=== PATIENT | female | born 1955 | race Caucasian/White ===

== ENCOUNTER → 2016-07-21 | Outpatient (REF) | payer OTHER ==
[~2016-07-21] MED LIST: ACID1CHW5 PO; ACIDCHW PO; BIOT10005 PO; BIOTPOW20 PO; CALCTAB68 PO; CLIN300C PO; GABA-279 PO; IBUP-1114 PO; IBUP200T2 PO; L-LY500C2 PO; L-LY500T4 PO; MULTCAP PO; MULTCAP11 PO; OCEAN NASAL SPRAY; TYLENOL PO; ZOFR4TAB3 PO; lortab PO
== END ==
LOC: M SFHCPLAZ 16:53
PROVIDERS: ATTEND Dermatology
DX: L97.529 Non-pressure chronic ulcer of other part of left foot with unspecified severity (principal)

== ENCOUNTER → 2016-07-28 | Outpatient (REF) | payer OTHER ==
[2016-07-28 17:40] LABS: BASO % 1.1 % (0.0-1.0); EOS # 0.2 K/mm3 (0.0-0.50); EOS % 3.8 % (0.0-3.0); LARGE UNSTAINED CELL # 0.1 K/mm3 (0.0-0.4); LARGE UNSTAINED CELL % 2.8 % (0.0-4.0); LYMPH # 1.3 K/mm3 (1.5-4.5); LYMPH % 30.8 % (24.0-44.0); MEAN CORPUSCULAR HEMOGLOBIN 32.8 pg (27.0-33.0); MEAN CORPUSCULAR HGB CONC 34.6 g/dl (32.0-36.5); MEAN CORPUSCULAR VOLUME 94.8 fl (80.0-96.0); MONO # 0.5 K/mm3 (0.0-0.8); MONO % 12.2 % (0.0-5.0); NEUTROPHILS % 49.2 % (36.0-66.0); PLATELET COUNT, AUTOMATED 220 k/mm3 (150-450)
[2016-07-28 18:32] LABS: VITAMIN B12 LEVEL 556 PG/ML (247-911)
[2016-07-28 18:36] LABS: ALBUMIN 3.9 GM/DL (3.2-5.2); ALBUMIN/GLOBULIN RATIO 1.26 (1.00-1.93); ALKALINE PHOSPHATASE 87 U/L (45-117); ALT/SGPT 27 U/L (12-78); ANION GAP 10 MEQ/L (8-16); AST/SGOT 31 U/L (15-37); BILIRUBIN,TOTAL 0.3 MG/DL (0.2-1.0); BLOOD UREA NITROGEN 9 MG/DL (7-18); CALCIUM LEVEL 8.3 MG/DL (8.5-10.1); CARBON DIOXIDE LEVEL 28 MEQ/L (21-32); CHLORIDE LEVEL 90 MEQ/L (98-107); CREATININE FOR GFR 0.78 MG/DL (0.55-1.02); GLOMERULAR FILTRATION RATE > 60.0 (>51); GLUCOSE, FASTING 71 MG/DL (70-105); POTASSIUM SERUM 3.6 MEQ/L (3.5-5.1); SODIUM LEVEL 128 MEQ/L (136-145)
== END ==
LOC: M LABDRAW1 16:46
PROVIDERS: ATTEND Family Medicine
DX: R53.83 Other fatigue (principal)

== ENCOUNTER → 2016-07-28 | Outpatient (REF) | payer OTHER | END | disposition home or self-care (01) | LOC: M LABDRAW1 16:45 | PROVIDERS: ATTEND Dermatology | DX: R21 Rash and other nonspecific skin eruption (principal) ==

== ENCOUNTER 2016-08-08 14:30 | Emergency (ER) | payer OTHER ==
--- NOTE | 2016-08-08 15:56 | REP ---
Clinical: Trauma. Technique: AP, lateral, bilateral oblique views of the left ankle. Findings: Left lateral swelling is appreciated along with evidence for old lateral malleolus fracture. Degenerative changes are noted to the midfoot with overlying soft tissue swelling and oblique image suggests possible small acute versus chronic avulsion fragments along the anterolateral midfoot. Ankle mortise intact. Impression: Evidence for old lateral malleolus fracture. Degenerative changes limit evaluation. Soft tissue swelling is appreciated and very small acute vs chronic avulsion fragment along the anterolateral midfoot identified on image 4 cannot be excluded. Signed by Keith Rider MD 08/08/2016 03:47 P
--- NOTE | 2016-08-08 15:57 | REP ---
Clinical: Trauma. Technique: AP and frog lateral views of the left femur. Findings: Arthritic degenerative changes of the hip include subchondral sclerosis, joint space narrowing, and spurring along the acetabular margin and inferior margin of the femoral head. No acute fracture dislocation. Impression: Moderate arthritic changes at the left hip. No acute fracture dislocation. Signed by Keith Rider MD 08/08/2016 03:49 P
--- NOTE | 2016-08-08 17:12 | EDDOCDS ---
Nurse's Notes [facility] Name: Gill Moran Age: 61 yrs Sex: Female : 1955 Arrival Date: 08/08/2016 Time: 14:30 Bed TR7 Private MD: Pia Mast A Diagnosis: Sprain of calcaneofibular ligament of left ankle;Fall on same level from slipping, tripping and stumbling Presentation: 08/08 14:40 Presenting complaint: Patient states: pt slipped in locker room yesterday and twisted ttb left ankle. Pain to left foot, knee, leg pain. Adult Sepsis Screening: The patient does not have new or worsening altered mentation. Patient's respiratory rate is less than 22. Systolic blood pressure is greater than 100. Patient has a qSOFA score of 0- Negative Sepsis Screen. Suicide/Homicide risk assessment- the patient denies having any suicidal and/or homicidal ideations and does not present with any other emotional, behavioral or mental health complaints. 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 Transition of care: patient was not received from another setting of care. 14:40 Acuity: DEAN Level 4 ttb 14:40 Method Of Arrival: Walkin/Carried/Asstd ttb Triage Assessment: 14:44 General: Appears in no apparent distress, well nourished, well groomed, Behavior is ttb anxious, restless. Pain: Location: left leg 8/10. HIV screening NA for this visit Offered previously. Neurological: Level of Consciousness is awake, alert. Cardiovascular: Chest pain is denied. Respiratory: No deficits noted. Airway is patent. GI: Denies nausea, vomiting, pain. Derm: Skin is normal. Musculoskeletal: Range of motion limited in pt states entire left leg d/t pain Reports pain in left ankle, knee and leg. Historical: - Allergies: Keflex; Amoxicillin; Cipro PO; cephalexin; - Home Meds: 1. gabapentin 100 mg Oral tab 5x/day (Last dose: 08/08/2016 13:00) 2. ibuprofen 600 mg Oral tab PRN (Last dose: 08/08/2016 13:30) 3. Percocet 5-325 mg Oral tab 1 tab PRN : night time for chronic pain (Last dose: 08/07/2016) - PMHx: Seizure Disorder; "low sodium disorder"; - PSHx: Hip Arthroplasty, Right; nasal/sinus surgery; - Social history: Smoking status: Patient states was never smoker of tobacco. Patient/guardian denies using alcohol, street drugs, No barriers to communication noted, The patient speaks fluent Cape Verdean, Speaks appropriately for age. - : The pt / caregiver states he / she is not on anticoagulants. Home medication list is obtained from the patient. - Exposure Risk Screening:: None identified. Screenin:10 Screening information is obtained from the patient. Fall risk: No risks identified. jjr Assistance ADL's: requires no assistance with activities of daily living. Abuse/DV Screen: The patient / caregiver reports he/she is: not in a situation that causes fear, pain or injury. Nutritional screening: No deficits noted. Advance Directives: There is no active DNR order. home support is adequate. Assessment: 17:10 General: Appears in no apparent distress, slender, well nourished, well groomed, jjr Behavior is appropriate for age. Musculoskeletal: Reports pain in left lateral ankle, left medial ankle and anterior aspect of left ankle. Vital Signs: 14:33 BP 129 / 81 RA Sitting (auto/reg); Pulse 65; Resp 18; Temp 97.1(O); Pulse Ox 100% on jrd R/A; Weight 49.44 kg (R); Height 5 ft. 5 in. (165.10 cm) (R); Pain 8/10; 17:09 BP 133 / 83; Pulse 63; Resp 18; Temp 97.9(O); Pulse Ox 96% on R/A; Pain 9/10; jjr 14:33 Body Mass Index 18.14 (49.44 kg, 165.10 cm) [facility] Vitals: 14:33 Log In Time: August 08, 2016 at 14:30. [facility] ED Course: 14:32 Patient visited by Pool Miramontes PCA. jrd 14:32 Patient moved to Waiting jrd 14:33 Pia Mast is Private Physician. jrd 14:35 Patient visited by Pool Miramontes PCA. jrd 14:35 Patient moved to Pre RCE jrd 14:41 Triage Initiated ttb 14:52 Immanuel Deutsch PA-C is PHCP. cc10 14:52 Scott Levine MD is Attending Physician. cc10 14:52 Patient moved to Triage 3 ar3 15:00 Patient visited by Immanuel Deutsch PA-C. cc10 15:00 Patient visited by Immanuel Deutsch PA-C. cc10 15:29 Patient moved to TR1 ar3 16:03 Ankle, Complete Returned. EDMS 16:03 Femur Returned. EDMS 16:30 Patient moved to PR1 / 25 ms18 16:31 Patient visited by Aliya Hernandez RN. ms18 16:46 [facility] is Referral Physician. cc10 17:06 [facility] Payment Agreement was scanned into [employer] and attached to record. jp5 17:07 Patient moved to TR7 ms18 17:10 The patient / caregiver is instructed regarding the plan of care and ED course. jjr 17:10 No IV's were initiated during this patient's visit. No procedures done that require jjr assistance. Order Results: Radiology Order: Ankle, Complete Test: Ankle, Complete REASON FOR EXAMINATION: Trauma; Clinical: Trauma.; ; Technique: AP, lateral, bilateral oblique views of the left ankle.; ; Findings: Left lateral swelling is appreciated along with evidence for old; lateral malleolus fracture. Degenerative changes are noted to the midfoot with; overlying soft tissue swelling and oblique image suggests possible small acute; versus chronic avulsion fragments along the anterolateral midfoot. Ankle mortise; intact.; ; Impression:; Evidence for old lateral malleolus fracture.; Degenerative changes limit evaluation. Soft tissue swelling is appreciated and; very small acute vs chronic avulsion fragment along the anterolateral midfoot; identified on image 4 cannot be excluded.; ; ; Signed by; Keith Rider MD 08/08/2016 03:47 P; Radiology Order: Femur Test: Femur REASON FOR EXAMINATION: Trauma; Clinical: Trauma.; ; Technique: AP and frog lateral views of the left femur.; ; Findings:; Arthritic degenerative changes of the hip include subchondral sclerosis, joint; space narrowing, and spurring along the acetabular margin and inferior margin of; the femoral head. No acute fracture dislocation.; ; Impression:; Moderate arthritic changes at the left hip.; No acute fracture dislocation.; ; ; Signed by; Keith Rider MD 08/08/2016 03:49 P; Outcome: 16:47 Discharge ordered by Provider. cc10 17:11 Discharge Assessment: patient administered narcotics - no. The following High Risk jjr Discharge criteria are identified: None. Discharged to home via wheelchair, with crutches. Condition: stable. Discharge instructions given to patient, Instructed on discharge instructions, follow up and referral plans. crutch walking, Demonstrated understanding of instructions, crutch walking. No special radiology studies were completed. Property sent home with patient. 17:11 Patient left the ED. jjr Signatures: Dispatcher [employer] EDMS Cassidy Lozada, RN RN jjr Tania Maldonado, HIGHWAY CONSTRUCTION INSPECTOR HIGHWAY CONSTRUCTION INSPECTOR ar3 Leanne Chiang RN RN felizb Immanuel Deutsch, PA-C PA-C cc10 Aliya Hernandez RN RN ms18 Pool Miramontes, HIGHWAY CONSTRUCTION INSPECTOR HIGHWAY CONSTRUCTION INSPECTOR jrd Karin Krasue jp5 YOSSI
--- NOTE | 2016-08-08 17:12 | EDDOCDS ---
Physician Documentation [facility] Name: Gill Moran Age: 61 yrs Sex: Female : 1955 Arrival Date: 08/08/2016 Time: 14:30 Bed TR7 Private MD: Pia Mast A Disposition: 08/08/16 16:47 Discharged to Home/Self Care. Impression: Sprain of calcaneofibular ligament of left ankle, Fall on same level from slipping, tripping and stumbling. - Condition is Stable. - Discharge Instructions: Ankle Sprain. - Medication Reconciliation form. - Follow up: Emergency Department; When: As needed. Follow up: [facility]; When: Call to arrange an appointment; Reason: Wound/Symptom Recheck, Recheck today's complaints, Worsening of conditions, Continuance of care. - Problem is an ongoing problem. - Symptoms are unchanged. Historical: - Allergies: Keflex; Amoxicillin; Cipro PO; cephalexin; - Home Meds: 1. gabapentin 100 mg Oral tab 5x/day (Last dose: 08/08/2016 13:00) 2. ibuprofen 600 mg Oral tab PRN (Last dose: 08/08/2016 13:30) 3. Percocet 5-325 mg Oral tab 1 tab PRN : night time for chronic pain (Last dose: 08/07/2016) - PMHx: Seizure Disorder; "low sodium disorder"; - PSHx: Hip Arthroplasty, Right; nasal/sinus surgery; - Social history: Smoking status: Patient states was never smoker of tobacco. Patient/guardian denies using alcohol, street drugs, No barriers to communication noted, The patient speaks fluent Faroese, Speaks appropriately for age. - : The pt / caregiver states he / she is not on anticoagulants. Home medication list is obtained from the patient. - Exposure Risk Screening:: None identified. Vital Signs: 08/08 14:33 BP 129 / 81 RA Sitting (auto/reg); Pulse 65; Resp 18; Temp 97.1(O); Pulse Ox 100% on jrd R/A; Weight 49.44 kg / 109 lbs (R); Height 5 ft. 5 in. (165.10 cm) (R); Pain 8/10; 17:09 BP 133 / 83; Pulse 63; Resp 18; Temp 97.9(O); Pulse Ox 96% on R/A; Pain 9/10; jjr 14:33 Body Mass Index 18.14 (49.44 kg, 165.10 cm) jrd MDM: 15:20 Ankle, Complete Ordered. EDMS 15:21 Femur Ordered. EDMS 16:45 Crutches ordered. cc10 16:45 Apply Air Cast to Patient. ordered. cc10 17:06 [facility] Payment Agreement was scanned into [employer] and attached to record. jp5 17:06 Financial registration complete. jp5 Signatures: Dispatcher [employer] EDMS Cassidy Lozada, RN RN Leanne Bell RN RN Immanuel Capps, PAJesusitaC PA-C cc10 Karin Krause jp5 The chart was reviewed and I authenticate all verbal orders and agree with the evaluation and treatment provided.Attachments: 17:06 [facility] Payment Agreement jp5 MTDD
--- NOTE | 2016-08-10 18:13 | EDDOCDS ---
Physician Documentation [facility] Name: Gill Moran Age: 61 yrs Sex: Female : 1955 Arrival Date: 08/08/2016 Time: 14:30 Bed TR7 Private MD: Pia Mast A Disposition: 08/08/16 16:47 Discharged to Home/Self Care. Impression: Sprain of calcaneofibular ligament of left ankle, Fall on same level from slipping, tripping and stumbling. - Condition is Stable. - Discharge Instructions: Ankle Sprain. - Medication Reconciliation form. - Follow up: Emergency Department; When: As needed. Follow up: [facility]; When: Call to arrange an appointment; Reason: Wound/Symptom Recheck, Recheck today's complaints, Worsening of conditions, Continuance of care. - Problem is an ongoing problem. - Symptoms are unchanged. Historical: - Allergies: Keflex; Amoxicillin; Cipro PO; cephalexin; - Home Meds: 1. gabapentin 100 mg Oral tab 5x/day (Last dose: 08/08/2016 13:00) 2. ibuprofen 600 mg Oral tab PRN (Last dose: 08/08/2016 13:30) 3. Percocet 5-325 mg Oral tab 1 tab PRN : night time for chronic pain (Last dose: 08/07/2016) - PMHx: Seizure Disorder; "low sodium disorder"; - PSHx: Hip Arthroplasty, Right; nasal/sinus surgery; - Social history: Smoking status: Patient states was never smoker of tobacco. Patient/guardian denies using alcohol, street drugs, No barriers to communication noted, The patient speaks fluent Ukrainian, Speaks appropriately for age. - : The pt / caregiver states he / she is not on anticoagulants. Home medication list is obtained from the patient. - Exposure Risk Screening:: None identified. Vital Signs: 08/08 14:33 BP 129 / 81 RA Sitting (auto/reg); Pulse 65; Resp 18; Temp 97.1(O); Pulse Ox 100% on jrd R/A; Weight 49.44 kg / 109 lbs (R); Height 5 ft. 5 in. (165.10 cm) (R); Pain 8/10; 17:09 BP 133 / 83; Pulse 63; Resp 18; Temp 97.9(O); Pulse Ox 96% on R/A; Pain 9/10; jjr 14:33 Body Mass Index 18.14 (49.44 kg, 165.10 cm) jrd MDM: 15:20 Ankle, Complete Ordered. EDMS 15:21 Femur Ordered. EDMS 16:45 Crutches ordered. cc10 16:45 Apply Air Cast to Patient. ordered. cc10 17:06 [facility] Payment Agreement was scanned into [employer] and attached to record. jp5 17: Financial registration complete. jp5 08/09 10:10 T-Sheet-- Draft Copy was scanned into [employer] and attached to record. gb Signatures: Dispatcher [employer] EDMS Vanessa Lucas, Reg Reg gb Cassidy Lozada, RN RN Leanne Bell RN RN ttImmanuel Mcdonald, PA-C PA-C cc10 Karin Krause 5 The chart was reviewed and I authenticate all verbal orders and agree with the evaluation and treatment provided.Attachments: 08/08 17:06 [facility] Payment Agreement jp5 08/09 10:10 T-Sheet-- Draft Copy gb Chart Complete MTDD
--- NOTE | 2016-08-10 18:13 | EDDOCDS ---
Physician Documentation [facility] Name: Gill Moran Age: 61 yrs Sex: Female : 1955 Arrival Date: 08/08/2016 Time: 14:30 Bed TR7 Private MD: Pia Mast A Disposition: 08/08/16 16:47 Discharged to Home/Self Care. Impression: Sprain of calcaneofibular ligament of left ankle, Fall on same level from slipping, tripping and stumbling. - Condition is Stable. - Discharge Instructions: Ankle Sprain. - Medication Reconciliation form. - Follow up: Emergency Department; When: As needed. Follow up: [facility]; When: Call to arrange an appointment; Reason: Wound/Symptom Recheck, Recheck today's complaints, Worsening of conditions, Continuance of care. - Problem is an ongoing problem. - Symptoms are unchanged. Historical: - Allergies: Keflex; Amoxicillin; Cipro PO; cephalexin; - Home Meds: 1. gabapentin 100 mg Oral tab 5x/day (Last dose: 08/08/2016 13:00) 2. ibuprofen 600 mg Oral tab PRN (Last dose: 08/08/2016 13:30) 3. Percocet 5-325 mg Oral tab 1 tab PRN : night time for chronic pain (Last dose: 08/07/2016) - PMHx: Seizure Disorder; "low sodium disorder"; - PSHx: Hip Arthroplasty, Right; nasal/sinus surgery; - Social history: Smoking status: Patient states was never smoker of tobacco. Patient/guardian denies using alcohol, street drugs, No barriers to communication noted, The patient speaks fluent Belarusian, Speaks appropriately for age. - : The pt / caregiver states he / she is not on anticoagulants. Home medication list is obtained from the patient. - Exposure Risk Screening:: None identified. Vital Signs: 08/08 14:33 BP 129 / 81 RA Sitting (auto/reg); Pulse 65; Resp 18; Temp 97.1(O); Pulse Ox 100% on jrd R/A; Weight 49.44 kg / 109 lbs (R); Height 5 ft. 5 in. (165.10 cm) (R); Pain 8/10; 17:09 BP 133 / 83; Pulse 63; Resp 18; Temp 97.9(O); Pulse Ox 96% on R/A; Pain 9/10; jjr 14:33 Body Mass Index 18.14 (49.44 kg, 165.10 cm) jrd MDM: 15:20 Ankle, Complete Ordered. EDMS 15:21 Femur Ordered. EDMS 16:45 Crutches ordered. cc10 16:45 Apply Air Cast to Patient. ordered. cc10 17:06 [facility] Payment Agreement was scanned into [employer] and attached to record. jp5 17: Financial registration complete. jp5 08/09 10:10 T-Sheet-- Draft Copy was scanned into [employer] and attached to record. gb Signatures: Dispatcher [employer] EDMS Vanessa Lucas, Reg Reg gb Cassidy Lozada, RN RN Leanne Bell RN RN ttImmanuel Mcdonald, PA-C PA-C cc10 Karin Krause 5 The chart was reviewed and I authenticate all verbal orders and agree with the evaluation and treatment provided.Attachments: 08/08 17:06 [facility] Payment Agreement jp5 08/09 10:10 T-Sheet-- Draft Copy gb Chart Complete MTDD
--- NOTE | 2016-08-10 18:13 | EDDOCDS ---
Nurse's Notes [facility] Name: Gill Moran Age: 61 yrs Sex: Female : 1955 Arrival Date: 08/08/2016 Time: 14:30 Bed TR7 Private MD: Pia Mast A Diagnosis: Sprain of calcaneofibular ligament of left ankle;Fall on same level from slipping, tripping and stumbling Presentation: 08/08 14:40 Presenting complaint: Patient states: pt slipped in locker room yesterday and twisted ttb left ankle. Pain to left foot, knee, leg pain. Adult Sepsis Screening: The patient does not have new or worsening altered mentation. Patient's respiratory rate is less than 22. Systolic blood pressure is greater than 100. Patient has a qSOFA score of 0- Negative Sepsis Screen. Suicide/Homicide risk assessment- the patient denies having any suicidal and/or homicidal ideations and does not present with any other emotional, behavioral or mental health complaints. Status: Patient is not a service delivery consultant or dependent. Transition of care: patient was not received from another setting of care. 14:40 Acuity: DEAN Level 4 ttb 14:40 Method Of Arrival: Walkin/Carried/Asstd ttb Triage Assessment: 14:44 General: Appears in no apparent distress, well nourished, well groomed, Behavior is ttb anxious, restless. Pain: Location: left leg 8/10. HIV screening NA for this visit Offered previously. Neurological: Level of Consciousness is awake, alert. Cardiovascular: Chest pain is denied. Respiratory: No deficits noted. Airway is patent. GI: Denies nausea, vomiting, pain. Derm: Skin is normal. Musculoskeletal: Range of motion limited in pt states entire left leg d/t pain Reports pain in left ankle, knee and leg. Historical: - Allergies: Keflex; Amoxicillin; Cipro PO; cephalexin; - Home Meds: 1. gabapentin 100 mg Oral tab 5x/day (Last dose: 08/08/2016 13:00) 2. ibuprofen 600 mg Oral tab PRN (Last dose: 08/08/2016 13:30) 3. Percocet 5-325 mg Oral tab 1 tab PRN : night time for chronic pain (Last dose: 08/07/2016) - PMHx: Seizure Disorder; "low sodium disorder"; - PSHx: Hip Arthroplasty, Right; nasal/sinus surgery; - Social history: Smoking status: Patient states was never smoker of tobacco. Patient/guardian denies using alcohol, street drugs, No barriers to communication noted, The patient speaks fluent Ecuadorean, Speaks appropriately for age. - : The pt / caregiver states he / she is not on anticoagulants. Home medication list is obtained from the patient. - Exposure Risk Screening:: None identified. Screenin:10 Screening information is obtained from the patient. Fall risk: No risks identified. jjr Assistance ADL's: requires no assistance with activities of daily living. Abuse/DV Screen: The patient / caregiver reports he/she is: not in a situation that causes fear, pain or injury. Nutritional screening: No deficits noted. Advance Directives: There is no active DNR order. home support is adequate. Assessment: 17:10 General: Appears in no apparent distress, slender, well nourished, well groomed, jjr Behavior is appropriate for age. Musculoskeletal: Reports pain in left lateral ankle, left medial ankle and anterior aspect of left ankle. Vital Signs: 14:33 BP 129 / 81 RA Sitting (auto/reg); Pulse 65; Resp 18; Temp 97.1(O); Pulse Ox 100% on jrd R/A; Weight 49.44 kg (R); Height 5 ft. 5 in. (165.10 cm) (R); Pain 8/10; 17:09 BP 133 / 83; Pulse 63; Resp 18; Temp 97.9(O); Pulse Ox 96% on R/A; Pain 9/10; jjr 14:33 Body Mass Index 18.14 (49.44 kg, 165.10 cm) [facility] Vitals: 14:33 Log In Time: August 08, 2016 at 14:30. [facility] ED Course: 14:32 Patient visited by Pool Miramontes PCA. jrd 14:32 Patient moved to Waiting jrd 14:33 Pia Mast is Private Physician. jrd 14:35 Patient visited by Pool Miramontes PCA. jrd 14:35 Patient moved to Pre RCE jrd 14:41 Triage Initiated ttb 14:52 Immanuel Deutsch PA-C is PHCP. cc10 14:52 Scott Levine MD is Attending Physician. cc10 14:52 Patient moved to Triage 3 ar3 15:00 Patient visited by Immanuel Deutsch PA-C. cc10 15:00 Patient visited by Immanuel Deutsch PA-C. cc10 15:29 Patient moved to TR1 ar3 16:03 Ankle, Complete Returned. EDMS 16:03 Femur Returned. EDMS 16:30 Patient moved to PR1 / 25 ms18 16:31 Patient visited by Aliya Hernandez RN. ms18 16:46 [facility] is Referral Physician. cc10 17:06 [facility] Payment Agreement was scanned into [employer] and attached to record. jp5 17:07 Patient moved to TR7 ms18 17:10 The patient / caregiver is instructed regarding the plan of care and ED course. jjr 17:10 No IV's were initiated during this patient's visit. No procedures done that require jjr assistance. 08/09 10:10 T-Sheet-- Draft Copy was scanned into [employer] and attached to record. gb Order Results: Radiology Order: Ankle, Complete Test: Ankle, Complete REASON FOR EXAMINATION: Trauma; Clinical: Trauma.; ; Technique: AP, lateral, bilateral oblique views of the left ankle.; ; Findings: Left lateral swelling is appreciated along with evidence for old; lateral malleolus fracture. Degenerative changes are noted to the midfoot with; overlying soft tissue swelling and oblique image suggests possible small acute; versus chronic avulsion fragments along the anterolateral midfoot. Ankle mortise; intact.; ; Impression:; Evidence for old lateral malleolus fracture.; Degenerative changes limit evaluation. Soft tissue swelling is appreciated and; very small acute vs chronic avulsion fragment along the anterolateral midfoot; identified on image 4 cannot be excluded.; ; ; Signed by; Keith Rider MD 08/08/2016 03:47 P; Radiology Order: Femur Test: Femur REASON FOR EXAMINATION: Trauma; Clinical: Trauma.; ; Technique: AP and frog lateral views of the left femur.; ; Findings:; Arthritic degenerative changes of the hip include subchondral sclerosis, joint; space narrowing, and spurring along the acetabular margin and inferior margin of; the femoral head. No acute fracture dislocation.; ; Impression:; Moderate arthritic changes at the left hip.; No acute fracture dislocation.; ; ; Signed by; Keith Rider MD 08/08/2016 03:49 P; Outcome: 08/08 16:47 Discharge ordered by Provider. cc10 17:11 Discharge Assessment: patient administered narcotics - no. The following High Risk jjr Discharge criteria are identified: None. Discharged to home via wheelchair, with crutches. Condition: stable. Discharge instructions given to patient, Instructed on discharge instructions, follow up and referral plans. crutch walking, Demonstrated understanding of instructions, crutch walking. No special radiology studies were completed. Property sent home with patient. 17:11 Patient left the ED. jjr Signatures: Dispatcher [employer] EDMS Vanessa Lucas, Ryan Reg Cassidy Crowell, RN MISAEL jjTania Allen, SENIOR CONTROL SYSTEMS ENGINEER SENIOR CONTROL SYSTEMS ENGINEER ar3 Leanne Chiang RN RN ttb Coniski, Colin, PA-C PA-C cc10 Aliya Hernandez,MISAEL RN ms18 Pool Miramontes, SENIOR CONTROL SYSTEMS ENGINEER SENIOR CONTROL SYSTEMS ENGINEER jrd Karin Krause jp5 Chart Complete YOSSI
== END 2016-08-08 17:11 | disposition home or self-care (01) ==
LOC: M ED 14:30
DX: S93.412A Sprain of calcaneofibular ligament of left ankle, initial encounter (principal); W01.0XXA Fall on same level from slipping, tripping and stumbling without subsequent striking against object, initial encounter; Y92.29 Other specified public building as the place of occurrence of the external cause; Y93.89 Activity, other specified; Y99.8 Other external cause status; G89.29 Other chronic pain; M25.551 Pain in right hip; G40.909 Epilepsy, unspecified, not intractable, without status epilepticus; Z79.899 Other long term (current) drug therapy; Z88.0 Allergy status to penicillin; Z88.1 Allergy status to other antibiotic agents

== ENCOUNTER → 2017-02-10 | Outpatient (REF) | payer OTHER ==
[~2017-02-10] MED LIST changes: -BIOT10005 PO; +BIOT10008 PO
== END ==
LOC: M LAB REF 12:03
PROVIDERS: ATTEND Surgery
DX: L72.0 Epidermal cyst (principal)

== ENCOUNTER → 2017-03-21 | Outpatient (REF) | payer OTHER | LOC: M SFHCLERA 11:39 | PROVIDERS: ATTEND Dermatology | DX: L82.1 Other seborrheic keratosis (principal) ==

== ENCOUNTER → 2017-03-23 | Outpatient (CLI) | payer OTHER ==
--- NOTE | 2017-03-24 09:39 | DEXA ---
AP SPINE L1 - L4 0.977 -1.8 -0.6 LT FEMUR TOTAL 0.769 -1.9 -1.0 RT FEMUR TOTAL Hip replacement. TOTAL BODY TOTAL OTHER L2-4 1.009 -1.7 -0.5 DUAL FEMUR FRAX* ASSESSMENT Risk factors: 10 year probability of fracture Major osteoporotic fracture Hip fracture COMMENTS: Normal bone densitometry of the spine. There is low bone density of the left hip. The density of the spine has decreased 18.4% since 11/25/2006. FOLLOW-UP: Recommendation for the next bone density exam: 2 years. REYNOLDD
== END ==
LOC: M WHC 10:37
PROVIDERS: ATTEND Family Medicine
DX: M89.9 Disorder of bone, unspecified (principal); M94.9 Disorder of cartilage, unspecified; Z78.0 Asymptomatic menopausal state

== ENCOUNTER → 2017-03-23 | Outpatient (REF) | payer OTHER ==
[2017-03-23 20:19] LABS: IMMUNOGLOBULIN G 832 MG/DL (681-1648); IMMUNOGLOBULIN M 112 MG/DL (40-230)
[2017-03-29 14:15] LABS: IgG SERUM (part of Subclasses) 699 mg/dL (700-1600); IgG Subclass 1 301 mg/dL (248-810); IgG Subclass 2 457 mg/dL (130-555); IgG Subclass 3 37 mg/dL (15-102); IgG Subclass 4 4 mg/dL (2-96); SJOGREN'S ANTI SS-A <0.2 AI (0.0-0.9); SJOGREN'S ANTI SS-B <0.2 AI (0.0-0.9)
== END ==
LOC: M LAB REF 16:49
PROVIDERS: ATTEND Internal Medicine Pulmonary Disease
DX: R91.8 Other nonspecific abnormal finding of lung field (principal); J47.9 Bronchiectasis, uncomplicated

== ENCOUNTER → 2017-03-31 | Outpatient (CLI) | payer OTHER ==
--- NOTE | 2017-04-01 04:24 | REP ---
Clinical: Abnormal pulmonary findings. Comparison: 06/11/2014. Findings: At the site of the previously noted cavitary lesion in the right upper lobe is a solid ovoid mass with spiculated margins measuring approximately 17 mm maximal diameter. A smaller 6 mm nodule is identified superiorly to this lesion (image 20). Chronic and progressive fibroatelectatic changes including scattered scarring and small chronic progressive areas of reticulonodular interstitial disease are identified predominantly in the upper lobes (R > L), right middle lobe and lingula. No further acute consolidation. No pleural effusion/reaction or pneumothorax. Tracheobronchial tree is patent. Evaluation of the mediastinum is limited by the lack of intravenous contrast enhancement. No obvious adenopathy is appreciated. Mild atherosclerotic changes to the coronary arteries noted without cardiomegaly or pericardial effusion. Surrounding musculoskeletal structures without focal osseous abnormality. Impression: 1. A 17 mm soft tissue mass with spiculated margins at the site of previously noted cavitary lesion along with smaller 6 mm new nodule. Active pathology cannot be excluded and follow-up examination in 3-6 months and/or PET-CT may be warranted for more definitive evaluation. 2. Likely age-related, chronic and progressive subtle reticulonodular interstitial changes and scattered fibroatelectatic changes primarily noted to the upper lobes, right middle lobe and lingula. While these findings are likely chronic day may also benefit from 3-6 months follow-up to ensure a benign findings. Signed by Keith Rider MD 04/01/2017 04:15 A
== END ==
LOC: M RAD 18:28
PROVIDERS: ATTEND Internal Medicine Pulmonary Disease
DX: R91.8 Other nonspecific abnormal finding of lung field (principal)

== ENCOUNTER → 2017-04-22 | Outpatient (CLI) | payer OTHER ==
[2017-04-22 11:34] LABS: BASO % 0.9 % (0.0-1.0); EOS # 0.2 10^3/uL (0.0-0.50); EOS % 3.7 % (0.0-3.0); IMMATURE GRANULOCYTE % 0.7 % (0-0); LYMPH # 1.4 10^3/uL (1.5-4.5); LYMPH % 31.1 % (24.0-44.0); MEAN CORPUSCULAR HEMOGLOBIN 31.8 pg (27.0-33.0); MEAN CORPUSCULAR HGB CONC 35.2 g/dl (32.0-36.5); MEAN CORPUSCULAR VOLUME 90.5 fl (80.0-96.0); MONO # 0.6 10^3/uL (0.0-0.8); MONO % 14.4 % (0.0-5.0); NEUTROPHILS # 2.2 10^3/uL (1.8-7.7); NEUTROPHILS % 49.2 % (36.0-66.0); PLATELET COUNT, AUTOMATED 254 10^3/uL (150-450); RED CELL DISTRIBUTION WIDTH 12.5 % (11.5-14.5); WHITE BLOOD COUNT 4.4 10^3/uL (4.0-10.0)
[2017-04-22 11:53] LABS: ANION GAP 5 MEQ/L (8-16); BLOOD UREA NITROGEN 8 MG/DL (7-18); CARBON DIOXIDE LEVEL 30 MEQ/L (21-32); CHLORIDE LEVEL 90 MEQ/L (98-107); CREATININE FOR GFR 0.42 MG/DL (0.55-1.02); GLOMERULAR FILTRATION RATE > 60.0 (>45); GLUCOSE, FASTING 95 MG/DL (80-110); POTASSIUM SERUM 3.9 MEQ/L (3.5-5.1); SODIUM LEVEL 125 MEQ/L (136-145)
[2017-04-22 11:54] LABS: ALBUMIN 4.3 GM/DL (3.2-5.2); ALBUMIN/GLOBULIN RATIO 1.39 (1.00-1.93); ALKALINE PHOSPHATASE 98 U/L (45-117); ALT/SGPT 29 U/L (12-78); AST/SGOT 28 U/L (7-37); BILIRUBIN,TOTAL 0.6 MG/DL (0.2-1.0); CHOLESTEROL LEVEL 217 MG/DL (<200); TOTAL PROTEIN 7.4 GM/DL (6.4-8.2); TRIGLYCERIDES LEVEL 38 MG/DL (<150)
== END ==
LOC: M LAB 11:01
PROVIDERS: ATTEND Family Medicine
DX: Z00.00 Encounter for general adult medical examination without abnormal findings (principal); E55.9 Vitamin D deficiency, unspecified

== ENCOUNTER → 2017-05-02 | Outpatient (CLI) | payer OTHER ==
[2017-05-02 18:38] LABS: ANION GAP 6 MEQ/L (8-16); BLOOD UREA NITROGEN 9 MG/DL (7-18); CALCIUM LEVEL 8.9 MG/DL (8.8-10.2); CARBON DIOXIDE LEVEL 30 MEQ/L (21-32); CHLORIDE LEVEL 90 MEQ/L (98-107); CREATININE FOR GFR 0.54 MG/DL (0.55-1.02); GLOMERULAR FILTRATION RATE > 60.0 (>45); GLUCOSE, FASTING 96 MG/DL (80-110); POTASSIUM SERUM 4.1 MEQ/L (3.5-5.1); SODIUM LEVEL 126 MEQ/L (136-145)
== END ==
LOC: M LAB 17:41
PROVIDERS: ATTEND Family Medicine
DX: E87.1 Hypo-osmolality and hyponatremia (principal)

== ENCOUNTER → 2017-05-27 | Outpatient (CLI) | payer OTHER ==
--- NOTE | 2017-05-27 15:40 | REP ---
Bilateral screening digital mammogram: There are no palpable abnormalities or other breast complaints. The patient states that she has not had a clinical breast exam in over a year. Comparison is 06/02/2010. There is very dense heterogeneous breast parenchyma that could obscure a lesion. There has been no interval development of masses, areas of structural distortion or clusters of microcalcifications typical of malignancy. Impression: There is no evidence of malignancy. BIRADS category 1 negative mammogram. The patient should have a repeat mammogram in 1 year. This mammogram was interpreted with the aid of an FDA-approved computer-aided detection system. A. Negative x-ray reports should not delay biopsy if a dominant or clinically suspicious mass is present. B. Not all breast cancers are identified by x-ray. C. Adenosis and dense breasts may obscure an underlying neoplasm The patient letter being requested is M1 Signed by Dao Mccrary MD 05/27/2017 06:38 P
== END ==
LOC: M RAD 12:17
PROVIDERS: ATTEND Family Medicine
DX: Z12.31 Encounter for screening mammogram for malignant neoplasm of breast (principal); M94.9 Disorder of cartilage, unspecified; M89.9 Disorder of bone, unspecified

== ENCOUNTER → 2017-05-30 | Outpatient (REF) | payer OTHER | LOC: M LAB REF 17:23 | PROVIDERS: ATTEND Family Medicine | DX: Z01.419 Encounter for gynecological examination (general) (routine) without abnormal findings (principal) ==

== ENCOUNTER → 2017-10-05 | Outpatient (CLI) | payer OTHER | LOC: M RAD 17:40 | DX: R91.8 Other nonspecific abnormal finding of lung field (principal) | CPT/HCPCS: 71250 ==

== ENCOUNTER → 2017-12-15 | Outpatient (CLI) | payer OTHER | LOC: M RAD 11:12 | DX: R91.8 Other nonspecific abnormal finding of lung field (principal) | CPT/HCPCS: 71250 ==

== ENCOUNTER → 2018-01-18 | Outpatient (REF) | payer OTHER | LOC: M LAB REF 14:51 | DX: J47.9 Bronchiectasis, uncomplicated (principal) ==

== ENCOUNTER → 2018-02-07 | Outpatient (REF) | payer OTHER | LOC: M LAB REF 13:29 | DX: R91.8 Other nonspecific abnormal finding of lung field (principal) ==

== ENCOUNTER → 2018-06-30 | Outpatient (CLI) | payer OTHER ==
[~2018-06-30] MED LIST changes: +GABA-1171 PO; -GABA-279 PO
--- NOTE | 2018-06-30 16:08 | REPMRS ---
Patient History The patient states she has not had a clinical breast exam in over a year. Family history of colorectal cancer at age 81 in paternal grandfather. Digital Mammo Screening Bilat: June 30, 2018 - Exam #: [id number] Bilateral CC and MLO view(s) were taken. Technologist: Tania Mccall, Technologist Prior study comparison: May 27, 2017, bilateral digital mammo screening bilat performed at [facility]. April 12, 2016, bilateral digital mammo screening bilat performed at [facility]. December 24, 2014, bilateral digital mammo screening bilat performed at [facility]. FINDINGS: The breast tissue is heterogeneously dense. This may lower the sensitivity of mammography. There is a moderate amount of heterogeneously dense fibroglandular tissue which is fairly symmetric. There is no interval development of dominant mass, architectural distortion, or clustered microcalcification typical of malignancy. There has been no change in the appearance of the mammogram from the prior studies. 3-D tomosynthesis shows no additional findings. Assessment: BI-RADS/ACR category 1 mammogram. Negative. Recommendation Routine screening mammogram of both breasts in 1 year (for women over age 40). This patient's Lifetime Breast Cancer RIsk is estimated at 8.2 %. This mammogram was interpreted with the aid of an FDA-approved computer-aided dectection system. Electronically Signed By: Willi Zarco MD 06/30/18 [id number]
== END ==
LOC: M RAD 12:48
PROVIDERS: ATTEND Family Medicine
DX: Z12.31 Encounter for screening mammogram for malignant neoplasm of breast (principal)

== ENCOUNTER → 2018-06-30 | Outpatient (CLI) | payer OTHER ==
--- NOTE | 2018-06-30 17:51 | REP ---
CT chest without contrast: History: Abnormal lung field findings. Comparison chest CT study: December 15, 2017. Comparison March 31, [address] findings: There has been no change in the size or appearance of the 12 mm spiculated nodule in the posterior segment of the right upper lobe in the interval since the most recent prior study of December 15, 2017. The lesion does not appear to have progressed in the interval. There are other stable noncalcified nodules in the right upper lobe as well. There are scattered areas of pleuroparenchymal fibrosis which are unchanged. There is a new 6 mm noncalcified pulmonary nodule anteromedially in the right upper lobe adjacent to some chronic atelectasis and bronchiectasis. This nodule is displayed on axial image number 51 of 130 in series 201 of today's study. This nodule was not previously apparent. It may be related to inspissated endobronchial secretions since there are dilated middle lobe bronchi adjacent to it. No other new nodule is seen. No pleural effusion is seen. Impression: Stable spiculated 12 mm nodule right upper lobe. Scattered nodular and fibrotic changes. New nodule right middle lobe as noted above. Electronically Signed by Declan Zarco MD 06/30/2018 08:05 P
== END ==
LOC: M RAD 12:45
PROVIDERS: ATTEND Internal Medicine Pulmonary Disease
DX: R91.8 Other nonspecific abnormal finding of lung field (principal)

== ENCOUNTER → 2018-07-12 | Outpatient (CLI) | payer OTHER ==
[2018-07-12 11:38] LABS: EOS # 0.1 10^3/uL (0.0-0.50); EOS % 3.6 % (0.0-3.0); HEMATOCRIT 38.6 % (36.0-47.0); HEMOGLOBIN 13.5 g/dl (12.0-15.5); LYMPH # 1.1 10^3/uL (1.5-4.5); LYMPH % 28.8 % (24.0-44.0); MEAN CORPUSCULAR VOLUME 91.5 fl (80.0-96.0); MONO # 0.7 10^3/uL (0.0-0.8); MONO % 17.1 % (0.0-5.0); NEUTROPHILS # 1.9 10^3/uL (1.8-7.7); PLATELET COUNT, AUTOMATED 241 10^3/uL (150-450); RED BLOOD COUNT 4.22 10^6/uL (4.00-5.40); WHITE BLOOD COUNT 3.9 10^3/uL (4.0-10.0)
[2018-07-12 12:11] LABS: ALBUMIN 4.1 GM/DL (3.2-5.2); ALT/SGPT 28 U/L (12-78); BILIRUBIN,TOTAL 0.4 MG/DL (0.2-1.0); BLOOD UREA NITROGEN 8 MG/DL (7-18); CALCIUM LEVEL 8.5 MG/DL (8.8-10.2); CARBON DIOXIDE LEVEL 27 MEQ/L (21-32); CHLORIDE LEVEL 89 MEQ/L (98-107); CHOLESTEROL LEVEL 199 MG/DL (<200); CHOLESTEROL RISK RATIO 1.842 (<5); CREATININE FOR GFR 0.46 MG/DL (0.55-1.30); GLOMERULAR FILTRATION RATE > 60.0 (>45); GLUCOSE, FASTING 84 MG/DL (70-100); HDL CHOLESTEROL 108 MG/DL (>40); LDL CHOLESTEROL 83 MG/DL (<100); NON-HDL-C 91 MG/DL; POTASSIUM SERUM 4.1 MEQ/L (3.5-5.1); SODIUM LEVEL 125 MEQ/L (136-145); TOTAL PROTEIN 6.9 GM/DL (6.4-8.2); TRIGLYCERIDES LEVEL 38 MG/DL (<150)
== END ==
LOC: M LAB 10:35
PROVIDERS: ATTEND Family Medicine
DX: Z00.00 Encounter for general adult medical examination without abnormal findings (principal)

== ENCOUNTER → 2018-07-12 | Outpatient (REF) | payer OTHER ==
[2018-07-12 16:22] LABS: INR 0.95; PROTHROMBIN TIME 12.8 SECONDS (12.1-14.4)
== END ==
LOC: M LAB REF 15:41
PROVIDERS: ATTEND Internal Medicine Pulmonary Disease
DX: R91.8 Other nonspecific abnormal finding of lung field (principal); Z01.812 Encounter for preprocedural laboratory examination

== ENCOUNTER → 2018-08-10 | Outpatient (CLI) | payer OTHER ==
[~2018-08-10] MED LIST changes: +ACETAMINOPHEN 325 MG TAB As Ordered ONE; +LIDOCAINE 1% MDV 20ML VIAL As Ordered ONE
--- NOTE | 2018-08-10 10:39 | REP ---
Chest x-ray: Single PA view: History: Patient status post CT guided needle biopsy right upper lobe pulmonary nodule. Post biopsy evaluation. Comparison study: February 04, 2015. Findings: There is a tiny right apical pneumothorax with a 7 mm air collection at the apex. No other evidence of complication. Findings otherwise unchanged. Impression: Tiny post-biopsy right apical pneumothorax. Electronically Signed by Declan Zarco MD 08/10/2018 10:56 A
--- NOTE | 2018-08-10 13:37 | REP ---
Chest x-ray: Single view. 12:00 p.m. film History: Status post right upper lobe needle biopsy procedure. Followup pneumothorax. Findings: In comparison with the 10:00 a.m. film on this date, there has been a slight increase in the size of the small right-sided pneumothorax. No other new finding. Impression: Slight increase in the size of the right-sided pneumothorax. Electronically Signed by Declan Zarco MD 08/10/2018 04:30 P
--- NOTE | 2018-08-10 16:15 | REP ---
Follow-up PA chest x-ray: 02:29 p.m. film. History: Post needle biopsy right sided small pneumothorax. For follow-up. Comparison study 12:00 p.m. on this date. Findings: The current chest x-ray is obtained at expiration. This shows a interval decrease in the size of the small right-sided pneumothorax. No progression. Otherwise unchanged. Impression: Slight interval decrease in the size of the small right-sided pneumothorax. Electronically Signed by Declan Zarco MD 08/10/2018 04:37 P
--- NOTE | 2018-08-10 16:37 | REP ---
CT-GUIDED RIGHT UPPER LOBE LUNG BIOPSY The procedure was performed under the direct supervision of Dr. Zarco. Patient has a history of a spiculated nodule in the right upper lobe measuring 1.2 cm seen on a previous CT scan dated 06/30/2018. The risks and benefits of the procedure were explained to the patient and informed consent was obtained. The right upper lobe lung nodule was localized using CT guidance. The skin was prepped and draped in a sterile fashion. 1% lidocaine was used as a local anesthetic. Using CT guidance a 19/20 gauge coaxial needle biopsy system was inserted and advanced into the nodule. Six core biopsy samples were obtained and sent to lab. Post biopsy CT shows no evidence of pneumothorax. A single view chest x-ray performed immediately after the procedure shows a tiny right apical pneumothorax. The patient was placed on 2 liters of O2 via nasal cannula. Her vital signs were stable. Chest x-ray performed 2 hours later shows a slight increase in the size of the right-sided pneumothorax. Dr. Farah was consulted and came to the department to see the patient. Chest x-ray was performed to hours later. Image demonstrates the right apical pneumothorax to be stable. Dr. Farah felt it was okay for the patient to be discharged home. The patient will follow-up with Dr. Farah next week. Reviewed by TARAS Rodriguez 08/10/2018 03:30 P Electronically Signed by Declan Zarco MD 08/10/2018 04:29 P
== END ==
LOC: M RADPRO 08:31
PROVIDERS: ATTEND Internal Medicine Pulmonary Disease
DX: J95.811 Postprocedural pneumothorax (principal); R91.8 Other nonspecific abnormal finding of lung field

== ENCOUNTER → 2018-08-16 | Outpatient (CLI) | payer OTHER ==
[~2018-08-16] MED LIST changes: -ACETAMINOPHEN 325 MG TAB As Ordered ONE; -LIDOCAINE 1% MDV 20ML VIAL As Ordered ONE
--- NOTE | 2018-08-17 02:03 | REP ---
Clinical: Pneumothorax. Technique: PA and lateral. Comparison: 08/10/2018. Findings: Mediastinum and cardiac silhouette are normal. Lung conklin demonstrate chronic stable interstitial changes along with table ill-defined opacities in the periphery of the right upper lung zone. No pneumothorax identified. No consolidation, effusion, or pneumothorax. Skeletal structures are intact. Impression: No significant pneumothorax appreciated. Electronically Signed by Keith Rider MD 08/17/2018 01:54 A
== END ==
LOC: M SMT 11:11
PROVIDERS: ATTEND Thoracic Surgery (Cardiothoracic Vascular Surgery)
DX: J95.811 Postprocedural pneumothorax (principal)

== ENCOUNTER → 2018-10-30 | Outpatient (REF) | payer OTHER ==
[~2018-10-30] MED LIST changes: +ONDA-228 PO; -ZOFR4TAB3 PO
== END ==
LOC: M LAB REF 15:50
PROVIDERS: ATTEND Otolaryngology
DX: C02.9 Malignant neoplasm of tongue, unspecified (principal)

== ENCOUNTER → 2018-11-29 | Outpatient (CLI) | payer OTHER ==
[~2018-11-29] MED LIST changes: +BIOT1CAP2 PO; +CALC500C14 PO; +CLIN150C14 PO; +L-LY500T6 PO; +OXYC15TA76 PO; +OXYC1TAB23 PO; +PERC5TAB12 PO
--- NOTE | 2018-11-30 07:50 | ECGEPIP ---
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
== END ==
LOC: M EKG 13:16
PROVIDERS: ATTEND Anesthesiology
DX: E87.1 Hypo-osmolality and hyponatremia (principal); R00.1 Bradycardia, unspecified

== ENCOUNTER 2018-11-30 10:13 | Inpatient (IN) | payer OTHER ==
[~2018-11-30] VITALS: Ht 165.1 cm; Wt 48.4 kg
[~2018-11-30 10:13] MED LIST changes: -CLIN150C14 PO; -PERC5TAB12 PO
[2018-11-30 10:53] LABS: HEMATOCRIT 36.9 % (36.0-47.0); HEMOGLOBIN 13.4 g/dl (12.0-15.5); MEAN CORPUSCULAR HEMOGLOBIN 32.8 pg (27.0-33.0); MEAN CORPUSCULAR HGB CONC 36.3 g/dl (32.0-36.5); MEAN CORPUSCULAR VOLUME 90.2 fl (80.0-96.0); PLATELET COUNT, AUTOMATED 224 10^3/uL (150-450); RED BLOOD COUNT 4.09 10^6/uL (4.00-5.40); WHITE BLOOD COUNT 3.8 10^3/uL (4.0-10.0)
[2018-11-30] MEDS ORDERED: CLIN150C14 PO (11:07)
[2018-11-30] MEDS ORDERED: PERC5TAB12 PO (11:07)
[2018-11-30 11:13] LABS: BLOOD UREA NITROGEN 9 MG/DL (7-18); CALCIUM LEVEL 8.8 MG/DL (8.8-10.2); CARBON DIOXIDE LEVEL 27 MEQ/L (21-32); CHLORIDE LEVEL 96 MEQ/L (98-107); CREATININE FOR GFR 0.52 MG/DL (0.55-1.30); GLOMERULAR FILTRATION RATE > 60.0 (>45); GLUCOSE, FASTING 102 MG/DL (70-100); SODIUM LEVEL 130 MEQ/L (136-145)
[2018-11-30] MEDS ORDERED: LR 1,000 ML IV ONE (12:00)
[2018-11-30] MEDS ORDERED: PROPOFOL 200 MG/20 ML VIAL As Ordered ONE (12:22)
[2018-11-30] MEDS ORDERED: ROCURONIUM BROMIDE 50 MG/5 ML VIAL As Ordered ONE ×2 (12:23→16:03)
[2018-11-30] MEDS ORDERED: LIDOCAINE 2% INJ 100 MG/5 ML SDV (FOR ANES.) As Ordered ONE (12:24)
[2018-11-30] MEDS ORDERED: fentaNYL 250 MCG/5 ML INJECTION (J3010) As Ordered ONE (14:30)
[2018-11-30] MEDS ORDERED: MIDAZOLAM INJ 2 MG/2 ML VIAL (J2250) As Ordered ONE (14:31)
[2018-11-30] MEDS ORDERED: LIDOCAINE W/EPINEPHRINE 1% 20ML VIAL As Ordered ONE ×2 (14:32→14:39)
[2018-11-30] MEDS ORDERED: BUPIVACAINE/EPIN 0.5% 30 ML VIAL As Ordered ONE (14:32)
[2018-11-30] MEDS ORDERED: ePHEDrine SULFATE 25 MG/5 ML(5MG/ML) SYRINGE As Ordered ONE ×3 (14:55→17:26)
[2018-11-30] MEDS ORDERED: CLINDAMYCIN 900 MG/50 ML PREMIX BAG As Ordered ONE (15:14)
[2018-11-30] MEDS ORDERED: dexameTHASONE 4 MG/ML 1ML VIAL (J1100) As Ordered ONE (15:38)
[2018-11-30] MEDS ORDERED: ONDANSETRON 4MG/2ML VIAL (J2405) As Ordered ONE (15:39)
[2018-11-30] MEDS ORDERED: ACETAMINOPHEN 1000MG 100ML IV BTL (OFIRMEV) (J0131 PER 10MG) As Ordered ONE (16:19)
[2018-11-30] MEDS ORDERED: SUGAMMADEX SODIUM 500 MG/5 ML VIAL (BRIDION) As Ordered ONE (16:51)
[2018-11-30] MEDS ORDERED: HYDROmorphone HCL 2 MG/ML 1ML VIAL (J1170) As Ordered ONE (16:56)
[2018-11-30] MEDS ORDERED: BACITRACIN OINT 30GM As Ordered ONE (17:54)
[2018-11-30] MEDS ORDERED: fentaNYL 100 MCG/2 ML INJECTION (J3010) As Ordered ONE (18:26)
[2018-11-30] MEDS ORDERED: NORCO, ANEXSIA 5/325MG TABLET (HYDROcodone/ACETAMINOPHEN) PO PRN (18:30)
[2018-11-30] MEDS: fentaNYL 100 MCG/2 ML INJECTION (J3010) IV PRN ×4 (18:30→18:57)
[2018-11-30] MEDS ORDERED: ONDANSETRON 4MG/2ML VIAL (J2405) IV PRN ×2 (18:30→22:15)
[2018-11-30] MEDS ORDERED: LR 1,000 ML IV SCH (18:30)
[2018-11-30] MEDS: NS 1,000 ML IV SCH (18:45)
[2018-11-30] MEDS ORDERED: METOCLOPRAMIDE INJ 10MG/2ML VIAL (J2765) As Ordered ONE (19:28)
[2018-11-30] MEDS ORDERED: HYDROMORPHONE HCL 0.5 MG/ 0.5 ML SYRINGE (J1170 PER 1) As Ordered ONE (19:28)
[2018-11-30] MEDS: HYDROMORPHONE HCL 0.5 MG/ 0.5 ML SYRINGE (J1170 PER 1) IV PRN ×4 (19:30→20:25)
[2018-11-30] MEDS ORDERED: METOCLOPRAMIDE INJ 10MG/2ML VIAL (J2765) IV PRN (19:45)
[2018-11-30] MEDS ORDERED: PROMETHAZINE INJ 25 MG/ML VIAL (J2550) IV PRN (19:45)
[2018-11-30 20:54] VITALS: BP 124/83
[2018-11-30 22:21] VITALS: BP 132/75
[2018-11-30] MEDS: CLINDAMYCIN 600 MG in APPROPRIATE DILUENT 1 EA IV SCH (22:21)
[2018-11-30] MEDS: MORPHINE 4 MG/ML 1ML VIAL/SYRINGE (J2270) IV PRN (22:21)
--- NOTE | 2018-11-30 23:10 | HPEPDOC ---
General Date of Admission 11/30/18 Date of Service: Nov 30, 2018 Chief Complaint The patient is a 63-year-old female admitted with a reason for visit of Left Tongue Cancer. Source: Patient, RN/MD, Old records Exam Limitations: No limitations Severity: Moderate History of Present Illness consultation Report Consultation requested by Dr Luna from ENT Consultation for management of medical comorbidities. HPI: 63 year old female with PMH of Chronic Hyponatremia, BRONCHIECTASIS, Mycobacterium abbesses of lung, HISTORY OF MALIGNANT MELANOMA IN SITU LEFT HIP 2001, SEASONAL ALLERGIES, ARTHRITIS, ENDOMETRIOSIS, HX ABNORMAL MRI DE MYELINATING DISEASE, Peripheral Neuropathy, cervical and lumber disc disease, recently diagnosed with tongue cancer admitted under the ENT service for elective surgery. She had partial resection of tongue on the left with supraomohyoid neck dissection on 11/30/18. Hospitalist service has been consulted for management of her medical comorbidities. At present she complains of pain the left side of the upper neck at the surgical site, it is sharp stabbing pain at the surgical site about 8/10 in intensity without any radiation. Home Medications Scheduled Biotin (Biotin) 1 Mg Capsule, 1 MG PO DAILY, (Reported) Calcium Carbonate (Calcium) 500 Mg Tab.chew, 1 CHW PO DAILY, (Reported) Clindamycin Hcl (Clindamycin HCl) 150 Mg Capsule, 150 MG PO QID, (Reported) Gabapentin (Gabapentin) 100 Mg Cap, 100 MG PO Q NOON AND 5PM, (Reported) Gabapentin (Gabapentin) 100 Mg Cap, 300 MG PO QHS, (Reported) Lactobacillus Acidophilus (Acidophilus) 1 Chw Chw, 1 CHW PO BID, (Reported) Lysine (l-Lysine) 500 Mg Tablet, 500 MG PO DAILY, (Reported) Multivitamin (Multivitamins) 1 Cap Cap, 1 CAP PO DAILY, (Reported) Scheduled PRN Ibuprofen (Ibuprofen) 400 Mg Tab, 200 MG PO 5XDP PRN for PAIN, (Reported) Oxycodone HCl/Acetaminophen (Percocet 5-325 mg Tablet) 1 Each Tablet, 1 TAB PO Q6H PRN for PAIN, (Reported) Allergies Coded Allergies: Scallop (Verified Allergy, Intermediate, SEVERE NAUSEA, VOMITING, DIARRHEA, 11/30/18) TAPE (Verified Allergy, Mild, RASH, 11/30/18) BANDAIDS WOOL (FABRIC) (Verified Allergy, Mild, RASH, 11/30/18) amoxicillin (Verified Allergy, Mild, RASH, 11/30/18) lactose (Verified Allergy, Unknown, 11/30/18) cephalexin (Verified Adverse Reaction, Unknown, severe diarrhea, 11/30/18) Past Medical History Medical History Chronic Hyponatremia, BRONCHIECTASIS, Mycobacterium abbesses of lung, HISTORY OF MALIGNANT MELANOMA IN SITU LEFT HIP 2001, SEASONAL ALLERGIES, ARTHRITIS, ENDOMETRIOSIS, HX ABNORMAL MRI DEMYELINATING DISEASE, Peripheral Neuropathy, cervical and lumber disc disease Surgical History Right hip replacement, sinus surgery, surgery for nasal septum Family History Significant Family History: Cancer (colon cancer maternal grandfather), COPD (mother), Diabetes (paternal grandfather), Hypertension (mother), Seizures (mother), Other (Fatehr brain bleed) Social History * Smoker: former Smoker Alcohol: Denies Drugs: denies A-FIB/CHADSVASC A-FIB History Current/History of A-Fib/PAF?: No Review of Systems Constitutional: Denies: Chills, Fever, Night Sweats Eyes: Denies: Pain, Vision change ENT: Reports: Dysphagia, Other Symptoms (dry mouth) Skin: Denies: Rash, Lesions, Breakdown Pulmonary: Denies: Dyspnea, Cough Cardiovascular: Denies: Chest Pain, Palpitations, Orthopnea, Paroxysmal Noc. Dyspnea, Lt Headedness Gastrointestinal: Denies: Nausea, Vomiting, Abdominal Pain, Diarrhea Genitourinary: Denies: Dysuria, Frequency, Incontinence, Retention Musculoskeletal: Denies: Neck Pain, Back Pain, Joint Pain, Muscle Pain, Spasms Neurological: Denies: Weakness, Change in speech, Confusion Psych: Reports: Anxiety Physical Examination General Exam: Positive: Alert, Cooperative, Mild Distress Eye Exam: Positive: PERRLA, Conjunctiva & lids normal, EOMI; Negative: Sclera icteric ENT Exam: Positive: Other ENT (oral cavity with partially resected tongue, Left Neck with surgical incision, stapes and drain.) Neck Exam: Negative: JVD, thyromegaly Chest Exam: Positive: Clear to auscultation, Normal air movement Heart Exam: Positive: Rate Normal, Regular Rhythm, Normal S1, Normal S2; Negative: Murmurs, Rubs Telemetry: Positive: No significant arrhythmia Abdomen Exam: Positive: Normal bowel sounds, Soft; Negative: Tenderness, Hepatospenomegaly Extremity Exam: Positive: Normal pulses; Negative: Clubbing, Cyanosis, Edema Vital Signs Vital Signs Date Time Temp Pulse Resp B/P (MAP) Pulse Ox O2 Delivery O2 Flow Rate FiO2 11/30/18 19:19 64 16 128/70 (89) 100 8 40 11/30/18 18:55 96.9 Laboratory Data Labs 24H Laboratory Tests 2 11/30/18 10:38: Nucleated Red Blood Cells % (auto) 0.0, Anion Gap 7L, Glomerular Filtration Rate > 60.0, Blood Urea Nitrogen 9, Creatinine 0.52L, Sodium Level 130L, Potassium Level 4.0, Chloride Level 96L, Carbon Dioxide Level 27, Calcium Level 8.8 CBC/BMP Laboratory Tests 11/30/18 10:38 Red Blood Count 4.09, Mean Corpuscular Volume 90.2, Mean Corpuscular Hemoglobin 32.8, Mean Corpuscular Hemoglobin Concent 36.3, Red Cell Distribution Width 12.9, Calcium Level 8.8 Assessment/Plan 63 year old female with PMH of Chronic Hyponatremia, BRONCHIECTASIS, h/o Mycobacterium abbesses of lung, HISTORY OF MALIGNANT MELANOMA IN SITU LEFT HIP 2001, SEASONAL ALLERGIES, ARTHRITIS, ENDOMETRIOSIS, HX ABNORMAL MRI DEMYELINATING DISEASE, Peripheral Neuropathy, cervical and lumber disc disease, recently diagnosed with tongue cancer admitted under the ENT service for elective surgery. She had partial resection of tongue on the left with supraomohyoid neck dissection and muscle grafting from the left thigh on 11/30/18. Hospitalist service has been consulted for management of her medical comorbidities. Tongue cancer s/p partial glossectomy on the left with supraomohyoid neck dissection and muscle grafting from the left thigh on 11/30/18. 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 Once she is allowed regular diet I expect her sodium and urine osmolality will go down. We would be able to get a better idea also depending of how much she drinks Protein calorie malnutrition she has copd and cancer probably from that Bronchiectasis stable Peripheral neuropathy will restart gabapentin when allowed po intake DVT prophylaxis TEDS and Seq Plan / VTE VTE Prophylaxis Ordered?: Yes BETZY SCHULTE MD Nov 30, 2018 19:44
[2018-11-30 23:44] LABS: POTASSIUM RANDOM URINE 13.1 MEQ/L
[2018-12-01] VITALS (9 sets, daily range): BP systolic 100–132; BP diastolic 59–85
[2018-12-01] MEDS: MORPHINE 4 MG/ML 1ML VIAL/SYRINGE (J2270) IV PRN ×3 (02:35→06:57)
[2018-12-01] MEDS: NS 1,000 ML IV SCH (04:57)
[2018-12-01 05:01] LABS: BLOOD UREA NITROGEN 7 MG/DL (7-18); CALCIUM LEVEL 8.3 MG/DL (8.8-10.2); CARBON DIOXIDE LEVEL 27 MEQ/L (21-32); CHLORIDE LEVEL 100 MEQ/L (98-107); CREATININE FOR GFR 0.48 MG/DL (0.55-1.30); GLOMERULAR FILTRATION RATE > 60.0 (>45); GLUCOSE, FASTING 106 MG/DL (70-100); SODIUM LEVEL 134 MEQ/L (136-145)
[2018-12-01] MEDS: CLINDAMYCIN 600 MG in APPROPRIATE DILUENT 1 EA IV SCH (08:25)
[2018-12-01] MEDS: NORCO, ANEXSIA 5/325MG TABLET (HYDROcodone/ACETAMINOPHEN) PO PRN ×3 (10:22→18:59)
[2018-12-01] MEDS: GABAPENTIN 100 MG CAP PO SCH ×2 (11:47→17:37)
[2018-12-01] MEDS ORDERED: SLF 3 ML SYR IV PRN (12:00)
[2018-12-01] MEDS: CLINDAMYCIN 150 MG CAP PO SCH ×3 (13:12→21:39)
[2018-12-01] MEDS: SLF 3 ML SYR IV SCH ×2 (13:12→21:40)
[2018-12-01] MEDS: GABAPENTIN 300 MG CAP PO SCH (21:39)
[2018-12-02] MEDS: NORCO, ANEXSIA 5/325MG TABLET (HYDROcodone/ACETAMINOPHEN) PO PRN ×3 (02:28→21:16)
[2018-12-02] MEDS: SLF 3 ML SYR IV SCH ×3 (06:18→21:16)
[2018-12-02 08:28] LABS: HEMATOCRIT 37.9 % (36.0-47.0); HEMOGLOBIN 13.3 g/dl (12.0-15.5); MEAN CORPUSCULAR HEMOGLOBIN 32.1 pg (27.0-33.0); MEAN CORPUSCULAR HGB CONC 35.1 g/dl (32.0-36.5); MEAN CORPUSCULAR VOLUME 91.5 fl (80.0-96.0); PLATELET COUNT, AUTOMATED 209 10^3/uL (150-450); RED BLOOD COUNT 4.14 10^6/uL (4.00-5.40); WHITE BLOOD COUNT 9.4 10^3/uL (4.0-10.0)
[2018-12-02] MEDS: CLINDAMYCIN 150 MG CAP PO SCH (09:42)
--- NOTE | 2018-12-02 12:11 | RO ---
DATE OF PROCEDURE: 11/30/2018 PREPROCEDURE DIAGNOSIS: Tongue cancer. POSTPROCEDURE DIAGNOSIS: Tongue cancer. PROCEDURE: Hemiglossectomy, left supraomohyoid neck dissection, and split thickness skin graft from the left side to the tongue. SURGEON: Jordon Luna MD OPERATORS TEACHER: Dr. Gene Chun ANESTHESIA: DESCRIPTION OF PROCEDURE: Under general anesthesia with the patient intubated, the patient was draped in the usual manner. I started first at the tongue. I marked out an area around the tongue, giving a 1 cm border around it. Using cautery and then the Harmonic scalpel, I divided the tissues. Lingual artery was cut, and I clamped it and tied it off with #3-0 silk. Once I resected it, bleeding was controlled with cautery. I did then send biopsies of the margins, both deep and superficial, for frozen section. One came back close, so a second resection was done anteriorly, and this came back as negative. I also sent one lymph node from the neck dissection, which came back negative. I prepped the neck in the usual manner. I infiltrated with the lidocaine and epinephrine. I marked out the skin incision. I divided skin and subcutaneous tissues. I dissected down to the sternocleidomastoid muscle. I followed that anteriorly, identifying the internal jugular vein. I then followed the omohyoid muscle inferior to superior. I then went and dissected the tissues off the submandibular gland. I then went from anterior to posterior above the submandibular gland. I then joined that posterior dissection down to the submandibular gland. Vessels seen were clamped, divided and sometimes tied off with #2-0 silk and sometimes just ligated with the Harmonic scalpel. I dissected the tissues off of the internal jugular vein and then followed the dissection anteriorly, identified the posterior belly of digastric and the lingual nerve. These were preserved. I then dissected through and delivered the specimen from the wound. There was very little bleeding. I did cauterize some areas. Through a separate stab wound, I put in a Bernardino-Berg drain and sutured that in with #2-0 silk. I closed the wound with #4-0 Vicryl and isela. Then, I harvested a split thickness skin graft from the left thigh. This was then put through the mesher. I then took and using #4-0 Vicryl I sutured the tongue anteriorly to itself and posteriorly to itself, in the mid portion I elected to use the skin graft. Skin graft was placed into place. Then, using #4-0 silk, I did a tie-over bolus dressing over Adaptic gauze. The patient tolerated the procedure well. Approximately 50 mL estimated blood loss. The neck wound was dressed, the leg was dressed, and the patient extubated and transferred to the recovery room in excellent condition. ADDENDUM: The mobile sales assistant for this case was Dr. Chun, and he helped by doing some of the dissection, tying sutures, and holding retractors.
[2018-12-02] MEDS ORDERED: HYDROcodone/APAP LIQUID 7.5-325MG 15ML UDC (LORTAB ELIXIR) PO PRN (12:30)
[2018-12-02] MEDS: GABAPENTIN 100 MG CAP PO SCH ×2 (13:01→17:23)
[2018-12-02 14:00] VITALS: BP 132/80
[2018-12-02] MEDS: CLINDAMYCIN PED SUSP POWDER 75 MG/5 ML 100 ML BTL PO SCH ×3 (14:54→21:15)
--- NOTE | 2018-12-02 17:26 | IPNPDOC ---
Text Note Date of Service The patient was seen on 12/02/18. NOTE SUBJECTIVE: Ms. Moran is status post resection to her tongue with tumor rem oval. She is rather uncomfortable. She is having difficulty chewing and swallowing. She is concerned about her nutrition. OBJECTIVE: ENT: Neck is swollen, incision line is intact with isela with no bleeding or induration, tongue is swollen as well, CLEOPATRA drain is still in place with serous drainage Cardiovascular: Regular rate and rhythm, no appreciable murmur. Respiratory: Clear to auscultation with no wheezes or cough. Abdomen: Soft, nontender, nondistended, bowel sounds present, no central obesity Extremities: No peripheral edema or lesions ASSESSMENT/PLAN: Ms. Moran is postop day #2 from tumor resection from her tongue. She is having difficulty with eating and with taking medications. I have changed her pain medication and antibiotics to oral solutions. She will need to be on a soft diet. I have discussed with her alternatives such as smoothies made with protein powder and alternative milk substitutes as she is lactose intolerant. If her intake improves, she may be able to go home tomorrow. VS,Fishbone, I+O VS, Fishbone, I+O Laboratory Tests 12/02/18 08:10 Red Blood Count 4.14, Mean Corpuscular Volume 91.5, Mean Corpuscular Hemoglobin 32.1, Mean Corpuscular Hemoglobin Concent 35.1, Red Cell Distribution Width 13.4 Vital Signs Date Time Temp Pulse Resp B/P (MAP) Pulse Ox O2 Delivery O2 Flow Rate FiO2 12/02/18 15:25 18 12/02/18 14:00 98.2 64 132/80 (97) 99 12/01/18 04:00 2.0 11/30/18 20:18 40 I&O- Last 24 Hours up to 6 AM 12/02/18 06:00 Intake Total 990 ml Output Total 50 ml Balance 940 ml GIRISH MONGE MD Dec 02, 2018 17:26
[2018-12-02] MEDS: GABAPENTIN 300 MG CAP PO SCH (21:15)
[2018-12-02 22:00] VITALS: BP 127/75
[2018-12-03] MEDS: NORCO, ANEXSIA 5/325MG TABLET (HYDROcodone/ACETAMINOPHEN) PO PRN ×3 (05:27→18:32)
[2018-12-03] MEDS: SLF 3 ML SYR IV SCH ×3 (05:27→20:55)
[2018-12-03 05:46] VITALS: BP 130/79
[2018-12-03 06:00] VITALS: BP 130/79
[2018-12-03] MEDS: CLINDAMYCIN PED SUSP POWDER 75 MG/5 ML 100 ML BTL PO SCH ×4 (10:43→20:55)
[2018-12-03] MEDS: GABAPENTIN 100 MG CAP PO SCH ×2 (12:08→18:32)
[2018-12-03 14:00] VITALS: BP 129/79
--- NOTE | 2018-12-03 17:42 | IPNPDOC ---
Text Note Date of Service The patient was seen on 12/03/18. NOTE SUBJECTIVE: Ms. Moran is status post resection to her tongue with tumor removal. She is having difficulty chewing and swallowing. She remains concerned about her nutrition. She has been attempting liquids and a pured diet. OBJECTIVE: ENT: Neck swelling is greatly decreased, incision line is intact with isela with no bleeding or induration, tongue swelling is decreased as well, CLEOPATRA drain is still in place with decreased serous drainage Cardiovascular: Regular rate and rhythm, no appreciable murmur. Respiratory: Clear to auscultation with no wheezes or cough. Abdomen: Soft, nontender, nondistended, bowel sounds present, no central obesity Extremities: No peripheral edema or lesions ASSESSMENT/PLAN: Ms. Moran is postop day #3 from tumor resection from her tongue. She is still reporting difficulty with eating and with taking medications. I changed her pain medication and antibiotics to oral solutions. She is trying a pured diet. She can be discharged to home when cleared by the oral surgery service. VS,Fishbone, I+O VS, Fishbone, I+O Vital Signs Date Time Temp Pulse Resp B/P (MAP) Pulse Ox O2 Delivery O2 Flow Rate FiO2 12/03/18 14:00 98.3 68 16 129/79 (96) 100 12/01/18 04:00 2.0 11/30/18 20:18 40 I&O- Last 24 Hours up to 6 AM 12/03/18 05:59 Intake Total 2470 ml Output Total 20 ml Balance 2450 ml GIRISH MONGE MD Dec 03, 2018 17:42
[2018-12-03] MEDS: GABAPENTIN 300 MG CAP PO SCH (20:55)
[2018-12-03 21:31] VITALS: BP 126/79
[2018-12-04] MEDS: NORCO, ANEXSIA 5/325MG TABLET (HYDROcodone/ACETAMINOPHEN) PO PRN ×2 (01:42→08:28)
[2018-12-04] MEDS: SLF 3 ML SYR IV SCH ×2 (01:43→08:29)
[2018-12-04 06:00] VITALS: BP 129/78
[2018-12-04] MEDS: CLINDAMYCIN PED SUSP POWDER 75 MG/5 ML 100 ML BTL PO SCH (08:27)
== END 2018-12-04 10:35 | disposition home or self-care (01) | DRG 129 ==
LOC: M SDC 10:13 → M ICU 20:30 → M SDC 12-01 08:19 → M ICU 12-01 08:22 → M MS5PR 12-01 11:56
PROVIDERS: ADMIT Otolaryngology; ATTEND Otolaryngology
PROC: 0CU Mouth and Throat, Supplement (ICD-10-PCS; 2018-11-30)
PROC: 0HBLXZZ Excision of Left Lower Leg Skin, External Approach (ICD-10-PCS; 2018-11-30)
PROC: 07T20ZZ Resection of Left Neck Lymphatic, Open Approach (ICD-10-PCS; principal; 2018-11-30 12:15)
PROC: 0CB70ZX Excision of Tongue, Open Approach, Diagnostic (ICD-10-PCS; 2018-11-30 12:15)
DX: C02.3 Malignant neoplasm of anterior two-thirds of tongue, part unspecified (principal); E87.1 Hypo-osmolality and hyponatremia; E46 Unspecified protein-calorie malnutrition; Z79.899 Other long term (current) drug therapy; Z88.0 Allergy status to penicillin; Z91.013 Allergy to seafood; E73.9 Lactose intolerance, unspecified; J44.9 Chronic obstructive pulmonary disease, unspecified; G62.9 Polyneuropathy, unspecified

== ENCOUNTER → 2018-12-26 | Outpatient (CLI) | payer OTHER ==
[~2018-12-26] MED LIST changes: +CLIN150C14 PO; +PERC5TAB12 PO
[2018-12-26 12:39] LABS: BLOOD UREA NITROGEN 6 MG/DL (7-18); CALCIUM LEVEL 8.6 MG/DL (8.8-10.2); CARBON DIOXIDE LEVEL 31 MEQ/L (21-32); CHLORIDE LEVEL 94 MEQ/L (98-107); CREATININE FOR GFR 0.53 MG/DL (0.55-1.30); GLOMERULAR FILTRATION RATE > 60.0 (>45); GLUCOSE, FASTING 85 MG/DL (70-100); POTASSIUM SERUM 4.2 MEQ/L (3.5-5.1); SODIUM LEVEL 130 MEQ/L (136-145)
== END ==
LOC: M LAB 11:25
PROVIDERS: ATTEND Family Medicine
DX: E87.1 Hypo-osmolality and hyponatremia (principal)

== ENCOUNTER → 2018-12-26 | Outpatient (CLI) | payer OTHER ==
[~2018-12-26] MED LIST changes: +ACET-907 PO; +CALCCHW4 PO; +CLEO300C2 PO; +CLIN300C5; +OXYC1TAB23; +PREP1CRE TOP; +STOO1TAB2
--- NOTE | 2018-12-27 09:13 | RADONC ---
RADIATION ONCOLOGY CONSULTATION NOTE DATE: 12/26/2018 CHART NUMBER: [id number] DIAGNOSIS: Lateral oral tongue cancer. STAGE: II, T2N0M0. ECOG PERFORMANCE STATUS: 0 CONSULTATION NOTE: Ms. 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 HISTORY OF PRESENT ILLNESS: The patient was in her usual state of health but recently noticed an ulcerative lesion on the left side of her tongue. She was seen by Dr. Luna and a biopsy was undertaken on 10/2018, which showed an invasive well to moderately differentiated squamous cell carcinoma of the left lateral tongue. On 11/21/2018, a PET scan was undertaken and revealed a hypermetabolic area in the left side of the lateral tongue. SUV value was 11.3. There were noted to be multiple abnormalities in the right upper lobe with an ill-defined 1 cm nodule in the right upper lobe anteriorly, which was somewhat hypermetabolic with an SUV value of 3.48. Below this in the anterior medial aspect of the right upper lobe adjacent to the mediastinum there is another hypermetabolic area, which appears to be atelectatic with a maximum SUV value of 2.93. There were also non-hypermetabolic nodular changes in the right upper lobe. After questioning, these are being followed by Dr. Farah and an attempt at biopsy of one of these nodules was undertaken on August 10, 2018 but was nondiagnostic. On 11/30/2018, the patient underwent left hemiglossectomy, a left supraomohyoid neck dissection and split-thickness skin graft. Pathology revealed a well to moderately differentiated squamous cell carcinoma of the lateral tongue. Inked margins of resection were all negative for malignancy. No adverse features were noted. A total of 10 other tongue biopsies were all negative for malignancy. In addition, three left neck nodes were sampled and all were negative for malignancy as well. The patient has done well since surgery and is now presenting for discussion on any further treatment needed with external beam radiation therapy. PAST MEDICAL HISTORY: The patient's past medical history is positive for arthritis and bronchitis. She reports that she had a grand mild seizure at one time due to low sodium. She has endometriosis. She had a right total hip replacement as well as sinus and nasal surgery in the past. She also had a small melanoma, which was removed. SOCIAL HISTORY: The patient had smoked 1-2 packs of cigarettes per day for many years. She quit in 1989. She does not abuse alcohol. ALLERGIES: The patient is allergic to KEFLEX, AMOXICILLIN, and she is LACTOSE INTOLERANT. FAMILY HISTORY: The patient's family history is positive for a father with colon cancer. REVIEW OF SYSTEMS: The patient's review of systems is positive for some dizziness as well as discomfort upon swallowing and difficulty swallowing since her tongue surgery. She also has anxiety and reports that she has lost some weight especially since the surgery. She complains of occasional chills as well as weakness in her arms and legs and decreased energy. She reports generalized aches and pains as well as some shortness of breath. Her review of systems is otherwise noncontributory. She denies nausea, vomiting, fevers, headaches, visual disturbances, chest pain, or blood in the urine. PHYSICAL EXAMINATION: The patient is a thin, white female weighing 102.2 pounds. HEENT exam is normocephalic, atraumatic. Extraocular movements are intact. Oral cavity examination reveals a surgical scar present over her tongue consistent with the above history. There is no evidence of nodularity, ulceration or recurrent disease. There is no palpable cervical, supraclavicular, infraclavicular, axillary, or inguinal lymphadenopathy present. Her lungs are clear to auscultation and percussion. Heart has regular rate and rhythm. ASSESSMENT; I have discussed and given a copy of the NCCN guidelines for oral tongue carcinomas. For a stage II, T2N0M0 surgery is the preferred option. There are no risks factors following surgery. Risk factors would include extranodal extension, positive margins, pathologic stage T3 or pathologic stage T4 lesions. N2 or N3 nae disease or nae disease or nae disease at levels 4 or 5, perineural invasion, vascular invasion, or lymphatic invasion. The patient had none of these. Indeed the margins were noted to be negative. In light of this, no postoperative radiation therapy is indicated for this patient. I find of concern, however the patient's lung issues. I know she is being followed and managed closely by Dr. Farah, and I have recommended that she contact his office. Apparently, these lesions have been growing somewhat over the years and are somewhat hypermetabolic. Because of my concerns of this, I have placed this patient on our list for discussion at our multidisciplinary tumor conference tomorrow. I have informed the patient that she will be discussed tomorrow, and I look forward to Dr. Farah and the committees opinion with regards to these issues. I have discussed all this with her, and the patient will be seeing Dr. Farah soon. I have not set her up for followup appointment in my office since we will not be treating this patient. I did discuss the need for close followup with her head and neck surgeon, which regard routine clinical reevaluations. cc: MD Nir Starks MD Karen Williams, MD
== END ==
LOC: M ONCR 10:30
PROVIDERS: ATTEND Radiology Radiation Oncology
DX: C02.9 Malignant neoplasm of tongue, unspecified (principal); Z87.891 Personal history of nicotine dependence; Z88.0 Allergy status to penicillin; Z88.1 Allergy status to other antibiotic agents; E73.9 Lactose intolerance, unspecified

== ENCOUNTER → 2019-01-10 | Outpatient (RCR) | payer OTHER ==
[~2019-01-10] MED LIST changes: -ACET-907 PO; -CALCCHW4 PO; -CLEO300C2 PO; -CLIN300C5; -OXYC1TAB23; -PREP1CRE TOP; -STOO1TAB2
== END ==
LOC: M ST 12-12 12:38
PROVIDERS: ATTEND Otolaryngology
DX: C02.3 Malignant neoplasm of anterior two-thirds of tongue, part unspecified (principal)

== ENCOUNTER → 2019-01-22 | Outpatient (CLI) | payer OTHER ==
[~2019-01-22] MED LIST changes: +ACET-907 PO; +CALCCHW4 PO; +CLEO300C2 PO; +CLIN300C5; +OXYC1TAB23; +PREP1CRE TOP; +STOO1TAB2
[2019-01-22 15:32] LABS: BASO % 0.9 % (0.0-1.0); EOS # 0.1 10^3/uL (0.0-0.50); EOS % 1.2 % (0.0-3.0); HEMATOCRIT 34.9 % (36.0-47.0); HEMOGLOBIN 12.5 g/dl (12.0-15.5); LYMPH # 1.2 10^3/uL (1.5-4.5); LYMPH % 27.7 % (24.0-44.0); MEAN CORPUSCULAR HEMOGLOBIN 32.1 pg (27.0-33.0); MEAN CORPUSCULAR HGB CONC 35.8 g/dl (32.0-36.5); MEAN CORPUSCULAR VOLUME 89.5 fl (80.0-96.0); MONO # 0.6 10^3/uL (0.0-0.8); MONO % 12.8 % (0.0-5.0); NEUTROPHILS # 2.5 10^3/uL (1.8-7.7); NEUTROPHILS % 57.2 % (36.0-66.0); PLATELET COUNT, AUTOMATED 243 10^3/uL (150-450); WHITE BLOOD COUNT 4.3 10^3/uL (4.0-10.0)
[2019-01-22 16:02] LABS: ALBUMIN 4.1 GM/DL (3.2-5.2); ALT/SGPT 25 U/L (12-78); BILIRUBIN,TOTAL 0.5 MG/DL (0.2-1.0); BLOOD UREA NITROGEN 8 MG/DL (7-18); CALCIUM LEVEL 9.2 MG/DL (8.8-10.2); CARBON DIOXIDE LEVEL 26 MEQ/L (21-32); CHLORIDE LEVEL 91 MEQ/L (98-107); GLOMERULAR FILTRATION RATE > 60.0 (>45); GLUCOSE, FASTING 87 MG/DL (70-100); POTASSIUM SERUM 3.9 MEQ/L (3.5-5.1); SODIUM LEVEL 125 MEQ/L (136-145); TOTAL PROTEIN 6.9 GM/DL (6.4-8.2)
== END ==
LOC: M LAB 14:46
PROVIDERS: ATTEND Family Medicine
DX: R19.7 Diarrhea, unspecified (principal)

== ENCOUNTER → 2019-01-24 | Outpatient (REF) | payer OTHER ==
[~2019-01-24] MED LIST changes: -ACET-907 PO; -CALCCHW4 PO; -CLEO300C2 PO; -CLIN300C5; -OXYC1TAB23; -PREP1CRE TOP; -STOO1TAB2
== END ==
LOC: M LAB REF 13:34
PROVIDERS: ATTEND Physician Assistant
DX: R19.7 Diarrhea, unspecified (principal)

== ENCOUNTER → 2019-01-29 | Outpatient (REF) | payer OTHER | LOC: M LAB REF 14:23 | PROVIDERS: ATTEND Physician Assistant | DX: R19.7 Diarrhea, unspecified (principal) ==

== ENCOUNTER 2019-02-06 14:27 | Outpatient (RCR) | payer OTHER | END 2019-02-10 | LOC: M ST 14:27 | PROVIDERS: ATTEND Otolaryngology | DX: Z51.89 Encounter for other specified aftercare (principal); Z98.890 Other specified postprocedural states; R47.89 Other speech disturbances ==

== ENCOUNTER → 2019-03-06 | Outpatient (CLI) | payer OTHER ==
--- NOTE | 2019-03-06 11:39 | REP ---
PET/CT: HISTORY: Restaging malignant neoplasm of the border of the tongue. The patient is status post a hemiglossectomy on the left along with skin grafting to the left side of the tongue and left supraomohyoid neck dissection. COMPARISONS: Comparison PET/CT study November 21, 2018. TECHNIQUE: 63 minutes following the intravenous injection of a 8.62 mCi dose of F-18 FDG, three-dimensional PET scintigraphy is acquired from the skull base to the proximal thighs. Triplanar noncontrast CT scanning is acquired through the same anatomic range for attenuation correction, and image registration with scan parameters optimized to minimize radiation exposure to the patient. PET scintigraphy and CT datasets were fused and displayed on a workstation with multiplanar and projection display capability. PET/CT FINDINGS: On today's examination, there is asymmetric intraoral uptake along the right lung lateral margin of the tongue or floor the mouth. This may be skeletal muscle uptake. It is however asymmetric. Maximum standard uptake value in this region is 4.4. The left lateral tongue uptake seen on November 21, 2018 was much more avid, SUV 11.3. No other abnormal hypermetabolic uptake is seen in the head and neck soft tissues. There is a new patchy infiltrate in the lingular segment of the left upper lobe with two areas of mildly hypermetabolic uptake within it. Maximum standard uptake in these lingular foci is 2.07 to 2.12. There is a zone of fibrosis in the right upper lobe which does not show hypermetabolic uptake. This is unchanged from the prior study. There is a somewhat nodular area of fibroatelectatic change or infiltrate in the right upper lobe distribution similar to the prior study. This area includes a hypermetabolic focus, maximum standard uptake value is 4.08. This is similar to the prior study where maximum standard uptake value was 3.48. These right-sided parenchymal areas are unchanged. No other abnormal hypermetabolic uptake is seen. IMPRESSION: Asymmetric intraoral uptake, right greater than left likely normal variant skeletal muscle uptake possibly related to previous surgical treatment. Head and neck soft tissues are otherwise unremarkable. There are mildly hypermetabolic parenchymal changes in the lungs which are most compatible with inflammatory changes. Electronically Signed by Declan Zarco MD 03/06/2019 04:06 P
== END ==
LOC: M PLARAD 07:44
PROVIDERS: ATTEND Otolaryngology
DX: C02.1 Malignant neoplasm of border of tongue (principal)

== ENCOUNTER 2019-03-09 12:56 | Day surgery (SDC) | payer OTHER ==
[~2019-03-09] VITALS: Ht 165.1 cm; Wt 42.6 kg
[~2019-03-09 12:56] MED LIST changes: +NS 1,000 ML IV ONE; +PROPOFOL 200 MG/20 ML VIAL As Ordered ONE; +fentaNYL 100 MCG/2 ML INJECTION (J3010) As Ordered ONE
--- NOTE | 2019-03-09 14:24 | ROOR ---
Patient Name: Gill Moran Procedure Date: 03/09/2019 1:43 PM Date of : 1955 Age: 64 Room: [facility] Gender: Female Note Status: Finalized Procedure: Upper GI endoscopy Indications: Dysphagia Providers: Steve Jauregui MD Referring MD: Pia Mast MD Requesting Provider: Medicines: Monitored Anesthesia Care Complications: No immediate complications. Procedure: Pre-Anesthesia Assessment: - Prior to the procedure, a History and Physical was performed, and patient medications and allergies were reviewed. The patient is competent. The risks and benefits of the procedure and the sedation options and risks were discussed with the patient. All questions were answered and informed consent was obtained. Patient identification and proposed procedure were verified by the physician, the nurse and the anesthesiologist in the procedure room. Mental Status Examination: alert and oriented. Airway Examination: normal oropharyngeal airway and neck mobility. Respiratory Examination: clear to auscultation. CV Examination: normal. Prophylactic Antibiotics: The patient does not require prophylactic antibiotics. Prior Anticoagulants: The patient has taken no previous anticoagulant or antiplatelet agents. ASA Grade Assessment: II - A patient with mild systemic disease. After reviewing the risks and benefits, the patient was deemed in satisfactory condition to undergo the procedure. The anesthesia plan was to use monitored anesthesia care (MAC). Immediately prior to administration of medications, the patient was re-assessed for adequacy to receive sedatives. The heart rate, respiratory rate, oxygen saturations, blood pressure, adequacy of pulmonary ventilation, and response to care were monitored throughout the procedure. The physical status of the patient was re-assessed after the procedure. The Endoscope was introduced through the mouth, and advanced to the second part of duodenum. The upper GI endoscopy was accomplished without difficulty. The patient tolerated the procedure well. Findings: The examined esophagus was normal. Two biopsies were obtained in the middle third of the esophagus with cold forceps for evaluation of eosinophilic esophagitis. Verification of patient identification for the specimen was done by the physician and nurse using the patient's name, date and medical record number. Estimated blood loss was minimal. No gross lesions were noted in the entire examined stomach. Biopsies were taken with a cold forceps for Helicobacter pylori testing. The duodenal bulb and second portion of the duodenum were normal. Biopsies for histology were taken with a cold forceps for evaluation of celiac disease. Impression: - Normal esophagus. - No gross lesions in the stomach. Biopsied. - Normal duodenal bulb and second portion of the duodenum. Biopsied. - Two biopsies were obtained in the middle third of the esophagus. Recommendation: - Patient has a contact number available for emergencies. The signs and symptoms of potential delayed complications were discussed with the patient. Return to normal activities tomorrow. Written discharge instructions were provided to the patient. - Mechanical soft diet. - Continue present medications. - Await pathology results. - Return to GI clinic in [facility] (address [address], [address] [address]) in 4 -- 6 weeks. Please call GI clinic @ [phone] for apppointment date and time. - Return to primary care physician. Steve Jauregui MD Steve Jauregui MD 03/09/2019 2:24:20 PM Electronically signed by Steve Jauregui MD Number of Addenda: 0 Note Initiated On: 03/09/2019 1:43 PM Estimated Blood Loss: Estimated blood loss was minimal.
[2019-03-09 15:05] VITALS: BP 113/78
== END 2019-03-09 15:03 | disposition home or self-care (01) ==
LOC: M OPP 12:56
PROVIDERS: ATTEND Internal Medicine Gastroenterology
DX: R13.10 Dysphagia, unspecified (principal); E73.9 Lactose intolerance, unspecified; Z79.891 Long term (current) use of opiate analgesic; Z79.899 Other long term (current) drug therapy; Z88.1 Allergy status to other antibiotic agents; Z91.013 Allergy to seafood; Z91.048 Other nonmedicinal substance allergy status
CPT/HCPCS: 43239; 88305; J3010

== ENCOUNTER 2019-03-15 14:52 | Inpatient (IN) | payer OTHER ==
[~2019-03-15] VITALS: Ht 165.1 cm; Wt 41.5 kg
[~2019-03-15 14:52] MED LIST changes: -NS 1,000 ML IV ONE; -PROPOFOL 200 MG/20 ML VIAL As Ordered ONE; -fentaNYL 100 MCG/2 ML INJECTION (J3010) As Ordered ONE
[2019-03-15] MEDS ORDERED: CALCCHW4 PO (15:03)
[2019-03-15] MEDS ORDERED: PANTOPRAZOLE 40MG INJ (PROTONIX) (C9113) IV ONE (16:00)
[2019-03-15] MEDS ORDERED: GOLYTELY SOLN 4000 ML BTL PO ONE (16:30)
[2019-03-15 16:34] LABS: BASO % 0.9 % (0.0-1.0); EOS % 0.5 % (0.0-3.0); HEMATOCRIT 35.6 % (36.0-47.0); HEMOGLOBIN 12.8 g/dl (12.0-15.5); LYMPH # 0.9 10^3/uL (1.5-5.0); LYMPH % 20.1 % (24.0-44.0); MEAN CORPUSCULAR HEMOGLOBIN 32.2 pg (27.0-33.0); MEAN CORPUSCULAR VOLUME 89.4 fl (80.0-96.0); MONO # 0.5 10^3/uL (0.0-0.8); MONO % 11.5 % (0.0-5.0); NEUTROPHILS # 2.9 10^3/uL (1.5-8.5); NEUTROPHILS % 66.5 % (36.0-66.0); PLATELET COUNT, AUTOMATED 233 10^3/uL (150-450); RED BLOOD COUNT 3.98 10^6/uL (4.00-5.40); WHITE BLOOD COUNT 4.3 10^3/uL (4.0-10.0)
[2019-03-15 16:49] LABS: INR 1.07; PROTHROMBIN TIME 13.6 SECONDS (11.8-14.0)
[2019-03-15 17:00] LABS: ALBUMIN 3.9 GM/DL (3.2-5.2); ALT/SGPT 21 U/L (12-78); BILIRUBIN,DIRECT 0.2 MG/DL (0.0-0.2); BILIRUBIN,TOTAL 0.8 MG/DL (0.2-1.0); BLOOD UREA NITROGEN 7 MG/DL (7-18); CALCIUM LEVEL 8.8 MG/DL (8.8-10.2); CARBON DIOXIDE LEVEL 28 MEQ/L (21-32); CHLORIDE LEVEL 87 MEQ/L (98-107); CREATININE FOR GFR 0.39 MG/DL (0.55-1.30); GLOMERULAR FILTRATION RATE > 60.0 (>45); GLUCOSE, FASTING 85 MG/DL (70-100); LIPASE 84 U/L (73-393); POTASSIUM SERUM 3.7 MEQ/L (3.5-5.1); SODIUM LEVEL 122 MEQ/L (136-145); TOTAL PROTEIN 6.9 GM/DL (6.4-8.2)
[2019-03-15] MEDS: NS 1,000 ML IV SCH (17:00)
[2019-03-15] MEDS ORDERED: BISACODYL 5 MG TAB PO ONE (18:30)
[2019-03-15] MEDS ORDERED: ACET-907 PO (18:44)
--- NOTE | 2019-03-15 19:13 | ECGEPIP ---
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
[2019-03-15] MEDS ORDERED: ACETAMINOPHEN TAB 650MG DOSE (2X325MG) PO PRN ×2 (19:30→20:00)
--- NOTE | 2019-03-15 19:40 | HPEPDOC ---
[facility] Medical History & Physical Date of Admission Mar 15, 2019 Date of Service: Mar 15, 2019 Primary Care Physician: Pia Mast MD Other Provider GI: follows with Dr. Jauregui Attending Physician: JULIA TEMPLETON MD History and Physical CHIEF COMPLAINT: Severe abdominal pain and rectal bleeding HISTORY OF PRESENT ILLNESS: Gill is a 64-year-old female with pertinent past medical history of head and neck cancer and melanoma, who presented to the emergency department this afternoon at the direction of Dr. Jauregui of gastroenterology to be admitted in preparation for a colonoscopy tomorrow (03/16). Patient had an EGD last Tuesday (03/09) and was subsequently contacted by Dr. Jauregui yesterday informing her to commence a clear liquid diet today and present to the ED for admission to commence colonoscopy prep. She is presenting today with severe abdominal pain and rectal bleeding over the last week. The abdominal pain is constant, sharp, diffuse across the abdomen, wakes her up at night, and there is accompanying bloating. The rectal bleeding also has been present for the past week. The bleeding has been leaking onto patient's underwear, is present on toilet tissue, and is visible in toilet bowl water. Patient is unsure if her stools are of a different color or consistency. She is complaining of an increase urgency and frequency to defecate. She reports that she's never had these types of symptoms before. PAST MEDICAL HISTORY: -Head and neck cancer status post surgery, without radiation or chemotherapy -Melanoma () status post surgical resection -Bronchiectasis -Pulmonary nodule, for which she follows with Dr. Farah of thoracic surgery as outpatient -Peripheral neuropathy Lactose intolerance PAST SURGICAL HISTORY: -Surgery for head and neck cancer which removed portions of tongue, left cer vical lymphatic chain, and portions left lateral neck soft tissue -Surgical resection of affected melanoma area, -Nasal septum surgery, 2013 -Right total hip replacement, 2007 -EGD, 03/09/19 SOCIAL HISTORY: Marital status: Unmarried Resides in: Home Children: None Employment:. 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 Denies Illicit drug use: Denies FAMILY HISTORY: Father: Traumatic brain injury, dementia Mother: COPD, hypertension ALLERGIES: Keflex severe diarrhea. Amoxicillin rash Wool clothing products rash REVIEW OF SYSTEMS: CONSTITUTIONAL: Endorses unintentional weight loss since surgery for head and neck cancer, generalized weakness and fatigue, chills; denies fever, night sweats HEENT: Endorses feeling lightheaded, dysphagia, odynophagia, maxillary sinus pressure; denies headache, eye pain, visual changes, hearing loss, tinnitus, ear pain, rhinorrhea, sore throat CARDIOVASCULAR: Denies chest pain, chest pressure, palpitations, lower extremity edema. RESPIRATORY: Endorses consistent phlegm production associated with bronchiectasis; Denies shortness of breath, cough GASTROINTESTINAL: Endorses hematochezia, diffusely severe abdominal pain, abdominal bloating, increased urge and frequency to defecate; Denies feeling nauseated, vomiting, diarrhea, constipation. GENITOURINARY: Denies dysuria, hematuria. MUSCULOSKELETAL: Endorses left hip pain, generalized muscle aches and pains NEUROLOGICAL: Endorses left-sided paresthesias (left upper extremity and left lower extremity; denies fainting PSYCHIATRIC: Endorses recent, mood change in the form of feelings of despair and easier irritability ENDOCRINE: Endorses cold intolerance HEMATOLOGIC/LYMPHATIC: Endorses easy bleeding per rectum HOME MEDICATIONS: Please see below. PHYSICAL EXAMINATION: VITAL SIGNS: Heart rate 54, blood pressure 131/70, respiratory rate 14, 97% oxygen saturation on room air GENERAL APPEARANCE: This is a frail, cachectic, and ill-appearing female who appears to be in acute generalized discomfort and pain. She is cooperative and responds appropriately to questions and commands. She is lying in bed at time of exam with multiple blankets overlying her. She had just begun her colonoscopy bowel prep at time of exam. HEENT: Normocephalic, atraumatic. Anicteric sclera. Decreased ability to extend tongue and overall decreased mobility of tongue. Pale conjunctiva. Mucous mem branes are pink and appear somewhat dry. There is tenderness to palpation of the left lateral neck. Trachea is midline. Clavicles are very prominent due to patient's body habitus. CARDIOVASCULAR: Bradycardic. Regular rhythm. Normal S1, S2. No murmurs, rubs, or gallops appreciated. 2-3 second capillary refill of bilateral fingers. No JVD visualized. 2+ radial and posterior tibial pulses bilaterally. LUNGS: Diminished tidal volume.. No wheezes or rhonchi appreciated. No tympany to percussion. Difficult to appreciate for dullness to percussion. Eats a egophony of midportion of left lung. ABDOMEN: Profound tenderness to palpation of bilateral lower abdominal quadrants and right upper abdominal quadrant. Soft, nondistended. There is mild guarding diffusely. Normal active bowel sounds are present. There is no tympany to percussion. There are no scars or bruising visualized on inspection. There are no palpable masses appreciated. There is no hepatomegaly appreciated. MUSCULOSKELETAL: 5 out of 5 muscle strength testing upper extremities bilaterally. 3 out of 5 muscle strength testing of left lower extremity. 4 out of 5 muscle strength testing of right lower extremity. EXTREMITIES: Bilateral hands are cool to the touch. No lower extremity edema. 2+ radial and posterior tibial pulses bilaterally. There is no clubbing or cyanosis. NEUROLOGICAL: Patient is awake, alert and oriented 3. She follows commands and answers questions appropriately. There is decreased sensation to light touch of the left lower extremity as compared to the right. Sensation to light touch is intact of upper extremities bilaterally. PSYCHIATRIC: Appropriate affect. Moderately depressed and anxious mood. LABORATORY DATA: See below. IMAGING: EGD, 03/[address] scan, performed last week MICROBIOLOGY: Please see below. ASSESSMENT & PLAN: This is a 64-year-old severely ill and frail female with significant past medical history of head and neck cancer and melanoma who has been admitted to commence bowel prep for colonoscopy tomorrow with Dr. Jauregui. She presented with severe abdominal pain and rectal bleeding for one weeks duration. #Lower gastrointestinal bleed -Patient was made npo after midnight with the exception of medicines. -Patient has commenced bowel prep of GoLYTELY in anticipation of tomorrow's colonoscopy -Patient receiving IV fluids in the form of normal saline 1 L at 100 mL's per hour -Colonoscopy scheduled for tomorrow (03/16) -IV saline lock ordered -H&H initially stable. Repeat CBCs ordered -Patient follows with Dr. Jauregui of gastroenterology as outpatient. Dr. Kinjal bailey is following the patient and has been officially consulted. Dr. Jauregui will be performing patient's colonoscopy tomorrow. Hospitalist team is grateful for Dr. Jauregui's help in the care of patient #Severe abdominal pain -Patient follows with gastroenterology as outpatient and will be undergoing colonoscopy tomorrow -prn acetaminophen ordered -Patient is npo after midnight with the exception of medications/bowel prep #History of malignancy -Patient has history of head and neck cancer, status post surgical resection of portions of tongue, soft tissue of left lateral neck, and left cervical lymphatic chain. No previous treatment with radiation or chemotherapy. -Patient also has a history of melanoma in , status post surgical resection. She follows at least on a yearly basis with dermatology. -Patient states she had a PET/CT scan last week.. She also follows with thoracic surgery as outpatient. 4. Pulmonary nodule. -Patient complains of dysphagia and odontophagia. A swallow evaluation and speech therapy consult were ordered. -Nutrition consult also ordered as patient appears to be malnourished #Bradycardia -Patient's heart rate in the low to mid 50s at time of exam -Continue with telemetry #Hyponatremia -Initial serum sodium measured 122. Patient was awake, alert and oriented 3 during exam. -Patient states her sodium levels chronically run low and this is her baseline. She reports sodium around 127 or 128 is high for her. -Continue with IV fluids in the form of normal saline. Important to monitor patient closely so as to not elevate sodium levels too quickly. -Continue to follow with repeat metabolic panels #Low BMI -BMI 15.5 -Patient appears to be significantly malnourished, as she is cachectic on presentation. This is likely secondary to patient's history of malignancy and associated swallowing difficulties. -nutrition consult ordered #DVT prophylaxis: Due to patient's recent history of bleeding per rectum, teds and sequentials were ordered for DVT prophylaxis. DISPOSITION: Patient is admitted under the care of the hospitalist team for me dical management as she prepares for a colonoscopy tomorrow to be performed by Dr. Jauregui of gastroenterology. We will continue to follow patient's care and collaborate with gastroenterology as warranted. Vital Signs Vital Signs Date Time Temp Pulse Resp B/P (MAP) Pulse Ox O2 Delivery O2 Flow Rate FiO2 03/15/19 19:01 53 14 03/15/19 18:46 136/78 (97) 98 03/15/19 14:52 97.6 Room Air Laboratory Data Labs 24H Laboratory Tests 2 03/15/19 16:19: Immature Granulocyte % (Auto) 0.5, White Blood Count 4.3, Red Blood Count 3.98L, Hemoglobin 12.8, Hematocrit 35.6L, Mean Corpuscular Volume 89.4, Mean Corpuscular Hemoglobin 32.2, Mean Corpuscular Hemoglobin Concent 36.0, Red Cell Distribution Width 12.6, Platelet Count 233, Neutrophils (%) (Auto) 66.5H, Lymphocytes (%) (Auto) 20.1L, Monocytes (%) (Auto) 11.5H, Eosinophils (%) (Auto) 0.5, Basophils (%) (Auto) 0.9, Neutrophils # (Auto) 2.9, Lymphocytes # (Auto) 0.9L, Monocytes # (Auto) 0.5, Eosinophils # (Auto) 0.0, Basophils # (Auto) 0.0, Nucleated Red Blood Cells % (auto) 0.0, Prothrombin Time 13.6, Prothromb Time International Ratio 1.07, Anion Gap 7L, Glomerular Filtration Rate > 60.0, Calcium Level 8.8, Aspartate Amino Transf (AST/SGOT) 26, Alanine Aminotransferase (ALT/SGPT) 21, Alkaline Phosphatase 89, Total Bilirubin 0.8, Direct Bilirubin 0.2, Total Protein 6.9, Albumin 3.9, Albumin/Globulin Ratio 1.30, Lipase 84 CBC/BMP Laboratory Tests 03/15/19 16:19 Red Blood Count 3.98 L, Mean Corpuscular Volume 89.4, Mean Corpuscular Hemoglobin 32.2, Mean Corpuscular Hemoglobin Concent 36.0, Red Cell Distribution Width 12.6, Neutrophils (%) (Auto) 66.5 H, Lymphocytes (%) (Auto) 20.1 L, Monoc ytes (%) (Auto) 11.5 H, Eosinophils (%) (Auto) 0.5, Basophils (%) (Auto) 0.9, Neutrophils # (Auto) 2.9, Lymphocytes # (Auto) 0.9 L, Monocytes # (Auto) 0.5, Eosinophils # (Auto) 0.0, Basophils # (Auto) 0.0 Home Medications Scheduled Biotin (Biotin) 1 Mg Capsule, 1 MG PO QHS Calcium Carbonate/Vitamin D3 (Calcium 600 with Vit D Chew Tb) 1 Each Tab.chew, 2 TAB PO QHS Gabapentin (Gabapentin) 100 Mg Cap, 100 MG PO BID TAKES NOON AND HS Gabapentin (Gabapentin) 100 Mg Cap, 300 MG PO QHS Lactobacillus Acidophilus (Acidophilus) 1 Chw Chw, 1 CHW PO BID Lysine (l-Lysine) 500 Mg Tablet, 500 MG PO QHS Multivitamin (Multivitamins) 1 Cap Cap, 1 CAP PO QHS Scheduled PRN Acetaminophen (Tylenol) 325 Mg Tablet, 650 MG PO TID PRN for PAIN Ibuprofen (Ibuprofen) 400 Mg Tab, 400 MG PO QID PRN for PAIN Allergies Coded Allergies: Scallop (Verified Allergy, Intermediate, SEVERE NAUSEA, VOMITING, DIARRHEA, 03/02/19) TAPE (Verified Allergy, Mild, RASH, 03/02/19) BANDAIDS WOOL (FABRIC) (Verified Allergy, Mild, RASH, 03/02/19) amoxicillin (Verified Allergy, Mild, RASH, 03/02/19) lactose (Verified Allergy, Unknown, 03/02/19) cephalexin (Verified Adverse Reaction, Intermediate, severe diarrhea, 03/02/19) A-FIB/CHADSVASC A-FIB History Current/History of A-Fib/PAF?: No Current PO Anticoag Therapy: No GME ATTESTATION GME ATTESTATION My faculty preceptor for this patient encounter was physically present during the encounter and was fully available. All aspects of the patient interview, examination, medical decision making process, and medical care plan development were reviewed and approved by the faculty preceptor. The faculty preceptor is aware and concurs with the plan as stated in the body of this note and will attest to such by his/her cosignature. ATTENDING NOTE I saw Ms. Moran at 9.30PM after the resident had seen and examined the patient. Briefly, she was admitted per Dr. Jauregui's recommendation for bowel prep and plan for colonoscopy tomorrow for ongoing rectal bleeding and hematochezia in the setting of a remote history of melanoma and SCC. On our dis cussion, we decided that she will get the go-lytely tonight, Ns @ 100cc/hr, NPO at midnight, speech and swallow evaluation and will otherwise continue her baseline medications. Of note, she also has baseline hyponatremia with baseline in the mid 120s. Will monitor for now for rapid overcorrection while she is on NS. KAMARI MOSHER PGY-1 Mar 15, 2019 19:40 JULIA TEMPLETON MD Mar 15, 2019 22:14
[2019-03-15] MEDS: GABAPENTIN 100 MG CAP PO SCH (21:00)
[2019-03-15] MEDS ORDERED: GABAPENTIN 100 MG CAP PO SCH (21:00)
[2019-03-15] MEDS ORDERED: HEPARIN SOD (PORCINE) 5000 UNITS/ML VIAL SC SCH (21:00)
[2019-03-15 22:58] VITALS: BP 116/72
[2019-03-16] MEDS: NS 1,000 ML IV SCH ×2 (00:48→12:18)
[2019-03-16] MEDS ORDERED: GABAPENTIN 300 MG CAP PO ONE (01:30)
[2019-03-16 05:36] LABS: HEMOGLOBIN 13.3 g/dl (12.0-15.5); MEAN CORPUSCULAR HEMOGLOBIN 33.3 pg (27.0-33.0); MEAN CORPUSCULAR HGB CONC 35.9 g/dl (32.0-36.5); MEAN CORPUSCULAR VOLUME 92.5 fl (80.0-96.0); PLATELET COUNT, AUTOMATED 207 10^3/uL (150-450); WHITE BLOOD COUNT 8.6 10^3/uL (4.0-10.0)
[2019-03-16 06:15] LABS: ALBUMIN 3.5 GM/DL (3.2-5.2); ALT/SGPT 24 U/L (12-78); BILIRUBIN,TOTAL 0.6 MG/DL (0.2-1.0); BLOOD UREA NITROGEN 6 MG/DL (7-18); CALCIUM LEVEL 8.3 MG/DL (8.8-10.2); CARBON DIOXIDE LEVEL 27 MEQ/L (21-32); CHLORIDE LEVEL 95 MEQ/L (98-107); CREATININE FOR GFR 0.38 MG/DL (0.55-1.30); GLOMERULAR FILTRATION RATE > 60.0 (>45); GLUCOSE, FASTING 67 MG/DL (70-100); POTASSIUM SERUM 2.8 MEQ/L (3.5-5.1); SODIUM LEVEL 130 MEQ/L (136-145); TOTAL PROTEIN 6.7 GM/DL (6.4-8.2)
[2019-03-16] MEDS ORDERED: POTASSIUM CHLORIDE 10 MEQ SR TABLET PO ONE (06:30)
[2019-03-16 08:00] VITALS: BP 110/70
--- NOTE | 2019-03-16 08:26 | IPNPDOC ---
Text Note Date of Service The patient was seen on 03/16/19. NOTE Subjective: Patient seen and examined at bedside. No acute overnight events reported. Patient had questions about mechanical DVT prophylaxis. Still has abodminal pain, feels it has slightly improved. Objective: General: NAD, lying comfortably in bed, cachectic HEENT: NC/AT, EOMI, PERRL Lungs: CTA B/L Heart: +S1S2, RRR Abd: soft, NT, +BS Ext: no edema A/P: This is a 64-year-old female with PMHx head and neck cancer and melanoma, admitted to commence bowel prep for colonoscopy tomorrow with Dr. Jauregui. She presented with severe abdominal pain and rectal bleeding for one weeks duration. #Lower gastrointestinal bleed - NPO/IVF -Patient has commenced bowel prep of GoLYTELY in anticipation of colonoscopy -Colonoscopy scheduled for today -H&H initially stable. Repeat CBCs ordered -Patient follows with Dr. Jauregui of gastroenterology as outpatient - c/s pending - assistance appreciated #Severe abdominal pain -Patient follows with gastroenterology as outpatient and will be undergoing colonoscopy today -prn acetaminophen ordered -Patient is npo after midnight with the exception of medications/bowel prep #History of malignancy -Patient has history of head and neck cancer, status post surgical resection of portions of tongue, soft tissue of left lateral neck, and left cervical lymphatic chain. No previous treatment with radiation or chemotherapy. -Patient also has a history of melanoma in , status post surgical resection. She follows at least on a yearly basis with dermatology. -Patient states she had a PET/CT scan last week.. She also follows with thoracic surgery as outpatient. 4. Pulmonary nodule. -Patient complains of dysphagia and odontophagia. A swallow evaluation and speech therapy consult were ordered. -Nutrition consult also ordered as patient appears to be malnourished #Bradycardia -Patient's heart rate in the low to mid 50s at time of exam - asymptomatic -Continue with telemetry #Hyponatremia - improving -Initial serum sodium measured 122. Patient was awake, alert and oriented 3 during exam. -Patient states her sodium levels chronically run low and this is her baseline. She reports sodium around 127 or 128 is high for her. -Continue with IV fluids in the form of normal saline. Important to monitor patient closely so as to not elevate sodium levels too quickly. -Continue to follow with repeat metabolic panels #Low BMI -BMI 15.5 -Patient appears to be significantly malnourished, as she is cachectic on presentation. This is likely secondary to patient's history of malignancy and associated swallowing difficulties. -nutrition consult ordered #DVT prophylaxis: Due to patient's recent history of bleeding per rectum, teds and sequentials were ordered for DVT prophylaxis. DISPOSITION: Pending GI c/s, colonoscopy VS,Fishbone, I+O VS, Fishbone, I+O Laboratory Tests 03/15/19 16:19 Red Blood Count 3.98 L, Mean Corpuscular Volume 89.4, Mean Corpuscular Hemoglobin 32.2, Mean Corpuscular Hemoglobin Concent 36.0, Red Cell Distribution Width 12.6, Neutrophils (%) (Auto) 66.5 H, Lymphocytes (%) (Auto) 20.1 L, Monocytes (%) (Auto) 11.5 H, Eosinophils (%) (Auto) 0.5, Basophils (%) (Auto) 0.9, Neutrophils # (Auto) 2.9, Lymphocytes # (Auto) 0.9 L, Monocytes # (Auto) 0.5, Eosinophils # (Auto) 0.0, Basophils # (Auto) 0.0 03/16/19 05:12 Red Blood Count 4.00, Mean Corpuscular Volume 92.5, Mean Corpuscular Hemoglobin 33.3 H, Mean Corpuscular Hemoglobin Concent 35.9, Red Cell Distribution Width 12.8, Calcium Level 8.3 L, Aspartate Amino Transf (AST/SGOT) 28, Alanine Aminotransferase (ALT/SGPT) 24, Alkaline Phosphatase 81, Total Bilirubin 0.6, Total Protein 6.7, Albumin 3.5 Vital Signs Date Time Temp Pulse Resp B/P (MAP) Pulse Ox O2 Delivery O2 Flow Rate FiO2 03/15/19 22:58 98.4 53 16 116/72 (87) 98 03/15/19 14:52 Room Air I&O- Last 24 Hours up to 6 AM 03/16/19 06:00 Intake Total 500 ml Output Total 0 ml Balance 500 ml PARRIS JUDD MD Mar 16, 2019 08:26
[2019-03-16 08:35] LABS: MAGNESIUM LEVEL 2.2 MG/DL (1.8-2.4)
[2019-03-16] MEDS ORDERED: KCL 20MEQ IN 100ML SWI (KRUN) 20 MEQ in IV 1 EA IV ONE ×2 (11:00)
[2019-03-16] MEDS ORDERED: KCL 10MEQ/100ML SWI (KRUN) 10 MEQ in IV 1 EA IV ONE (12:00)
[2019-03-16] MEDS: GABAPENTIN 100 MG CAP PO SCH (13:10)
--- NOTE | 2019-03-16 13:50 | CR.PDOC ---
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 Clements in November 2018), was initially seen by me in GI clinic in February 2019 for dysphagia, irregular bowel habits and unintentional weight loss which started since hospitalization for tumor surgery. Patient underwent EGD 1 week ago was normal without any esophageal obstruction. Yesterday patient called Gi clinic to report rectal bleeding, with leaking of blood leaking from rectum. Patient also reports having abdominal pain, with some diarrhea and continued weight loss. Patient was referred to ER for evaluation and inpatient Colonoscopy as patient reported she cannot do bowel prep as outpatient due to ongoing symptoms and also due to hyponatremia. Pertinent negative GI symptoms: Patient denies fever, chills, sick contacts, recent travel, no history of hematemesis or melena. Review of Systems: GI: as stated above CVS: No chest pain, No palpitations, No leg swelling. RS: No Shortness of breath, No Wheezing, no cough SOLDERING TECHNICIAN: No dizziness, No motor weakness, No sensory problems Hematology: No bruising, No gum bleeding, Musculoskeletal: No joint pain, ambulating well. Skin: No rash : No hematuria, No burning sensation of the urine ENT: No ear discharge/ pain, No dysphagia. Eyes: No photophobia. Jaundice Home medications: reviewed. Antithrombotic agents - None Medical h/o: As above. Surgical h/o: None on abdomen. Social h/o: Alcohol denies , smoking formoer smoker, IVDA/ drugs denies . Family h/o of GI cancers - None Prior Endoscopies: Last EGD 03/09/2019 Normal. Biopsies negative for any pathology. Prior Colonoscopy by Dr. North reviewed. Prior GI evaluations: previously seen in [facility] GI clinic by Dr. North and myself. Exam: Vitals: reviewed General: Alert and oriented x 3, not in distress, thin built and emaciated. HEENT: NO pallor, no icterus. Normal oropharynx, NO cervical lymph nodes. Chest: symmetric with bilateral clear air entry, CVS: S1, S2 heard, normal, no murmurs . Abdomen: non-distended, no surgical scars, soft, non-tender, no palpable masses, normal bowel sounds heard. Rectal exam: Deferred at this time in view of scheduled colonoscopy. Extremities: no pedal edema, pulses palpable. SOLDERING TECHNICIAN: no focal motor or sensory deficits. Moves all extremities Skin: no rash. Labs: reviewed. 01/29/19 - GI Panel -- negative. 01/22/19 - Cpa -- BUN/creatinine 8/ 0.5, sodium 125 (chronically low), normal liver panel. Impression: -- Irregular bowel habits with rectal bleeding and unintentional weight loss needs further evaluation. Recommendations: - Patient educated about the test results, possible differential diagnoses and All questions answered. - Patient will be scheduled for inpatient Colonoscopy after bowel prep. - The procedure, indications, risks (bleeding, perforation, infection, hypotension, respiratory depression, allergy, need for endotracheal intubation, surgery, colostomy, cardiac arrest, even ), benefits, limitations (e.g., missing a lesion), and all other alternatives (including no intervention) were explained to the patient who understood and agreed for the procedure. - Patient would benefit from Swallow evaluation for dysphagia ( if possible inpatient). - Electrolyte management as per primary team / renal. Would benefit from outpatient follow up with renal. - Post procedure recommendations as per procedure/operative note Plan of care discussed with patient and primary team. Patient verbalized understanding and agreed with the plan. Vital Signs/I&O Vital Signs Date Time Temp Pulse Resp B/P (MAP) Pulse Ox O2 Delivery O2 Flow Rate FiO2 03/16/19 08:00 97.3 53 18 110/70 (83) 100 03/15/19 14:52 Room Air I&O- Last 24 Hours up to 6 AM 03/16/19 05:59 Intake Total 300 ml Output Total 0 ml Balance 300 ml Laboratory Data Labs 24H Laboratory Tests 2 03/15/19 16:19: Immature Granulocyte % (Auto) 0.5, White Blood Count 4.3, Red Blood Count 3.98L, Hemoglobin 12.8, Hematocrit 35.6L, Mean Corpuscular Volume 89.4, Mean Corpuscular Hemoglobin 32.2, Mean Corpuscular Hemoglobin Concent 36.0, Red Cell Distribution Width 12.6, Platelet Count 233, Neutrophils (%) (Auto) 66.5H, Lymphocytes (%) (Auto) 20.1L, Monocytes (%) (Auto) 11.5H, Eosinophils (%) (Auto) 0.5, Basophils (%) (Auto) 0.9, Neutrophils # (Auto) 2.9, Lymphocytes # (Auto) 0.9L, Monocytes # (Auto) 0.5, Eosinophils # (Auto) 0.0, Basophils # (Auto) 0.0, Nucleated Red Blood Cells % (auto) 0.0, Prothrombin Time 13.6, Prothromb Time International Ratio 1.07, Anion Gap 7L, Glomerular Filtration Rate > 60.0, Calcium Level 8.8, Aspartate Amino Transf (AST/SGOT) 26, Alanine Aminotransferase (ALT/SGPT) 21, Alkaline Phosphatase 89, Total Bilirubin 0.8, Direct Bilirubin 0.2, Total Protein 6.9, Albumin 3.9, Albumin/Globulin Ratio 1.30, Lipase 84 03/16/19 05:12: Nucleated Red Blood Cells % (auto) 0.0, Anion Gap 8, Glomerular Filtration Rate > 60.0, Calcium Level 8.3L, Aspartate Amino Transf (AST/SGOT) 28, Alanine Am inotransferase (ALT/SGPT) 24, Alkaline Phosphatase 81, Total Bilirubin 0.6, Total Protein 6.7, Albumin 3.5, Albumin/Globulin Ratio 1.09, Blood Urea Nitrogen 6L, Creatinine 0.38L, Sodium Level 130#L, Potassium Level 2.8#*L, Chloride Level 95L, Carbon Dioxide Level 27, Magnesium Level 2.2 CBC/BMP Laboratory Tests 03/15/19 16:19 Red Blood Count 3.98 L, Mean Corpuscular Volume 89.4, Mean Corpuscular Hemoglobin 32.2, Mean Corpuscular Hemoglobin Concent 36.0, Red Cell Distribution Width 12.6, Neutrophils (%) (Auto) 66.5 H, Lymphocytes (%) (Auto) 20.1 L, Monocytes (%) (Auto) 11.5 H, Eosinophils (%) (Auto) 0.5, Basophils (%) (Auto) 0.9, Neutrophils # (Auto) 2.9, Lymphocytes # (Auto) 0.9 L, Monocytes # (Auto) 0.5, Eosinophils # (Auto) 0.0, Basophils # (Auto) 0.0 03/16/19 05:12 Red Blood Count 4.00, Mean Corpuscular Volume 92.5, Mean Corpuscular Hemoglobin 33.3 H, Mean Corpuscular Hemoglobin Concent 35.9, Red Cell Distribution Width 12.8, Calcium Level 8.3 L, Aspartate Amino Transf (AST/SGOT) 28, Alanine Aminotransferase (ALT/SGPT) 24, Alkaline Phosphatase 81, Total Bilirubin 0.6, Total Protein 6.7, Albumin 3.5 03/16/19 12:32 Allergies Coded Allergies: Scallop (Verified Allergy, Intermediate, SEVERE NAUSEA, VOMITING, DIARRHEA, 03/02/19) TAPE (Verified Allergy, Mild, RASH, 03/02/19) BANDAIDS WOOL (FABRIC) (Verified Allergy, Mild, RASH, 03/02/19) amoxicillin (Verified Allergy, Mild, RASH, 03/02/19) lactose (Verified Allergy, Unknown, 03/02/19) cephalexin (Verified Adverse Reaction, Intermediate, severe diarrhea, 03/02/19) Home Medications Scheduled Biotin (Biotin) 1 Mg Capsule, 1 MG PO QHS, (Reported) Calcium Carbonate/Vitamin D3 (Calcium 600 with Vit D Chew Tb) 1 Each Tab.chew, 2 TAB PO QHS, (Reported) Gabapentin (Gabapentin) 100 Mg Cap, 100 MG PO BID, (Reported) TAKES NOON AND HS Gabapentin (Gabapentin) 100 Mg Cap, 300 MG PO QHS, (Reported) Lactobacillus Acidophilus (Acidophilus) 1 Chw Chw, 1 CHW PO BID, (Reported) Lysine (l-Lysine) 500 Mg Tablet, 500 MG PO QHS, (Reported) Multivitamin (Multivitamins) 1 Cap Cap, 1 CAP PO QHS, (Reported) Scheduled PRN Acetaminophen (Tylenol) 325 Mg Tablet, 650 MG PO TID PRN for PAIN, (Reported) Ibuprofen (Ibuprofen) 400 Mg Tab, 400 MG PO QID PRN for PAIN, (Reported) RADHA REED MD Mar 16, 2019 13:50
[2019-03-16] MEDS ORDERED: LIDOCAINE 2% INJ 100 MG/5 ML SDV (FOR ANES.) As Ordered ONE (14:07)
[2019-03-16] MEDS ORDERED: PROPOFOL 200 MG/20 ML VIAL As Ordered ONE (14:07)
[2019-03-16] MEDS ORDERED: ePHEDrine SULFATE 25 MG/5 ML(5MG/ML) SYRINGE As Ordered ONE (14:31)
--- NOTE | 2019-03-16 14:47 | ROOR ---
Patient Name: Gill Moran Procedure Date: 03/16/2019 2:06 PM Date of : 1955 Age: 64 Room: [facility] Gender: Female Note Status: Finalized Procedure: Colonoscopy Indications: Hematochezia, Generalized abdominal pain, Change in bowel habits, Weight loss Providers: Steve Jauregui MD Referring MD: 2. Inpatient 2. Inpatient Requesting Provider: Medicines: Monitored Anesthesia Care Complications: No immediate complications. Procedure: Pre-Anesthesia Assessment: - Prior to the procedure, a History and Physical was performed, and patient medications and allergies were reviewed. The patient is competent. The risks and benefits of the procedure and the sedation options and risks were discussed with the patient. All questions were answered and informed consent was obtained. Patient identification and proposed procedure were verified by the physician, the nurse and the anesthesiologist in the procedure room. Mental Status Examination: alert and oriented. Airway Examination: normal oropharyngeal airway and neck mobility. Respiratory Examination: clear to auscultation. CV Examination: normal. Prophylactic Antibiotics: The patient does not require prophylactic antibiotics. Prior Anticoagulants: The patient has taken no previous anticoagulant or antiplatelet agents. ASA Grade Assessment: II - A patient with mild systemic disease. After reviewing the risks and benefits, the patient was deemed in satisfactory condition to undergo the procedure. The anesthesia plan was to use monitored anesthesia care (MAC). Immediately prior to administration of medications, the patient was re-assessed for adequacy to receive sedatives. The heart rate, respiratory rate, oxygen saturations, blood pressure, adequacy of pulmonary ventilation, and response to care were monitored throughout the procedure. The physical status of the patient was re-assessed after the procedure. The Colonoscope was introduced through the anus and advanced to the terminal ileum, with identification of the appendiceal orifice and IC valve. The colonoscopy was performed without difficulty. The patient tolerated the procedure well. The quality of the bowel preparation was fair. The ileocecal valve, appendiceal orifice, and rectum were photographed. Scope insertion time was 3 minutes. Scope withdrawal time was 9 minutes. The total duration of the procedure was 12 minutes. Findings: The perianal and digital rectal examinations were normal. The colon (entire examined portion) was moderately tortuous. Advancing the scope required using manual pressure and straightening and shortening the scope to obtain bowel loop reduction. There is no endoscopic evidence of bleeding, inflammation, mass or polyps in the entire colon. Biopsies for histology were taken with a cold forceps from the right colon and rectosigmoid colon for evaluation of microscopic colitis. Verification of patient identification for the specimen was done by the physician and nurse using the patient's name, date and medical record number. Estimated blood loss was minimal. Non-bleeding external and internal hemorrhoids were found during retroflexion. The hemorrhoids were large. Impression: - Preparation of the colon was fair. - Tortuous colon. - Non-bleeding external and internal hemorrhoids. Recommendation: - Patient has a contact number available for emergencies. The signs and symptoms of potential delayed complications were discussed with the patient. Return to normal activities tomorrow. Written discharge instructions were provided to the patient. - Chopped diet, mechanical soft diet and high fiber diet. - Continue present medications. - Await pathology results. - Repeat colonoscopy in 5-10 years for screening purposes. - Preparation H ointment: Apply externally daily for 5 days. - Return to GI clinic in [facility] (address [address], [address], [place] [address]) in 4 -- 6 weeks. Please call GI clinic @ [phone] for apppointment date and time. - Return to primary care physician. Steve Jauregui MD Steve Jauregui MD 03/16/2019 2:46:34 PM Electronically signed by Steve Jauregui MD Number of Addenda: 0 Note Initiated On: 03/16/2019 2:06 PM Estimated Blood Loss: Estimated blood loss was minimal.
[2019-03-16 15:30] VITALS: BP 107/69
[2019-03-16] MEDS ORDERED: PREP1CRE TOP ×2 (17:39→17:41)
--- NOTE | 2019-03-16 17:57 | DS.PDOC ---
Discharge Summary General Date of Admission Mar 15, 2019 at 19:58 Date of Discharge 03/16/19 Discharge Summary PROCEDURES PERFORMED DURING STAY: Colonoscopy ADMITTING DIAGNOSES: 1. suspected GI bleed DISCHARGE DIAGNOSES: # hemorrhoids #chronic abdominal pain #malignancy - head and neck cancer, status post surgical resection of portions of tongue, soft tissue of left lateral neck, and left cervical lymphatic chain # melanoma in , status post surgical resection #Bradycardia - sinus - asymptomatic #Hyponatremia (hypovolemic) #Low BMI #medical non-compliance COMPLICATIONS/CHIEF COMPLAINT: Gi Bleed. HISTORY OF PRESENT ILLNESS: This is a 64-year-old female with PMHx head and neck cancer and melanoma, admitted to commence bowel prep for colonoscopy with Dr. Jauregui. She presented with severe abdominal pain and rectal bleeding for one weeks duration. HOSPITAL COURSE: Patient admitted for colonoscopy for suspected GI bleed. Underwent colonoscopy through GI consultation. No active bleeds founds. Suggested patient remain overnight for further monitoring of H/H and ability to tolerate diet. Patient hostile towards staff, discussed further with GI, discharge home with outpatient follow up. #Lower gastrointestinal bleed - outpatient follow up - s/p colonoscopy, no acute findings #Severe abdominal pain - chronic #History of malignancy -Patient has history of head and neck cancer, status post surgical resection of portions of tongue, soft tissue of left lateral neck, and left cervical lymphatic chain. No previous treatment with radiation or chemotherapy. -Patient also has a history of melanoma in , status post surgical resection. She follows at least on a yearly basis with dermatology. -Patient states she had a PET/CT scan last week.. She also follows with thoracic surgery as outpatient. 4. Pulmonary nodule. -Patient complains of dysphagia and odontophagia - does not wish to remain in hospital for further evaluation #Bradycardia - sinus -Patient's heart rate in the low to mid 50s at time of exam - asymptomatic #Hyponatremia (hypovolemic) - improved, asymptomatic #Low BMI -BMI 15.5 -Patient appears to be significantly malnourished, as she is cachectic on prese ntation. This is likely secondary to patient's history of malignancy and associated swallowing difficulties. -patient does not wish to remain in hospital for nutrition consult DISCHARGE MEDICATIONS: Please see below. ALLERGIES: Please see below. PHYSICAL EXAMINATION ON DISCHARGE: VITAL SIGNS: Please see below. Objective: General: NAD, lying comfortably in bed, cachectic HEENT: NC/AT, EOMI, PERRL Lungs: CTA B/L Heart: +S1S2, RRR Abd: soft, NT, +BS Ext: no edema LABORATORY DATA: Please see below. PROGNOSIS: Guarded ACTIVITY: [As tolerated]. DIET: soft, mechanical chopped, high fiber DISPOSITION: discharge home DISCHARGE INSTRUCTIONS: 1. PCP in 3-5 days 2. GI in 4 weeks DISCHARGE CONDITION: [Stable]. TIME SPENT ON DISCHARGE: 35 minutes. Vital Signs/I&Os Vital Signs Date Time Temp Pulse Resp B/P (MAP) Pulse Ox O2 Delivery O2 Flow Rate FiO2 03/16/19 15:30 97.5 60 18 107/69 (82) 100 03/15/19 14:52 Room Air I&O- Last 24 Hours up to 6 AM 03/16/19 06:00 Intake Total 500 ml Output Total 0 ml Balance 500 ml Laboratory Data Labs 24H Laboratory Tests 2 03/16/19 05:12: Nucleated Red Blood Cells % (auto) 0.0, Anion Gap 8, Glomerular Filtration Rate > 60.0, Blood Urea Nitrogen 6L, Creatinine 0.38L, Sodium Level 130#L, Potassium Level 2.8#*L, Chloride Level 95L, Carbon Dioxide Level 27, Calcium Level 8.3L, Aspartate Amino Transf (AST/SGOT) 28, Alanine Aminotransferase (ALT/SGPT) 24, Alkaline Phosphatase 81, Total Bilirubin 0.6, Total Protein 6.7, Albumin 3.5, Magnesium Level 2.2, Albumin/Globulin Ratio 1.09 CBC/BMP Laboratory Tests 03/16/19 05:12 Red Blood Count 4.00, Mean Corpuscular Volume 92.5, Mean Corpuscular Hemoglobin 33.3 H, Mean Corpuscular Hemoglobin Concent 35.9, Red Cell Distribution Width 12.8, Calcium Level 8.3 L, Aspartate Amino Transf (AST/SGOT) 28, Alanine Aminotransferase (ALT/SGPT) 24, Alkaline Phosphatase 81, Total Bilirubin 0.6, Total Protein 6.7, Albumin 3.5 03/16/19 12:32 Discharge Medications Scheduled Biotin (Biotin) 1 Mg Capsule, 1 MG PO QHS, (Reported) Calcium Carbonate/Vitamin D3 (Calcium 600 with Vit D Chew Tb) 1 Each Tab.chew, 2 TAB PO QHS, (Reported) Gabapentin (Gabapentin) 100 Mg Cap, 100 MG PO BID, (Reported) TAKES NOON AND HS Gabapentin (Gabapentin) 100 Mg Cap, 300 MG PO QHS, (Reported) Lactobacillus Acidophilus (Acidophilus) 1 Chw Chw, 1 CHW PO BID, (Reported) Lysine (l-Lysine) 500 Mg Tablet, 500 MG PO QHS, (Reported) Multivitamin (Multivitamins) 1 Cap Cap, 1 CAP PO QHS, (Reported) Scheduled PRN Acetaminophen (Tylenol) 325 Mg Tablet, 650 MG PO TID PRN for PAIN, (Reported) Hydrocortisone (Preparation H) 26 Gm Cream..g., 1 APLCT TOP DAILY PRN for PAIN Apply daily for five days. Ibuprofen (Ibuprofen) 400 Mg Tab, 400 MG PO QID PRN for PAIN, (Reported) Allergies Coded Allergies: Scallop (Verified Allergy, Intermediate, SEVERE NAUSEA, VOMITING, DIARRHEA, 03/02/19) TAPE (Verified Allergy, Mild, RASH, 03/02/19) BANDAIDS WOOL (FABRIC) (Verified Allergy, Mild, RASH, 03/02/19) amoxicillin (Verified Allergy, Mild, RASH, 03/02/19) lactose (Verified Allergy, Unknown, 03/02/19) cephalexin (Verified Adverse Reaction, Intermediate, severe diarrhea, 03/02/19) PARRIS JUDD MD Mar 16, 2019 17:57
== END 2019-03-16 19:50 | disposition home or self-care (01) | DRG 378 ==
LOC: M ED 14:52 → M ED INP 19:58 → M PCU 22:58
PROVIDERS: ADMIT Internal Medicine; ATTEND Internal Medicine
PROC: 0DB98ZX Excision of Duodenum, Via Natural or Artificial Opening Endoscopic, Diagnostic (ICD-10-PCS; 2019-03-16)
PROC: 0DBN8ZX Excision of Sigmoid Colon, Via Natural or Artificial Opening Endoscopic, Diagnostic (ICD-10-PCS; 2019-03-16)
PROC: 0DBF8ZX Excision of Right Large Intestine, Via Natural or Artificial Opening Endoscopic, Diagnostic (ICD-10-PCS; principal; 2019-03-16 15:47)
DX: K92.2 Gastrointestinal hemorrhage, unspecified (principal); E87.1 Hypo-osmolality and hyponatremia; Z68.1 Body mass index [BMI] 19.9 or less, adult; E46 Unspecified protein-calorie malnutrition; Z85.820 Personal history of malignant melanoma of skin; E73.9 Lactose intolerance, unspecified; J47.9 Bronchiectasis, uncomplicated; R91.1 Solitary pulmonary nodule; R00.1 Bradycardia, unspecified; G62.9 Polyneuropathy, unspecified; Z96.641 Presence of right artificial hip joint; Z85.831 Personal history of malignant neoplasm of soft tissue; Z87.891 Personal history of nicotine dependence; Z88.0 Allergy status to penicillin; Z88.1 Allergy status to other antibiotic agents; Z91.048 Other nonmedicinal substance allergy status; Z79.899 Other long term (current) drug therapy; Z91.013 Allergy to seafood; Z85.810 Personal history of malignant neoplasm of tongue; Z91.19 Patient's noncompliance with other medical treatment and regimen

== ENCOUNTER → 2019-03-27 | Outpatient (CLI) | payer OTHER ==
[~2019-03-27] MED LIST changes: +ACET-907 PO; +CALCCHW4 PO; +PREP1CRE TOP
[2019-03-27 13:44] LABS: BASO % 0.9 % (0.0-1.0); EOS # 0.1 10^3/uL (0.0-0.5); EOS % 1.8 % (0.0-3.0); HEMATOCRIT 38.1 % (36.0-47.0); HEMOGLOBIN 13.4 g/dl (12.0-15.5); LYMPH % 29.4 % (24.0-44.0); MEAN CORPUSCULAR HEMOGLOBIN 32.2 pg (27.0-33.0); MEAN CORPUSCULAR HGB CONC 35.2 g/dl (32.0-36.5); MEAN CORPUSCULAR VOLUME 91.6 fl (80.0-96.0); MONO # 0.4 10^3/uL (0.0-0.8); MONO % 12.8 % (0.0-5.0); NEUTROPHILS # 1.9 10^3/uL (1.5-8.5); NEUTROPHILS % 54.8 % (36.0-66.0); PLATELET COUNT, AUTOMATED 218 10^3/uL (150-450); RED BLOOD COUNT 4.16 10^6/uL (4.00-5.40); WHITE BLOOD COUNT 3.4 10^3/uL (4.0-10.0)
[2019-03-27 14:11] LABS: ALBUMIN 4.1 GM/DL (3.2-5.2); ALT/SGPT 23 U/L (12-78); BILIRUBIN,TOTAL 0.3 MG/DL (0.2-1.0); BLOOD UREA NITROGEN 8 MG/DL (7-18); CALCIUM LEVEL 9.1 MG/DL (8.8-10.2); CARBON DIOXIDE LEVEL 30 MEQ/L (21-32); CHLORIDE LEVEL 88 MEQ/L (98-107); CREATININE FOR GFR 0.47 MG/DL (0.55-1.30); GLOMERULAR FILTRATION RATE > 60.0 (>45); GLUCOSE, FASTING 104 MG/DL (70-100); SODIUM LEVEL 123 MEQ/L (136-145); TOTAL PROTEIN 7.2 GM/DL (6.4-8.2)
== END ==
LOC: M LAB 12:57
PROVIDERS: ATTEND Family Medicine
DX: E44.0 Moderate protein-calorie malnutrition (principal); E87.1 Hypo-osmolality and hyponatremia

== ENCOUNTER 2019-04-04 11:32 | Outpatient (RCR) | payer OTHER | END 2019-04-12 | LOC: M ST 11:32 | PROVIDERS: ATTEND Otolaryngology | DX: Z90.49 Acquired absence of other specified parts of digestive tract (principal); Z85.810 Personal history of malignant neoplasm of tongue ==

== ENCOUNTER → 2019-04-12 | Outpatient (CLI) | payer OTHER ==
--- NOTE | 2019-04-12 10:35 | REP ---
Clinical: Follow up solitary pulmonary nodule. Comparison: 06/30/2018. Technique: Axial noncontrast images from the thoracic inlet to the upper abdomen with coronal and sagittal re-formations. Findings: The lung conklin demonstrate scattered and primarily stable areas of nodularity and scarring similar in appearance and distribution as compared to prior examination. However, very subtle increased prominence to the irregularities noted along the medial right middle lobe including the possibility of new small 4 mm nodule (image 53) and slight increase in the soft tissue prominence to a nodule in the periphery of the right upper lobe (image 41) may represent active disease or progressive chronic change. No further new consolidation or mass lesion appreciated. No effusion. No pneumothorax. Evaluation for adenopathy is limited due to the lack of contrast. Thoracic aorta is without aneurysm. Heart is normal in size. Small amount of pericardial fluid at the right base of the heart and the is again suggested and possibly slightly increased from prior examination. Impression: 1. Slight increase in two nodular areas involving the medial right middle lobe and right upper lobe as described above may represent progressive scarring or active disease. Given history of head and neck carcinoma, follow-up examination is warranted to exclude active metastatic disease. 2. Slight increase in the pericardial fluid at the right cardiac base. Electronically Signed by Keith Rider MD 04/12/2019 10:27 A
== END ==
LOC: M RAD 09:50
PROVIDERS: ATTEND Thoracic Surgery (Cardiothoracic Vascular Surgery)
DX: R91.1 Solitary pulmonary nodule (principal); A31.0 Pulmonary mycobacterial infection; J47.9 Bronchiectasis, uncomplicated; Z85.89 Personal history of malignant neoplasm of other organs and systems

== ENCOUNTER → 2019-04-27 | Outpatient (REF) | payer OTHER ==
[2019-04-27 14:18] LABS: CREATININE,RANDOM URINE < 13.0 MG/DL; SODIUM,RANDOM URINE 19 MEQ/L
== END ==
LOC: M LAB REF 12:54
PROVIDERS: ATTEND Internal Medicine Nephrology
DX: E87.1 Hypo-osmolality and hyponatremia (principal)

== ENCOUNTER → 2019-05-22 | Outpatient (CLI) | payer OTHER ==
--- NOTE | 2019-05-23 11:58 | REP ---
PET/CT: HISTORY: Monitoring response to treatment. Malignant neoplasm of the border of the tongue. Squamous cell carcinoma. 6 months status post left hemiglossectomy and neck dissection. COMPARISONS: Comparison PET/CT study March 06, 2019 and November 21, 2018. TECHNIQUE: 63 minutes following the intravenous injection of a 8.62 mCi dose of F-18 FDG, three-dimensional PET scintigraphy is acquired from the skull base to the proximal thighs. Triplanar noncontrast CT scanning is acquired through the same anatomic range for attenuation correction, and image registration with scan parameters optimized to minimize radiation exposure to the patient. PET scintigraphy and CT datasets were fused and displayed on a workstation with multiplanar and projection display capability. PET/CT FINDINGS: There is still asymmetric uptake in the anterior tongue region on the right. The patient is status post left hemiglossectomy. Maximum standard uptake value in the right anterior oral cavity is 5.5. This is of uncertain significance but may reflect post treatment change and chronic inflammation. It is essentially unchanged from most recent prior PET/CT study of March 02, 2019. Head and neck soft tissues are otherwise unremarkable. The accompanying CT study again demonstrates areas of bronchiectasis involving the lingula and the anterior segment of the right upper lobe where nodular opacities are noted previously. There are a waxing and waning nodular opacities here which may reflect inspissated endobronchial secretions. Mildly hypermetabolic uptake persists in the inflammatory changes in the lingula, 2.89, and near the midline in the right upper lobe anteriorly retrosternal region, 2.87. The other foci of parenchymal opacity in the lungs bilaterally are not hypermetabolic. The nodular opacities in the right upper lobe show maximum standard uptake value 1.21 and 0.97. Stable non-hypermetabolic nodules are seen elsewhere in the right upper lobe, maximum standard uptake value 0.75. No suspicious pulmonary nodule is appreciated. No hilar or mediastinal hypermetabolic uptake. Esophageal uptake is noted as a normal variant. No abnormal uptake is seen in the abdomen or pelvis. IMPRESSION: Asymmetric uptake in the remaining right side of the tongue, uncertain significance, question post treatment change. No head and neck hypermetabolic adenopathy is seen. There are areas of bronchiectasis in the upper lobes bilaterally with a chronic inflammatory changes and waxing and waning nodules are seen in the right upper lobe. No suspicious hypermetabolic nodule is appreciated. Electronically Signed by Declan Zarco MD 05/23/2019 05:38 P
== END ==
LOC: M PLARAD 13:39
PROVIDERS: ATTEND Otolaryngology
DX: C02.1 Malignant neoplasm of border of tongue (principal); J47.9 Bronchiectasis, uncomplicated
CPT/HCPCS: 78815; A9552

== ENCOUNTER 2019-06-28 13:23 | Emergency (ER) | payer OTHER ==
[~2019-06-28] VITALS: Ht 165.1 cm; Wt 46.0 kg
[2019-06-28] MEDS ORDERED: OXYC1TAB23 PO (13:51)
[2019-06-28] MEDS ORDERED: STOO1TAB2 PO (13:51)
[2019-06-28] MEDS ORDERED: CLIN300C5 PO (13:51)
[2019-06-28] MEDS ORDERED: CLINDAMYCIN 600 MG in IV 1 EA IV ONE (14:15)
[2019-06-28 14:42] LABS: BASO % 0.2 % (0.0-1.0); EOS % 0.2 % (0.0-3.0); HEMATOCRIT 36.7 % (36.0-47.0); HEMOGLOBIN 12.8 g/dl (12.0-15.5); LYMPH # 0.6 10^3/uL (1.5-5.0); LYMPH % 7.5 % (24.0-44.0); MEAN CORPUSCULAR HEMOGLOBIN 32.2 pg (27.0-33.0); MEAN CORPUSCULAR HGB CONC 34.9 g/dl (32.0-36.5); MEAN CORPUSCULAR VOLUME 92.4 fl (80.0-96.0); MONO # 0.8 10^3/uL (0.0-0.8); MONO % 10.4 % (0.0-5.0); NEUTROPHILS # 6.6 10^3/uL (1.5-8.5); NEUTROPHILS % 81.3 % (36.0-66.0); PLATELET COUNT, AUTOMATED 205 10^3/uL (150-450); RED BLOOD COUNT 3.97 10^6/uL (4.00-5.40); WHITE BLOOD COUNT 8.1 10^3/uL (4.0-10.0)
[2019-06-28 15:06] LABS: ERYTHROCYTE SEDIMENTATION RATE 8 mm/hr (0-30)
[2019-06-28 15:07] LABS: BLOOD UREA NITROGEN 8 MG/DL (7-18); CREATININE FOR GFR 0.43 MG/DL (0.55-1.30); GLOMERULAR FILTRATION RATE > 60.0 (>45); GLUCOSE, FASTING 109 MG/DL (70-100); SODIUM LEVEL 122 MEQ/L (136-145)
[2019-06-28 15:08] LABS: C REACTIVE PROTEIN QUANTITATIV 3.33 MG/DL (0.00-0.30); CALCIUM LEVEL 8.5 MG/DL (8.8-10.2); CARBON DIOXIDE LEVEL 28 MEQ/L (21-32); CHLORIDE LEVEL 86 MEQ/L (98-107); POTASSIUM SERUM 3.7 MEQ/L (3.5-5.1)
--- NOTE | 2019-06-28 15:17 | REP ---
Left foot: Four views. History: Cellulitis. Rule out foreign body. Findings: There is diffuse osteoporosis. There is valgus deformity at the first second and third metatarsal phalangeal joints and there appears to be dorsal and lateral subluxation of the second metatarsal phalangeal joint. No erosive changes seen. No fracture is noted. No opaque foreign body is visible. Impression: No bony erosive change. No fracture or opaque foreign body seen. Valgus deformity at the first three MTP joints and dorsal subluxation or dislocation at the second MTP joint. Electronically Signed by Declan Zarco MD 06/28/2019 03:08 P
[2019-06-28] MEDS ORDERED: KETOROLAC 30 MG/ML VIAL (J1885) IV ONE (16:00)
[2019-06-28] MEDS ORDERED: CLEO300C2 PO (16:55)
[2019-06-28 17:21] VITALS: BP 111/68
== END 2019-06-28 17:22 | disposition home or self-care (01) ==
LOC: M ED 13:23
DX: L03.116 Cellulitis of left lower limb (principal); M20.62 Acquired deformities of toe(s), unspecified, left foot; E73.9 Lactose intolerance, unspecified; Z79.899 Other long term (current) drug therapy; Z88.0 Allergy status to penicillin; Z88.1 Allergy status to other antibiotic agents; Z91.013 Allergy to seafood; Z91.89 Other specified personal risk factors, not elsewhere classified
CPT/HCPCS: 73630; 80048; 85025; 85652; 86140; 96365; 96366; 96374; 99284; J1885

== ENCOUNTER 2019-07-02 15:06 | Inpatient (IN) | payer OTHER ==
[~2019-07-02] VITALS: Ht 165.1 cm; Wt 46.3 kg
[~2019-07-02 15:06] MED LIST changes: -BIOT50005 SL; -CALCIUM CARB/VIT D3 PO; -IBUP200C28 PO
[2019-07-02] MEDS ORDERED: MAALOX 30 ML SUSP *UDC PO PRN (18:15)
[2019-07-02 19:06] LABS: HEMATOCRIT 32.3 % (36.0-47.0); HEMOGLOBIN 11.6 g/dl (12.0-15.5); MEAN CORPUSCULAR HEMOGLOBIN 33.2 pg (27.0-33.0); MEAN CORPUSCULAR HGB CONC 35.9 g/dl (32.0-36.5); MEAN CORPUSCULAR VOLUME 92.6 fl (80.0-96.0); PLATELET COUNT, AUTOMATED 209 10^3/uL (150-450); RED BLOOD COUNT 3.49 10^6/uL (4.00-5.40); WHITE BLOOD COUNT 5.2 10^3/uL (4.0-10.0)
[2019-07-02] MEDS ORDERED: VANCOMYCIN HCL 1,000 MG, VIAL MATE ADAPTER 1 EACH in D5W 250 ML IV SCH (19:15)
[2019-07-02 19:30] VITALS: BP 116/70
[2019-07-02 19:35] LABS: ALBUMIN 3.7 GM/DL (3.2-5.2); ALT/SGPT 26 U/L (12-78); BILIRUBIN,TOTAL 0.5 MG/DL (0.2-1.0); BLOOD UREA NITROGEN 6 MG/DL (7-18); CALCIUM LEVEL 8.3 MG/DL (8.8-10.2); CARBON DIOXIDE LEVEL 28 MEQ/L (21-32); CHLORIDE LEVEL 87 MEQ/L (98-107); CREATININE FOR GFR 0.38 MG/DL (0.55-1.30); GLOMERULAR FILTRATION RATE > 60.0 (>45); GLUCOSE, FASTING 83 MG/DL (70-100); POTASSIUM SERUM 3.4 MEQ/L (3.5-5.1); SODIUM LEVEL 122 MEQ/L (136-145); TOTAL PROTEIN 6.7 GM/DL (6.4-8.2)
[2019-07-02] MEDS ORDERED: OXYC1TAB23 PO (19:46)
[2019-07-02] MEDS ORDERED: CALCIUM CARB/VIT D3 PO (19:46)
[2019-07-02] MEDS ORDERED: IBUP200C28 PO (19:46)
[2019-07-02] MEDS ORDERED: BIOT50005 SL (19:46)
[2019-07-02] MEDS: GABAPENTIN 300 MG CAP PO SCH (21:15)
[2019-07-02] MEDS: PERCOCET 5MG/325MG TAB PO SCH (21:15)
[2019-07-02] MEDS: HEPARIN SOD (PORCINE) 5000 UNITS/ML VIAL (J1644 PER 1000UNITS) SC SCH (21:16)
[2019-07-02] MEDS: DOCUSATE SODIUM 100 MG CAP PO SCH (21:19)
[2019-07-02] MEDS ORDERED: VANCOMYCIN HCL 1,000 MG, VIAL MATE ADAPTER 1 EACH in D5W 250 ML IV ONE (22:00)
--- NOTE | 2019-07-02 22:43 | HPEPDOC ---
[facility] Medical History & Physical Date of Admission Jul 02, 2019 Date of Service: Jul 02, 2019 History and Physical CHIEF COMPLAINT: Left foot pain HISTORY OF PRESENT ILLNESS: This is a 64-year-old female presenting for left foot pain as a direct admission from Dr. Travis office. She states that her left foot pain started about 2 weeks ago and she was evaluated by Dr. Fernando for a callus which she had just debrided. She noticed that the left foot pain did not improve and actually worsened with swelling and erythema. She was evaluated in the ER the for this and she was discharged with clindamycin 300 mg twice a day for 10 days. Her CRP at that time was 3.33 with no leukocytosis and no elevated ESR. She had a left x-ray at that time which showed no bony erosion changes no fractures or foreign body. She was advised to establish care with ID for further recommendations. At her appointment at Dr. Travis office earlier this evening she has completed 4 days of outpatient antibiotics and noticed no improvement of her symptoms. She failed outpatient therapy and was recommended that she will have a direct admission to [facility] for MRI of the foot and IV antibiotics. PAST MEDICAL HISTORY: 1. History of malignant melanoma in situ left hip 2001 2. Arthritis. 3. Bronchiectasis 4. History of abnormal MRI demyelinating disease 5. 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 6. 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 Chronic hyponatremia SIADH 8. Degenerative disc disease with radiculopathy of the left leg HOME MEDICATIONS: Please see below. ALLERGIES: Please see below PAST SURGICAL HISTORY: 1. Total right hip replacement 2007 2. Diagnostic laparoscopy of endometriosis 3. Bronchoscopy 4. Sinus surgery 5. 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 ETOH: Denies, Illicit drug use: Denies, CODE STATUS: Full code FAMILY HISTORY: Reviewed and noncontributory. Father brain bleed, mother COPD, chronic seizure, emphysema, hypertension REVIEW OF SYSTEMS: 10 systems reviewed and negative other than HPI PHYSICAL EXAMINATION: VITAL SIGNS: See Below GENERAL: Pleasant 64-year-old female sitting up in bed awake alert oriented speaking in complete sentences no acute distress. Pale appearing but not toxic HEENT: Atraumatic, normocephalic, temporal wasting bilaterally,moist mucous membranes, no JVD, prominent SCM muscles bilaterally with prominent clavicular bones as well. CARDIOVASCULAR: S1 S2 bradycardic rate regular rhythm no additional heart sounds appreciated. RESPIRATORY: Clear to auscultation bilaterally. ABDOMINAL: Bowel sounds present abdomen soft and nontender EXTREMITIES: No clubbing cyanosis. Left foot swollen 1+ pitting edema to above the ankle. On the plantar aspect of the foot there is a wound dressing that was not removed for the patient was in significant amount of pain from light touch. Skin appears erythematous, tender, swollen. Valgus deformity of the first 3 MTP joints. NEUROLOGICAL: no gross focal deficits appreciated PSYCHOLOGICAL: Appropriate LABORATORY DATA: See below. MICROBIOLOGY: Please see below. IMAGING: None ASSESSMENT & PLAN: This is a 64-year-old female presenting for left foot pain as a direct admission from Dr. Travis office. PROBLEMS: 1. Left foot pain secondary to cellulitis versus osteomyelitis versus abscess versus acute Charcot. Direct admission from Dr. Kennedy, who has been consulted. Recommendations is MRI of the left foot, IV vancomycin pending results of MRI can consider podiatry consult in a.m. Pain management consist of Percocet and gabapentin. 2. Chronic hyponatremia SIADH. Sodium 122 which is her baseline. Mentation is a ppropriate and has no complaints. At this current time IV fluids not indicated. If she does need IV fluids will need to monitor closely so not corrected too quickly. 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 4. History of multiple cancers. 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 Chronic degenerative disc disease with radiculopathy of the left side 6. Normocytic anemia. Pale appearing on physical exam. Hemoglobin was 11.6 with an MCV of 92.6. Iron panel, B12 and foot levels pending. DVT PROPHYLAXIS: Heparin DISPOSITION: Inpatient at least 2 midnights. Vital Signs Vital Signs Date Time Temp Pulse Resp B/P (MAP) Pulse Ox O2 Delivery O2 Flow Rate FiO2 07/02/19 21:15 18 Room Air 07/02/19 19:30 97.8 54 116/70 (85) 100 Laboratory Data Labs 24H Laboratory Tests 2 07/02/19 18:44: Nucleated Red Blood Cells % (auto) 0.0, Anion Gap 7L, Glomerular Filtration Rate > 60.0, Calcium Level 8.3L, Total Bilirubin 0.5, Aspartate Amino Transf (AST/SGOT) 33, Alanine Aminotransferase (ALT/SGPT) 26, Alkaline Phosphatase 83, Total Protein 6.7, Albumin 3.7, Albumin/Globulin Ratio 1.23 CBC/BMP Laboratory Tests 07/02/19 18:44 Microbiology Microbiology 07/02/19 Blood Culture, Received Pending Home Medications Scheduled Biotin (Biotin) 5,000 Mcg Tab.subl, 5,000 MCG SL QPM Clindamycin HCl (Clindamycin HCl) 300 Mg Capsule, 300 MG PO TID FILLED 06/28/19 FOR 7 DAYS Gabapentin (Gabapentin) 100 Mg Cap, 100 MG PO BID TAKES NOON AND DINNER Gabapentin (Gabapentin) 100 Mg Cap, 300 MG PO QHS Lactobacillus Acidophilus (Acidophilus) 1 Chw Chw, 1 CHW PO QPM Lysine (l-Lysine) 500 Mg Tablet, 500 MG PO QPM Multivitamin (Multivitamins) 1 Cap Cap, 1 CAP PO QPM Oxycodone HCl/Acetaminophen (Oxycodone-Acetaminophen 5-325) 1 Each Tablet, 1 TAB PO QHS [Calcium Carb/Vit D3] , 2 TAB PO QPM CALCIUM CARBONATE 1200MG W/ VIT D3 1000 UNITS Scheduled PRN Acetaminophen (Tylenol) 325 Mg Tablet, 650 MG PO TID PRN for PAIN Ibuprofen (Ibuprofen) 200 Mg Capsule, 400 MG PO QID PRN for PAIN TAKES ONE TO TWO TABS WHEN NEEDED Oxycodone HCl/Acetaminophen (Oxycodone-Acetaminophen 5-325) 1 Each Tablet, 1 TAB PO TID PRN for PAIN Sennosides/Docusate Sodium (Stool Softener-Laxative Tablet) 1 Each Tablet, 1 TAB PO BID PRN for CONSTIPATION Allergies Coded Allergies: Scallop (Verified Allergy, Intermediate, SEVERE NAUSEA, VOMITING, DIARRHEA, 03/02/19) TAPE (Verified Allergy, Mild, RASH, 03/02/19) BANDAIDS WOOL (FABRIC) (Verified Allergy, Mild, RASH, 03/02/19) amoxicillin (Verified Allergy, Mild, RASH, 03/02/19) lactose (Verified Allergy, Unknown, 03/02/19) cephalexin (Verified Adverse Reaction, Intermediate, severe diarrhea, 03/02/19) GME ATTESTATION GME ATTESTATION My faculty preceptor for this patient encounter was physically present during the encounter and was fully available. All aspects of the patient interview, examination, medical decision making process, and medical care plan development were reviewed and approved by the faculty preceptor. The faculty preceptor is aware and concurs with the plan as stated in the body of this note and will attest to such by his/her cosignature. ATTENDING NOTE I, Stefany Chow, have independently examined this patient and performed my own physical exam, as well as reviewed the documentation and edited where necessary. I have discussed in detail with the resident / student the findings and plan of treatment as documented by the resident / student and edited their note. I agree with their findings and treatment plan and have edited their documentation. I will continue to follow the patient during this hospital stay. LILLY PATIÑO DO Jul 02, 2019 22:43 STEFANY CHOW MD Jul 03, 2019 06:11
--- NOTE | 2019-07-02 22:56 | REPVR ---
PROCEDURE INFORMATION: Exam: MR Left Lower Extremity Other Than Joint Without Contrast; Foot Exam date and time: 07/02/2019 10:39 PM Age: 64 years old Clinical indication: Pain; Foot; Left; Additional info: Cellulitis TECHNIQUE: Imaging protocol: MR of the Left lower extremity without contrast. Exam focused on the foot. COMPARISON: CR Foot, complete 06/28/2019 2:43 PM FINDINGS: Soft tissue swelling over the midfoot and forefoot. There may be a skin defect over the plantar forefoot at the level of the 2nd metatarsal head. There is fluid collection measuring 17 x 14 by 10 mm just plantar to the 2nd metatarsal head. Dorsal dislocation of the 2nd proximal phalanx relative to the metatarsal head is present. No linear fracture. No identifiable marrow replacement to suggest osteomyelitis and no cortical disruption. Hallux valgus deformity is seen involving the great toe and the 3rd and 4th toes also show valgus deformity at the MTP joints. Midfoot and hindfoot osseous structures are intact IMPRESSION: Soft tissue swelling in the midfoot and forefoot suggesting cellulitis. No evidence of underlying osteomyelitis. Dorsal dislocation of the 2nd toe proximal phalanx relative to the metatarsal, with a plantar fluid collection plantar to the 2nd toe metatarsal head which could be a seroma or inflamed/infected fluid collection. Electronically signed by: Juan F Alaniz On 07/02/2019 22:56:36 PM
--- NOTE | 2019-07-02 23:15 | PHACANCOPD ---
PHARMACY VANCOMYCIN DOSING Pt Demographics Demographics Patient Age:64 , Weight:46.300 , Gender: female Adjusted Body Weight Events Past 24 Hours Events Past 24 Hours: NO: Dialysis, Diuretic Therapy, Change in CrCl, Fever, Elevation in WBC, Pending Diagnostics, Pending Procedures, Other Vancomycin Vancomycin Target Ranges: 15-20 mcg/ml Vancomycin Load Y/N: Yes Load Dose Date Time Vancomycin Load Dose: 1GM IV Date: 07/02/19 Time: 23:00 Vancomycin Dose Date: 07/03/19. Current Vancomycin Dose: [750MG IV Q8H starting @6AM] Intermittent Dosing?: No Labs Labs Laboratory Tests 07/02/19 18:44 Micro Microbiology 07/02/19 Blood Culture, Received Pending Creatinine Clearance Date:07/02/19. Creatinine Clearance: [>60 ML/MIN]. Assessment and Plan Maintaining Current Dose?: Yes Reason for dose change: No Dose Change Pharmacist Note Pharmacist Note [facility] Jul 02, 2019 23:15
[2019-07-03] VITALS (7 sets, daily range): BP systolic 105–128; BP diastolic 59–76
[2019-07-03] MEDS: VANCOMYCIN HCL 750 MG, VIAL MATE ADAPTER 1 EACH in D5W 250 ML IV SCH ×2 (06:16→14:22)
[2019-07-03] MEDS: ACETAMINOPHEN TAB 650MG DOSE (2X325MG) PO PRN (06:19)
[2019-07-03 06:32] LABS: HEMATOCRIT 34.4 % (36.0-47.0); HEMOGLOBIN 12.4 g/dl (12.0-15.5); MEAN CORPUSCULAR HEMOGLOBIN 33.4 pg (27.0-33.0); MEAN CORPUSCULAR VOLUME 92.7 fl (80.0-96.0); PLATELET COUNT, AUTOMATED 233 10^3/uL (150-450); RED BLOOD COUNT 3.71 10^6/uL (4.00-5.40); WHITE BLOOD COUNT 3.4 10^3/uL (4.0-10.0)
[2019-07-03 07:04] LABS: ALBUMIN 3.7 GM/DL (3.2-5.2); ALT/SGPT 25 U/L (12-78); BILIRUBIN,TOTAL 0.5 MG/DL (0.2-1.0); BLOOD UREA NITROGEN 6 MG/DL (7-18); CALCIUM LEVEL 8.7 MG/DL (8.8-10.2); CARBON DIOXIDE LEVEL 28 MEQ/L (21-32); CHLORIDE LEVEL 91 MEQ/L (98-107); CREATININE FOR GFR 0.41 MG/DL (0.55-1.30); GLOMERULAR FILTRATION RATE > 60.0 (>45); GLUCOSE, FASTING 87 MG/DL (70-100); SODIUM LEVEL 127 MEQ/L (136-145); TOTAL PROTEIN 6.6 GM/DL (6.4-8.2)
[2019-07-03 07:07] LABS: MAGNESIUM LEVEL 2.2 MG/DL (1.8-2.4); PERCENT SATURATION 31.4 % (13.2-45.0)
[2019-07-03] MEDS: HEPARIN SOD (PORCINE) 5000 UNITS/ML VIAL (J1644 PER 1000UNITS) SC SCH (08:43)
[2019-07-03] MEDS: DOCUSATE SODIUM 100 MG CAP PO SCH ×2 (08:43→21:32)
--- NOTE | 2019-07-03 08:44 | CR.PDOC ---
General Date of Consultation: Jul 03, 2019 Referring Provider: A Primary Care Physician: KATHY BILLINGS MD Attending Physician: Janneth Kennedy MD Consultation REASON FOR CONSULTATION/CHIEF COMPLAINT: Foot cellulitis, question of osteomyelitis/abscess HISTORY OF PRESENT ILLNESS: Patient is a 64-year-old female who presents to the hospital via direct admission from Dr. Kennedy with a chief complaint of left foot pain. Patient carries a medical history significant for malignant melanoma in situ of left hip, 2001, history of abnormal MRI for demyelinating disease, untreated Mycobacterium abscesses with pulmonary nodules, moderately differentiated squamous cell carcinoma status post hemiglossectomy in November 2018, chronic hyponatremia SIADH with sodium level chronically around 120., degenerative disc disease with bilateral radiculopathy of lower extremities, left greater than right. Patient reports that approximately 2 weeks ago she started noticing left foot pain and was seen by hematology specialist, Dr. Fernando, for evaluation of a callus. Callus was appropriately debrided though, patient reports her left foot pain fail to improve and continued to worsen with increasing swelling and erythema. Per medical record, patient was evaluated in the [facility] emergency department on 06/28/2019 for continued pain and swelling. At that time, she was noted to be afebrile with otherwise normal vital signs. Laboratory evaluation did not reveal any leukocytosis. ESR of 8. Plain film images of patient's foot was performed and did not demonstrate any bony erosive changes, fracture or foreign body. Valgus deformity at first 3 MTP joints and dorsal subluxation and second MTP joint. She was given a prescription for clindamycin 300 mg twice daily for 10 days and Percocet for pain control. After presentation, patient successfully completed 4 days of outpatient antibiotics have any noted improvement in her symptoms. Day of admission, patient presented to infectious disease to establish care. Given patient's persisting cellulitis despite adequate outpatient therapy, direct admission for her MRI and IV antibiotics was warranted. PAST MEDICAL HISTORY: History of malignant melanoma in situ, left hip, 2001 Chronic arthritis Bronchiectasis History of abnormal MRI with demyelinating disease Mycobacterium abscesses with pulmonary nodules and reticulonodular infiltrates Moderately differentiated squamous cell carcinoma, status post hemiglossectomy in 11/29 Chronic hyponatremia secondary to SIADH, baseline sodium of 120. Degenerative disc disease with bilateral radiculopathy, left worse than right PAST SURGICAL HISTORY: Total right hip replacement, 2007 Nasal septum repair Diagnostic laparoscopy for endometriosis Bronchoscopy, 2010, 2013 Sinus surgery Hemiglossectomy, 11/29 FAMILY HISTORY: Father: at 83 years old, brain bleed Mother: at 80 years old, COPD, chronic seizures, emphysema, hypertension Siblings: Alive, 59 years old Paternal grandfather: , diabetes Maternal grandfather: , colon cancer Paternal uncle: Blood disorders, unknown Hereditary Diseases: Denies history of pancreatic cancers SOCIAL HISTORY: Marital status and/or living arrangements: Single, lives 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 HEENT: She does report a one-week history of increasing, intermittent headaches. Patient also subscribes to a sore throat with intermittent dysphasia. CARDIOVASCULAR: Denies any chest pain, palpitations, inappropriate tachycardia RESPIRATORY: Reports 2 days increasing cough, nonproductive. Patient does report a history of intermittent blood-tinged sputum GENITOURINARY: Denies any difficulties urinating including urinary frequency, hesitancy, urgency MUSCULOSKELETAL: Patient does report diffuse joint pains secondary to arthritis, changes from baseline GASTROINTESTINAL: Reports intermittent constipation and increased stooling frequency. Patient does report some bright red blood occasionally on the toilet paper. Recent colonoscopy performed by Dr. Jauregui was negative other than both internal and external hemorrhoids. Denies any chelsea diarrhea. No nausea or vomiting. No abdominal pain. SKIN: Reports increasingly red, swollen left foot and ankle. NEUROLOGICAL: History of neuropathy and radiculopathy secondary to degenerative disc disease. Left leg worse than right. PSYCHIATRIC: No psychiatric diagnoses HEMATOLOGIC/LYMPHATIC: No abnormal bleeding PHYSICAL EXAMINATION: VITAL SIGNS: Please see below. GENERAL APPEARANCE: She was interviewed and examined in the hospital room. Patient was found to be seated upright watching television in no acute distress. Patient is alert and oriented to person place and time. Cooperative with examination. A good historian. HEENT: Normocephalic, atraumatic, EOMI, no scleral icterus RESPIRATORY: There to auscultation both anterior and posterior lung conklin. No wheezes rales or rhonchi appreciated CARDIOVASCULAR: Regular rate and rhythm, normal S1-S2 no murmurs . ABDOMEN: Soft, nondistended, nontender, no guarding appreciated EXTREMITIES: Left foot is significant for persistent dorsal erythema of patient's forefoot, due to proximity compared to initial demarcation may last evening.. Notable valgus deformity of patient's 3 MTP joints. Callus without any significant fluctuance noted on the plantar surface between the patient's first and second metacarpal. Some surrounding induration appreciated. No obvious drainage. Maceration noted between the first and second, second and third and third and fourth digits. Significant tenderness and pain noted over left f orefoot both the dorsal and plantar aspects. Patient unable to move her digits secondary to pain. Sensation remains intact bilaterally. Both posterior tibial and dorsalis pedis pulses are 2+ bilaterally. NEUROLOGICAL: No gross or focal deficits appreciated. PSYCHIATRIC: Mood and affect are appropriate given patient's current medical condition. LABORATORY DATA: Please see below. IMAGING: Foot MRI (07/02/19): Soft tissue swelling in the midfoot and forefoot suggest cellulitis. No evidence of underlying osteomyelitis. Dorsal dislocation of se cond toe proximal phalanx relative to the metatarsal with a plantar fluid collection to the second toe metatarsal head which could be a seroma or inflamed/infected fluid collection. ASSESSMENT: Patient is a 64-year-old female, past medical history significant for bony melan eligio and left hip, demyelinating disease on MRI, Mycobacterium abscesses pulmonary nodules untreated, chronic hyponatremia secondary to SIADH and degenerative disc disease with bilateral lower extremity radiculopathy presents to the emergency department for direct admission secondary to persistent left forefoot cellulitis, fluid collection on MRI having failed outpatient treatment with clindamycin 300 mg twice a day. PLAN: #Left foot cellulitis, possible abscess, possible osteomyelitis -Patient failed to improve s/p 4 days of BID Clindamycin 300 mg. Increasing induration surrounding L plantar callus. Pt started on Vancomycin upon presentation which continues. Cellulitis has improved since admission this am. Pt continues to remain exquisitely tender to palpation of all digits. -MRI does not show evidence of osteomyelitis at this time, some fluid collection around L second proximal phalanx which could be utility sales representative of seroma or abscess. No fluctuation, though surrounding induration noted on examination. Podiatry consult placed. Per Dr. Fernando, pt to be brought to OR later this evening for callus trimming. Procedure could be performed at bedside, though, given patient's neuropathy and tenderness, best to be performed under sedation. Intraoperative cultures to be obtained and antibiotics de-escalated as appropriate. #Like hyponatremia secondary to SIADH -Patient's sodium remains around low 120s. This is around baseline. Continue close monitoring. #History of Mycobacterium abscesses pulmonary nodules Vital Signs/I&O Vital Signs Date Time Temp Pulse Resp B/P (MAP) Pulse Ox O2 Delivery O2 Flow Rate FiO2 07/03/19 06:00 97.7 50 18 115/70 (85) 100 Room Air I&O- Last 24 Hours up to 6 AM 07/03/19 06:00 Intake Total 1490 ml Balance 1490 ml Laboratory Data Labs 24H Laboratory Tests 2 07/02/19 18:44: Nucleated Red Blood Cells % (auto) 0.0, Anion Gap 7L, Glomerular Filtration Rate > 60.0, Calcium Level 8.3L, Total Bilirubin 0.5, Aspartate Amino Transf (AST/SGOT) 33, Alanine Aminotransferase (ALT/SGPT) 26, Alkaline Phosphatase 83, Total Protein 6.7, Albumin 3.7, Albumin/Globulin Ratio 1.23 07/03/19 06:02: Nucleated Red Blood Cells % (auto) 0.0, Anion Gap 8, Glomerular Filtration Rate > 60.0, Calcium Level 8.7L, Total Bilirubin 0.5, Aspartate Amino Transf (AST/SGOT) 32, Alanine Aminotransferase (ALT/SGPT) 25, Alkaline Phosphatase 82, Total Protein 6.6, Albumin 3.7, Albumin/Globulin Ratio 1.28, Magnesium Level 2.2, Iron Level 97, Total Iron Binding Capacity 309, Transferrin % Saturation 31.4, Ferritin 226 CBC/BMP Laboratory Tests 07/02/19 18:44 07/03/19 06:02 Microbiology Microbiology 07/02/19 Blood Culture, Received Pending Allergies Coded Allergies: Scallop (Verified Allergy, Intermediate, SEVERE NAUSEA, VOMITING, DIARRHEA, 03/02/19) TAPE (Verified Allergy, Mild, RASH, 03/02/19) BANDAIDS WOOL (FABRIC) (Verified Allergy, Mild, RASH, 03/02/19) amoxicillin (Verified Allergy, Mild, RASH, 03/02/19) lactose (Verified Allergy, Unknown, 03/02/19) cephalexin (Verified Adverse Reaction, Intermediate, severe diarrhea, 03/02/19) Home Medications Scheduled Biotin (Biotin) 5,000 Mcg Tab.subl, 5,000 MCG SL QPM, (Reported) Clindamycin HCl (Clindamycin HCl) 300 Mg Capsule, 300 MG PO TID, (Reported) FILLED 06/28/19 FOR 7 DAYS Gabapentin (Gabapentin) 100 Mg Cap, 100 MG PO BID, (Reported) TAKES NOON AND DINNER Gabapentin (Gabapentin) 100 Mg Cap, 300 MG PO QHS, (Reported) Lactobacillus Acidophilus (Acidophilus) 1 Chw Chw, 1 CHW PO QPM, (Reported) Lysine (l-Lysine) 500 Mg Tablet, 500 MG PO QPM, (Reported) Multivitamin (Multivitamins) 1 Cap Cap, 1 CAP PO QPM, (Reported) Oxycodone HCl/Acetaminophen (Oxycodone-Acetaminophen 5-325) 1 Each Tablet, 1 TAB PO QHS, (Reported) [Calcium Carb/Vit D3] , 2 TAB PO QPM, (Reported) CALCIUM CARBONATE 1200MG W/ VIT D3 1000 UNITS Scheduled PRN Acetaminophen (Tylenol) 325 Mg Tablet, 650 MG PO TID PRN for PAIN, (Reported) Ibuprofen (Ibuprofen) 200 Mg Capsule, 400 MG PO QID PRN for PAIN, (Reported) TAKES ONE TO TWO TABS WHEN NEEDED Oxycodone HCl/Acetaminophen (Oxycodone-Acetaminophen 5-325) 1 Each Tablet, 1 TAB PO TID PRN for PAIN, (Reported) Sennosides/Docusate Sodium (Stool Softener-Laxative Tablet) 1 Each Tablet, 1 TAB PO BID PRN for CONSTIPATION, (Reported) LON MONACO DO Jul 03, 2019 08:44
[2019-07-03 09:18] LABS: FOLATE 19.2 NG/ML (>5.4)
[2019-07-03] MEDS: GABAPENTIN 100 MG CAP PO SCH ×2 (12:17→18:11)
[2019-07-03] MEDS: PERCOCET 5MG/325MG TAB PO PRN ×2 (12:20→23:15)
--- NOTE | 2019-07-03 13:15 | IPNPDOC ---
Text Note Date of Service The patient was seen on 07/03/19. NOTE SUBJECTIVE: Patient was examined bedside this morning with podiatry. She had no overnight activities.Denies chest pain, denies nausea, denied vomiting, denies changes in vision. Denies any recent illness. Denies shortness of breath, or difficulty breathing. She complained of on going left lower extremity pain OBJECTIVE: PHYSICAL EXAMINATION: GENERAL APPEARANCE: In acute distress, from left lower leg pain SKIN: Warm, well perfused. No sinus cyanosis LUNGS: Clear to auscultation bilaterally. HEART: Normal S1, S2. No murmurs, no rubs, no gallops EXTREMITIES: Moves all extremities equally. No gross deformities. On right lower extremity. On patient's left lower extremity significant tenderness palpated on patient's plantar surface, edema is also noted, no purulent drainage, left lower extremity is warm to the touch, PULSES: 2+ upper and lower extremity . LABORATORY DATA: Please see below. IMAGING: MRI foot Soft tissue swelling in the midfoot and forefoot suggesting cellulitis. No evidence of underlying osteomyelitis. Dorsal dislocation of the 2nd toe proximal phalanx relative to the metatarsal, with a plantar fluid collection plantar to the 2nd toe metatarsal head which could be a seroma or inflamed/infected fluid collection. ASSESSMENT: This is a 64-year-old female who is admitted for management of LLE pain and swelling 2/2 abscess/cellulitis PROBLEMS: 1. Left foot pain 2/2 cellulitis, 2/2 versus abscess versus acute Charcot. -Pain management consist of Percocet and gabapentin. -ID consult -Podiatry consult, podiatry plans to take patient to the operating room for debridement -Patient is on vancomycin day 2 -Afebrile overnight, continue to monitor -WBC today is 3.4, will continue to trend -NPO for procedure 2. Asymptomatic Chronic hyponatremia SIADH. -Sodium 122 which is her baseline. 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 -No issues at this admission 4. 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 Chronic degenerative disc disease with radiculopathy of the left side -Pain control as described above 6. Normocytic anemia -Pale appearing on physical exam. -Hemoglobin was 11.6 with an MCV of 92.6. -Iron studies w ferritin pending. DVT PROPHYLAXIS: Heparin hold today for procedure VS,Fishbone, I+O VS, Fishbone, I+O Laboratory Tests 07/02/19 18:44 07/03/19 06:02 Vital Signs Date Time Temp Pulse Resp B/P (MAP) Pulse Ox O2 Delivery O2 Flow Rate FiO2 07/03/19 12:20 18 07/03/19 06:00 97.7 50 115/70 (85) 100 Room Air I&O- Last 24 Hours up to 6 AM 07/03/19 06:00 Intake Total 1490 ml Balance 1490 ml GME ATTESTATION GME ATTESTATION My faculty preceptor for this patient encounter was physically present during the encounter and was fully available. All aspects of the patient interview, examination, medical decision making process, and medical care plan development were reviewed and approved by the faculty preceptor. The faculty preceptor is aware and concurs with the plan as stated in the body of this note and will attest to such by his/her cosignature. ATTENDING NOTE I examined Ms. Moran at 9:15AM, reviewed and edited the note and agree with the findings as documented ISABEL ACUÑA DO Jul 03, 2019 13:15 KAILYN WINKLER MD Jul 03, 2019 15:37
[2019-07-03] MEDS ORDERED: propofoL 500 MG/50 ML VIAL As Ordered ONE (17:37)
[2019-07-03] MEDS ORDERED: LIDOCAINE 2% INJ 100 MG/5 ML SYRINGE As Ordered ONE (17:38)
[2019-07-03] MEDS ORDERED: MIDAZOLAM INJ 2 MG/2 ML VIAL (J2250) As Ordered ONE (17:38)
[2019-07-03] MEDS ORDERED: fentaNYL 100 MCG/2 ML INJECTION (J3010) As Ordered ONE (17:38)
[2019-07-03] MEDS ORDERED: ONDANSETRON 4MG/2ML VIAL (J2405) As Ordered ONE (17:42)
[2019-07-03] MEDS ORDERED: BUPIVACAINE HCL 0.5% 30 ML VIAL As Ordered ONE (18:12)
[2019-07-03] MEDS ORDERED: LIDOCAINE 2% MDV 20 ML VIAL As Ordered ONE (18:12)
[2019-07-03] MEDS ORDERED: GENTAMICIN SULF INJ 80MG/2ML VIAL (J1580) ONE (18:20)
[2019-07-03] MEDS ORDERED: ONDANSETRON 4MG/2ML VIAL (J2405) IV PRN (19:00)
[2019-07-03] MEDS ORDERED: fentaNYL 100 MCG/2 ML INJECTION (J3010) IV PRN (19:00)
[2019-07-03] MEDS ORDERED: PERCOCET 5MG/325MG TAB PO PRN (19:00)
[2019-07-03] MEDS ORDERED: GENTAMICIN SULF INJ 80MG/2ML VIAL (J1580) XX ONE (19:15)
[2019-07-03] MEDS: PERCOCET 5MG/325MG TAB PO SCH (21:00)
[2019-07-03] MEDS: GABAPENTIN 300 MG CAP PO SCH (21:32)
--- NOTE | 2019-07-03 21:55 | CR ---
DATE OF CONSULTATION: 07/03/2019 CHIEF COMPLAINT: 64-year-old female seen for evaluation of continued left foot pain. She was seen in my office where I debrided a callus, however she states that her pain never resolved. She states that she actually had some redness and erythema which started several days ago. She was placed on clindamycin 300 mg twice a day for 10 days. She states that it did not improve. She was subsequently admitted by Dr. Kennedy and had a subsequent MRI of her foot which revealed an abscess formation and she is seen today for evaluation. PAST MEDICAL HISTORY: Positive for malignant melanoma in situ left hip, arthritis, bronchiectasis, degenerative disc disease with radiculopathy of the left leg. PAST SURGICAL HISTORY: Total hip replacement 2007, laparoscopy, bronchoscopy, sinus surgery, and hemiglossectomy 2019. PHYSICAL EXAMINATION: Reveals an alert, well oriented, 64-year-old female in no acute distress with a painful left foot. She has a severe hallux valgus deformity of her left foot. Significant tenderness is noted to palpation over a callus on the plantar aspect of the foot. MRI was reviewed revealing signal change on T2 weighted images consistent with abscess formation underneath the second metatarsal. There is redness on the dorsal aspect of the foot. No abscess formation was seen. Laboratory studies were reviewed revealing a white count of 5.2 on admission, 3.4 today. ASSESSMENT: Abscess formation submetatarsal to left foot. PLAN: Patient is scheduled for surgical incision and drainage of abscess left foot. Her questions are answered. Consent was signed.
--- NOTE | 2019-07-03 22:50 | PHACANCOPD ---
PHARMACY VANCOMYCIN DOSING Pt Demographics Demographics Patient Age:64 , Weight:46.300 , Gender: female Adjusted Body Weight Vancomycin Vancomycin Target Ranges: 15-20 mcg/ml Vancomycin Load Y/N: Yes Load Dose Date Time Vancomycin Load Dose: 1GM IV Date: 07/02/19 Time: 23:00 Vancomycin Dose Date: 07/03/19. Current Vancomycin Dose: [750MG IV Q8H starting @6AM] Intermittent Dosing?: No Labs Labs Laboratory Tests Test 07/03/19 20:56 Vancomycin Level Trough 8.9 UG/ML (10.0-20.0) Laboratory Tests 07/02/19 18:44 07/03/19 06:02 Micro Microbiology 07/03/19 Gram Stain, Received Pending 07/03/19 Wound Culture, Received Pending 07/03/19 Anaerobic Culture, Received Pending 07/02/19 Blood Culture - Preliminary, Resulted No growth after 24 hours . All specim... Creatinine Clearance Date:07/02/19. Creatinine Clearance: [>60 ML/MIN]. Assessment and Plan Maintaining Current Dose?: No Reason for dose change: Trough too low Pharmacist Note Pharmacist Note PharmD NOTE: VANCO TROUGH REPORTED 8.9mcg/ml (Goal 15-20). WE WILL INCREASE THE VANCO TO 1GM IV Q8H STARTING AT 23:00 THIS EVENING [facility] Jul 03, 2019 22:50
[2019-07-03] MEDS: VANCOMYCIN HCL 1,000 MG, VIAL MATE ADAPTER 1 EACH in D5W 250 ML IV SCH (23:14)
[2019-07-04] VITALS: BP 110/59
[2019-07-04 04:00] VITALS: BP 115/57
[2019-07-04] MEDS: VANCOMYCIN HCL 1,000 MG, VIAL MATE ADAPTER 1 EACH in D5W 250 ML IV SCH ×3 (06:05→22:32)
[2019-07-04 06:17] LABS: HEMATOCRIT 35.2 % (36.0-47.0); MEAN CORPUSCULAR HEMOGLOBIN 32.5 pg (27.0-33.0); MEAN CORPUSCULAR HGB CONC 34.1 g/dl (32.0-36.5); MEAN CORPUSCULAR VOLUME 95.4 fl (80.0-96.0); PLATELET COUNT, AUTOMATED 229 10^3/uL (150-450); RED BLOOD COUNT 3.69 10^6/uL (4.00-5.40); WHITE BLOOD COUNT 4.2 10^3/uL (4.0-10.0)
[2019-07-04 06:39] LABS: BLOOD UREA NITROGEN 7 MG/DL (7-18); CALCIUM LEVEL 8.3 MG/DL (8.8-10.2); CARBON DIOXIDE LEVEL 26 MEQ/L (21-32); CHLORIDE LEVEL 100 MEQ/L (98-107); CREATININE FOR GFR 0.45 MG/DL (0.55-1.30); GLOMERULAR FILTRATION RATE > 60.0 (>45); GLUCOSE, FASTING 87 MG/DL (70-100); MAGNESIUM LEVEL 2.2 MG/DL (1.8-2.4); POTASSIUM SERUM 4.9 MEQ/L (3.5-5.1); SODIUM LEVEL 131 MEQ/L (136-145)
--- NOTE | 2019-07-04 08:55 | RO ---
DATE OF PROCEDURE: 07/03/2019 CHIEF COMPLAINT: Left foot abscess. POSTOPERATIVE DIAGNOSIS: Left foot abscess. PROCEDURE PERFORMED: Incision and drainage of abscess, plantar and dorsal aspect left foot. SURGEON: Emmanuel Fernando DPM SALES AND MARKETING ANALYST: None. ANESTHESIA: ESTIMATED BLOOD LOSS: 5 mL. IRRIGATION: 3 liters dilute gentamicin solution, low pressure pulse lavage system. DRAINS UTILIZED: 1 inch Iodoform gauze. HEMOSTASIS: None. DESCRIPTION OF OPERATION: On 07/03/2019, this 64-year-old white female was taken from her hospital room to the operating room and placed on the operating table in the supine position. Following the induction of IV sedation, local and regional anesthesia, the left lower extremity was prepped and draped in the usual aseptic manner. A 1 cm incision was placed on the plantar surface of the foot underneath a hyperkeratotic lesion revealing purulent drainage. This was then explored with a hemostat and the incision was lengthened to approximately 2 cm. The abscess extended no further proximally, however, utilizing a hemostat it was noted that it was connected to the dorsal aspect of the foot. Therefore, a small incision was made on the dorsal aspect of the foot which showed a tunnel approximately 1 cm in a proximal direction so the incision was extended approximately 1.5 cm in total length on the dorsal aspect of the foot. The wound was flushed with 3 liters of dilute gentamicin solution with a low pressure pulse lavage system and the wound was packed dorsal to plantar with one inch Iodoform gauze and a dry sterile dressing was applied. The patient having apparently tolerated the procedure well was taken from the operating room to the recovery room for further monitoring by the anesthesia department. Aerobic and anaerobic cultures were obtained from the discharge and necrotic tissue.
[2019-07-04] MEDS: DOCUSATE SODIUM 100 MG CAP PO SCH ×2 (09:05→20:26)
[2019-07-04] MEDS: PERCOCET 5MG/325MG TAB PO PRN ×3 (09:06→22:32)
[2019-07-04] MEDS: GABAPENTIN 100 MG CAP PO SCH ×2 (12:49→16:47)
--- NOTE | 2019-07-04 15:19 | IPNPDOC ---
Text Note Date of Service The patient was seen on 07/04/19. NOTE SUBJECTIVE: Patient was seen at bedside today. Pt had no overnight events. Patient currently rates her left foot pain at 8/10 with her current pain regimen bringing it down to 5/10. She states the pain is dull with some intermittent sharp stabs. Patient states that she has had some bloating, but did pass stool yesterday without diarrhea. Patient denies chest pain, dyspnea, cough, abdominal pain, dysuria, hematuria, constipation, diarrhea, and hematochezia. Pt has no further complaints at this time. OBJECTIVE: GENERAL: Pt appears stated age, generally pale, and is sitting propped up in bed in no acute distress. HEENT: Normocephalic, atraumatic. CARDIOVASCULAR: Regular rate and rhythm. No murmurs, rubs, or gallops. PULMONARY: Clear to auscultation b/l. No wheezes, rales, or rhonchi. ABDOMEN: Abdomen bloated and tympanic with no focal tenderness or palpable organomegaly. EXTREMITIES: Left foot bandage was not removed for examination. No peripheral edema. No seepage noted through the left foot bandage. Toes visible at end of bandage were pink. PSYCHIATRIC: Pt is calm and cooperative. Full affect. Pt answers questions appropriately. VITALS: Please see below. ASSESSMENT: Pt is a 64-year-old female with a significant past medical history of malignant melanoma, arthritis, bronchiectasis, demyelinating disease, mycobacterial pulmonary abscess, squamous cell carcinoma, and SIADH who presented to the [facility] as a direct admit from infectious d formerly [facility] complaining of left lower extremity pain and swelling and has been admitted for evaluation and treatment of abscess and cellulitis. PLAN: 1. Left foot pain secondary to cellulitis/ abscess -Infectious disease consult was requested of Dr. Kennedy's service. Drs. Kennedy and Champ have been involved in the care of the patient, and their assistance is appreciated. -Podiatry consult was requested of Dr. Fernando and is appreciated. Dr. Fernando performed incision and drainage of the abscess yesterday. -Patient was afebrile overnight, and her white blood cell count was within normal limits at 4.2 this morning. -Patient was nothing by mouth for the procedure and is now on a regular diet. -Patient is prescribed gabapentin and oxycodone/acetaminophen for ongoing pain control. -Today is vancomycin day 3. -Physical therapy evaluation and treatment has been ordered for continuing strengthening, weightbearing, and home safety evaluation. 2. Asymptomatic chronic hyponatremia secondary to SIADH. -Sodium was 131 this morning, slightly better than her baseline. 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 -Noncontributory to this admission. 4. 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 5. Chronic degenerative disc disease with radiculopathy of the left side -Pain control as described above. 6. Normocytic anemia -Pale-appearing on physical exam. -Red blood cell count and hematocrit were low this morning. All other CBC parameters were within normal limits. -Iron, TIBC, transferrin saturation, and ferritin all within normal limits. -Vitamins B12 and B6 both within normal limits. 7. DVT prophylaxis: Subcutaneous heparin was held for patient's procedure. Will consult Dr. Fernando regarding resumption. DISPOSITION: Discharge pending clinical improvement and physical therapy clearance. VS,Fishbone, I+O VS, Fishbone, I+O Laboratory Tests 07/04/19 05:34 Vital Signs Date Time Temp Pulse Resp B/P (MAP) Pulse Ox O2 Delivery O2 Flow Rate FiO2 07/04/19 09:06 18 07/04/19 04:00 97.9 60 115/57 (76) 99 Room Air 07/03/19 19:25 1 I&O- Last 24 Hours up to 6 AM 07/04/19 06:00 Intake Total 2680 ml Output Total 5 ml Balance 2675 ml GME ATTESTATION GME ATTESTATION My faculty preceptor for this patient encounter was physically present during the encounter and was fully available. All aspects of the patient interview, examination, medical decision making process, and medical care plan development were reviewed and approved by the faculty preceptor. The faculty preceptor is aware and concurs with the plan as stated in the body of this note and will at test to such by his/her cosignature. ATTENDING NOTE I examined the patient at 955am, reviewed and edited the note, discussed the case with the student and resident and agree with the findings as documented by the resident. KATHY MITCHELL OMS-III Jul 04, 2019 15:19 KAILYN WINKLER MD Jul 04, 2019 17:45
[2019-07-04] MEDS: GABAPENTIN 300 MG CAP PO SCH (20:25)
[2019-07-04] MEDS: PERCOCET 5MG/325MG TAB PO SCH ×2 (20:26→20:31)
[2019-07-04] MEDS: CHOLECALCIFEROL PO SCH ×2 (20:27→20:33)
[2019-07-04] MEDS: CALCIUM 1200 MG PO SCH ×2 (20:27→20:33)
[2019-07-04] MEDS: LYSINE 500 MG PO SCH (20:27)
[2019-07-04] MEDS: ACIDOPHILUS PO SCH (20:28)
[2019-07-04] MEDS: ESSENTIAL ONE DAILY PO SCH (20:28)
[2019-07-04] MEDS: BIOTIN PO SCH (20:29)
[2019-07-04 22:00] VITALS: BP 130/71
[2019-07-05] MEDS ORDERED: MORPHINE 2 MG/ML 1ML VIAL (J2270) IV ONE (00:15)
[2019-07-05 01:00] VITALS: BP 116/72
[2019-07-05] MEDS: PERCOCET 5MG/325MG TAB PO PRN ×5 (02:28→23:33)
[2019-07-05 06:00] VITALS: BP 113/65
[2019-07-05] MEDS: VANCOMYCIN HCL 1,000 MG, VIAL MATE ADAPTER 1 EACH in D5W 250 ML IV SCH ×3 (06:32→22:31)
[2019-07-05 07:02] LABS: HEMATOCRIT 34.6 % (36.0-47.0); HEMOGLOBIN 11.7 g/dl (12.0-15.5); MEAN CORPUSCULAR HEMOGLOBIN 31.9 pg (27.0-33.0); MEAN CORPUSCULAR HGB CONC 33.8 g/dl (32.0-36.5); MEAN CORPUSCULAR VOLUME 94.3 fl (80.0-96.0); PLATELET COUNT, AUTOMATED 258 10^3/uL (150-450); RED BLOOD COUNT 3.67 10^6/uL (4.00-5.40); WHITE BLOOD COUNT 4.3 10^3/uL (4.0-10.0)
[2019-07-05 07:27] LABS: BLOOD UREA NITROGEN 7 MG/DL (7-18); CALCIUM LEVEL 8.7 MG/DL (8.8-10.2); CARBON DIOXIDE LEVEL 29 MEQ/L (21-32); CHLORIDE LEVEL 96 MEQ/L (98-107); CREATININE FOR GFR 0.48 MG/DL (0.55-1.30); GLOMERULAR FILTRATION RATE > 60.0 (>45); GLUCOSE, FASTING 90 MG/DL (70-100); MAGNESIUM LEVEL 1.9 MG/DL (1.8-2.4); SODIUM LEVEL 132 MEQ/L (136-145)
[2019-07-05] MEDS: HEPARIN SOD (PORCINE) 5000 UNITS/ML VIAL (J1644 PER 1000UNITS) SQ SCH ×2 (09:00→21:08)
[2019-07-05] MEDS: DOCUSATE SODIUM 100 MG CAP PO SCH ×2 (09:36→21:06)
[2019-07-05] MEDS: SILVER SULFADIAZINE 1% CR 50 GM JAR TOP SCH ×2 (09:37→21:09)
--- NOTE | 2019-07-05 09:57 | IPNPDOC ---
Text Note Date of Service The patient was seen on 07/05/19. NOTE SUBJECTIVE: Patient was seen at bedside today. She states that she got very little sleep due to pain. She currently rates her left foot pain at 7/10 per her current pain management regimen. She states the pain is dull with some intermittent sharp stabs. Pt states that her bloating has improved following a bowel movement this morning, but that she had significant straining and that the stool was dry without blood. Patient denies chest pain, dyspnea, cough, abdominal pain, dysuria, hematuria, and diarrhea. Pt has no further complaints at this time. OBJECTIVE: VITALS: Please see below. GENERAL: Pt appears stated age, generally pale, and is sitting propped up in bed in no acute distress. HEENT: Normocephalic, atraumatic. CARDIOVASCULAR: Regular rate and rhythm. No murmurs, rubs, or gallops. PULMONARY: Clear to auscultation b/l. No wheezes, rales, or rhonchi. ABDOMEN: Abdomen soft and non-tympanic with no focal tenderness or palpable organomegaly. EXTREMITIES: -Right foot: No edema. Dorsalis pedis pulse 2+. -Left foot: Left foot bandage was absent per dressing change, so examination was possible. No ankle edema. Exquisite tenderness present. Unable to palpate dorsalis pedis pulse due to pain. No drainage visible from wound. There is scattered yellowing of the skin. Skin is warm, dry, and slightly swollen. PSYCHIATRIC: Pt is calm and cooperative. Full affect. Pt answers questions appropriately. ASSESSMENT: Pt is a 64-year-old female with a significant past medical history of malignant melanoma, arthritis, bronchiectasis, demyelinating disease, mycobac terial pulmonary abscess, squamous cell carcinoma, and SIADH who presented to the [facility] as a direct admit from infectious disease complaining of left lower extremity pain and swelling and has been admitted for evaluation and treatment of abscess and cellulitis. PLAN: 1. Left foot pain secondary to cellulitis/ abscess -Infectious disease consult was requested of Dr. Kennedy's service. Drs. Kennedy and Champ have been involved in the care of the patient, and their assistance is appreciated. -Podiatry consult was requested of Dr. Fernando and is appreciated. Dr. Fernando performed incision and drainage of the abscess 2 days ago. -Patient was afebrile overnight, and her white blood cell count was within normal limits at 4.2 this morning. -Patient is prescribed gabapentin and oxycodone/acetaminophen for ongoing pain control. -Today is vancomycin day 4. -Physical therapy evaluation stated patient is currently not safe for discharge home due to significant number of stairs and impaired mobility from baseline. PT will continue to work with her to address these concerns. 2. Opioid-induced constipation - Start senna 1 tab daily as needed and reassess tomorrow. 3. Asymptomatic chronic hyponatremia secondary to SIADH. - Sodium was 132 this morning, slightly better than her baseline. 4. 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 -Noncontributory to this admission. 5. 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 6. Chronic degenerative disc disease with radiculopathy of the left side - Pain control as described above. 7. Normocytic anemia -Pale-appearing on physical exam. -Red blood cell count (3.67), hemoglobin (11.7), and hematocrit (34.6) were low this morning but stable. All other CBC parameters were within normal limits. 8. DVT prophylaxis: Restarting subcutaneous heparin today per conversation with Dr. Fernando. DISPOSITION: Discharge pending clinical improvement and physical therapy clearance. VS,Fishbone, I+O VS, Fishbone, I+O Laboratory Tests 07/05/19 06:13 Vital Signs Date Time Temp Pulse Resp B/P (MAP) Pulse Ox O2 Delivery O2 Flow Rate FiO2 07/05/19 06:33 18 07/05/19 06:00 99.1 57 113/65 (81) 98 Room Air 07/03/19 19:25 1 I&O- Last 24 Hours up to 6 AM 07/05/19 06:00 Intake Total 4870 ml Balance 4870 ml GME ATTESTATION GME ATTESTATION My faculty preceptor for this patient encounter was physically present during the encounter and was fully available. All aspects of the patient interview, examination, medical decision making process, and medical care plan development were reviewed and approved by the faculty preceptor. The faculty preceptor is aware and concurs with the plan as stated in the body of this note and will attest to such by his/her cosignature. KATHY MITCHELL S-III Jul 05, 2019 08:15
[2019-07-05] MEDS ORDERED: SENNA 8.6 MG TAB (SENOKOT) PO PRN (10:45)
[2019-07-05] MEDS: GABAPENTIN 100 MG CAP PO SCH ×2 (11:37→18:00)
[2019-07-05 13:00] VITALS: BP 116/72
[2019-07-05 14:12] VITALS: BP 114/73
[2019-07-05 17:23] LABS: C REACTIVE PROTEIN QUANTITATIV 1.64 MG/DL (0.00-0.30)
[2019-07-05] MEDS: PERCOCET 5MG/325MG TAB PO SCH (21:06)
[2019-07-05] MEDS: ACIDOPHILUS PO SCH (21:06)
[2019-07-05] MEDS: GABAPENTIN 300 MG CAP PO SCH (21:06)
[2019-07-05] MEDS: ESSENTIAL ONE DAILY PO SCH (21:07)
[2019-07-05] MEDS: BIOTIN PO SCH (21:07)
[2019-07-05] MEDS: LYSINE 500 MG PO SCH (21:07)
[2019-07-05] MEDS: CHOLECALCIFEROL PO SCH (21:08)
[2019-07-05] MEDS: CALCIUM 1200 MG PO SCH (21:08)
[2019-07-05 22:39] VITALS: BP 96/65
[2019-07-06] MEDS: VANCOMYCIN HCL 1,000 MG, VIAL MATE ADAPTER 1 EACH in D5W 250 ML IV SCH ×3 (06:05→22:07)
[2019-07-06] MEDS: PERCOCET 5MG/325MG TAB PO PRN ×2 (06:05→14:39)
[2019-07-06 06:10] VITALS: BP 110/69
[2019-07-06 09:02] LABS: HEMATOCRIT 34.3 % (36.0-47.0); HEMOGLOBIN 12.1 g/dl (12.0-15.5); MEAN CORPUSCULAR HEMOGLOBIN 33.4 pg (27.0-33.0); MEAN CORPUSCULAR HGB CONC 35.3 g/dl (32.0-36.5); MEAN CORPUSCULAR VOLUME 94.8 fl (80.0-96.0); PLATELET COUNT, AUTOMATED 273 10^3/uL (150-450); RED BLOOD COUNT 3.62 10^6/uL (4.00-5.40); WHITE BLOOD COUNT 4.3 10^3/uL (4.0-10.0)
[2019-07-06 09:16] LABS: BLOOD UREA NITROGEN 8 MG/DL (7-18); C REACTIVE PROTEIN QUANTITATIV 1.28 MG/DL (0.00-0.30); CALCIUM LEVEL 8.3 MG/DL (8.8-10.2); CARBON DIOXIDE LEVEL 30 MEQ/L (21-32); CHLORIDE LEVEL 93 MEQ/L (98-107); CREATININE FOR GFR 0.52 MG/DL (0.55-1.30); GLOMERULAR FILTRATION RATE > 60.0 (>45); GLUCOSE, FASTING 76 MG/DL (70-100); MAGNESIUM LEVEL 2.2 MG/DL (1.8-2.4); POTASSIUM SERUM 3.6 MEQ/L (3.5-5.1); SODIUM LEVEL 128 MEQ/L (136-145)
[2019-07-06] MEDS: DOCUSATE SODIUM 100 MG CAP PO SCH ×2 (09:21→22:10)
[2019-07-06] MEDS: HEPARIN SOD (PORCINE) 5000 UNITS/ML VIAL (J1644 PER 1000UNITS) SQ SCH ×2 (09:21→22:10)
[2019-07-06] MEDS: SILVER SULFADIAZINE 1% CR 50 GM JAR TOP SCH ×2 (09:21→22:11)
[2019-07-06] MEDS: MOM 30ML SUSPENSION UDC PO PRN (09:22)
[2019-07-06] MEDS ORDERED: FLEET ENEMA PR ONE (09:45)
--- NOTE | 2019-07-06 10:15 | IPNPDOC ---
Text Note Date of Service The patient was seen on 07/06/19. NOTE SUBJECTIVE: Patient was seen at bedside today. She currently rates her left foot pain at 7/10 per her current pain management regimen. She states the pain is dull with some intermittent sharp stabs. Pt states that her constipation is a continuing problem, despite the addition of senna yesterday. This has led at her to have increased bloating with generalized abdominal pain rated 8/10. Patient denies chest pain, dyspnea, cough, dysuria, hematuria, and diarrhea. Pt has no further complaints at this time. OBJECTIVE: GENERAL: Pt appears stated age, generally pale, and is sitting propped up in bed in no acute distress. HEENT: Normocephalic, atraumatic. CARDIOVASCULAR: Regular rate and rhythm. No murmurs, rubs, or gallops. PULMONARY: Clear to auscultation b/l. No wheezes, rales, or rhonchi. ABDOMEN: Abdomen bloated and tympanic with generalized tenderness but no palpab le organomegaly. EXTREMITIES: Left foot bandage was not removed for examination. No peripheral edema. No seepage noted through the left foot bandage. Toes visible at end of bandage were pink. PSYCHIATRIC: Pt is calm and cooperative. Full affect. Pt answers questions appropriately. She has a high level of anxiety regarding her ongoing medical care. ASSESSMENT: Pt is a 64-year-old female with a significant past medical history of malignant melanoma, arthritis, bronchiectasis, demyelinating disease, mycobacterial pulmonary abscess, squamous cell carcinoma, and SIADH who presented to the [facility] as a direct admit from infectious disease complaining of left lower extremity pain and swelling and has been admitted for evaluation and treatment of abscess and cellulitis. PLAN: 1. Left foot pain secondary to cellulitis/ abscess - Infectious disease consult was requested of Dr. Kennedy's service. Drs. Kennedy and Champ have been involved in the care of the patient, and their assistance is appreciated. - Podiatry consult was requested of Dr. Fernando and is appreciated. Dr. Jenny russo performed incision and drainage of the abscess 2 days ago. - Patient was afebrile overnight, and her white blood cell count was within normal limits at 4.2 this morning. - Patient is prescribed gabapentin and oxycodone/acetaminophen for ongoing pain control. - Today is vancomycin day 5. - Anaerobic culture results of wound drainage swab returned negative today. Gram stain was negative for bacteria. Aerobic culture results still pending. - Blood culture results remain negative after 72 hours. - Physical therapy progress note stated, "patient demonstrates good improvement with functional ambulation using a rolling walker," and PT is now recommending discharge home with services when medically stable. PT states pt is not yet safe for discharge. 2. Opioid-induced constipation - One-time Fleet Enema ordered. Prescribed polyethylene glycol 1 packet daily as needed for continuing constipation. Pt stated that she desires to cut down on her pain medication in order to decrease bowel dysfunction, which was encouraged. - Continue senna daily as needed. 3. Asymptomatic chronic hyponatremia secondary to SIADH. - Sodium decreased to 128 this morning, still slightly better than her baseline. 4. 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 -Noncontributory to this admission. 5. 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 6. Chronic degenerative disc disease with radiculopathy of the left side - Pain control as described above. 7. Normocytic anemia -Pale-appearing on physical exam. -Red blood cell count (3.67), hemoglobin (11.7), and hematocrit (34.6) were low this morning but stable. All other CBC parameters were within normal limits. 8. DVT prophylaxis: Subcutaneous heparin DISPOSITION: Discharge pending clinical improvement and physical therapy clearance. VS,Fishbone, I+O VS, Fishbone, I+O Laboratory Tests 07/06/19 08:30 Vital Signs Date Time Temp Pulse Resp B/P (MAP) Pulse Ox O2 Delivery O2 Flow Rate FiO2 07/06/19 06:36 16 07/06/19 06:10 98.3 65 110/69 (83) 96 Room Air 07/03/19 19:25 1 I&O- Last 24 Hours up to 6 AM 07/06/19 06:00 Intake Total 3000 ml Balance 3000 ml GME ATTESTATION GME ATTESTATION My faculty preceptor for this patient encounter was physically present during the encounter and was fully available. All aspects of the patient interview, examination, medical decision making process, and medical care plan development were reviewed and approved by the faculty preceptor. The faculty preceptor is aware and concurs with the plan as stated in the body of this note and will attest to such by his/her cosignature. KATHY MITCHELL S-III Jul 06, 2019 10:09 ISABEL ACUÑA DO Jul 10, 2019 18:49
[2019-07-06] MEDS: MIRALAX *UNIT DOSE* 17GM PACKET PO PRN (10:35)
[2019-07-06] MEDS: GABAPENTIN 100 MG CAP PO SCH ×2 (12:49→18:05)
[2019-07-06 14:00] VITALS: BP 124/73
--- NOTE | 2019-07-06 16:15 | IPN ---
DATE: 07/06/2019 Gill is feeling better except for severe constipation. She has been using a lot of narcotics. She denies any fever or chills. She complains of belching and indigestion. She is anxious to go home because she does not have anybody to help her. Her sister may come from [place]. PHYSICAL EXAMINATION: On physical exam temperature is 98.3, pulse 65, respirations 17, blood pressure 110/69, oxygen sat 96% on room air. Heart: Normal S1, S2. No murmurs, rubs or gallops. Lungs are clear. Diminished at bases. Abdomen: Soft, tender in the epigastric area and lower quadrants. Extremities: Left foot has mild edema, redness has subsided. She has an incision on the dorsal aspect of the foot and the plantar aspect of the foot measuring about 2 cm with bloody discharge, tenderness to touch. The patient screams even with very light touch, which seems an exaggerated response to the findings. LABORATORY DATA: White count 4.3, hemoglobin 12.1, hematocrit 34.3, platelets 273. Sodium 128, potassium 3.64, chloride 93, bicarbonate 30, BUN 8, creatinine 0.52, glucose 76, calcium 8.3, magnesium 2.2, CRP 1.28. Wound culture is still pending. Anaerobic cultures final negative. IMPRESSION: 1. Left foot abscess staph coag negative, doing better with IV vancomycin and debridement. Still waiting for results of final culture and susceptibilties. 2. Severe constipation from narcotic use. PLAN: We will add Motrin for pain. Avoid narcotics. Continue IV vancomycin until Tuesday. Dr. Fernando is considering whether to close the wound as the patient does not want to do dressing changes. MAR[facility] F[facility] CHILDREN'S HOSPITALSandra
[2019-07-06 22:00] VITALS: BP 128/72
[2019-07-06] MEDS: GABAPENTIN 300 MG CAP PO SCH (22:10)
[2019-07-06] MEDS: PERCOCET 5MG/325MG TAB PO SCH (22:11)
[2019-07-06] MEDS: CHOLECALCIFEROL PO SCH (22:12)
[2019-07-06] MEDS: CALCIUM 1200 MG PO SCH (22:12)
[2019-07-06] MEDS: ACIDOPHILUS PO SCH (22:12)
[2019-07-06] MEDS: BIOTIN PO SCH (22:12)
[2019-07-06] MEDS: ESSENTIAL ONE DAILY PO SCH (22:13)
[2019-07-06] MEDS: LYSINE 500 MG PO SCH (22:13)
[2019-07-07 06:00] VITALS: BP 118/58
[2019-07-07 06:29] LABS: HEMATOCRIT 34.4 % (36.0-47.0); HEMOGLOBIN 12.2 g/dl (12.0-15.5); MEAN CORPUSCULAR HGB CONC 35.5 g/dl (32.0-36.5); PLATELET COUNT, AUTOMATED 277 10^3/uL (150-450); WHITE BLOOD COUNT 3.8 10^3/uL (4.0-10.0)
[2019-07-07 06:48] LABS: BLOOD UREA NITROGEN 8 MG/DL (7-18); C REACTIVE PROTEIN QUANTITATIV 1.02 MG/DL (0.00-0.30); CALCIUM LEVEL 8.5 MG/DL (8.8-10.2); CARBON DIOXIDE LEVEL 29 MEQ/L (21-32); CHLORIDE LEVEL 99 MEQ/L (98-107); CREATININE FOR GFR 0.46 MG/DL (0.55-1.30); GLOMERULAR FILTRATION RATE > 60.0 (>45); GLUCOSE, FASTING 86 MG/DL (70-100); MAGNESIUM LEVEL 2.4 MG/DL (1.8-2.4); POTASSIUM SERUM 4.4 MEQ/L (3.5-5.1); SODIUM LEVEL 133 MEQ/L (136-145); VANCOMYCIN LEVEL TROUGH 17.8 UG/ML (10.0-20.0)
[2019-07-07] MEDS: VANCOMYCIN HCL 1,000 MG, VIAL MATE ADAPTER 1 EACH in D5W 250 ML IV SCH ×3 (06:53→22:28)
[2019-07-07] MEDS: MOM 30ML SUSPENSION UDC PO PRN (08:01)
[2019-07-07] MEDS: SILVER SULFADIAZINE 1% CR 50 GM JAR TOP SCH ×2 (08:02→22:27)
[2019-07-07] MEDS: HEPARIN SOD (PORCINE) 5000 UNITS/ML VIAL (J1644 PER 1000UNITS) SQ SCH ×2 (08:02→22:26)
[2019-07-07] MEDS: DOCUSATE SODIUM 100 MG CAP PO SCH ×2 (08:02→22:26)
[2019-07-07] MEDS: MIRALAX *UNIT DOSE* 17GM PACKET PO PRN (08:02)
[2019-07-07] MEDS: IBUPROFEN 600 MG TAB PO PRN (10:24)
[2019-07-07] MEDS: GABAPENTIN 100 MG CAP PO SCH ×2 (11:52→17:37)
[2019-07-07 14:00] VITALS: BP 128/73
--- NOTE | 2019-07-07 14:39 | IPNPDOC ---
Text Note Date of Service The patient was seen on 07/07/19. NOTE SUBJECTIVE: Patient was examined at bedside. She was seen ambulating on crutches. In anticipation getting around after discharge. She was afebrile overnight. OBJECTIVE: GENERAL: Elderly adult female, no apparent distress, alert and oriented 3 CARDIOVASCULAR: Regular rate and rhythm. No murmurs, rubs, or gallops. PULMONARY: Good air entry,no use of accessory muscles EXTREMITIES: Left foot bandage was not removed for examination. No peripheral edema. No seepage noted through the left foot bandage. Toes visible at end of bandage were pink. ASSESSMENT: Pt is a 64-year-old female with a significant past medical history of malignant melanoma, arthritis, bronchiectasis, demyelinating disease, mycobacterial pulmonary abscess, squamous cell carcinoma, and SIADH who prese nted to the [facility] as a direct admit from infectious disease complaining of left lower extremity pain and swelling and has been admitted for evaluation and treatment of abscess and cellulitis. PLAN: 1. Left foot pain secondary to cellulitis/ abscess -Status post incision and drainage -Cultures positive for staphylococcus caprae, this hospital does not have susceptibility standards available for this bacteria. , According up-to-date. This bacteria sensitive to vancomycin. Patient currently on vancomycin. Will continue the vancomycin. - Infectious disease consulted - Podiatry consultn Dr. Fernando, -Pain control with gabapentin and oxycodone/acetaminophen - Today is vancomycin day 6 - Blood culture results remain negative after 72 hours. - Not safe discharge home per PT 2. Opioid-induced constipation - One-time Fleet Enema ordered. - Currently on a bowel regimen that includes MiraLAX, senna and docusate 3. Asymptomatic chronic hyponatremia secondary to SIADH. - Sodium decreased to 128 this morning, still slightly better than her baseline. 4. 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 -Noncontributory to this admission. 5. 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 6. Chronic degenerative disc disease with radiculopathy of the left side - Pain control as described above. 7. Normocytic anemia -Pale-appearing on physical exam. -Red blood cell count (3.67), hemoglobin (11.7), and hematocrit (34.6) were low this morning but stable. All other CBC parameters were within normal limits. 8. DVT prophylaxis: Subcutaneous heparin DISPOSITION: Discharge pending clinical improvement and physical therapy clearance. VS,Fishbone, I+O VS, Fishbone, I+O Laboratory Tests 07/07/19 05:54 Vital Signs Date Time Temp Pulse Resp B/P (MAP) Pulse Ox O2 Delivery O2 Flow Rate FiO2 07/07/19 14:00 97.3 52 18 128/73 (91) 100 Room Air 07/03/19 19:25 1 I&O- Last 24 Hours up to 6 AM 07/07/19 06:00 Intake Total 3000 ml Balance 3000 ml ISABEL ACUÑA DO Jul 07, 2019 14:39
[2019-07-07] MEDS: ACETAMINOPHEN TAB 650MG DOSE (2X325MG) PO PRN (16:16)
[2019-07-07 22:00] VITALS: BP 112/64
[2019-07-07] MEDS: GABAPENTIN 300 MG CAP PO SCH (22:25)
[2019-07-07] MEDS: SENOKOT S TAB PO PRN (22:25)
[2019-07-07] MEDS: PERCOCET 5MG/325MG TAB PO PRN (22:26)
[2019-07-07] MEDS: LYSINE 500 MG PO SCH (22:27)
[2019-07-07] MEDS: ACIDOPHILUS PO SCH (22:27)
[2019-07-07] MEDS: BIOTIN PO SCH (22:27)
[2019-07-07] MEDS: CHOLECALCIFEROL PO SCH (22:28)
[2019-07-07] MEDS: CALCIUM 1200 MG PO SCH (22:28)
[2019-07-07] MEDS: ESSENTIAL ONE DAILY PO SCH (22:28)
[2019-07-08 06:00] VITALS: BP 110/61
[2019-07-08] MEDS: VANCOMYCIN HCL 1,000 MG, VIAL MATE ADAPTER 1 EACH in D5W 250 ML IV SCH ×3 (06:21→23:13)
[2019-07-08 07:00] LABS: HEMATOCRIT 35.2 % (36.0-47.0); HEMOGLOBIN 11.9 g/dl (12.0-15.5); MEAN CORPUSCULAR HEMOGLOBIN 31.7 pg (27.0-33.0); MEAN CORPUSCULAR HGB CONC 33.8 g/dl (32.0-36.5); MEAN CORPUSCULAR VOLUME 93.9 fl (80.0-96.0); PLATELET COUNT, AUTOMATED 273 10^3/uL (150-450); RED BLOOD COUNT 3.75 10^6/uL (4.00-5.40); WHITE BLOOD COUNT 3.6 10^3/uL (4.0-10.0)
[2019-07-08 07:44] LABS: BLOOD UREA NITROGEN 8 MG/DL (7-18); C REACTIVE PROTEIN QUANTITATIV 0.88 MG/DL (0.00-0.30); CALCIUM LEVEL 8.5 MG/DL (8.8-10.2); CARBON DIOXIDE LEVEL 29 MEQ/L (21-32); CHLORIDE LEVEL 91 MEQ/L (98-107); CREATININE FOR GFR 0.48 MG/DL (0.55-1.30); GLOMERULAR FILTRATION RATE > 60.0 (>45); GLUCOSE, FASTING 86 MG/DL (70-100); MAGNESIUM LEVEL 2.1 MG/DL (1.8-2.4); POTASSIUM SERUM 3.8 MEQ/L (3.5-5.1); SODIUM LEVEL 127 MEQ/L (136-145)
[2019-07-08] MEDS: MOM 30ML SUSPENSION UDC PO PRN (08:32)
[2019-07-08] MEDS: MIRALAX *UNIT DOSE* 17GM PACKET PO PRN (08:32)
[2019-07-08] MEDS: HEPARIN SOD (PORCINE) 5000 UNITS/ML VIAL (J1644 PER 1000UNITS) SQ SCH ×2 (08:32→22:23)
[2019-07-08] MEDS: DOCUSATE SODIUM 100 MG CAP PO SCH ×2 (08:32→22:22)
[2019-07-08] MEDS: SILVER SULFADIAZINE 1% CR 50 GM JAR TOP SCH ×2 (08:33→22:22)
[2019-07-08] MEDS: IBUPROFEN 600 MG TAB PO PRN (09:58)
[2019-07-08] MEDS: GABAPENTIN 100 MG CAP PO SCH ×2 (12:23→16:44)
[2019-07-08] MEDS: SENOKOT S TAB PO PRN ×2 (12:26→22:22)
--- NOTE | 2019-07-08 12:51 | IPNPDOC ---
Text Note Date of Service The patient was seen on 07/08/19. NOTE SUBJECTIVE: Patient seen and examined at bedside. No acute overnight events reported, no new medical complaints. OBJECTIVE: GENERAL: NAD, lying comfortably in bed, in good spirits, elderly, frail CARDIOVASCULAR: +S1S2, RRR PULMONARY: CTA B/L EXTREMITIES: Left foot bandage was not removed for examination. No peripheral edema. No seepage noted through the left foot bandage. Toes visible at end of bandage were pink. A/P: 64-year-old female with PMHx of malignant melanoma, arthritis, bronchiectasis, demyelinating disease, mycobacterial pulmonary abscess, squamous cell carcinoma, and SIADH who presented to the [facility] as a direct admit from ID for LLE pain and swelling due to abscess and cellulitis. # Left foot pain secondary to cellulitis/ abscess -Status post I&D -Cultures positive for staphylococcus caprae - continue with IV Vanco day #7 - ID c/s appreciated - Podiatry c/s appreciated - Dr. Fernando, -Pain control with gabapentin and oxycodone/acetaminophen - Not safe discharge home per PT # Opioid-induced constipation - One-time Fleet Enema ordered. - Currently on a bowel regimen that includes MiraLAX, senna and docusate # chronic hyponatremia secondary to SIADH. 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 - Noncontributory on this admission. 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 #Chronic degenerative disc disease with radiculopathy of the left side - Pain control as described above. # anemia #DVT prophylaxis - Subcutaneous heparin Dispo: possible closure of wounds on Tuesday with podiatry as patient not interested in doing dressing changes. VS,Fishbone, I+O VS, Fishbone, I+O Laboratory Tests 07/08/19 06:45 Vital Signs Date Time Temp Pulse Resp B/P (MAP) Pulse Ox O2 Delivery O2 Flow Rate FiO2 07/08/19 06:00 98.4 60 18 110/61 (77) 97 Room Air 07/03/19 19:25 1 I&O- Last 24 Hours up to 6 AM 07/08/19 06:00 Intake Total 2540 ml Balance 2540 ml LALDIN,PARRIS S. MD Jul 08, 2019 12:51
[2019-07-08 14:00] VITALS: BP 120/57
[2019-07-08] MEDS: ACETAMINOPHEN TAB 650MG DOSE (2X325MG) PO PRN (16:44)
[2019-07-08] MEDS: CHOLECALCIFEROL PO SCH (20:40)
[2019-07-08] MEDS: CALCIUM 1200 MG PO SCH (20:40)
[2019-07-08] MEDS: ACIDOPHILUS PO SCH (20:41)
[2019-07-08] MEDS: ESSENTIAL ONE DAILY PO SCH (20:42)
[2019-07-08] MEDS: LYSINE 500 MG PO SCH (20:43)
[2019-07-08] MEDS: BIOTIN PO SCH (20:43)
[2019-07-08 22:00] VITALS: BP 122/69
[2019-07-08] MEDS: GABAPENTIN 300 MG CAP PO SCH (22:22)
[2019-07-08] MEDS: PERCOCET 5MG/325MG TAB PO PRN (22:24)
[2019-07-09 06:00] VITALS: BP 114/68
[2019-07-09 06:29] LABS: HEMATOCRIT 35.9 % (36.0-47.0); HEMOGLOBIN 12.4 g/dl (12.0-15.5); MEAN CORPUSCULAR HGB CONC 34.5 g/dl (32.0-36.5); MEAN CORPUSCULAR VOLUME 92.8 fl (80.0-96.0); PLATELET COUNT, AUTOMATED 275 10^3/uL (150-450); RED BLOOD COUNT 3.87 10^6/uL (4.00-5.40); WHITE BLOOD COUNT 3.5 10^3/uL (4.0-10.0)
[2019-07-09 06:58] LABS: BLOOD UREA NITROGEN 8 MG/DL (7-18); CALCIUM LEVEL 8.4 MG/DL (8.8-10.2); CARBON DIOXIDE LEVEL 29 MEQ/L (21-32); CHLORIDE LEVEL 96 MEQ/L (98-107); CREATININE FOR GFR 0.41 MG/DL (0.55-1.30); GLOMERULAR FILTRATION RATE > 60.0 (>45); GLUCOSE, FASTING 88 MG/DL (70-100); MAGNESIUM LEVEL 2.5 MG/DL (1.8-2.4); SODIUM LEVEL 131 MEQ/L (136-145)
[2019-07-09] MEDS: DOCUSATE SODIUM 100 MG CAP PO SCH ×2 (08:55→20:46)
[2019-07-09] MEDS: VANCOMYCIN HCL 750 MG, VIAL MATE ADAPTER 1 EACH in D5W 250 ML IV SCH ×2 (08:56→16:34)
[2019-07-09] MEDS: HEPARIN SOD (PORCINE) 5000 UNITS/ML VIAL (J1644 PER 1000UNITS) SQ SCH ×2 (08:56→21:53)
[2019-07-09] MEDS: SILVER SULFADIAZINE 1% CR 50 GM JAR TOP SCH (08:57)
[2019-07-09] MEDS: IBUPROFEN 600 MG TAB PO PRN ×2 (09:25→16:34)
[2019-07-09] MEDS: ACIDOPHILUS PO SCH ×3 (10:25→20:47)
--- NOTE | 2019-07-09 11:00 | PHACANCOPD ---
PHARMACY VANCOMYCIN DOSING Pt Demographics Demographics Patient Age:64 , Weight:46.300 , Gender: female Adjusted Body Weight Vancomycin Vancomycin Target Ranges: 15-20 mcg/ml Vancomycin Load Y/N: Yes Load Dose Date Time Vancomycin Load Dose: 1GM IV Date: 07/02/19 Time: 23:00 Vancomycin Dose Date: 07/03/19. Current Vancomycin Dose: [750MG IV Q8H starting @6AM] Intermittent Dosing?: No Labs Micro Microbiology 07/03/19 Gram Stain - Final, Complete 07/03/19 Wound Culture - Final, Complete Staphylococcus Caprae 07/03/19 Anaerobic Culture - Final, Complete 07/02/19 Blood Culture - Final, Complete NO GROWTH AFTER 5 DAYS Creatinine Clearance Date:07/02/19. Creatinine Clearance: [>60 ML/MIN]. Pharmacist Note Pharmacist Note PHARMD NOTE: VANCO THROUGH REPORTED 21.6 (GOAL 15-20). WE'LL DECREASE TO 750 MG IV Q8H. PHARMACY WILL CONTINUE TO MONITOR AND MAKE ADJUSTMENTS NEEDED. PharmD NOTE: VANCO TROUGH REPORTED 8.9mcg/ml (Goal 15-20). WE WILL INCREASE THE VANCO TO 1GM IV Q8H STARTING AT 23:00 THIS EVENING [facility] Jul 09, 2019 11:00
[2019-07-09 11:50] LABS: C REACTIVE PROTEIN QUANTITATIV 0.71 MG/DL (0.00-0.30)
[2019-07-09] MEDS: GABAPENTIN 100 MG CAP PO SCH ×2 (12:00→16:35)
[2019-07-09] MEDS: SENOKOT S TAB PO PRN ×2 (12:00→20:46)
--- NOTE | 2019-07-09 12:57 | IPNPDOC ---
Text Note Date of Service The patient was seen on 07/09/19. NOTE SUBJECTIVE: Patient was seen at bedside today. She states that her left foot pain is worse per her current pain management regimen. She has been taking her [place] at night before sleeping and then gabapentin and ibuprofen during the day. She states the pain is dull with some intermittent sharp stabs. Her bloating, abdominal pain, and constipation have resolved. Pt denies chest pain, dyspnea, cough, and diarrhea. Pt has no further complaints at this time. OBJECTIVE: GENERAL: Pt appears stated age, very thin, and pale, and is sitting propped up in bed in no acute distress. HEENT: Normocephalic, atraumatic. CARDIOVASCULAR: Regular rate and rhythm. No murmurs, rubs, or gallops. PULMONARY: Clear to auscultation b/l. No wheezes, rales, or rhonchi. ABDOMEN: Abdomen soft, flat, and non-tympanic with no tenderness or palpable organomegaly. EXTREMITIES: Left foot bandage was removed for examination. No leg swelling. No erythema or drainage from the wound. Left foot remains exquisitely tender to light palpation. Toes pink. Right foot unremarkable. PSYCHIATRIC: Pt is calm and cooperative. Full affect. Pt answers questions appropriately. She has a high level of anxiety regarding her ongoing medical care. ASSESSMENT: Pt is a 64-year-old female with a significant past medical history of malignant melanoma, arthritis, bronchiectasis, demyelinating disease, mycobacterial pulmonary abscess, squamous cell carcinoma, and SIADH who presented to the [facility] as a direct admit from infectious disease complaining of left lower extremity pain and swelling and has been admitted for evaluation and treatment of abscess and cellulitis. PLAN: 1. Left foot pain secondary to cellulitis/abscess - Infectious disease consult was requested of Dr. Kennedy's service. Drs. Kennedy and Champ have been involved in the care of the patient, and their assistance is appreciated. - Podiatry consult was requested of Dr. Fernando and is appreciated. Dr. Fernando performed incision and drainage; today is POD #6. Dr. Fernando is considering whether to close pt's wound today per pt desire to not have to change bandages at home. X-ray of this foot ordered. - Pt was afebrile overnight and she has no leukocytosis. - Pt is prescribed gabapentin and ibuprofen for ongoing pain control. Springfield is prescribed PRN, but being avoided due to constipation (see below). - Today is vancomycin day 8. Antibiotic regimen deferred to Dr. Kennedy's service. - Per PT: safe for discharge home /w/ services and rolling walker. 2. Underweight/failure to thrive/leukopenia - BMI 17.0. Pt appears very thin. Leukopenia at 3.5 this morning, trending down. Pt is tolerating her regular diet well. - Ordered nutritional consult with consideration of non-lactose supplemental shakes per pt lactose intolerance. - Will monitor for improvement per increased nutrition. 3. Opioid-induced constipation, resolved - One-time Fleet Enema given 07/06/2019. Continue polyethylene glycol 1 packet daily as needed for continuing constipation. Avoid narcotics. Continue senna daily as needed. 4. Normocytic anemia, improving - Pale-appearing on physical exam. - Red blood cell count (3.87) and hematocrit (35.9) trending up and hemoglobin within normal limits (12.4). 5. Asymptomatic chronic hyponatremia secondary to SIADH. - Sodium decreased to 131 this morning, still slightly better than her baseline. 6. 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 - Noncontributory to this admission. 7. 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 8. Chronic degenerative disc disease with radiculopathy of the left side - Pain control as described above. 9. DVT prophylaxis: Subcutaneous heparin DISPOSITION: Discharge pending wound reevaluation from Dr. Fernando with possible wound closure and antibiotic regimen development by Dr. Kennedy. Otherwise medically safe for discharge. VS,Fishbone, I+O VS, Fishbone, I+O Laboratory Tests 07/09/19 06:17 Vital Signs Date Time Temp Pulse Resp B/P (MAP) Pulse Ox O2 Delivery O2 Flow Rate FiO2 07/09/19 06:00 98.6 62 18 114/68 (83) 96 Room Air 07/03/19 19:25 1 I&O- Last 24 Hours up to 6 AM 07/09/19 06:00 Intake Total 3770 ml Balance 3770 ml GME ATTESTATION GME ATTESTATION My faculty preceptor for this patient encounter was physically present during the encounter and was fully available. All aspects of the patient interview, examination, medical decision making process, and medical care plan development were reviewed and approved by the faculty preceptor. The faculty preceptor is aware and concurs with the plan as stated in the body of this note and will attest to such by his/her cosignature. KATHY MITCHELL S-III Jul 09, 2019 07:56
[2019-07-09 14:00] VITALS: BP 123/72
[2019-07-09] MEDS ORDERED: ENTER DRUG NAME HERE (PATIENT'S OWN MED) PO SCH (16:00)
--- NOTE | 2019-07-09 18:51 | REP ---
Left foot four views: Comparison is 06/28/2019. The base of the second digit proximal phalange is dislocated dorsally. This is unchanged. There is valgus angulation of the first second and third digits. This is unchanged. There is no fracture. Joint spaces are unremarkable. There are no calcifications or foreign bodies. Impression: Dorsal dislocation of the second digit proximal phalange base. Valgus angulation of the first second and third digits. Electronically Signed by Dao Mccrary MD 07/09/2019 06:43 P
[2019-07-09] MEDS: BACTRIM 160MG/800MG DS TAB PO SCH (20:46)
[2019-07-09] MEDS: BIOTIN PO SCH (20:47)
[2019-07-09] MEDS: ESSENTIAL ONE DAILY PO SCH (20:48)
[2019-07-09] MEDS: CHOLECALCIFEROL PO SCH (20:49)
[2019-07-09] MEDS: CALCIUM 1200 MG PO SCH (20:49)
[2019-07-09] MEDS: LYSINE 500 MG PO SCH (20:50)
[2019-07-09] MEDS: PERCOCET 5MG/325MG TAB PO PRN (21:53)
[2019-07-09] MEDS: GABAPENTIN 300 MG CAP PO SCH (21:53)
[2019-07-09 22:00] VITALS: BP 118/69
[2019-07-10 06:00] VITALS: BP 105/61
[2019-07-10] MEDS ORDERED: SULF1TAB93 PO ×2 (06:19→07:38)
[2019-07-10] MEDS ORDERED: MOM30SS2 PO (06:19)
[2019-07-10 06:59] LABS: HEMATOCRIT 35.8 % (36.0-47.0); HEMOGLOBIN 12.3 g/dl (12.0-15.5); MEAN CORPUSCULAR HEMOGLOBIN 32.5 pg (27.0-33.0); MEAN CORPUSCULAR HGB CONC 34.4 g/dl (32.0-36.5); MEAN CORPUSCULAR VOLUME 94.5 fl (80.0-96.0); PLATELET COUNT, AUTOMATED 290 10^3/uL (150-450); RED BLOOD COUNT 3.79 10^6/uL (4.00-5.40); WHITE BLOOD COUNT 4.4 10^3/uL (4.0-10.0)
[2019-07-10 07:34] LABS: BLOOD UREA NITROGEN 8 MG/DL (7-18); CALCIUM LEVEL 8.6 MG/DL (8.8-10.2); CARBON DIOXIDE LEVEL 24 MEQ/L (21-32); CHLORIDE LEVEL 94 MEQ/L (98-107); CREATININE FOR GFR 0.56 MG/DL (0.55-1.30); GLOMERULAR FILTRATION RATE > 60.0 (>45); GLUCOSE, FASTING 89 MG/DL (70-100); MAGNESIUM LEVEL 2.4 MG/DL (1.8-2.4); SODIUM LEVEL 126 MEQ/L (136-145)
[2019-07-10] MEDS: ACIDOPHILUS PO SCH (08:58)
[2019-07-10] MEDS: BACTRIM 160MG/800MG DS TAB PO SCH (08:59)
[2019-07-10] MEDS: IBUPROFEN 600 MG TAB PO PRN (08:59)
[2019-07-10] MEDS: DOCUSATE SODIUM 100 MG CAP PO SCH (08:59)
[2019-07-10] MEDS: HEPARIN SOD (PORCINE) 5000 UNITS/ML VIAL (J1644 PER 1000UNITS) SQ SCH (09:00)
--- NOTE | 2019-07-10 10:12 | DS.PDOC ---
Discharge Summary General Date of Admission Jul 02, 2019 at 18:13 Date of Discharge Jul 10, 2019 Attending Physician: PARRIS JUDD MD Specialist/Consultants Involve: Janneth Kennedy MD Specialist/Consultants Involve Emmanuel Fernando DPM Discharge Summary PROCEDURES PERFORMED DURING STAY: Incision and drainage of abscess at plantar and dorsal aspect of left foot. ADMITTING DIAGNOSES: 1. Left foot pain secondary to cellulitis vs. osteomyelitis vs. abscess vs. acute Charcot 2. Chronic hypernatremia by SIADH 3. History of Mycobacterium abscess 4. History of multiple cancers 5. Chronic degenerative disc disease with left-sided radiculopathy 6. Normocytic anemia DISCHARGE DIAGNOSES: 1. Left foot cellulitis and abscess 2. Underweight BMI/failure to thrive/leukopenia 3. Opioid-induced constipation 4. Normocytic anemia 5. Chronic hypernatremia 2/2 SIADH 6. History of Mycobacterium abscess 7. History of multiple cancers 8. Chronic degenerative disc disease with left-sided radiculopathy COMPLICATIONS/CHIEF COMPLAINT: Cellulitis L Foot. HISTORY OF PRESENT ILLNESS: Gill Moran is a 64-year-old female who presented to the hospital as a direct admission from Janneth Kennedy MD's office. Patient had been experiencing left foot pain onset 2 weeks before admission and was evaluated by Emmanuel Fernando DPM for callus which was debrided. Following this, the left foot pain worsened with swelling and erythema. She was evaluated in the emergency department on 06/28/2019 and discharged on a course of clindamycin 300 mg twice a day for 10 days. At that time, she had a slightly elevated CRP at 3.33 with no leukocytosis and no elevated erythrocyte sedimentation rate. She had a left foot x-ray which showed no bony erosions, no fractures, and no foreign body. She was advised to establish care with infectious disease. At the time of presentation to Dr. Kennedy's office, patient had completed 4 days of outpatient antibiotics with no improvement of her symptoms. She had failed outpatient treatment, and a request was submitted for direct admission to [facility] for further evaluation and treatment. HOSPITAL COURSE: Pt was followed by the hospitalist and infectious disease services. Her antibiotics regimen was changed to vancomycin. Blood cultures were drawn and showed no growth after 5 days. MRI of the foot was performed (see below) with no evidence of osteomyelitis, but some fluid collection around the left second proximal phalanx representing an abscess. On exam, she had surrounding induration but no fluctuation. Dr. Fernando was consult it for callus trimming, which was done under sedation given patient's neuropathy and tenderness. Intraoperative cultures showed growth of Staphylococcus caprae. She was continued on vancomycin for a total of 8 days. She is being discharged on a 7 day course of trimethoprim/sulfamethoxazole and was given dose 1/7 on the day of discharge. Pt's pain was managed with ibuprofen, oxycodone/acetaminophen, and gabapentin. Her wound was regularly assessed by Dr. Fernando and by repeat x- ray (see below). She worked with physical therapy, who cleared her as safe for discharge home with services on 07/06/2019. She has been advised to continue using her rolling walker and crutches as needed at home. Steri-Strips with gauze covering were applied to the wound for discharge home and arrangements for it to be changed by home health services. Pt's anemia was worked up and showed no vitamin or iron deficiency. Based on concomitant low white blood cell count, anemia and decreased WBCs were therefore suspected to be nutrition-related. Pt declined a nutrition consult and supplemental shakes. Pt suffered from narcotic induced constipation during this hospital stay. She was placed on a bowel regimen, narcotic use was scaled down, and symptoms resolved. DISCHARGE MEDICATIONS: Please see below. ALLERGIES: Please see below. PHYSICAL EXAMINATION ON DISCHARGE: VITAL SIGNS: Please see below. GENERAL: Pt appears stated age, very thin, and pale, and is sitting propped up in bed in no acute distress. HEENT: Normocephalic, atraumatic. CARDIOVASCULAR: Regular rate and rhythm. No murmurs, rubs, or gallops. PULMONARY: Clear to auscultation b/l. No wheezes, rales, or rhonchi. ABDOMEN: Abdomen soft, flat, and non-tympanic with no tenderness or palpable organomegaly. EXTREMITIES: Left foot bandage was not removed for examination. No leg swelling. No drainage into the gauze wrapping. Left foot remains exquisitely tender to light palpation. Toes pink. Right foot unremarkable. PSYCHIATRIC: Pt is calm and cooperative. Full affect. Pt answers questions appropriately. She has a high level of anxiety regarding her ongoing medical care. LABORATORY DATA: Please see below. IMAGING: MRI left foot without contrast, from report: "Soft tissue swelling in the midfoot and forefoot suggesting cellulitis. No evidence of underlying osteomyelitis. Dorsal dislocation of the 2nd toe proximal phalanx relative to the metatarsal, with a plantar fluid collection plantar to the 2nd toe metatarsal head which could be a seroma or inflamed/infected fluid collection." X-ray left foot, complete, from report: "Dorsal dislocation of the second digit proximal phalange base. Valgus angulation of the first second and third digits." PROGNOSIS: Fair. ACTIVITY: As tolerated. DIET: As tolerated per lactose intolerance. DISCHARGE PLAN: Discharge home with services and follow-up with Dr. Fernando. DISPOSITION: Discharge home with services. DISCHARGE INSTRUCTIONS: 1. Follow up with primary care physician within 7-10 days. 2. Follow up with Dr. Fernando within 7 days. 3. Complete antibiotics course as prescribed. 4. Follow dressing change recommendations. 5. If symptoms return or worsen, please call your primary care physician or go to the emergency department. DISCHARGE CONDITION: Stable. TIME SPENT ON DISCHARGE: Greater than 60 minutes. Vital Signs/I&Os Vital Signs Date Time Temp Pulse Resp B/P (MAP) Pulse Ox O2 Delivery O2 Flow Rate FiO2 07/10/19 06:00 100.0 63 18 105/61 (76) 97 Room Air I&O- Last 24 Hours up to 6 AM 07/10/19 05:59 Intake Total 3760 ml Output Total 0 ml Balance 3760 ml Laboratory Data Labs 24H Laboratory Tests 2 07/10/19 06:34: Nucleated Red Blood Cells % (auto) 0.0 CBC/BMP Laboratory Tests 07/10/19 06:34 Microbiology Microbiology 07/03/19 Gram Stain - Final, Complete 07/03/19 Wound Culture - Final, Complete Staphylococcus Caprae 07/03/19 Anaerobic Culture - Final, Complete 07/02/19 Blood Culture - Final, Complete NO GROWTH AFTER 5 DAYS Discharge Medications Scheduled Biotin (Biotin) 5,000 Mcg Tab.subl, 5,000 MCG SL QPM, (Reported) Gabapentin (Gabapentin) 100 Mg Cap, 100 MG PO BID, (Reported) TAKES NOON AND DINNER Gabapentin (Gabapentin) 100 Mg Cap, 300 MG PO QHS, (Reported) Lactobacillus Acidophilus (Acidophilus) 1 Chw Chw, 1 CHW PO TID, (Reported) Lysine (l-Lysine) 500 Mg Tablet, 500 MG PO QPM, (Reported) Multivitamin (Multivitamins) 1 Cap Cap, 1 CAP PO QPM, (Reported) Oxycodone HCl/Acetaminophen (Oxycodone-Acetaminophen 5-325) 1 Each Tablet, 1 TAB PO QHS, (Reported) Sulfamethoxazole/Trimethoprim (Sulfamethoxazole-Tmp Ds Tablet) 1 Each Tablet, 1 TAB PO BID [Calcium Carb/Vit D3] , 2 TAB PO QPM, (Reported) CALCIUM CARBONATE 1200MG W/ VIT D3 1000 UNITS Scheduled PRN Acetaminophen (Tylenol) 325 Mg Tablet, 650 MG PO TID PRN for PAIN, (Reported) Ibuprofen (Ibuprofen) 200 Mg Capsule, 400 MG PO QID PRN for PAIN, (Reported) TAKES ONE TO TWO TABS WHEN NEEDED Oxycodone HCl/Acetaminophen (Oxycodone-Acetaminophen 5-325) 1 Each Tablet, 1 TAB PO TID PRN for PAIN, (Reported) Oxycodone/Acetaminophen (Oxycodone-Acetaminophen 5-325) 1 Each Tablet, 1 TAB PO Q6HP PRN for PAIN Sennosides/Docusate Sodium (Stool Softener-Laxative Tablet) 1 Each Tablet, 1 TAB PO BID PRN for CONSTIPATION, (Reported) Allergies Coded Allergies: Scallop (Verified Allergy, Intermediate, SEVERE NAUSEA, VOMITING, DIARRHEA, 03/02/19) TAPE (Verified Allergy, Mild, RASH, 03/02/19) BANDAIDS WOOL (FABRIC) (Verified Allergy, Mild, RASH, 03/02/19) amoxicillin (Verified Allergy, Mild, RASH, 03/02/19) lactose (Verified Allergy, Unknown, 03/02/19) cephalexin (Verified Adverse Reaction, Intermediate, severe diarrhea, 03/02/19) GME ATTESTATION GME ATTESTATION My faculty preceptor for this patient encounter was physically present during the encounter and was fully available. All aspects of the patient interview, examination, medical decision making process, and medical care plan development were reviewed and approved by the faculty preceptor. The faculty preceptor is aware and concurs with the plan as stated in the body of this note and will attest to such by his/her cosignature. KATHY MITCHELL OMS-III Jul 10, 2019 07:20 LILLY PATIÑO DO Jul 11, 2019 05:56
[2019-07-10] MEDS: GABAPENTIN 100 MG CAP PO SCH (11:46)
--- NOTE | 2019-07-10 12:54 | IPN ---
DATE OF SERVICE: 07/09/2019 Mrs. Moran was upset this afternoon because she was hungry and wanted to drink and did not know if she was going to the operating room. When I examined her foot, she stated that she was in a lot of pain, but she is doing much more with ambulation. She is concerned about her discharge home. She does not have any help. She does not have a ride home. Her sister lives in [place]. She is not sure if she is going to make it. She has been afebrile. LABORATORIES: White count is 3.5, hemoglobin 12.4, hematocrit 35.9, platelets 275. Sodium 131, potassium 4, chloride 96, bicarbonate 29, BUN 8, creatinine 0.41, glucose 88, calcium 8.4, magnesium 2.5, CRP 0.71 down from 1.6. Wound culture had few Staphylococcus caprae. On physical examination, temperature is 97.9, pulse 53, respirations 17, blood pressure 123/72, oxygen (O2) saturation 100% on room air. Light erythema on the dorsal aspect of the foot has resolved. There is a small incision measuring 1.5 cm with bloody discharge. No purulence. No surrounding cellulitis. The dorsal aspect of the foot has a small incision, as well. Both are healing well. I do not see any indication for primary closure at this time. Wound is healing much better. IMPRESSION: Left foot cellulitis abscess, status post incision and drainage (I and D). Culture positive for Staphylococcus caprae. The patient will be switched from intravenous (IV) vancomycin to by mouth Bactrim double-strength one tablet twice a day for 7-10 days. Foot x-ray was reviewed. Shows a dorsal dislocation of the 2nd digit proximal phalange base and valgus angulation of the 1st, 2nd, and 3rd digits. Dislocation of the 2nd digit base could be contributing to her pain. PLAN: Discontinue IV vancomycin. Continue by mouth Bactrim on discharge double-strength one twice a day. To followup with Dr. Fernando. She does not need to followup with infectious disease.
[2019-07-10] MEDS ORDERED: PERCOCET PO (13:08)
== END 2019-07-10 13:45 | disposition home or self-care (01) | DRG 603 ==
LOC: M MS5PR 18:13
PROVIDERS: ADMIT Internal Medicine; ATTEND Internal Medicine
PROC: 0Y9N0ZZ Drainage of Left Foot, Open Approach (ICD-10-PCS; principal; 2019-07-03 17:00)
DX: L02.612 Cutaneous abscess of left foot (principal); L03.116 Cellulitis of left lower limb; E22.2 Syndrome of inappropriate secretion of antidiuretic hormone; Z68.1 Body mass index [BMI] 19.9 or less, adult; G37.9 Demyelinating disease of central nervous system, unspecified; D04.72 Carcinoma in situ of skin of left lower limb, including hip; M06.9 Rheumatoid arthritis, unspecified; Z96.641 Presence of right artificial hip joint; J47.9 Bronchiectasis, uncomplicated; D64.9 Anemia, unspecified; Z79.899 Other long term (current) drug therapy; Z88.1 Allergy status to other antibiotic agents; Z91.013 Allergy to seafood; Z91.040 Latex allergy status; Z91.048 Other nonmedicinal substance allergy status; E73.9 Lactose intolerance, unspecified; K59.03 Drug induced constipation; T40.2X5A Adverse effect of other opioids, initial encounter; R62.7 Adult failure to thrive; R63.6 Underweight; D72.819 Decreased white blood cell count, unspecified; M51.9 Unspecified thoracic, thoracolumbar and lumbosacral intervertebral disc disorder; B95.7 Other staphylococcus as the cause of diseases classified elsewhere

== ENCOUNTER → 2019-07-02 | Outpatient (REF) | payer OTHER ==
[~2019-07-02] MED LIST changes: +BIOT50005 SL; +CALCIUM CARB/VIT D3 PO; +CLEO300C2 PO; +CLIN300C5 PO; +IBUP200C28 PO; +STOO1TAB2 PO
[2019-07-02 15:33] LABS: BASO % 0.4 % (0.0-1.0); EOS % 0.2 % (0.0-3.0); HEMATOCRIT 35.3 % (36.0-47.0); HEMOGLOBIN 12.3 g/dl (12.0-15.5); LYMPH # 0.8 10^3/uL (1.5-5.0); LYMPH % 14.9 % (24.0-44.0); MEAN CORPUSCULAR HEMOGLOBIN 32.5 pg (27.0-33.0); MEAN CORPUSCULAR HGB CONC 34.8 g/dl (32.0-36.5); MEAN CORPUSCULAR VOLUME 93.4 fl (80.0-96.0); MONO # 0.8 10^3/uL (0.0-0.8); MONO % 15.7 % (0.0-5.0); NEUTROPHILS # 3.5 10^3/uL (1.5-8.5); NEUTROPHILS % 68.4 % (36.0-66.0); PLATELET COUNT, AUTOMATED 243 10^3/uL (150-450); RED BLOOD COUNT 3.78 10^6/uL (4.00-5.40); WHITE BLOOD COUNT 5.2 10^3/uL (4.0-10.0)
[2019-07-02 15:55] LABS: ALBUMIN 3.8 GM/DL (3.2-5.2); ALT/SGPT 25 U/L (12-78); BILIRUBIN,TOTAL 0.5 MG/DL (0.2-1.0); BLOOD UREA NITROGEN 7 MG/DL (7-18); C REACTIVE PROTEIN QUANTITATIV 6.56 MG/DL (0.00-0.30); CALCIUM LEVEL 8.6 MG/DL (8.8-10.2); CARBON DIOXIDE LEVEL 26 MEQ/L (21-32); CHLORIDE LEVEL 87 MEQ/L (98-107); CREATININE FOR GFR 0.36 MG/DL (0.55-1.30); GLOMERULAR FILTRATION RATE > 60.0 (>45); GLUCOSE, FASTING 83 MG/DL (70-100); POTASSIUM SERUM 4.3 MEQ/L (3.5-5.1); SODIUM LEVEL 122 MEQ/L (136-145); TOTAL PROTEIN 6.9 GM/DL (6.4-8.2)
[2019-07-02 15:58] LABS: ERYTHROCYTE SEDIMENTATION RATE 37 mm/hr (0-30)
== END ==
LOC: M SFHCPLAZ 14:15
PROVIDERS: ATTEND Internal Medicine Infectious Disease
DX: L03.116 Cellulitis of left lower limb (principal)

== ENCOUNTER → 2019-07-17 | Outpatient (CLI) | payer OTHER ==
[~2019-07-17] MED LIST changes: +BIOT50005 SL; +CALCIUM CARB/VIT D3 PO; +IBUP200C28 PO; +MOM30SS2 PO; +PERCOCET PO; +SULF1TAB93 PO
[2019-07-17 18:06] LABS: BASO # 0.1 10^3/uL (0.0-0.2); EOS # 0.1 10^3/uL (0.0-0.5); EOS % 2.8 % (0.0-3.0); HEMATOCRIT 34.9 % (36.0-47.0); HEMOGLOBIN 12.2 g/dl (12.0-15.5); LYMPH # 0.9 10^3/uL (1.5-5.0); LYMPH % 26.4 % (24.0-44.0); MEAN CORPUSCULAR HEMOGLOBIN 33.1 pg (27.0-33.0); MEAN CORPUSCULAR VOLUME 94.6 fl (80.0-96.0); MONO # 0.5 10^3/uL (0.0-0.8); MONO % 13.5 % (0.0-5.0); PLATELET COUNT, AUTOMATED 318 10^3/uL (150-450); RED BLOOD COUNT 3.69 10^6/uL (4.00-5.40); WHITE BLOOD COUNT 3.6 10^3/uL (4.0-10.0)
[2019-07-17 18:22] LABS: BLOOD UREA NITROGEN 8 MG/DL (7-18); C REACTIVE PROTEIN QUANTITATIV < 0.30 MG/DL (0.00-0.30); CALCIUM LEVEL 8.5 MG/DL (8.8-10.2); CARBON DIOXIDE LEVEL 30 MEQ/L (21-32); CHLORIDE LEVEL 91 MEQ/L (98-107); CREATININE FOR GFR 0.45 MG/DL (0.55-1.30); GLOMERULAR FILTRATION RATE > 60.0 (>45); GLUCOSE, FASTING 84 MG/DL (70-100); POTASSIUM SERUM 4.2 MEQ/L (3.5-5.1); SODIUM LEVEL 126 MEQ/L (136-145)
[2019-07-17 18:53] LABS: ERYTHROCYTE SEDIMENTATION RATE 12 mm/hr (0-30)
== END ==
LOC: M PLALAB 12:56
PROVIDERS: ATTEND Internal Medicine Infectious Disease
DX: L03.116 Cellulitis of left lower limb (principal)

== ENCOUNTER → 2019-08-06 | Outpatient (CLI) | payer OTHER ==
[2019-08-06 13:19] LABS: BASO % 0.5 % (0.0-1.0); EOS # 0.1 10^3/uL (0.0-0.5); EOS % 1.8 % (0.0-3.0); HEMATOCRIT 33.7 % (36.0-47.0); HEMOGLOBIN 12.3 g/dl (12.0-15.5); LYMPH # 0.9 10^3/uL (1.5-5.0); LYMPH % 21.1 % (24.0-44.0); MEAN CORPUSCULAR HEMOGLOBIN 33.8 pg (27.0-33.0); MEAN CORPUSCULAR HGB CONC 36.5 g/dl (32.0-36.5); MEAN CORPUSCULAR VOLUME 92.6 fl (80.0-96.0); MONO # 0.7 10^3/uL (0.0-0.8); MONO % 15.1 % (0.0-5.0); NEUTROPHILS # 2.7 10^3/uL (1.5-8.5); PLATELET COUNT, AUTOMATED 194 10^3/uL (150-450); RED BLOOD COUNT 3.64 10^6/uL (4.00-5.40); WHITE BLOOD COUNT 4.4 10^3/uL (4.0-10.0)
[2019-08-06 14:26] LABS: ERYTHROCYTE SEDIMENTATION RATE 8 mm/hr (0-30)
== END ==
LOC: M LAB 12:24
PROVIDERS: ATTEND Podiatrist
DX: L02.612 Cutaneous abscess of left foot (principal)

== ENCOUNTER → 2019-08-17 | Outpatient (REF) | payer OTHER | LOC: M LAB REF 16:42 | PROVIDERS: ATTEND Podiatrist | DX: L03.126 Acute lymphangitis of left lower limb (principal); M79.672 Pain in left foot ==

== ENCOUNTER → 2019-08-18 | Outpatient (CLI) | payer OTHER ==
--- NOTE | 2019-08-18 14:55 | REP ---
MRI left foot without contrast: History: Left foot infection following procedure. Comparison left foot MRI study July 02, 2019. Comparison radiographs July 09, 2019. Technique: Axial, coronal and sagittal imaging planes are obtained. T1 and T2-weighted scans are obtained with and without fat saturation. MRI findings: There is considerable valgus deformity at the MTP joints. This is unchanged. Dorsal dislocation of the second MTP joint is again seen. There is a joint effusion in the second MTP joint, which appears decreased in size. However, there is marrow edema pattern in the distal aspect of the second metatarsal on T2-weighted scans. There is low T1 signal intensity in the distal second metatarsal as well. No cortical erosive change is appreciated. Cortical and medullary bone signal intensity is otherwise normal. Impression: Decrease in the size of the second MTP joint effusion in the interval since July 02, 2019. Dorsal dislocation of the MTP joint persists of the second digit. There is new low T1, high T2 signal intensity marrow edema in the distal aspect of the second metatarsal. This could reflect early osteomyelitis. No cortical erosion is seen. Electronically Signed by Declan Zarco MD 08/18/2019 03:16 P
== END ==
LOC: M RAD 11:50
PROVIDERS: ATTEND Orthopaedic Surgery
DX: T81.40XA Infection following a procedure, unspecified, initial encounter (principal); Y83.8 Other surgical procedures as the cause of abnormal reaction of the patient, or of later complication, without mention of misadventure at the time of the procedure; M25.472 Effusion, left ankle

== ENCOUNTER 2019-08-23 17:35 | Inpatient (IN) | payer OTHER ==
[~2019-08-23] VITALS: Ht 165.1 cm; Wt 43.3 kg
[2019-08-23 18:30] VITALS: BP 132/81
[2019-08-23] MEDS ORDERED: MOM 30ML SUSPENSION UDC PO PRN (18:45)
[2019-08-23] MEDS ORDERED: VANCOMYCIN HCL 1,000 MG, VIAL MATE ADAPTER 1 EACH in D5W 250 ML IV SCH (18:45)
--- NOTE | 2019-08-23 19:08 | HPEPDOC ---
[facility] Medical History & Physical Date of Admission Aug 23, 2019 Date of Service: Aug 23, 2019 Primary Care Physician: Janneth Kennedy MD Attending Physician: MIKEY GIVENS MD History and Physical CHIEF COMPLAINT: direct admission for osteomyelitis of Left foot HISTORY OF PRESENT ILLNESS: Gill Moran is a 64 YO with history of left foot cellulitis s/p I&D of plantar and dorsal aspect of left foot who presents with worsening pain of open wound on dorsum of left foot. The patient reports she was hospitalized in 06/2019 for cellulitis and was treated with IV vancomycin. She was followed by Dr. Kennedy. On discharge, she was given Bactrim and subsequently was given a course of doxycycline, which she has only taken 1 day of so far. She has been to see Dr. Fernando several times in clinic. She Underwent an MRI on 08/18/2019, which demonstrated possible early osteomyelitis infection of the second metatarsal. She was told to admitted to the hospital this evening for surgery tomorrow with Dr. Fernando. At this moment, she reports she has had some diarrhea after taking doxycycline as well as some subjective fevers and chills. She has not had any recent illnesses nor any sick contacts. PAST MEDICAL HISTORY: history of Malignant melanoma in situ left hip 2001. Seasonal allergies. Arthritis. Endometriosis. Bronchiectesis. Hx abnormal MRI demyelinating disease. 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 chronic hyponatremia SIADH. Degenerative disc disease Hx cellulitis vs osteomyelitis vs charcot joint of Left foot. Hospitalized at [facility] 06/2019. Cultures grew Staphylococcus caprae PAST SURGICAL HISTORY: total right hip replacement 2007 nasal septum diagnostic laparocopy for endometriosis brochoscopy 03/2011, 2013 sinus surgery SOCIAL HISTORY: Former smoker, denies etoh or other drugs FAMILY HISTORY: Father: 83 yrs, maryanne injury (bleed brain) Mother: 80 yrs, copd, chronic seizures, emphysema, diagnosed with Hypertension Siblings: alive 59 yrs Paternal Grand Father: , diabetes, Diabetes Maternal Grand Father: , colon cancer Paternal uncle: blood disorders 1 sister(s) - healthy. Denies family hx of pancreatic cancer or melanoma. ALLERGIES: Please see below. REVIEW OF SYSTEMS: CONSTITUTIONAL: Feels well. No fever or chills HEENT: denies vision changes, no sinus problems, denies any trouble swallowing CARDIOVASCULAR: no palpitations RESPIRATORY: Denies any shortness of breath GENITOURINARY: No dysuria MUSCULOSKELETAL: Pain/tenderness to palpation left dorsom of foot GASTROINTESTINAL: Denies abdominal pain, no nausea/vomiting/diarrhea SKIN: No new rashes or lesions NEUROLOGICAL: No loss of sensation PSYCHIATRIC: Reports normal mood, no delusions or hallucinations ENDOCRINE: No hot/cold intolerance HEMATOLOGIC/LYMPHATIC: No easy bruising, no lumps/bumps ALLERGIC/IMMUNOLOGIC: No sinus symptoms HOME MEDICATIONS: Please see below. PHYSICAL EXAMINATION: VITAL SIGNS: Please see below. GENERAL APPEARANCE: Laying in bed, appears stated age, no acute distress, calm, cooperative HEENT: EOMI, PERRLA, neck is supple with no thyromegaly or lymphadenopathy RESPIRATORY: Lungs are clear to auscultation bilaterally with no adventitious breath sounds appreciated CARDIOVASCULAR: no JVD, RRR,no murmurs/rubs/gallops ABDOMEN: Soft, nontender to palpation in all four quadrants, no masses/organomegaly EXTREMITIES: There is a small 1.5 cm open wound on dorsum of left foot that is exquisitely tender to palpation and erythematous. Pulses are 3+ and skin is warm and well perfused NEUROLOGICAL: No obvious focal deficits PSYCHIATRIC: normal mood/affect Skin: No rashes or ulcers. LN: No significant cervical or inguinal lymphadenopathy LABORATORY DATA: See below. IMAGING: FOOT MRI (08/18/2019): Impression: Decrease in the size of the second MTP joint effusion in the interval since July 02, 2019. Dorsal dislocation of the MTP joint persists of the second digit. There is new low T1, high T2 signal intensity marrow edema in the distal aspect of the second metatarsal. This could reflect early osteomyelitis. No cortical erosion is seen. MICROBIOLOGY: Please see below. ASSESSMENT: This is a 64-year-old female with history of left foot cellulitis status post I&D and Staphylococcus Caprae infection who presents with worsening left foot pain and plan for debridement with Dr. Fernando tomorrow. PLAN: 1. Left foot osteomyelitis: etiology of non-healing ulcer is unknown at this time. The patient does not have history of DM2 neuropathy, but she does have history of demyelinating disease which may cause neuropathy and decreased blood flow and thus non-healing ulcers -Vancomycin started for empiric treatment. Will de-escalate pending cultures from debridement tomorrow -Ordered doppler flow study of lower extremities to r/o arterial insufficiency -NPO at breakfast 08/24/19 or 6 hours before she is to go to surgery with Dr. Fernando -Blood cultures -PT/OT ordered for post-surgical rehabilitation -Will trend CRP -Pain control with home [place], Gabapentin -Wound care nursing order in place DISPO: Pending procedure tomorrow and ensuing PT/OT, antibiotic therapy Home Medications Scheduled Biotin (Biotin) 5,000 Mcg Tab.subl, 5,000 MCG SL QPM Gabapentin (Gabapentin) 100 Mg Cap, 100 MG PO BID TAKES NOON AND DINNER Gabapentin (Gabapentin) 100 Mg Cap, 300 MG PO QHS Lactobacillus Acidophilus (Acidophilus) 1 Chw Chw, 1 CHW PO TID Lysine (l-Lysine) 500 Mg Tablet, 500 MG PO QPM Multivitamin (Multivitamins) 1 Cap Cap, 1 CAP PO QPM [Calcium Carb/Vit D3] , 2 TAB PO QPM CALCIUM CARBONATE 1200MG W/ VIT D3 1000 UNITS Scheduled PRN Acetaminophen (Tylenol) 325 Mg Tablet, 650 MG PO TID PRN for PAIN Ibuprofen (Ibuprofen) 200 Mg Capsule, 400 MG PO QID PRN for PAIN TAKES ONE TO TWO TABS WHEN NEEDED Oxycodone HCl/Acetaminophen (Oxycodone-Acetaminophen 5-325) 1 Each Tablet, 1 TAB PO TID PRN for PAIN Allergies Coded Allergies: Scallop (Verified Allergy, Intermediate, SEVERE NAUSEA, VOMITING, DIARRHEA, 03/02/19) TAPE (Verified Allergy, Mild, RASH, 03/02/19) BANDAIDS WOOL (FABRIC) (Verified Allergy, Mild, RASH, 03/02/19) amoxicillin (Verified Allergy, Mild, RASH, 03/02/19) lactose (Verified Allergy, Unknown, 03/02/19) cephalexin (Verified Adverse Reaction, Intermediate, severe diarrhea, 03/02/19) A-FIB/CHADSVASC A-FIB History Current/History of A-Fib/PAF?: No GME ATTESTATION GME ATTESTATION My faculty preceptor for this patient encounter was physically present during the encounter and was fully available. All aspects of the patient interview, examination, medical decision making process, and medical care plan development were reviewed and approved by the faculty preceptor. The faculty preceptor is a alvarado and concurs with the plan as stated in the body of this note and will attest to such by his/her cosignature. ATTENDING NOTE Patient was seen and examined by me this morning with the residents. Agree with the above assessment and plan MELANI ARREDONDO MD Aug 23, 2019 17:58 MIKEY GIVENS MD Aug 24, 2019 08:46
[2019-08-23] MEDS: ACETAMINOPHEN TAB 650MG DOSE (2X325MG) PO PRN (19:34)
[2019-08-23] MEDS ORDERED: VANCOMYCIN HCL 1,000 MG, VIAL MATE ADAPTER 1 EACH in D5W 250 ML IV ONE (21:15)
[2019-08-23 21:21] LABS: ALBUMIN 3.9 GM/DL (3.2-5.2); ALT/SGPT 24 U/L (12-78); BILIRUBIN,TOTAL 0.4 MG/DL (0.2-1.0); BLOOD UREA NITROGEN 7 MG/DL (7-18); C REACTIVE PROTEIN QUANTITATIV < 0.30 MG/DL (0.00-0.30); CALCIUM LEVEL 8.7 MG/DL (8.8-10.2); CARBON DIOXIDE LEVEL 27 MEQ/L (21-32); CHLORIDE LEVEL 91 MEQ/L (98-107); CREATININE FOR GFR 0.36 MG/DL (0.55-1.30); GLOMERULAR FILTRATION RATE > 60.0 (>45); GLUCOSE, FASTING 79 MG/DL (70-100); POTASSIUM SERUM 3.9 MEQ/L (3.5-5.1); SODIUM LEVEL 124 MEQ/L (136-145); TOTAL PROTEIN 6.7 GM/DL (6.4-8.2)
[2019-08-23 22:00] VITALS: BP 113/69
[2019-08-23] MEDS: GABAPENTIN 100 MG CAP PO SCH (23:23)
[2019-08-23] MEDS: PERCOCET 5MG/325MG TAB PO PRN (23:24)
[2019-08-24] VITALS (8 sets, daily range): BP systolic 93–132; BP diastolic 52–84
[2019-08-24] MEDS: CALCIUM/VITAMIN D 500 MG TAB PO SCH (02:15)
[2019-08-24] MEDS: LACTOBACILLUS ACIDOPHILUS CAP (BACID) PO SCH ×3 (02:15→16:00)
[2019-08-24] MEDS: MULTIVITAMINS/MINERALS THERAP 1 TAB PO SCH (02:15)
[2019-08-24 06:48] LABS: BASO # 0.1 10^3/uL (0.0-0.2); BASO % 1.4 % (0.0-1.0); EOS # 0.1 10^3/uL (0.0-0.5); EOS % 2.8 % (0.0-3.0); HEMATOCRIT 34.5 % (36.0-47.0); HEMOGLOBIN 12.2 g/dl (12.0-15.5); LYMPH # 1.6 10^3/uL (1.5-5.0); MEAN CORPUSCULAR HEMOGLOBIN 32.7 pg (27.0-33.0); MEAN CORPUSCULAR HGB CONC 35.4 g/dl (32.0-36.5); MEAN CORPUSCULAR VOLUME 92.5 fl (80.0-96.0); MONO # 0.6 10^3/uL (0.0-0.8); NEUTROPHILS # 1.2 10^3/uL (1.5-8.5); NEUTROPHILS % 34.2 % (36.0-66.0); PLATELET COUNT, AUTOMATED 229 10^3/uL (150-450); RED BLOOD COUNT 3.73 10^6/uL (4.00-5.40); WHITE BLOOD COUNT 3.5 10^3/uL (4.0-10.0)
[2019-08-24] MEDS ORDERED: VANCOMYCIN HCL 500 MG in D5W MINI-BAG PLUS 100 ML IV SCH ×2 (08:00→20:00)
[2019-08-24] MEDS ORDERED: ENOXAPARIN 30 MG/0.3 ML SYR (J1650) SC SCH (09:00)
[2019-08-24] MEDS ORDERED: ENOXAPARIN 40 MG/0.4 ML SYRINGE (J1650) SC SCH (09:00)
--- NOTE | 2019-08-24 11:33 | IPNPDOC ---
Date Seen The patient was seen on 08/24/19. Progress Note SUBJECTIVE: Patient seen and examined at the bedside this morning. She is very worried and preoccupied about her surgery today and postoperative care. She states the pain in her foot has improved. She requests a new boot to be able to get around as she feels hers is not working quite well for her. Otherwise, she had no issues overnight and denies any headaches/lightheadedness/dizziness/N/V/D. OBJECTIVE PHYSICAL EXAMINATION: VITAL SIGNS: Please see below. GENERAL APPEARANCE: Laying in bed, appears stated age, no acute distress, calm, cooperative HEENT: EOMI, PERRLA, neck is supple with no thyromegaly or lymphadenopathy RESPIRATORY: Lungs are clear to auscultation bilaterally with no adventitious breath sounds appreciated CARDIOVASCULAR: no JVD, RRR,no murmurs/rubs/gallops ABDOMEN: Soft, nontender to palpation in all four quadrants, no masses/organomegaly EXTREMITIES: There is a small 1.5 cm open wound on dorsum of left foot that is exquisitely tender to palpation and erythematous. Pulses are 3+ and skin is warm and well perfused NEUROLOGICAL: No obvious focal deficits PSYCHIATRIC: normal mood/affect Skin: No rashes or ulcers. LN: No significant cervical or inguinal lymphadenopathy LABORATORY DATA: See below. IMAGING: FOOT MRI (08/18/2019): Impression: Decrease in the size of the second MTP joint effusion in the interval since July 02, 2019. Dorsal dislocation of the MTP joint persists of the second digit. There is new low T1, high T2 signal intensity marrow edema in the distal aspect of the second metatarsal. This could reflect early osteomyelitis. No cortical erosion is seen. MICROBIOLOGY: Please see below. ASSESSMENT: This is a 64-year-old female with history of left foot cellulitis status post I&D and Staphylococcus Caprae infection who presents with worsening left foot pain and plan for debridement vs amputation with Dr. Fernando later today. PLAN: 1. Left foot osteomyelitis: etiology of non-healing ulcer is unknown at this time. The patient does not have history of DM2 neuropathy, but she does have history of demyelinating disease which may cause neuropathy and decreased blood flow and thus non-healing ulcers -Vancomycin started for empiric treatment. Will de-escalate pending cultures from debridement today -Ordered doppler flow study of lower extremities to r/o arterial insufficiency -NPO today for procedure -Blood cultures pending -PT/OT ordered for post-surgical rehabilitation -CRP found to be less than 0.30 -Pain control with home [place], Gabapentin -Wound care nursing order in place DISPO: Pending procedure tomorrow and ensuing PT/OT, antibiotic therapy VS, I&O, 24H, Fishbone Vital Signs/I&O Vital Signs Date Time Temp Pulse Resp B/P (MAP) Pulse Ox O2 Delivery O2 Flow Rate FiO2 08/24/19 06:00 98.7 63 18 99/65 (76) 96 08/23/19 23:54 Room Air I&O- Last 24 Hours up to 6 AM 08/24/19 06:00 Intake Total 1790 ml Output Total 1000 ml Balance 790 ml Laboratory Data 24H LABS Laboratory Tests 2 08/23/19 19:20: Anion Gap 6L, Glomerular Filtration Rate > 60.0, Calcium Level 8.7L, Total Bilirubin 0.4, Aspartate Amino Transf (AST/SGOT) 26, Alanine Aminotransferase (ALT/SGPT) 24, Alkaline Phosphatase 89, C-Reactive Protein, Quantitative < 0.30, Total Protein 6.7, Albumin 3.9, Albumin/Globulin Ratio 1.39 08/24/19 06:33: Immature Granulocyte % (Auto) 0.6, Neutrophils (%) (Auto) 34.2L, Lymphocytes (%) (Auto) 45.0H, Monocytes (%) (Auto) 16.0H, Eosinophils (%) (Auto) 2.8, Basophils (%) (Auto) 1.4H, Neutrophils # (Auto) 1.2L, Lymphocytes # (Auto) 1.6, Monocytes # (Auto) 0.6, Eosinophils # (Auto) 0.1, Basophils # (Auto) 0.1, Nucleated Red Blood Cells % (auto) 0.0 CBC/BMP Laboratory Tests 08/23/19 19:20 08/24/19 06:33 Microbiology Microbiology 08/23/19 Blood Culture, Received Pending GME ATTESTATION GME ATTESTATION My faculty preceptor for this patient encounter was physically present during the encounter and was fully available. All aspects of the patient interview, examination, medical decision making process, and medical care plan development were reviewed and approved by the faculty preceptor. The faculty preceptor is aware and concurs with the plan as stated in the body of this note and will attest to such by his/her cosignature. ATTENDING NOTE Patient was seen and examined by me this morning with the residents. Agree with the above assessment and plan MELANI ARREDONDO MD Aug 24, 2019 11:33 MIKEY GIVENS MD Aug 24, 2019 12:31
[2019-08-24] MEDS: GABAPENTIN 100 MG CAP PO SCH ×2 (11:36→18:41)
[2019-08-24] MEDS: ACETAMINOPHEN TAB 650MG DOSE (2X325MG) PO PRN (11:40)
[2019-08-24] MEDS ORDERED: VANCOMYCIN HCL 500 MG/10 ML VIAL (J3370) As Ordered ONE ×2 (13:34→16:36)
[2019-08-24] MEDS ORDERED: LIDOCAINE 2% MDV 20 ML VIAL As Ordered ONE (13:34)
[2019-08-24] MEDS ORDERED: BUPIVACAINE HCL 0.5% 30 ML VIAL As Ordered ONE (13:34)
[2019-08-24] MEDS ORDERED: BACITRACIN PWD 50,000 UNITS VIAL As Ordered ONE (13:39)
[2019-08-24] MEDS ORDERED: propofoL 200 MG/20 ML VIAL As Ordered ONE ×2 (16:04→16:07)
[2019-08-24] MEDS ORDERED: MIDAZOLAM INJ 2 MG/2 ML VIAL (J2250) As Ordered ONE (16:04)
[2019-08-24] MEDS ORDERED: fentaNYL 100 MCG/2 ML INJECTION (J3010) As Ordered ONE (16:04)
[2019-08-24] MEDS ORDERED: LIDOCAINE 2% INJ 100 MG/5 ML SDV (FOR ANES.) As Ordered ONE (16:25)
[2019-08-24] MEDS ORDERED: ONDANSETRON 4MG/2ML VIAL (J2405) As Ordered ONE (16:40)
[2019-08-24] MEDS ORDERED: dexameTHASONE 4 MG/ML 1ML VIAL (J1100) As Ordered ONE (16:40)
[2019-08-24] MEDS ORDERED: PERCOCET 5MG/325MG TAB As Ordered ONE (17:41)
[2019-08-24] MEDS ORDERED: PERCOCET 5MG/325MG TAB PO PRN (17:45)
[2019-08-24] MEDS ORDERED: METOCLOPRAMIDE INJ 10MG/2ML VIAL (J2765) IV PRN (17:45)
[2019-08-24] MEDS ORDERED: ONDANSETRON 4MG/2ML VIAL (J2405) IV PRN (17:45)
[2019-08-24] MEDS ORDERED: LR 1,000 ML IV SCH (17:45)
--- NOTE | 2019-08-24 18:02 | REP ---
HISTORY: Postop. COMPARISON: Preoperative evaluation of 07/09/2019. Three portable views were obtained. Postoperative change is seen involving the distal diaphysis of the second metatarsal. There are no other significant changes. Electronically Signed by Librado Maza DO 08/24/2019 06:50 P
[2019-08-24] MEDS ORDERED: VANCOMYCIN HCL 1,000 MG, VIAL MATE ADAPTER 1 EACH in D5W 250 ML IV ONE (19:15)
--- NOTE | 2019-08-24 21:18 | CR ---
DATE OF CONSULTATION: 08/24/2019 INFECTIOUS DISEASE CONSULTATION REQUESTING PHYSICIAN: mEmanuel Fernando DPM REASON FOR CONSULTATION: Possible osteomyelitis of foot. HISTORY OF PRESENT ILLNESS: Ms. Moran is a 64-year-old female known to me in clinic for her recent foot abscess on the left. She was recently hospitalized 07/02/2019 through 07/10/2019 for this abscess for which she underwent an incision and drainage (I and D) by Dr. Fernando and cultures were positive for Staphylococcus coagulase negative. She was treated with IV vancomycin and discharged on by mouth Bactrim. For her foot followup she was referred to orthopaedics and foot MRI revealed possible early osteomyelitis of the 2nd metatarsal on the left for which she was recommended to be admitted by Dr. Fernando for surgical intervention. We have been consulted for possible osteomyelitis. Since hospitalization, she has received vancomycin, currently day #2, and is scheduled to go to operating room (OR) today with podiatry. Her only complaint is of pain at the left foot in the 2nd and 3rd metatarsals. Denies any fever, chills, nausea, vomiting, headache, or any other skin rashes. 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 ALLERGIES: Tape, wool, AMOXICILLIN, CEPHALEXIN, and lactose per the chart. It appears they are more adverse reactions rather than a true allergy. SURGICAL HISTORY: Total right hip replacement in 2007, nasal septum repair, diagnostic laparoscopy for endometriosis, bronchoscopy in 2010 and 2013, and sinus surgery. FAMILY HISTORY: Father at 83 years due to brain hemorrhage. Mother at 80 years and had chronic seizures, emphysema, and hypertension, siblings are alive and healthy, grandparents had diabetes and colon cancer, and other blood disorders in an uncle. SOCIAL HISTORY: Is a former smoker, quit over 10 years ago. Denies any illicit substances. HOME MEDICATIONS: - Tylenol 650 mg by mouth three times a day as needed - biotin 5000 mcg sublingual every evening - gabapentin 100 mg by mouth twice a day - gabapentin 300 mg by mouth nightly - ibuprofen 400 mg by mouth four times a day as needed - lactobacillus one pill by mouth three times a day - lysine 500 mg by mouth every evening - multivitamin one capsule every evening - oxycodone-acetaminophen 5-325 one tablet by mouth four times a day as needed - calcium carbonate with vitamin D3 two tablets by mouth every evening CURRENT INPATIENT MEDICATIONS: - milk of magnesium - Tylenol 650 mg every 4 hours as needed - Percocet 5-325 mg one tablet three times a day as needed - gabapentin 300 mg by mouth nightly - [place] D 500 mg by mouth nightly - multivitamin one tablet by mouth nightly - Bacid one tablet by mouth three times a day - gabapentin 100 mg by mouth twice a day at 1200 [id number] hours - vancomycin, first dose given late evening of 08/23/2019, currently day #2 REVIEW OF SYSTEMS: Denies fever, chills, night sweats, weight loss. Denies headache, blurred vision, tinnitus, photophobia, phonophobia, neck stiffness. Denies chest pain, palpitations, shortness of breath, cough, wheeze, sputum production. Denies abdominal pain, nausea, vomiting, constipation, diarrhea, blood loss. Denies any new skin rashes. Admits to left foot recent cellulitis with healing incisions and severe pain as noted in history of present illness (HPI). Denies any other joint swelling, effusion, erythema, or edema. Denies any other skin rashes or ulcerations. Denies any new paresthesias or motor weakness. PHYSICAL EXAMINATION: VITAL SIGNS: Temperature 98.7, pulse 63, blood pressure 99/65, mean arterial pressure (MAP) of 76, respirations 18, saturation 96% on room air, maximum temperature (T-max) since admission has been 98.7. GENERAL: Thin appearing female resting comfortably in bed, no acute distress. Alert and oriented times three. Fully conversant. HEENT: Normocephalic, atraumatic with moist mucous membranes and hemiglossectomy. Neck is supple without any appreciable adenopathy or jugular venous distention (JVD). HEART: Regular rate and rhythm, normal S1, S2 without any appreciable murmur, clicks, or gallops. LUNGS: Clear bilaterally. No wheezing, rhonchi, or rales. Equal chest rise. No accessory muscle usage. ABDOMEN: Soft, nontender, nondistended with positive bowel sounds. No rebound, guarding, or rigidity. EXTREMITIES: 2+ radial pulses bilaterally and 2+ dorsalis pedis (DP) pulses bilaterally. No peripheral edema or cyanosis or clubbing. She has two lesions on her left foot; one on the plantar, one on the dorsal surfaces from recent I and D. The plantar wound is draining yellow serosanguineous fluid onto the dressing, very tender to palpation in the 2nd and 3rd metatarsals, screaming in pain when palpated. Has valgus deformity of the left foot hallux. MUSCULOSKELETAL: Able to move all extremities. No joint effusions noted. NEUROLOGIC: No focal deficits. Answers and follows commands appropriately. LABORATORY DATA: WBC 3.5, hemoglobin and hematocrit 12.2 and 34.5, platelets 229. Sodium 124, potassium 3.9, chloride 91, bicarbonate 27, BUN 70, creatinine 0.86, CRP is negative, less than 0.3. Blood culture negative at 24 hours. Prior culture of her left foot cellulitis that was drained grew few Staphylococcus caprae status post IV vancomycin and by mouth Bactrim. Recent foot MRI on 08/18/2019 report reads as decrease in size of 2nd metatarsophalangeal (MTP) joint effusion in the interval since 07/02/2019. Dorsal dislocation of the MTP joint persists of the 2nd digit. There is new low T1, high T2 signal intensity marrow edema in the distal aspect of the 2nd metatarsal. This could reflect early osteomyelitis. No cortical erosion is seen. IMPRESSION: This is a 64-year-old female with recent left foot cellulitis hospitalized 07/02/2019 through 07/10/2019 status post IV vancomycin and by mouth Bactrim who had her wound drained and cultured at that time growing Staphylococcus caprae. She is now admitted for concern of possible osteomyelitis of the left foot 2nd metatarsal per recommendations of podiatry with plan for the operating room (OR). PLAN: She is status post IV vancomycin, first dose given the evening of 08/23/2019, currently day #2. Continue vancomycin as we await surgery and culture. Will keep her over the weekend on vancomycin and adjust accordingly. She is otherwise afebrile without any leukocytosis and normal inflammatory markers and has no other complaints and is otherwise doing well. Continue monitoring. Continue pain control. She will likely need physical therapy/occupational therapy (PT/OT) afterwards for her questionable osteomyelitis. Thank you for the consult. We will be happy to follow along. My faculty preceptor for this patient encounter was physically present during the encounter and was fully available. All aspects of the patient interview, examination, medical decision making process, and medical care plan development were reviewed and approved by the faculty preceptor. The faculty preceptor is aware and concurs with the plan as stated in the body of this note and will attest to such by his cosignature.
[2019-08-25] MEDS: GABAPENTIN 100 MG CAP PO SCH ×3 (00:03→17:01)
[2019-08-25] MEDS: PERCOCET 5MG/325MG TAB PO PRN ×2 (00:04→23:06)
[2019-08-25] MEDS: VANCOMYCIN HCL 750 MG, VIAL MATE ADAPTER 1 EACH in D5W 250 ML IV SCH ×3 (00:58→16:42)
[2019-08-25] MEDS: LACTOBACILLUS ACIDOPHILUS CAP (BACID) PO SCH ×7 (01:12→21:00)
[2019-08-25] MEDS: CALCIUM/VITAMIN D 500 MG TAB PO SCH ×2 (01:15→21:00)
[2019-08-25] MEDS: LYSINE 500 MG PO SCH ×2 (01:21→21:00)
[2019-08-25] MEDS: BIOTIN 5000 MCG PO SCH ×2 (01:21→21:00)
[2019-08-25] MEDS: MULTIVITAMINS/MINERALS THERAP 1 TAB PO SCH ×2 (01:22→21:00)
[2019-08-25 02:00] VITALS: BP 99/62
[2019-08-25 06:00] VITALS: BP 102/58
[2019-08-25 06:27] LABS: BASO # 0.1 10^3/uL (0.0-0.2); BASO % 0.7 % (0.0-1.0); EOS % 0.1 % (0.0-3.0); HEMATOCRIT 38.5 % (36.0-47.0); HEMOGLOBIN 13.7 g/dl (12.0-15.5); LYMPH # 1.5 10^3/uL (1.5-5.0); LYMPH % 20.7 % (24.0-44.0); MEAN CORPUSCULAR HEMOGLOBIN 33.2 pg (27.0-33.0); MEAN CORPUSCULAR HGB CONC 35.6 g/dl (32.0-36.5); MEAN CORPUSCULAR VOLUME 93.2 fl (80.0-96.0); MONO # 0.8 10^3/uL (0.0-0.8); MONO % 10.2 % (0.0-5.0); PLATELET COUNT, AUTOMATED 268 10^3/uL (150-450); RED BLOOD COUNT 4.13 10^6/uL (4.00-5.40); WHITE BLOOD COUNT 7.4 10^3/uL (4.0-10.0)
[2019-08-25 10:00] VITALS: BP 118/65
[2019-08-25] MEDS ORDERED: BISACODYL 5 MG TAB PO PRN (11:00)
[2019-08-25] MEDS ORDERED: BISACODYL 10 MG SUPP PR PRN (11:00)
[2019-08-25 11:20] LABS: BLOOD UREA NITROGEN 8 MG/DL (7-18); CALCIUM LEVEL 9.1 MG/DL (8.8-10.2); CARBON DIOXIDE LEVEL 30 MEQ/L (21-32); CHLORIDE LEVEL 92 MEQ/L (98-107); GLOMERULAR FILTRATION RATE > 60.0 (>45); GLUCOSE, FASTING 97 MG/DL (70-100); POTASSIUM SERUM 4.2 MEQ/L (3.5-5.1); SODIUM LEVEL 129 MEQ/L (136-145)
[2019-08-25] MEDS: ACETAMINOPHEN TAB 650MG DOSE (2X325MG) PO PRN ×2 (11:22→17:01)
[2019-08-25] MEDS: ENOXAPARIN 40 MG/0.4 ML SYRINGE (J1650) SC SCH (12:06)
[2019-08-25 14:00] VITALS: BP 116/65
--- NOTE | 2019-08-25 15:16 | IPNPDOC ---
Date Seen The patient was seen on 08/25/19. Progress Note SUBJECTIVE: Patient seen and examined at the bedside this morning. She had her procedure done yesterday. Evidently, she tolerated it well and this morning she is more preoccupied with knowing when she can go home. She reports she has 5 out of 10 pain in her left foot but does not wish to have any more pain medications. She still would like to have a new boot issue to her by physical therapy. She is very wary about working with physical therapy. Otherwise, she denies any headaches, dizziness, nausea, vomiting or diarrhea. OBJECTIVE PHYSICAL EXAMINATION: VITAL SIGNS: Please see below. GENERAL APPEARANCE: Laying in bed, appears stated age, no acute distress, calm, cooperative HEENT: EOMI, PERRLA, neck is supple with no thyromegaly or lymphadenopathy RESPIRATORY: Lungs are clear to auscultation bilaterally with no adventitious breath sounds appreciated CARDIOVASCULAR: no JVD, RRR,no murmurs/rubs/gallops ABDOMEN: Soft, nontender to palpation in all four quadrants, no masses/organomeg trevor EXTREMITIES: Left lower extremity wound is covered in surgical bandage. Pulses are 3+ and skin is warm and well perfused NEUROLOGICAL: No obvious focal deficits PSYCHIATRIC: normal mood/affect Skin: No rashes or ulcers. LN: No significant cervical or inguinal lymphadenopathy LABORATORY DATA: See below. IMAGING: FOOT MRI (08/18/2019): Impression: Decrease in the size of the second MTP joint effusion in the interval since July 02, 2019. Dorsal dislocation of the MTP joint persists of the second digit. There is new low T1, high T2 signal intensity marrow edema in the distal aspect of the second metatarsal. This could reflect early osteomyelitis. No cortical erosion is seen. MICROBIOLOGY: Please see below. ASSESSMENT: This is a 64-year-old female with history of left foot cellulitis status post I&D and Staphylococcus Caprae infection who presents with worsening left foot pain and plan for debridement vs amputation with Dr. Fernando later today. PLAN: 1. Left foot osteomyelitis: etiology of non-healing ulcer is unknown at this time. The patient does not have history of DM2 neuropathy, but she does have history of demyelinating disease which may cause neuropathy and decreased blood flow and thus non-healing ulcers -Vancomycin started for empiric treatment. Will de-escalate pending cultures from debridement -Ordered doppler flow study of lower extremities to r/o arterial insufficiency -Blood cultures show no growth after 24 hours -PT/OT ordered for post-surgical rehabilitation -CRP found to be less than 0.30 -Pain control with home [place], Gabapentin -Wound care nursing order in place 2. 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 She is asymptomatic. 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 She also has known pulmonary nodules which she will have Dr. Farah do a biopsy in the near future. DVT PPx: Lovenox DISPO: Pending procedure tomorrow and ensuing PT/OT, antibiotic therapy VS, I&O, 24H, Fishbone Vital Signs/I&O Vital Signs Date Time Temp Pulse Resp B/P (MAP) Pulse Ox O2 Delivery O2 Flow Rate FiO2 08/25/19 10:00 98.8 65 17 118/65 (82) 99 Room Air I&O- Last 24 Hours up to 6 AM 08/25/19 06:00 Intake Total 2725 ml Output Total 1 ml Balance 2724 ml Laboratory Data 24H LABS Laboratory Tests 2 08/24/19 18:28: Random Vancomycin Level 2.6 08/25/19 06:14: Anion Gap 7L, Glomerular Filtration Rate > 60.0, Calcium Level 9.1 08/25/19 06:17: Immature Granulocyte % (Auto) 0.3, Neutrophils (%) (Auto) 68.0H, Lymphocytes (%) (Auto) 20.7L, Monocytes (%) (Auto) 10.2H, Eosinophils (%) (Auto) 0.1, Basophils (%) (Auto) 0.7, Neutrophils # (Auto) 5.0, Lymphocytes # (Auto) 1.5, Monocytes # (Auto) 0.8, Eosinophils # (Auto) 0.0, Basophils # (Auto) 0.1, Nucleated Red Blood Cells % (auto) 0.0 CBC/BMP Laboratory Tests 08/25/19 06:14 08/25/19 06:17 Microbiology Microbiology 08/24/19 Wound Culture, Received Pending 08/24/19 Anaerobic Culture, Received Pending 08/23/19 Blood Culture - Preliminary, Resulted No growth after 24 hours . All specim... GME ATTESTATION GME ATTESTATION My faculty preceptor for this patient encounter was physically present during the encounter and was fully available. All aspects of the patient interview, examination, medical decision making process, and medical care plan development were reviewed and approved by the faculty preceptor. The faculty preceptor is aware and concurs with the plan as stated in the body of this note and will attest to such by his/her cosignature. ATTENDING NOTE I, Poncho Oneill, have independently examined this patient and performed my own physical exam, as well as reviewed the documentation. I have discussed in detail with the resident / student the findings and plan of treatment as documented by the resident / student. I agree with their findings and treatment plan. I will continue to follow the patient during this hospital stay. MELANI ARREDONDO MD Aug 25, 2019 15:16 PONCHO ONEILL DO Aug 25, 2019 19:10
[2019-08-25 18:00] VITALS: BP 126/77
[2019-08-25 22:00] VITALS: BP 118/75
[2019-08-25] MEDS: GABAPENTIN 300 MG CAP PO SCH (23:05)
[2019-08-26 00:51] LABS: POTASSIUM RANDOM URINE 2.6 MEQ/L
[2019-08-26] MEDS: VANCOMYCIN HCL 750 MG, VIAL MATE ADAPTER 1 EACH in D5W 250 ML IV SCH ×3 (01:16→17:40)
[2019-08-26 02:00] VITALS: BP 103/67
[2019-08-26 06:00] VITALS: BP 101/64
[2019-08-26 06:37] LABS: BASO # 0.1 10^3/uL (0.0-0.2); EOS # 0.1 10^3/uL (0.0-0.5); HEMATOCRIT 35.8 % (36.0-47.0); LYMPH # 1.3 10^3/uL (1.5-5.0); LYMPH % 33.4 % (24.0-44.0); MEAN CORPUSCULAR HEMOGLOBIN 33.2 pg (27.0-33.0); MEAN CORPUSCULAR HGB CONC 36.3 g/dl (32.0-36.5); MEAN CORPUSCULAR VOLUME 91.6 fl (80.0-96.0); MONO # 0.6 10^3/uL (0.0-0.8); MONO % 13.8 % (0.0-5.0); NEUTROPHILS # 1.9 10^3/uL (1.5-8.5); NEUTROPHILS % 47.5 % (36.0-66.0); PLATELET COUNT, AUTOMATED 241 10^3/uL (150-450); RED BLOOD COUNT 3.91 10^6/uL (4.00-5.40)
[2019-08-26 07:09] LABS: BLOOD UREA NITROGEN 9 MG/DL (7-18); CARBON DIOXIDE LEVEL 29 MEQ/L (21-32); CHLORIDE LEVEL 96 MEQ/L (98-107); CREATININE FOR GFR 0.45 MG/DL (0.55-1.30); GLOMERULAR FILTRATION RATE > 60.0 (>45); GLUCOSE, FASTING 89 MG/DL (70-100); POTASSIUM SERUM 3.7 MEQ/L (3.5-5.1); SODIUM LEVEL 129 MEQ/L (136-145)
[2019-08-26] MEDS: LACTOBACILLUS ACIDOPHILUS CAP (BACID) PO SCH ×3 (09:00→19:30)
[2019-08-26] MEDS: ENOXAPARIN 40 MG/0.4 ML SYRINGE (J1650) SC SCH (09:52)
[2019-08-26] MEDS ORDERED: MULTIVITAMINS/MINERALS THERAP 1 TAB PO ONE (10:45)
[2019-08-26] MEDS ORDERED: LACTOBACILLUS ACIDOPHILUS CAP (BACID) PO SCH (12:30)
[2019-08-26] MEDS: GABAPENTIN 100 MG CAP PO SCH ×2 (12:56→17:54)
[2019-08-26 14:00] VITALS: BP 111/75
[2019-08-26] MEDS: PERCOCET 5MG/325MG TAB PO PRN (15:47)
[2019-08-26] MEDS ORDERED: MULTIVITAMINS/MINERALS THERAP 1 TAB PO SCH (18:00)
[2019-08-26] MEDS ORDERED: CALCIUM/VITAMIN D 500 MG TAB PO SCH (18:00)
--- NOTE | 2019-08-26 19:29 | IPNPDOC ---
Text Note Date of Service The patient was seen on 08/26/19. NOTE Subjective: No any acute events overnight, patient stated that she has a mode rate foot pain. She denies fever, chills, nausea, vomiting, diarrhea or dysuria Objective: VITAL SIGNS: Please see below. GENERAL APPEARANCE: not in apparent distress HEENT: Normocephalic, atraumatic. Mucous members moist and pink CARDIOVASCULAR: Regular rate and rhythm. No murmurs, rubs or gallops. Radial pulses are intact. There is no lower extremity edema LUNGS: Diminished lung sounds ABDOMEN: Abdomen is soft and nontender. MUSCULOSKELETAL: Range of motion is intact in all 4 extremities, left foot covered with surgical dressing NEUROLOGICAL: Cranial nerves II-12 are grossly intact. Speech is not dysarthric Patient is 64 years old female with past history of tongue squamous cell carci noma, lung nodules presented to the hospital with left foot osteomyelitis. Left foot osteomyelitis Status post left foot 2nd metatarsal amputation Continue vancomycin Await bone culture result PT/OT Pain management Blood culture shows no growth Appreciate/agree with ID consult Hyponatremia Improved. Sodium level 129 Most likely due to SIADH. Patient has multiple lung nodules which rises concern for malignancy. Dr. Steel will do biopsy of the lung nodules after patient stabilization. We will check urine and blood osmolarity VS,Fishbone, I+O VS, Fishbone, I+O Laboratory Tests 08/26/19 06:18 Vital Signs Date Time Temp Pulse Resp B/P (MAP) Pulse Ox O2 Delivery O2 Flow Rate FiO2 08/26/19 16:30 18 08/26/19 15:47 Room Air 08/26/19 14:00 97.8 64 111/75 (87) 100 I&O- Last 24 Hours up to 6 AM 08/26/19 06:00 Intake Total 3900 ml Output Total 2900 ml Balance 1000 ml PONCHO ONEILL DO Aug 26, 2019 19:29
[2019-08-26 22:00] VITALS: BP 114/66
[2019-08-26] MEDS: LYSINE 500 MG PO SCH (22:48)
[2019-08-26] MEDS: BIOTIN 5000 MCG PO SCH (22:49)
[2019-08-26] MEDS: GABAPENTIN 300 MG CAP PO SCH (22:49)
[2019-08-27] MEDS: PERCOCET 5MG/325MG TAB PO PRN ×2 (00:34→22:59)
[2019-08-27] MEDS: VANCOMYCIN HCL 750 MG, VIAL MATE ADAPTER 1 EACH in D5W 250 ML IV SCH ×3 (00:34→17:30)
[2019-08-27 06:00] VITALS: BP 94/58
[2019-08-27 08:00] VITALS: BP 123/76
[2019-08-27] MEDS: LACTOBACILLUS ACIDOPHILUS CAP (BACID) PO SCH ×3 (08:00→18:00)
[2019-08-27 08:54] LABS: BLOOD UREA NITROGEN 10 MG/DL (7-18); CALCIUM LEVEL 8.7 MG/DL (8.8-10.2); CARBON DIOXIDE LEVEL 31 MEQ/L (21-32); CHLORIDE LEVEL 95 MEQ/L (98-107); CREATININE FOR GFR 0.48 MG/DL (0.55-1.30); GLOMERULAR FILTRATION RATE > 60.0 (>45); GLUCOSE, FASTING 100 MG/DL (70-100); POTASSIUM SERUM 4.5 MEQ/L (3.5-5.1); SODIUM LEVEL 130 MEQ/L (136-145); VANCOMYCIN LEVEL TROUGH 13.9 UG/ML (10.0-20.0)
[2019-08-27] MEDS ORDERED: ENTER DRUG NAME HERE (PATIENT'S OWN MED) PO SCH (09:00)
[2019-08-27] MEDS: ENOXAPARIN 40 MG/0.4 ML SYRINGE (J1650) SC SCH (10:27)
--- NOTE | 2019-08-27 11:34 | RO ---
DATE OF PROCEDURE: 08/24/2019 PREOPERATIVE DIAGNOSIS: Dislocated 2nd metatarsophalangeal joint, left foot. POSTOPERATIVE DIAGNOSIS: Dislocated 2nd metatarsophalangeal joint, left foot. PROCEDURE PERFORMED: Metatarsal head resection with bone culture and insertion of vancomycin beads, 2nd metatarsal area, left foot. SURGEON: Emmanuel Fernando DPM ELECTRONICS ENGINEER: None. ANESTHESIA:Local MAC IRRIGATION: Dilute vancomycin solution. HEMOSTASIS: Ankle pneumatic tourniquet, 200 mmHg, less than 15 minutes. IMPLANTABLES: Five 5 mm vancomycin impregnated beads. DESCRIPTION OF PROCEDURE: On 08/24/2019, this 64-year-old female was taken from her hospital room to the operating room and placed on the operating room table in a supine position. Following the induction of IV sedation and local and regional anesthesia, the left lower extremity was prepped and draped in the usual aseptic manner. Attention was directed to the patient's left foot and a 4 cm incision was placed over the 2nd metatarsal head and neck area. The incision was deepened through subcutaneous tissues. The extensor tendons were identified and retracted in a lateral direction. Utilizing a metatarsal elevator the dislocation was reduced and the metatarsal head was resected just proximal to the metatarsal neck. This was sent for a culture. The wound was flushed with a low pressure pulse lavage system with 1 liter of dilute vancomycin solution. 5 mm vancomycin beads were inserted into the wound. Submetatarsal two ulceration was explored, extended in the wound but no purulence was expressed. The skin was closed with #5-0 nylon in a simple interrupted type fashion. Betadine splints were utilized to stabilize the 2nd toe and compressive dressing was applied consisting of 4 x 4's, Betsy, and Kerlix. The patient having apparently tolerated the surgical procedure well was taken from the operating room (OR) to the recovery room for further monitoring by the anesthesia department. The tourniquet was released after the metatarsal head was resected. The patient will continue on vancomycin until the wound culture becomes available. Her questions were answered. YOSSI
[2019-08-27] MEDS: GABAPENTIN 100 MG CAP PO SCH ×2 (12:02→17:30)
[2019-08-27 13:30] VITALS: BP 123/77
[2019-08-27] MEDS: ACETAMINOPHEN TAB 650MG DOSE (2X325MG) PO PRN (14:11)
[2019-08-27] MEDS: CALCIUM/VITAMIN D 500 MG TAB PO SCH ×2 (14:11→22:57)
--- NOTE | 2019-08-27 14:55 | IPNPDOC ---
Date Seen The patient was seen on 08/27/19. Progress Note SUBJECTIVE: Patient seen and examined at the bedside this morning. She is concerned that her multivitamin has iron in it and is causing her constipation. Otherwise, no pain in her foot and no issues overnight. She denies any headaches, dizziness, nausea, vomiting or diarrhea. OBJECTIVE PHYSICAL EXAMINATION: VITAL SIGNS: Please see below. GENERAL APPEARANCE: Laying in bed, appears stated age, no acute distress, calm, cooperative HEENT: EOMI, PERRLA, neck is supple with no thyromegaly or lymphadenopathy RESPIRATORY: Lungs are clear to auscultation bilaterally with no adventitious breath sounds appreciated CARDIOVASCULAR: no JVD, RRR,no murmurs/rubs/gallops ABDOMEN: Soft, nontender to palpation in all four quadrants, no masses/organomegaly EXTREMITIES: Left lower extremity wound is covered in surgical bandage. Pulses are 3+ and skin is warm and well perfused NEUROLOGICAL: No obvious focal deficits PSYCHIATRIC: normal mood/affect Skin: No rashes or ulcers. LN: No significant cervical or inguinal lymphadenopathy LABORATORY DATA: See below. IMAGING: FOOT MRI (08/18/2019): Impression: Decrease in the size of the second MTP joint effusion in the interval since July 02, 2019. Dorsal dislocation of the MTP joint persists of the second digit. There is new low T1, high T2 signal intensity marrow edema in the distal aspect of the second metatarsal. This could reflect early osteomyelitis. No cortical erosion is seen. FOOT XR (08/24/2019) POSTOPERATIVE: COMPARISON: Preoperative evaluation of 07/09/2019. Three portable views were obtained. Postoperative change is seen involving the distal diaphysis of the second metatarsal. There are no other significant changes. MICROBIOLOGY: Please see below. ASSESSMENT: This is a 64-year-old female with history of left foot cellulitis status post I&D and Staphylococcus Caprae infection who presents with worsening left foot pain and plan for debridement vs amputation with Dr. Fernando later today. PLAN: 1. Left foot osteomyelitis: etiology of non-healing ulcer is unknown at this time. The patient does not have history of DM2 neuropathy, but she does have history of demyelinating disease which may cause neuropathy and decreased blood flow and thus non-healing ulcers -Vancomycin started for empiric treatment. Will de-escalate pending cultures from debridement. Bone culture shows no grown aerobically and anaerobically. -Ordered doppler flow study of lower extremities to r/o arterial insufficiency -Blood cultures show no growth -PT/OT c;eared -CRP found to be less than 0.30 -Pain control with home [place], Gabapentin -Wound care nursing order in place 2. 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 She is asymptomatic. 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 She also has known pulmonary nodules which she will have Dr. Farah do a biopsy in the near future. DVT PPx: Lovenox DISPO: Cleared PT/OT. Pending recommendations from Dr. Kennedy. Likely dc tomorrow. VS, I&O, 24H, Fishbone Vital Signs/I&O Vital Signs Date Time Temp Pulse Resp B/P (MAP) Pulse Ox O2 Delivery O2 Flow Rate FiO2 08/27/19 13:46 97.0 08/27/19 13:30 97.2 59 16 123/77 (92) 97 Room Air I&O- Last 24 Hours up to 6 AM 08/27/19 06:00 Intake Total 2000 ml Output Total 800 ml Balance 1200 ml Laboratory Data 24H LABS Laboratory Tests 2 08/27/19 07:55: Anion Gap 4L, Glomerular Filtration Rate > 60.0, Calcium Level 8.7L, Vancomycin Level Trough 13.9 CBC/BMP Laboratory Tests 08/27/19 07:55 Microbiology Microbiology 08/24/19 Wound Culture - Final, Complete 08/24/19 Anaerobic Culture - Final, Complete 08/23/19 Blood Culture - Preliminary, Resulted No Growth after 72 hours. All specime... GME ATTESTATION GME ATTESTATION My faculty preceptor for this patient encounter was physically present during the encounter and was fully available. All aspects of the patient interview, examination, medical decision making process, and medical care plan development were reviewed and approved by the faculty preceptor. The faculty preceptor is aware and concurs with the plan as stated in the body of this note and will attest to such by his/her cosignature. ATTENDING NOTE I, Poncho Oneill, have independently examined this patient and performed my own physical exam, as well as reviewed the documentation. I have discussed in detail with the resident / student the findings and plan of treatment as documented by the resident / student. I agree with their findings and treatment plan. I will continue to follow the patient during this hospital stay. MELANI ARREDONDO MD Aug 27, 2019 14:55 PONCHO ONEILL DO Aug 28, 2019 12:48
[2019-08-27 22:00] VITALS: BP 127/80
[2019-08-27] MEDS: MULTIVITAMINS CHILDREN'S CHEWABLE TABLET PO SCH (22:57)
[2019-08-27] MEDS: BIOTIN 5000 MCG PO SCH (22:58)
[2019-08-27] MEDS: GABAPENTIN 300 MG CAP PO SCH (22:58)
[2019-08-27] MEDS: LYSINE 500 MG PO SCH (22:58)
[2019-08-28] MEDS: VANCOMYCIN HCL 750 MG, VIAL MATE ADAPTER 1 EACH in D5W 250 ML IV SCH ×2 (01:22→09:16)
[2019-08-28 06:00] VITALS: BP 119/77
[2019-08-28] MEDS: LACTOBACILLUS ACIDOPHILUS CAP (BACID) PO SCH ×3 (08:00→16:32)
[2019-08-28] MEDS: MULTIVITAMINS CHILDREN'S CHEWABLE TABLET PO SCH (09:00)
[2019-08-28] MEDS: CALCIUM/VITAMIN D 500 MG TAB PO SCH (09:00)
[2019-08-28] MEDS: ENOXAPARIN 40 MG/0.4 ML SYRINGE (J1650) SC SCH (09:16)
[2019-08-28] MEDS ORDERED: ZYVO1TAB PO (10:38)
[2019-08-28] MEDS ORDERED: VITACHTA PO (11:30)
[2019-08-28] MEDS ORDERED: CALCIUM CARB/VIT D3 PO (11:30)
[2019-08-28] MEDS: GABAPENTIN 100 MG CAP PO SCH ×2 (11:34→17:31)
[2019-08-28] MEDS: ACETAMINOPHEN TAB 650MG DOSE (2X325MG) PO PRN ×2 (12:51→17:36)
--- NOTE | 2019-08-28 13:05 | DS.PDOC ---
Discharge Summary General Date of Admission Aug 23, 2019 at 18:11 Date of Discharge 08/29/2019 Primary Care Physician: Pia Mast MD Attending Physician: PONCHO ONEILL DO Specialist/Consultants Involve: Janneth Kennedy MD Specialist/Consultants Involve Emmanuel Fernando DPM Discharge Summary PROCEDURES PERFORMED DURING STAY: [None]. ADMITTING DIAGNOSES: 1. non-healing ulcer on plantar surface of left foot DISCHARGE DIAGNOSES: 1. non-healing ulcer on plantar surface of left foot COMPLICATIONS/CHIEF COMPLAINT: Osteomylitis. HISTORY OF PRESENT ILLNESS: Gill Moran is a 64 YO with history of left foot cellulitis s/p I&D of plantar and dorsal aspect of left foot who presents with worsening pain of open wound on dorsum of left foot. The patient reports she was hospitalized in 06/2019 for cellulitis and was treated with IV vancomycin. She was followed by Dr. Kennedy. On discharge, she was given Bactrim and subsequently was given a course of doxycycline, which she has only taken 1 day of so far. She has been to see Dr. Fernando several times in clinic. She Underwent an MRI on 08/18/2019, which demonstrated possible early osteomyelitis infection of the second metatarsal. She was told to admitted to the hospital this evening for surgery tomorrow with Dr. Fernando. At this moment, she reports she has had some diarrhea after taking doxycycline as well as some subjective fevers and chills. She has not had any recent illnesses nor any sick contacts. HOSPITAL COURSE: The patient was direct-admitted under the direction of Dr. Fernando and Dr. Kennedy for planned I&D of left foot nonhealing ulcer and biopsy of known osteomyelitis. The patient was started on empiric Vancomycin and all home medications were resumed. On HD #2, she went for her procedure with Dr. Fernando, which was uneventful. Wound culture, including bone biopsy, was sent and was found to have no growth both aerobically and anaerobically.The patient's multivitamin was changed to Childrens' chewable as she was afraid that the iron in her multivitamin was causing her constipation. The patient's labs were within normal limits throughout the hospitalization, including chronic hyponatremia from SIADH. It is to my knowledge that she has a lung nodule which will be biopsied by Dr. Farah in the near future. DISCHARGE MEDICATIONS: Please see below. ALLERGIES: Please see below. PHYSICAL EXAMINATION ON DISCHARGE: VITAL SIGNS: Please see below. GENERAL APPEARANCE: Laying in bed, appears stated age, no acute distress, calm, cooperative HEENT: EOMI, PERRLA, neck is supple with no thyromegaly or lymphadenopathy RESPIRATORY: Lungs are clear to auscultation bilaterally with no adventitious breath sounds appreciated CARDIOVASCULAR: no JVD, RRR,no murmurs/rubs/gallops ABDOMEN: Soft, nontender to palpation in all four quadrants, no masses/organomegaly EXTREMITIES: Left lower extremity wound is covered in surgical bandage. Pulses are 3+ and skin is warm and well perfused NEUROLOGICAL: No obvious focal deficits PSYCHIATRIC: normal mood/affect Skin: No rashes or ulcers. LN: No significant cervical or inguinal lymphadenopathy LABORATORY DATA: Please see below. IMAGING: FOOT MRI (08/18/2019): Impression: Decrease in the size of the second MTP joint effusion in the interval since July 02, 2019. Dorsal dislocation of the MTP joint persists of the second digit. There is new low T1, high T2 signal intensity marrow edema in the distal aspect of the second metatarsal. This could reflect early osteomyelitis. No cortical erosion is seen. FOOT XR (08/24/2019) POSTOPERATIVE: COMPARISON: Preoperative evaluation of 07/09/2019. Three portable views were obtained. Postoperative change is seen involving the distal diaphysis of the second metatarsal. There are no other significant changes. PROGNOSIS: fair ACTIVITY: [As tolerated]. DIET: as tolerated DISCHARGE PLAN: Home DISPOSITION: . DISCHARGE INSTRUCTIONS: 1. PFS will arrange one-time dose of Dalvance and for her to return to have this done outpatient or with home health ITEMS TO FOLLOWUP ON ON OUTPATIENT: 1. none DISCHARGE CONDITION: [Stable]. TIME SPENT ON DISCHARGE: Greater than 35 minutes. Vital Signs/I&Os Vital Signs Date Time Temp Pulse Resp B/P (MAP) Pulse Ox O2 Delivery O2 Flow Rate FiO2 08/28/19 06:00 97.7 58 16 119/77 (91) 98 Room Air 08/27/19 13:46 97.0 I&O- Last 24 Hours up to 6 AM 08/28/19 05:59 Intake Total 1655 ml Output Total 0 ml Balance 1655 ml Microbiology Microbiology 08/24/19 Wound Culture - Final, Resulted 08/24/19 Anaerobic Culture - Final, Resulted 08/23/19 Blood Culture - Preliminary, Resulted No Growth after 72 hours. All specime... Discharge Medications Scheduled Biotin (Biotin) 5,000 Mcg Tab.subl, 5,000 MCG SL QPM, (Reported) Gabapentin (Gabapentin) 100 Mg Cap, 100 MG PO BID, (Reported) TAKES NOON AND DINNER Gabapentin (Gabapentin) 100 Mg Cap, 300 MG PO QHS, (Reported) Lactobacillus Acidophilus (Acidophilus) 1 Chw Chw, 1 CHW PO TID, (Reported) Lysine (l-Lysine) 500 Mg Tablet, 500 MG PO QPM, (Reported) Multivitamins (Child Chew Vitamin) 1 Each Tab.chew, 1 TAB PO DAILY [Calcium Carb/Vit D3] , 2 TAB PO BID CALCIUM CARBONATE 1200MG W/ VIT D3 1000 UNITS Scheduled PRN Acetaminophen (Tylenol) 325 Mg Tablet, 650 MG PO TID PRN for PAIN, (Reported) Ibuprofen (Ibuprofen) 200 Mg Capsule, 400 MG PO QID PRN for PAIN, (Reported) TAKES ONE TO TWO TABS WHEN NEEDED Oxycodone HCl/Acetaminophen (Oxycodone-Acetaminophen 5-325) 1 Each Tablet, 1 TAB PO TID PRN for PAIN, (Reported) Allergies Coded Allergies: Scallop (Verified Allergy, Intermediate, SEVERE NAUSEA, VOMITING, DIARRHEA, 03/02/19) TAPE (Verified Allergy, Mild, RASH, 03/02/19) BANDAIDS WOOL (FABRIC) (Verified Allergy, Mild, RASH, 03/02/19) amoxicillin (Verified Allergy, Mild, RASH, 03/02/19) lactose (Verified Allergy, Unknown, 03/02/19) cephalexin (Verified Adverse Reaction, Intermediate, severe diarrhea, 03/02/19) GME ATTESTATION GME ATTESTATION My faculty preceptor for this patient encounter was physically present during the encounter and was fully available. All aspects of the patient interview, examination, medical decision making process, and medical care plan development were reviewed and approved by the faculty preceptor. The faculty preceptor is aware and concurs with the plan as stated in the body of this note and will attest to such by his/her cosignature. ATTENDING NOTE I, Poncho Oneill, have independently examined this patient and performed my own physical exam, as well as reviewed the documentation. I have discussed in detail with the resident / student the findings and plan of treatment as documented by the resident / student. I agree with their findings and treatment plan. MELANI ARREDONDO MD Aug 28, 2019 11:58 PONCHO ONEILL DO Sep 04, 2019 12:02
[2019-08-28 14:00] VITALS: BP 118/72
[2019-08-28] MEDS: GENTAMICIN SULFATE 0.1% OINT 15 GM TOP SCH (16:20)
[2019-08-28] MEDS ORDERED: MULTIVITAMINS CHILDREN'S CHEWABLE TABLET PO SCH (21:00)
[2019-08-28] MEDS ORDERED: CALCIUM/VITAMIN D 500 MG TAB PO SCH (21:00)
--- NOTE | 2019-08-28 21:21 | IPN ---
DATE: 08/28/2019 Gill is doing well. She continues complaining of severe pain in her foot, which is exaggerated. LABORATORY DATA: White count is 4, hemoglobin 13, hematocrit 35.8, platelets 241, 47% neutrophils, 33% lymphocytes, 13% monocytes. Sodium 130, potassium 4.5, chloride 95, bicarbonate 31, BUN 10, creatinine 0.48, glucose 100, calcium 8.7. CRP less than 0.3. Bone culture was negative. Foot x-ray done on August 23: Postoperative changing in the distal diaphysis of the 2nd metatarsal with no significant changes. IMPRESSION: Left foot abscess and cellulitis with a dislocated 2nd metatarsophalangeal joint of the left foot. The patient had resection of the head of the metatarsal with bone culture and insertion of vancomycin beads. The was bone culture was negative for any pathogens. Her C-reactive protein (CRP) was less than 0.3, and therefore it was felt that patient did not have osteomyelitis clinically. PLAN mild superficial cellulitis that will be treated with one dose of intravenous (IV) Dalvance 1.5 grams. That should cover for her skin jeevan, which she has grown in the past, staphylococcus coagulase negative mostly, for 10-14 days. She does not need any other intravenous (IV) antibiotics. Dr. Fernando agrees with discharge planning, and he strongly believes that she does not have osteomyelitis MTDD
[2019-08-28] MEDS: BIOTIN 5000 MCG PO SCH (21:30)
[2019-08-28] MEDS: LYSINE 500 MG PO SCH (21:30)
[2019-08-28 22:00] VITALS: BP 117/71
[2019-08-28] MEDS ORDERED: GABAPENTIN 300 MG CAP PO SCH (22:00)
[2019-08-28] MEDS: PERCOCET 5MG/325MG TAB PO PRN (22:50)
[2019-08-29 06:00] VITALS: BP 112/66
[2019-08-29] MEDS: LACTOBACILLUS ACIDOPHILUS CAP (BACID) PO SCH (08:00)
[2019-08-29] MEDS: ENOXAPARIN 40 MG/0.4 ML SYRINGE (J1650) SC SCH (08:54)
[2019-08-29] MEDS: GENTAMICIN SULFATE 0.1% OINT 15 GM TOP SCH (10:30)
[2019-08-29] MEDS: GABAPENTIN 100 MG CAP PO SCH (11:26)
[2019-08-29 13:03] VITALS: BP 125/71
== END 2019-08-29 11:50 | disposition home or self-care (01) | DRG 504 ==
LOC: M MSPAV 18:11
PROVIDERS: ADMIT Internal Medicine; ATTEND Internal Medicine
PROC: 0QSP0ZZ Reposition Left Metatarsal, Open Approach (ICD-10-PCS; 2019-08-24)
PROC: 0QBP0ZZ Excision of Left Metatarsal, Open Approach (ICD-10-PCS; principal; 2019-08-24 14:30)
DX: M86.172 Other acute osteomyelitis, left ankle and foot (principal); G37.9 Demyelinating disease of central nervous system, unspecified; E22.2 Syndrome of inappropriate secretion of antidiuretic hormone; L02.612 Cutaneous abscess of left foot; Z85.828 Personal history of other malignant neoplasm of skin; J30.2 Other seasonal allergic rhinitis; M19.90 Unspecified osteoarthritis, unspecified site; N80.9 Endometriosis, unspecified; Z87.891 Personal history of nicotine dependence; Z96.641 Presence of right artificial hip joint; G62.9 Polyneuropathy, unspecified; Z91.040 Latex allergy status; Z91.013 Allergy to seafood; Z88.1 Allergy status to other antibiotic agents; E73.9 Lactose intolerance, unspecified; Z91.048 Other nonmedicinal substance allergy status; B95.7 Other staphylococcus as the cause of diseases classified elsewhere

== ENCOUNTER → 2019-09-13 | Outpatient (REF) | payer OTHER ==
[~2019-09-13] MED LIST changes: +VITACHTA PO; +ZYVO1TAB PO
[2019-09-13 14:53] LABS: BASO # 0.1 10^3/uL (0.0-0.2); BASO % 1.9 % (0.0-1.0); EOS # 0.1 10^3/uL (0.0-0.5); EOS % 2.8 % (0.0-3.0); HEMOGLOBIN 12.7 g/dl (12.0-15.5); LYMPH % 31.9 % (24.0-44.0); MEAN CORPUSCULAR HEMOGLOBIN 32.5 pg (27.0-33.0); MEAN CORPUSCULAR HGB CONC 35.3 g/dl (32.0-36.5); MEAN CORPUSCULAR VOLUME 92.1 fl (80.0-96.0); MONO # 0.4 10^3/uL (0.0-0.8); MONO % 13.8 % (0.0-5.0); NEUTROPHILS # 1.6 10^3/uL (1.5-8.5); NEUTROPHILS % 48.7 % (36.0-66.0); PLATELET COUNT, AUTOMATED 253 10^3/uL (150-450); RED BLOOD COUNT 3.91 10^6/uL (4.00-5.40); WHITE BLOOD COUNT 3.2 10^3/uL (4.0-10.0)
[2019-09-13 14:57] LABS: BLOOD UREA NITROGEN 9 MG/DL (7-18); C REACTIVE PROTEIN QUANTITATIV < 0.30 MG/DL (0.00-0.30); CALCIUM LEVEL 8.6 MG/DL (8.8-10.2); CARBON DIOXIDE LEVEL 28 MEQ/L (21-32); CHLORIDE LEVEL 92 MEQ/L (98-107); CREATININE FOR GFR 0.37 MG/DL (0.55-1.30); GLOMERULAR FILTRATION RATE > 60.0 (>45); GLUCOSE, FASTING 90 MG/DL (70-100); POTASSIUM SERUM 4.2 MEQ/L (3.5-5.1); SODIUM LEVEL 125 MEQ/L (136-145)
[2019-09-13 15:24] LABS: ERYTHROCYTE SEDIMENTATION RATE 6 mm/hr (0-30)
== END ==
LOC: M SFHCPLAZ 11:55
PROVIDERS: ATTEND Internal Medicine Infectious Disease
DX: L03.116 Cellulitis of left lower limb (principal); E22.2 Syndrome of inappropriate secretion of antidiuretic hormone

== ENCOUNTER → 2019-12-04 | Outpatient (CLI) | payer OTHER ==
[~2019-12-04] MED LIST changes: +HYDR26CR TOP; +OXYC-1 PO; -OXYC15TA76 PO; -PREP1CRE TOP
--- NOTE | 2019-12-04 15:56 | REP ---
PET/CT: HISTORY: Restaging carcinoma of the tongue. COMPARISONS: Comparison study May 22, 2019. Prior PET/CTs are also reviewed from March 06, 2019 and November 21, 2018. TECHNIQUE: 61 minutes following the intravenous injection of a 8.52 mCi dose of F-18 FDG, three-dimensional PET scintigraphy is acquired from the skull base to the proximal thighs. Triplanar noncontrast CT scanning is acquired through the same anatomic range for attenuation correction, and image registration with scan parameters optimized to minimize radiation exposure to the patient. PET scintigraphy and CT datasets were fused and displayed on a workstation with multiplanar and projection display capability. PET/CT FINDINGS: In the head and neck soft tissues there is slight asymmetric uptake along the right side of the floor of the mouth. This is similar to the prior study. Maximum standard uptake value 4.59, previously 5.5. This may be related to post treatment change. Head and neck soft tissues are otherwise unremarkable. There is a small spiculated nodular opacity in the right upper lobe which does not show hypermetabolic uptake, maximum SUV 0.67. However, there is a hypermetabolic new pulmonary parenchymal opacity in the right lower lobe adjacent to the right diaphragm medially. This is hypermetabolic showing maximum SUV value of 6.31. This measures 2.2 cm in greatest diameter. No other abnormal pulmonary parenchymal focus is seen. In the abdomen and pelvis there is normal distribution of FDG tracer. No abnormal hypermetabolic uptake is seen in the abdomen and pelvis. There is a large amount of formed stool throughout the colon. No abnormal skeletal uptake is seen. There is some normal variant skeletal muscle uptake. IMPRESSION: New right lower lobe hypermetabolic pulmonary parenchymal opacity 2.2 cm in diameter. Otherwise unchanged. Electronically Signed by Declan Zarco MD 12/04/2019 05:16 P
== END ==
LOC: M PLARAD 10:33
PROVIDERS: ATTEND Otolaryngology
DX: C02.1 Malignant neoplasm of border of tongue (principal)
CPT/HCPCS: 78815; A9552

== ENCOUNTER → 2020-01-09 | Outpatient (CLI) | payer OTHER ==
--- NOTE | 2020-03-07 09:56 | REP ---
CT OF THE CHEST WITHOUT CONTRAST: COMPARISON: PET CT from 12/04/19. TECHNIQUE: CT chest is performed without the use of intravenous contrast. Sagittal and coronal reconstruction images are performed. FINDINGS: There are again scattered interstitial fibrotic changes bilaterally with a few tiny calcified granulomas in the right upper lobe. Focal spiculated density in the right upper lobe remains stable. This did not demonstrate hypermetabolic uptake on the PET CT of 12/04/19. More inferiorly along the medial aspect of the right hemidiaphragm at the right cardiophrenic angle, the previously noted nodular opacity which did demonstrate hypermetabolic uptake is measuring slightly smaller than on the prior study. The current measurements are approximately 1.6 x 1.0 cm. On the right upper lobe inferiorly and anteriorly, there is a new area of wedge shaped infiltrate or atelectasis with air bronchograms present. There is an adjacent 6 mm nodule as seen on image 51 of 125. No new findings are seen on the left. I do not see evidence of axillary or mediastinal adenopathy. The thoracic aorta is normal in caliber with no aneurysm. The heart is normal in size. There is no pleural or pericardial effusion. The visualized upper abdominal structures are grossly unremarkable. There are diffuse degenerative changes of the spine. IMPRESSION: The somewhat nodular opacity inferiorly in the right lower lobe at the right cardiophrenic angle is measuring slightly smaller than on the prior study, current measurements are 1.6 x 1.0 cm. In the right upper lobe anteriorly, there is a new area of parenchymal opacity with air bronchograms, having the appearance of atelectasis or infiltrate. There is an adjacent 6 mm nodule which is new in the anterior aspect of the right upper lobe as seen on image 51 of 125. There are otherwise chronic stable findings. MTDD
== END ==
LOC: M RAD 16:20
PROVIDERS: ATTEND Thoracic Surgery (Cardiothoracic Vascular Surgery)
DX: R91.8 Other nonspecific abnormal finding of lung field (principal)

== ENCOUNTER → 2020-01-24 | Outpatient (CLI) | payer OTHER ==
[2020-02-28 07:22] LABS: BASO % 1.1 % (0.0-1.0); EOS # 0.1 10^3/uL (0.0-0.5); EOS % 2.7 % (0.0-3.0); HEMATOCRIT 35.4 % (36.0-47.0); HEMOGLOBIN 12.8 g/dl (12.0-15.5); LYMPH # 1.2 10^3/uL (1.5-5.0); LYMPH % 32.1 % (24.0-44.0); MEAN CORPUSCULAR HEMOGLOBIN 32.9 pg (27.0-33.0); MEAN CORPUSCULAR HGB CONC 36.2 g/dl (32.0-36.5); MONO # 0.6 10^3/uL (0.0-0.8); MONO % 15.3 % (0.0-5.0); NEUTROPHILS # 1.8 10^3/uL (1.5-8.5); NEUTROPHILS % 48.3 % (36.0-66.0); PLATELET COUNT, AUTOMATED 216 10^3/uL (150-450); RED BLOOD COUNT 3.89 10^6/uL (4.00-5.40); WHITE BLOOD COUNT 3.7 10^3/uL (4.0-10.0)
[2020-03-12 06:46] LABS: ALBUMIN 4.1 GM/DL (3.2-5.2); ALT/SGPT 21 U/L (12-78); BILIRUBIN,TOTAL 0.5 MG/DL (0.2-1.0); BLOOD UREA NITROGEN 8 MG/DL (7-18); CALCIUM LEVEL 8.6 MG/DL (8.8-10.2); CARBON DIOXIDE LEVEL 28 MEQ/L (21-32); CHLORIDE LEVEL 88 MEQ/L (98-107); CHOLESTEROL LEVEL 208 MG/DL (<200); CREATININE FOR GFR 0.52 MG/DL (0.55-1.30); FREE T4 0.79 NG/DL (0.76-1.46); GLOMERULAR FILTRATION RATE > 60.0 (>45); GLUCOSE, FASTING 82 MG/DL (70-100); HDL CHOLESTEROL 104 MG/DL (>40); LDL CHOLESTEROL 94 MG/DL (<100); NON-HDL-C 104 MG/DL; POTASSIUM SERUM 3.8 MEQ/L (3.5-5.1); SODIUM LEVEL 124 MEQ/L (136-145); TOTAL PROTEIN 7.1 GM/DL (6.4-8.2); TRIGLYCERIDES LEVEL 49 MG/DL (<150)
== END ==
LOC: M LAB 17:10
PROVIDERS: ATTEND Nurse Practitioner Family
DX: Z00.00 Encounter for general adult medical examination without abnormal findings (principal); E22.2 Syndrome of inappropriate secretion of antidiuretic hormone

== ENCOUNTER → 2020-04-03 | Outpatient (CLI) | payer OTHER ==
[2020-04-03 15:50] LABS: EOS # 0.1 10^3/uL (0.0-0.5); EOS % 3.9 % (0.0-3.0); HEMATOCRIT 37.2 % (36.0-47.0); HEMOGLOBIN 12.8 g/dl (12.0-15.5); LYMPH # 0.9 10^3/uL (1.5-5.0); LYMPH % 27.8 % (24.0-44.0); MEAN CORPUSCULAR HEMOGLOBIN 31.3 pg (27.0-33.0); MEAN CORPUSCULAR HGB CONC 34.4 g/dl (32.0-36.5); MONO # 0.5 10^3/uL (0.0-0.8); MONO % 14.9 % (0.0-5.0); NEUTROPHILS # 1.6 10^3/uL (1.5-8.5); NEUTROPHILS % 52.1 % (36.0-66.0); PLATELET COUNT, AUTOMATED 238 10^3/uL (150-450); RED BLOOD COUNT 4.09 10^6/uL (4.00-5.40); WHITE BLOOD COUNT 3.1 10^3/uL (4.0-10.0)
[2020-04-03 15:56] LABS: C REACTIVE PROTEIN QUANTITATIV < 0.30 MG/DL (0.00-0.30); RHEUMATOID FACTOR QUANT < 10.0 IU/ML (<15.0); URIC ACID 1.6 MG/DL (2.6-6.0)
[2020-04-03 16:23] LABS: ERYTHROCYTE SEDIMENTATION RATE 4 mm/hr (0-30)
[2020-04-09 14:08] LABS: ANTINUCLEAR ANTIBODIES DIRECT Negative (Negative); HLA-B27 Negative (.); Lyme Disease IgG/IgM Antibodie <0.91 ISR (0.00-0.90); Lyme Disease IgM Ab Quantitati <0.80 index (0.00-0.79)
== END ==
LOC: M PLALAB 12:29
PROVIDERS: ATTEND Physician Assistant
DX: M19.041 Primary osteoarthritis, right hand (principal)

== ENCOUNTER → 2020-05-05 | Outpatient (CLI) | payer OTHER ==
[2020-05-05 09:45] LABS: BASO # 0.1 10^3/uL (0.0-0.2); BASO % 1.5 % (0.0-1.0); EOS # 0.2 10^3/uL (0.0-0.5); EOS % 5.9 % (0.0-3.0); HEMATOCRIT 36.4 % (36.0-47.0); HEMOGLOBIN 12.8 g/dl (12.0-15.5); LYMPH # 0.9 10^3/uL (1.5-5.0); LYMPH % 27.7 % (24.0-44.0); MEAN CORPUSCULAR HEMOGLOBIN 32.5 pg (27.0-33.0); MEAN CORPUSCULAR HGB CONC 35.2 g/dl (32.0-36.5); MEAN CORPUSCULAR VOLUME 92.4 fl (80.0-96.0); MONO # 0.5 10^3/uL (0.0-0.8); MONO % 13.6 % (0.0-5.0); NEUTROPHILS # 1.7 10^3/uL (1.5-8.5); NEUTROPHILS % 50.7 % (36.0-66.0); PLATELET COUNT, AUTOMATED 237 10^3/uL (150-450); RED BLOOD COUNT 3.94 10^6/uL (4.00-5.40); WHITE BLOOD COUNT 3.4 10^3/uL (4.0-10.0)
[2020-05-05 10:18] LABS: ERYTHROCYTE SEDIMENTATION RATE 6 mm/hr (0-30)
[2020-05-05 10:59] LABS: ALT/SGPT 20 U/L (12-78); BILIRUBIN,TOTAL 0.3 MG/DL (0.2-1.0); BLOOD UREA NITROGEN 71 MG/DL (7-18); CALCIUM LEVEL 8.9 MG/DL (8.8-10.2); CARBON DIOXIDE LEVEL 29 MEQ/L (21-32); CHLORIDE LEVEL 95 MEQ/L (98-107); CREATININE FOR GFR 0.57 MG/DL (0.55-1.30); GLOMERULAR FILTRATION RATE > 60.0 (>45); GLUCOSE, FASTING 106 MG/DL (70-100); IMMUNOGLOBULIN E 14.7 IU/ML (<100); IMMUNOGLOBULIN G 656 MG/DL (681-1648); IMMUNOGLOBULIN M 77.5 MG/DL (40-230); POTASSIUM SERUM 3.9 MEQ/L (3.5-5.1); SODIUM LEVEL 129 MEQ/L (136-145); TOTAL PROTEIN 6.5 GM/DL (6.4-8.2)
== END ==
LOC: M LAB 08:52
PROVIDERS: ATTEND Allergy & Immunology Allergy
DX: D84.9 Immunodeficiency, unspecified (principal)

== ENCOUNTER → 2020-05-05 | Outpatient (CLI) | payer OTHER ==
[2020-05-05 09:43] LABS: BASO # 0.1 10^3/uL (0.0-0.2); BASO % 1.5 % (0.0-1.0); EOS # 0.2 10^3/uL (0.0-0.5); EOS % 5.1 % (0.0-3.0); HEMATOCRIT 35.5 % (36.0-47.0); HEMOGLOBIN 12.3 g/dl (12.0-15.5); MEAN CORPUSCULAR HEMOGLOBIN 31.7 pg (27.0-33.0); MEAN CORPUSCULAR HGB CONC 34.6 g/dl (32.0-36.5); MEAN CORPUSCULAR VOLUME 91.5 fl (80.0-96.0); MONO # 0.5 10^3/uL (0.0-0.8); MONO % 14.1 % (0.0-5.0); NEUTROPHILS # 1.7 10^3/uL (1.5-8.5); PLATELET COUNT, AUTOMATED 232 10^3/uL (150-450); RED BLOOD COUNT 3.88 10^6/uL (4.00-5.40); WHITE BLOOD COUNT 3.3 10^3/uL (4.0-10.0)
[2020-05-05 10:03] LABS: ALT/SGPT 21 U/L (12-78); BILIRUBIN,TOTAL 0.3 MG/DL (0.2-1.0); BLOOD UREA NITROGEN 11 MG/DL (7-18); CALCIUM LEVEL 8.8 MG/DL (8.8-10.2); CARBON DIOXIDE LEVEL 29 MEQ/L (21-32); CHLORIDE LEVEL 95 MEQ/L (98-107); CREATININE FOR GFR 0.56 MG/DL (0.55-1.30); GLOMERULAR FILTRATION RATE > 60.0 (>45); GLUCOSE, FASTING 106 MG/DL (70-100); POTASSIUM SERUM 3.9 MEQ/L (3.5-5.1); SODIUM LEVEL 129 MEQ/L (136-145); TOTAL PROTEIN 6.4 GM/DL (6.4-8.2)
--- NOTE | 2020-05-05 19:38 | ECGEPIP ---
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
== END ==
LOC: M LAB 08:47
PROVIDERS: ATTEND Podiatrist
DX: Z01.818 Encounter for other preprocedural examination (principal); M20.12 Hallux valgus (acquired), left foot; M20.42 Other hammer toe(s) (acquired), left foot; M79.672 Pain in left foot; R94.31 Abnormal electrocardiogram [ECG] [EKG]

== ENCOUNTER → 2020-05-18 | Outpatient (CLI) | payer OTHER ==
[~2020-05-18] MED LIST changes: -CLIN300C5 PO; +CLIN300C6 PO; +METH1TAB40 PO
== END ==
LOC: M LABSMTC 10:55
PROVIDERS: ATTEND Anesthesiology
DX: Z11.59 Encounter for screening for other viral diseases (principal)

== ENCOUNTER 2020-05-23 07:29 | Day surgery (SDC) | payer OTHER ==
[~2020-05-23] VITALS: Ht 162.6 cm; Wt 44.0 kg
[~2020-05-23 07:29] MED LIST changes: +LIDOCAINE 1% MDV 20ML VIAL SQ PRN; +LR 1,000 ML IV ONE; +VANCOMYCIN HCL 1,000 MG, VIAL MATE ADAPTER 1 EACH in D5W 250 ML IV ONE
[2020-05-23] MEDS ORDERED: propofoL 500 MG/50 ML VIAL As Ordered ONE (08:09)
[2020-05-23] MEDS ORDERED: MIDAZOLAM INJ 2MG/2ML VIAL (J2250 PER 1MG) As Ordered ONE (08:09)
[2020-05-23] MEDS ORDERED: ONDANSETRON 4MG/2ML VIAL As Ordered ONE (08:10)
[2020-05-23] MEDS ORDERED: LIDOCAINE 2% 100MG/5ML SDV (FOR ANES.) As Ordered ONE (08:10)
[2020-05-23] MEDS ORDERED: dexameTHASONE 4 MG/ML 1ML VIAL (J1100 PER 1MG) As Ordered ONE ×2 (08:10→08:54)
[2020-05-23] MEDS ORDERED: fentaNYL 100 MCG/2 ML INJECTION (J3010) As Ordered ONE (08:10)
[2020-05-23] MEDS ORDERED: ROPIvacaine 0.5% 30ML INJECTION (J2795 PER 1MG) As Ordered ONE (08:53)
[2020-05-23] MEDS ORDERED: LIDOCAINE 2% MDV 20ML VIAL As Ordered ONE (08:54)
[2020-05-23] MEDS ORDERED: BUPIVACAINE HCL 0.5% 10ML VIAL As Ordered ONE ×2 (08:54→09:14)
[2020-05-23] MEDS ORDERED: NEOSPORIN GU IRRIG 20 ML VIAL As Ordered ONE (08:54)
[2020-05-23] MEDS ORDERED: BACITRACIN PWD 50,000 UNITS VIAL As Ordered ONE (08:54)
[2020-05-23] MEDS ORDERED: ACETAMINOPHEN 1000MG 100ML IV BTL (OFIRMEV) (J0131 PER 10MG) As Ordered ONE (11:55)
[2020-05-23] MEDS ORDERED: propofoL 200 MG/20 ML VIAL As Ordered ONE (12:00)
[2020-05-23] MEDS ORDERED: fentaNYL 100 MCG/2 ML INJECTION (J3010) IV PRN (13:15)
[2020-05-23] MEDS ORDERED: PERCOCET 5MG/325MG TAB PO PRN (13:15)
[2020-05-23] MEDS ORDERED: METOCLOPRAMIDE INJ 10MG/2ML VIAL (J2765 PER 1) IV PRN (13:15)
[2020-05-23] MEDS ORDERED: ONDANSETRON 4MG/2ML VIAL IV PRN (13:15)
[2020-05-23] MEDS ORDERED: LR 1,000 ML IV SCH (13:15)
--- NOTE | 2020-05-23 13:29 | REP ---
INDICATION: S/P LISA BUNIONECTOMY, PROXIMAL. Postop views. COMPARISON: Comparison study August 24, 2019.. TECHNIQUE: Three views taken through overlying dressing. FINDINGS: Three views of the left foot demonstrate bulky cloth overlying dressing. There are metallic pins in the 1st 4 digits across the MTP joints. Patient is status post distal 1st metatarsal osteotomy and distal 2nd metatarsal osteotomy. The radiopaque spacer seen in the distal 2nd metatarsal osteotomy site on the August 2019 study is no longer apparent.. . . IMPRESSION: Postoperative imaging as above.. <Electronically signed by Willi Zarco > 05/23/20 [id number]
[2020-05-23 13:53] VITALS: BP 109/69
--- NOTE | 2020-05-24 17:09 | RO ---
OPERATIVE NOTE DATE OF OPERATION: 05/23/2020 PREOPERATIVE DIAGNOSIS: Hallux valgus metatarsus primus varus deformity, left foot, hammertoe deformity, second toe, left foot, hammertoe deformity, third toe, left foot, hammertoe deformity, fourth toe, left foot, hammertoe deformity, fifth toe, left foot. POSTOPERATIVE DIAGNOSIS: Hallux valgus metatarsus primus varus deformity, left foot, hammertoe deformity, second toe, left foot, hammertoe deformity, third toe, left foot, hammertoe deformity, fourth toe, left foot, hammertoe deformity, fifth toe, left foot. PROCEDURE: Jorge Alberto bunionectomy with internal screw fixation and external wire fixation, left foot. Proximal interphalangeal joint arthroplasty, second toe with external wire fixation. Proximal interphalangeal joint arthroplasty, third toe with external wire fixation. Proximal interphalangeal joint arthroplasty with external wire fixation, fourth toe, left foot. Proximal interphalangeal joint arthroplasty, fifth toe, left foot. Dorsal capsulotomy, third metatarsophalangeal joint, left foot. Dorsal capsulotomy, fourth metatarsophalangeal joint, left foot. SURGEON: Emmanuel Fernando DPM TAILOR FITTER: None. ANESTHESIA: Local MAC. IRRIGATION: Dilute bacitracin, neomycin, polymyxin B solution. DESCRIPTION OF OPERATION: On 05/23/2020, this 65-year-old white female was taken from her hospital room to the operating room and placed on the operating table in supine position. Following the induction of IV sedation and local and regional anesthesia, the left lower extremity was prepped and draped in the usual aseptic manner. Attention was directed to the patient's left foot. There was noted to be a severe hallux valgus deformity. At this time, a 6 cm incision was placed over the first metatarsophalangeal joint. The incision was deepened through subcutaneous tissues and all crossing venous tributaries were identified, scored, clamped, cut and ligated with electrocoagulation as necessary. A linear capsulotomy was performed in the same plane as the original skin incision. The capsule and periosteal structures were then dissected free in one continuous layer, dorsally, medially and laterally, thus creating a capsular periosteal type envelope. Utilizing a power saw, an osteotomy was performed through the medial eminence of the first metatarsal from distal to proximal [id number]. Dissection was the carried down to the fibular sesamoid which was significant contracted into the interspace. This was resected and removed since the sesamoid could not be placed under the first metatarsal. A V-shaped osteotomy was then performed in the first metatarsal and then transposed approximately 40% of the width of the shaft of the first metatarsal and fixated with a 3.0 x 18 mm screw. However, her bone was significantly soft. Therefore, to further stabilize the osteotomy, it was determined that a wire across the metatarsophalangeal joint would help stabilize the toe and maintain the correct alignment. Therefore, utilizing a 0.062 wire, a wire was driven from the dorsal lateral aspect of the metatarsophalangeal joint through the proximal phalanx and first metatarsal, stabilizing this osteotomy. The wire was then bent and a protective cap in place over the distal end of the wire. The osteotomy was noted to be stable. The wound was flushed with copious amounts of dilute bacitracin, neomycin and polymyxin B solution. Attention was directed towards closure of the capsular structures. Attention was directed towards closure of the capsular structures, coapted and maintained utilizing 2-0 Monocryl in a simple interrupted type fashion. The subcutaneous tissues were coapted and maintained using 4-0 Monocryl in a simple interrupted type fashion. The skin incision was coapted and maintained utilizing 3-0 nylon in a simple interrupted type fashion. Attention was then directed to the patient's second toe where the following procedure was performed. Proximal interphalangeal joint arthroplasty with external wire fixation, 0.045 x 1, second toe, left foot. Attention was directed to the patient's second toe. An incision was made from the metatarsophalangeal joint to just distal to the proximal interphalangeal joint. The incision was deepened through subcutaneous tissues. All crossing venous tributaries were identified, underscored, clamped, cut, ligated and electrocoagulated as necessary. A Z-plasty tendon lengthening was then performed at the second metatarsophalangeal joint tendon. The medial and lateral collateral ligaments were sharply dissected free from the proximal phalanx. Utilizing a power saw, an osteotomy was performed at the anatomical neck of the proximal phalanx from dorsal to plantar [id number] and excavated from the wound. The base of the middle phalanx had the cartilage denuded from dorsal to plantar [id number]. The wound was flushed with copious amounts of dilute bacitracin, neomycin and polymyxin B solution. Utilizing a 0.045 wire, a wire was driven through the second toe and retrograded into the metatarsal. Since the metatarsal had a previous head resection in that location, the second toe will be noted to be shortened. Attention was then directed to the closure where the extensor tendon was coapted and maintained utilizing 4-0 Supramid and a four-stranded Johnson repair. The skin was coapted and maintained with 3-0 nylon in a simple interrupted type fashion. Attention was then directed to the third toe of the left foot where the following procedure was performed. Proximal interphalangeal joint arthroplasty with external wire fixation, 0.045 x 1, third toe, left foot. Attention was directed to the patient's third toe of the left foot. The procedure performed on the second toe was now performed on the third toe without variation, deletion or ____ of anatomical location. The toe was still in the dorsally contracted position. Therefore, the following procedure was performed. Dorsal capsulotomy, third metatarsophalangeal joint. Attention was directed down into the capsular structures where a linear capsulotomy was performed. The contracted structures were then also released and the wire was driven from the toe into the metatarsal with the toe placed in a straight position. Attention was then directed to the patient's fourth toe where the following procedure was performed. Proximal interphalangeal joint arthroplasty with external wire fixation, 0.045 x 1, fourth toe, left foot. The procedure performed on the second toe was now performed on the fourth toe without variation, deletion or ___ of anatomical location. The following procedure was then performed. Fourth metatarsophalangeal joint capsulotomy. Attention was directed to the patient's fourth metatarsophalangeal joint where the procedure performed on the third metatarsophalangeal joint was now performed on the fourth metatarsophalangeal joint without variation or deletion, the only exception being that of anatomical location. Attention was then directed to the patient's fifth toe of the left foot where there was noted to be a hammertoe deformity. At this time, the procedure performed on the second toe was now performed on the fifth toe with the following variation. An external wire was not utilized to stabilize the fifth toe. Attention was then directed towards bandaging. A sterile compressive bandage was applied consisting of Adaptic, 4x4s, Betsy, Kerlix and a well-molded fiberglass cast was placed on the patient's foot and lower leg. The patient had the tourniquet deflated at 98 minutes. The remainder of the procedure was done without tourniquet which consisted of skin closure. The patient tolerated the surgical procedure well and was taken from the OR to the recovery room for further monitoring by the anesthesia department. Postoperative instructions were given upon discharge.
== END 2020-05-23 14:00 | disposition home or self-care (01) ==
LOC: M SDC 07:29
PROVIDERS: ATTEND Podiatrist
DX: M20.12 Hallux valgus (acquired), left foot (principal); M20.42 Other hammer toe(s) (acquired), left foot; E22.2 Syndrome of inappropriate secretion of antidiuretic hormone; Z79.899 Other long term (current) drug therapy; Z87.891 Personal history of nicotine dependence; Z91.013 Allergy to seafood; Z88.1 Allergy status to other antibiotic agents; E73.9 Lactose intolerance, unspecified
CPT/HCPCS: 28270; 28285; 28296; 73630; 88300; C1713; J0131; J1100; J2250; J2405; J3010; J3370

== ENCOUNTER → 2020-08-25 | Outpatient (CLI) | payer OTHER ==
[~2020-08-25] MED LIST changes: -CLIN150C14 PO; +CLIN150C15 PO; +ISOVUE-370 76% 100ML VIAL As Ordered ONE; -LIDOCAINE 1% MDV 20ML VIAL SQ PRN; -LR 1,000 ML IV ONE; +METH-1164 PO; -METH1TAB40 PO; -VANCOMYCIN HCL 1,000 MG, VIAL MATE ADAPTER 1 EACH in D5W 250 ML IV ONE
--- NOTE | 2020-08-25 09:46 | REP ---
INDICATION: MALIGNANT NEOPLASM OF TONGUE COMPARISON: 01/09/2020 TECHNIQUE: Axial contrast enhanced images from the thoracic inlet to the upper abdomen with coronal and sagittal reformations using 75 ml Isovue 370 intravenous contrast material. This CT examination was performed using the following dose reduction techniques: Automated exposure control, adjustment of mA and/or kv according to the patient's size, and use of iterative reconstruction technique. FINDINGS: Pleuroparenchymal changes primarily identified in the right upper lobe and right middle lobe are similar to prior examination and without increased in size to the nodular areas of opacity. Small area of density in the medial right infrahilar right lower lobe (77) appears decreased from prior examination. Subtle small vague densities no greater than 3 mm are appreciated which are similar to prior examination although somewhat varied in distribution. These may represent chronic changes and variation may be secondary to technique. However given the patient's history of malignancy continued surveillance may be warranted. The current examination demonstrates no significant new area of consolidation, large nodule or mass lesion. There is no pleural effusion or pneumothorax. The tracheobronchial tree is patent. There is no obvious significant adenopathy although a right hilar lymph node is identified measuring 13 mm. Further evaluation of the mediastinum demonstrates normal thoracic aorta, heart/pericardium and pulmonary vasculature. Surrounding musculoskeletal structures are intact and unchanged. IMPRESSION: Relatively chronic areas of pleuroparenchymal scarring with small nodular components unchanged. Very small vague opacities measuring no greater than 3 mm scattered in the lung conklin are similar to prior examination. Although no significant new consolidation, large nodule or mass lesion is appreciated, given the patient's history continued surveillance may be warranted. <Electronically signed by Keith Rider > 08/25/20 0975
== END ==
LOC: M RAD 08:15
PROVIDERS: ATTEND Internal Medicine Pulmonary Disease
DX: C02.9 Malignant neoplasm of tongue, unspecified (principal)

== ENCOUNTER → 2020-08-26 | Outpatient (CLI) | payer OTHER ==
[~2020-08-26] MED LIST changes: -ISOVUE-370 76% 100ML VIAL As Ordered ONE
[2020-08-26 17:48] LABS: HEMATOCRIT 37.7 % (36.0-47.0); HEMOGLOBIN 13.5 g/dl (12.0-15.5); MEAN CORPUSCULAR HEMOGLOBIN 32.8 pg (27.0-33.0); MEAN CORPUSCULAR HGB CONC 35.8 g/dl (32.0-36.5); MEAN CORPUSCULAR VOLUME 91.7 fl (80.0-96.0); PLATELET COUNT, AUTOMATED 249 10^3/uL (150-450); RED BLOOD COUNT 4.11 10^6/uL (4.00-5.40); WHITE BLOOD COUNT 4.3 10^3/uL (4.0-10.0)
[2020-08-26 18:19] LABS: ALBUMIN 4.3 GM/DL (3.2-5.2); ALT/SGPT 22 U/L (12-78); BILIRUBIN,TOTAL 0.3 MG/DL (0.2-1.0); BLOOD UREA NITROGEN 9 MG/DL (7-18); CALCIUM LEVEL 8.7 MG/DL (8.8-10.2); CARBON DIOXIDE LEVEL 28 MEQ/L (21-32); CHLORIDE LEVEL 93 MEQ/L (98-107); CREATININE FOR GFR 0.54 MG/DL (0.55-1.30); GLOMERULAR FILTRATION RATE > 60.0 (>45); GLUCOSE, FASTING 88 MG/DL (70-100); POTASSIUM SERUM 3.9 MEQ/L (3.5-5.1); RHEUMATOID FACTOR QUANT < 10.0 IU/ML (<15.0); SODIUM LEVEL 127 MEQ/L (136-145); THYROXINE (T4) 7.8 UG/DL (4.5-12.0); TOTAL PROTEIN 7.2 GM/DL (6.4-8.2)
[2020-08-26 18:57] LABS: HEPATITIS C VIRUS ABY INDEX < 0.0 INDEX (<0.8)
[2020-08-27 13:04] LABS: ALBUMIN 4.86 GM/DL (3.29-5.55); ALBUMIN % 67.5 % (55.8-66.1); ALPHA-1-GLOBULIN % 3.5 % (2.9-4.9); ALPHA-1-GLOBULINS 0.25 GM/DL (0.17-0.41); ALPHA-2-GLOBULINS 0.59 GM/DL (0.42-0.99); ALPHA-2-GLOBULINS % 8.2 % (7.1-11.8); BETA-1-GLOBULINS 0.45 GM/DL (0.28-0.60); BETA-1-GLOBULINS % 6.3 % (4.7-7.2); BETA-2-GLOBULINS 0.27 GM/DL (0.19-0.55); BETA-2-GLOBULINS % 3.8 % (3.2-6.5); GAMMA GLOBULIN % 10.7 % (11.1-18.8); GAMMA GLOBULINS 0.77 GM/DL (0.65-1.58)
== END ==
LOC: M LAB 16:46
PROVIDERS: ATTEND Allergy & Immunology Allergy
DX: R53.82 Chronic fatigue, unspecified (principal)

== ENCOUNTER → 2020-12-12 | Outpatient (CLI) | payer OTHER ==
[~2020-12-12] MED LIST changes: +BACTDSTA PO; +CALCCAP4 PO; +DOK1CAP7 PO; +FAMO1TAB11 PO; +GASTROGRAFIN SOLUTION 30ML (Q9963) As Ordered ONE; +IBUP200T45 PO; +ISOVUE-370 76% 100ML VIAL As Ordered ONE; +LINZ145C PO; +MIRA3350 PO; -SULF1TAB93 PO; +THERTAB52 PO
--- NOTE | 2020-12-12 09:20 | REP ---
INDICATION: EVAL FOR ABD MASS. COMPARISON: None TECHNIQUE: Axial pre and post contrast-enhanced images from the lung bases to the pubic symphysis using oral and 100 cc Isovue 370 intravenous contrast material. Coronal and sagittal reformations obtained. Metallic artifact reduction technique use through the pelvis. This CT examination was performed using the following dose reduction techniques: Automated exposure control, adjustment of mA and/or kv according to the patient's size, and the use of iterative reconstruction technique. FINDINGS: Liver, spleen, pancreas, gallbladder, bilateral adrenal glands and kidneys are normal. The enteric system demonstrates marked diffuse fecal stasis and constipation throughout the entire colon to the rectosigmoid. There is no evidence for bowel obstruction. Pelvis demonstrates normal bladder and age-appropriate uterus/adnexa. No ascites. No free air. No intraperitoneal or retroperitoneal adenopathy. Abdominal aorta and vasculature appear normal. Musculoskeletal structures demonstrate degenerative changes including chronic grade 1 anterolisthesis at L4-5 with associated facet hypertrophy and mild canal stenosis. Lung bases are clear. IMPRESSION: 1. Marked diffuse fecal stasis and constipation throughout the entire colon possibly related to patient's symptoms. 2. No further acute abdominopelvic pathology appreciated. 3. Chronic degenerative changes to the lumbar spine. <Electronically signed by Keith Rider > 12/12/20 0938
== END ==
LOC: M RAD 07:24
PROVIDERS: ATTEND Internal Medicine Gastroenterology
DX: K59.00 Constipation, unspecified (principal); R10.10 Upper abdominal pain, unspecified
CPT/HCPCS: 74177; Q9963; Q9967

== ENCOUNTER → 2020-12-12 | Outpatient (REF) | payer OTHER ==
[~2020-12-12] MED LIST changes: -GASTROGRAFIN SOLUTION 30ML (Q9963) As Ordered ONE; -ISOVUE-370 76% 100ML VIAL As Ordered ONE
== END ==
LOC: M SFHCPLAZ 09:38
PROVIDERS: ATTEND Internal Medicine Infectious Disease
DX: A31.9 Mycobacterial infection, unspecified (principal)

== ENCOUNTER 2020-12-13 17:03 | Observation (INO) | payer OTHER ==
[~2020-12-13] VITALS: Ht 165.1 cm; Wt 43.2 kg
[~2020-12-13 17:03] MED LIST changes: -CALCCAP4 PO; -DOK1CAP7 PO; -FAMO1TAB11 PO; -IBUP200T45 PO; -LINZ145C PO; -MIRA3350 PO; -THERTAB52 PO
[2020-12-13] MEDS ORDERED: CALCIUM/VITAMIN D 500 MG TAB PO SCH (18:00)
[2020-12-13] MEDS ORDERED: IBUP200T45 PO (19:11)
[2020-12-13] MEDS ORDERED: THERTAB52 PO (19:14)
[2020-12-13] MEDS ORDERED: CALCCAP4 PO (19:14)
[2020-12-13] MEDS ORDERED: FAMO1TAB11 PO (19:15)
[2020-12-13 20:00] VITALS: BP 118/72
[2020-12-13] MEDS ORDERED: GOLYTELY SOLN 4000 ML BTL PO ONE (20:20)
[2020-12-13] MEDS ORDERED: IBUPROFEN 400MG TAB PO SCH (21:00)
[2020-12-13] MEDS ORDERED: GABAPENTIN 100 MG CAP PO SCH (21:00)
[2020-12-13 21:21] LABS: HEMATOCRIT 34.8 % (36.0-47.0); HEMOGLOBIN 12.4 g/dl (12.0-15.5); MEAN CORPUSCULAR HEMOGLOBIN 32.4 pg (27.0-33.0); MEAN CORPUSCULAR HGB CONC 35.6 g/dl (32.0-36.5); MEAN CORPUSCULAR VOLUME 90.9 fl (80.0-96.0); PLATELET COUNT, AUTOMATED 223 10^3/uL (150-450); RED BLOOD COUNT 3.83 10^6/uL (4.00-5.40)
[2020-12-13] MEDS: DOCUSATE SODIUM 100MG CAPSULE PO SCH (21:30)
[2020-12-13] MEDS: ACETAMINOPHEN TAB 650MG DOSE (2X325MG) PO SCH (21:31)
[2020-12-13] MEDS ORDERED: PILL CUTTER 1 EACH XX PRN (21:40)
[2020-12-13 21:55] LABS: ALT/SGPT 19 U/L (12-78); BILIRUBIN,TOTAL 0.6 MG/DL (0.2-1.0); BLOOD UREA NITROGEN 7 MG/DL (7-18); CALCIUM LEVEL 8.4 MG/DL (8.8-10.2); CARBON DIOXIDE LEVEL 26 MEQ/L (21-32); CHLORIDE LEVEL 93 MEQ/L (98-107); CREATININE FOR GFR 0.34 MG/DL (0.55-1.30); GLOMERULAR FILTRATION RATE > 60.0 (>45); GLUCOSE, FASTING 79 MG/DL (70-100); POTASSIUM SERUM 3.8 MEQ/L (3.5-5.1); SODIUM LEVEL 126 MEQ/L (136-145); TOTAL PROTEIN 6.5 GM/DL (6.4-8.2)
[2020-12-13] MEDS: methocarbamoL 500 MG TAB PO SCH (21:58)
[2020-12-13] MEDS ORDERED: NS 1,000 ML IV SCH (22:05)
[2020-12-13] MEDS ORDERED: FLEET ENEMA PR ONE (22:05)
[2020-12-13] MEDS: FAMOTIDINE 20 MG TAB PO SCH (22:20)
[2020-12-14] VITALS: BP 140/84
[2020-12-14 04:00] VITALS: BP 121/74
[2020-12-14 05:19] LABS: BASO # 0.1 10^3/uL (0.0-0.2); BASO % 1.2 % (0.0-1.0); EOS # 0.2 10^3/uL (0.0-0.5); EOS % 4.4 % (0.0-3.0); HEMATOCRIT 39.9 % (36.0-47.0); HEMOGLOBIN 13.7 g/dl (12.0-15.5); LYMPH # 1.2 10^3/uL (1.5-5.0); LYMPH % 27.5 % (24.0-44.0); MEAN CORPUSCULAR HEMOGLOBIN 31.9 pg (27.0-33.0); MEAN CORPUSCULAR HGB CONC 34.3 g/dl (32.0-36.5); MONO # 0.6 10^3/uL (0.0-0.8); MONO % 13.9 % (2.0-8.0); NEUTROPHILS # 2.3 10^3/uL (1.5-8.5); NEUTROPHILS % 52.3 % (36.0-66.0); PLATELET COUNT, AUTOMATED 253 10^3/uL (150-450); RED BLOOD COUNT 4.29 10^6/uL (4.00-5.40); WHITE BLOOD COUNT 4.3 10^3/uL (4.0-10.0)
[2020-12-14 05:48] LABS: ALBUMIN 4.3 GM/DL (3.2-5.2); ALT/SGPT 22 U/L (12-78); BILIRUBIN,TOTAL 0.7 MG/DL (0.2-1.0); BLOOD UREA NITROGEN 7 MG/DL (7-18); CALCIUM LEVEL 8.2 MG/DL (8.8-10.2); CARBON DIOXIDE LEVEL 32 MEQ/L (21-32); CHLORIDE LEVEL 96 MEQ/L (98-107); CREATININE FOR GFR 0.41 MG/DL (0.55-1.30); GLOMERULAR FILTRATION RATE > 60.0 (>45); GLUCOSE, FASTING 83 MG/DL (70-100); POTASSIUM SERUM 3.4 MEQ/L (3.5-5.1); SODIUM LEVEL 132 MEQ/L (136-145); TOTAL PROTEIN 6.9 GM/DL (6.4-8.2)
[2020-12-14 08:37] VITALS: BP 133/71
--- NOTE | 2020-12-14 08:44 | REP ---
INDICATION: f/u constipation COMPARISON: CT dated 12/12/2020 TECHNIQUE: Supine view of the abdomen and pelvis. FINDINGS: Bowel gas pattern is nonspecific and without obstruction or perforation. No significant fecal stasis or constipation noted. No organomegaly. No abnormal calcifications. Skeletal structures intact. IMPRESSION: Normal abdominal radiograph. Previously suggested fecal stasis and constipation appears to have resolved. <Electronically signed by Keith Rider > 12/14/20 0871
[2020-12-14] MEDS: FAMOTIDINE 20 MG TAB PO SCH (09:11)
[2020-12-14] MEDS: ACETAMINOPHEN TAB 650MG DOSE (2X325MG) PO SCH (09:12)
[2020-12-14] MEDS: DOCUSATE SODIUM 100MG CAPSULE PO SCH (09:12)
[2020-12-14] MEDS ORDERED: DOK1CAP7 PO (09:38)
[2020-12-14] MEDS ORDERED: MIRA3350 PO (10:03)
[2020-12-14] MEDS ORDERED: LINZ145C PO (10:03)
[2020-12-14] MEDS ORDERED: POTASSIUM CHLORIDE 10 MEQ SR TABLET PO ONE (11:00)
[2020-12-14] MEDS: methocarbamoL 500 MG TAB PO SCH (11:23)
[2020-12-14] MEDS ORDERED: IBUPROFEN 200MG TAB PO SCH (12:00)
[2020-12-14] MEDS ORDERED: GABAPENTIN 100 MG CAP PO SCH (12:00)
--- NOTE | 2020-12-14 12:10 | DS.PDOC ---
Discharge Summary General Date of Admission Dec 13, 2020 at 18:26 Date of Discharge 12/14/2020 Discharge Summary There is no history physical examination documentation prior to the creation of this discharge summary PROCEDURES PERFORMED DURING STAY: [None]. ADMITTING DIAGNOSES / DISCHARGE DIAGNOSES: Abdominal pain - likely 2/2 constipation Hyponatremia Hypokalemia; supplemented Malignant melanoma (2001; s/p Surgery) Seasonal allergies Arthritis Neuropathy GERD DVT prophylaxis COMPLICATIONS/CHIEF COMPLAINT: Abdominal pain / Constipation HISTORY OF PRESENT ILLNESS / HOSPITAL COURSE: Patient is a 65-year-old female with a PMHx of Malignant melanoma (2001; s/p Surgery), Seasonal allergies, Arthritis, who was sent in by gastroenterology for abdominal pain and imaging consistent with severe constipation. Patient contacted her air conditioning specialist to head obtained a CT scan of her abdom en that had revealed severe constipation. Patient was advised to come to the emergency room. However, she had refused and instead requested to be directly admitted. Patient was admitted to the hospital service for further evaluation and treatment. Patient was started on bowel prep via GoLYTELY to help induce a bowel movement. Patient has had several bowel movements since admission. Lab work completed this, we did not reveal any evidence of lactic acidosis or leukocytosis. And x-ray imaging revealed resolution of constipation. This morning patient was seen and examined at the bedside. Patient denies any chest pain, shortness breath, palpitations, nausea, vomiting or any significant abdominal discomfort. Denies any urinary discomfort. Reports that she has had bowel movements overnight. I have contacted gastroenterology and instructions have been to resume Linzess and MiraLAX twice a day. Patient has been instructed to follow-up with her primary care provider and gastroenterology within the next 7 days. DISCHARGE MEDICATIONS: Please see below. ALLERGIES: Please see below. PHYSICAL EXAMINATION ON DISCHARGE: Vitals (See below) General: Lying in bed, appears comfortable, AAOx3 HEENT: NC, AT CVS: +S1S2 Lungs: Fair air entry b/l, -w/r/r Abdomen: Soft, non-distended, abdomen remains soft, mild tenderness diffusely, no guarding or rigidity Extremities: No evidence of edema, - Calf tenderness LABORATORY DATA: Please see below. IMAGING: CT Abdomen / Pelvis 12/14: 1. Marked diffuse fecal stasis and constipation throughout the entire colon possibly related to patient's symptoms. 2. No further acute abdominopelvic pathology appreciated. 3. Chronic degenerative changes to the lumbar spine. XR Abdomen 12/14: Normal abdominal radiograph. Previously suggested fecal stasis and constipation appears to have resolved. ACTIVITY: [As tolerated]. DISCHARGE PLAN: Follow-up with primary care provider and gastroenterology within the next 7 days Remain compliant with treatment plan and medications Return to the ER if you experience any problems DISPOSITION: Home, Self-Care. DISCHARGE CONDITION: [Stable]. TIME SPENT ON DISCHARGE: 35 minutes. Vital Signs/I&Os Vital Signs Date Time Temp Pulse Resp B/P (MAP) Pulse Ox O2 Delivery O2 Flow Rate FiO2 12/14/20 08:37 97.0 62 18 133/71 (91) 98 Room Air I&O- Last 24 Hours up to 6 AM 12/14/20 06:00 Intake Total 4480 ml Balance 4480 ml Laboratory Data Labs 24H Laboratory Tests 2 12/13/20 21:12: Nucleated Red Blood Cells % (auto) 0.0, Anion Gap 7L, Glomerular Filtration Rate > 60.0, Calcium Level 8.4L, Total Bilirubin 0.6, Aspartate Amino Transf (AST/SGOT) 27, Alanine Aminotransferase (ALT/SGPT) 19, Alkaline Phosphatase 71, Total Protein 6.5, Albumin 4.0, Albumin/Globulin Ratio 1.6 12/13/20 22:17: Coronavirus (COVID-19)(PCR) NEGATIVE 12/14/20 04:36: Nucleated Red Blood Cells % (auto) 0.0, Anion Gap 4L, Glomerular Filtration Rate > 60.0, Calcium Level 8.2L, Total Bilirubin 0.7, Aspartate Amino Transf (AST/SGOT) 31, Alanine Aminotransferase (ALT/SGPT) 22, Alkaline Phosphatase 80, Total Protein 6.9, Albumin 4.3, Albumin/Globulin Ratio 1.7, Immature Granulocyte % (Auto) 0.7, Neutrophils (%) (Auto) 52.3, Lymphocytes (%) (Auto) 27.5, Monocytes (%) (Auto) 13.9H, Eosinophils (%) (Auto) 4.4H, Basophils (%) (Auto) 1.2H, Neutrophils # (Auto) 2.3, Lymphocytes # (Auto) 1.2L, Monocytes # (Auto) 0.6, Eosinophils # (Auto) 0.2, Basophils # (Auto) 0.1 12/14/20 07:14: Lactic Acid Level 0.9 CBC/BMP Laboratory Tests 12/13/20 21:12 12/14/20 04:36 Discharge Medications Scheduled Biotin (Biotin) 5,000 Mcg Tab.subl, 5,000 MCG SL QPM, (Reported) Calcium Carbonate/Vitamin D3 (Calcium 600 + Vit D 400 Softgl) 1 Each Capsule, 2 CAP PO QPM, (Reported) Famotidine (Famotidine) 20 Mg Tablet, 20 MG PO BID, (Reported) Gabapentin (Gabapentin) 100 Mg Cap, 100 MG PO BID, (Reported) TAKES NOON AND DINNER Gabapentin (Gabapentin) 100 Mg Cap, 300 MG PO QHS, (Reported) Ibuprofen (Ibu-200) 200 Mg Tablet, 400 MG PO QHS, (Reported) Lactobacillus Acidophilus (Acidophilus) 1 Chw Chw, 1 CHW PO QPM, (Reported) Linaclotide (Linzess) 145 Mcg Capsule, 1 CAP PO DAILY Lysine (l-Lysine) 500 Mg Tablet, 500 MG PO QPM, (Reported) Methocarbamol (Methocarbamol) 500 Mg Tablet, 250 MG PO BID, (Reported) Multivitamin,Therapeutic (Thera-Tabs) 1 Each Tablet, 1 TAB PO QPM, (Reported) Polyethylene Glycol 3350 (Miralax) 119 Gm Powder, 17 GRAM PO BID for constipation Scheduled PRN Acetaminophen (Tylenol) 325 Mg Tablet, 325 MG PO TID PRN for PAIN, (Reported) Ibuprofen (Ibuprofen) 200 Mg Capsule, 200 MG PO BID PRN for PAIN, (Reported) MORNING AND DINNER Allergies Coded Allergies: Scallop (Verified Allergy, Intermediate, SEVERE NAUSEA, VOMITING, DIARRHEA, 03/02/19) TAPE (Verified Allergy, Mild, RASH, 03/02/19) BANDAIDS WOOL (FABRIC) (Verified Allergy, Mild, RASH, 03/02/19) amoxicillin (Verified Allergy, Mild, RASH, 03/02/19) lactose (Verified Allergy, Unknown, 03/02/19) cephalexin (Verified Adverse Reaction, Intermediate, severe diarrhea, 03/02/19) iron (Verified Adverse Reaction, Unknown, constipation, 12/13/20) linaclotide (Verified Adverse Reaction, Unknown, severe stomach pain , 12/13/20) ELVIA SINHA MD Dec 14, 2020 12:10
[2020-12-14] MEDS ORDERED: LACTOBACILLUS ACIDOPHILUS CAP (BACID) PO SCH (17:00)
--- NOTE | 2020-12-14 19:46 | HPE ---
HISTORY AND PHYSICAL DATE OF ADMISSION: 12/13/2020 CHIEF COMPLAINT: Abdominal pain and constipation. PRIMARY CARE PROVIDER: Pia Mast MD GI SPECIALIST: Steve Jauregui MD INFECTIOUS DISEASE: She sees Dr. Kennedy. PULMONOLOGY: She sees Dr. Garcia. HISTORY OF PRESENT ILLNESS: This is a 65-year-old female who has had a significant history and problem with constipation. She was having abdominal pain. She called her land planner, Dr. Jauregui with complaints of abdominal pain on 12 of December. He had had a CT of abdomen and pelvis with contrast which showed marked fecal stasis and constipation throughout the entire colon, a discussion with Dr. Jauregui and decision was made for patient to be a direct admission to the hospital for treatment of severe constipation. The patient was directly admitted to the PCU unit, will be admitted to the services of the hospitalist for observation status. ALLERGIES: AMOXICLLIN, CEPHALEXIN, BACTRIM, IRON, LACTOSE, ELASTIC AND RUBBER, WOOL, FOOD ALLERGY, SCALLOPS. SOCIAL HISTORY: She is single. She states she does not drink alcohol. She quit smoking in 1989. She does not use recreational drugs. PAST MEDICAL HISTORY: 1. History of malignant melanoma in situ in 2001. 2. Seasonal allergies. 3. Arthritis. 4. Endometriosis. 5. Bronchiectasis. 6. History of abnormal MRI, demyelinating disease. 7. Mycobacteria, atypical mycobacterium abscesses. 8. Pulmonary nodules with reticulonodular infiltrate diagnosed 03/2014. 9. Tongue, moderately differentiated squamous cell carcinoma, status post hemiglossectomy, 11/2018. 10. Chronic hyponatremia, SIADH. 11. Constipation. 12. Chronic back pain. 13. Abdominal pain. PAST SURGICAL HISTORY: 1. Total right hip replacement, 2007. 2. Repair, deviated nasal septum. 3. Diagnostic laparoscopy for endometriosis. 4. Bronchoscopy, 03/2011 and 2013. 5. Sinus surgery. 6. Foot surgery, 2019. 7. Tongue resection, 11/2018. 8. Left foot surgery, 08/2019. 9. Colonoscopy, Dr. Jauregui, 2018. HOME MEDICATIONS: 1. Tylenol 325 mg p.o. t.i.d. p.r.n. for pain. 2. Calcium carbonate 600 mg plus 400 vitamin D two p.o. q.p.m. 3. Famotidine 20 mg p.o. b.i.d. 4. Gabapentin 100 mg p.o. b.i.d. 5. Gabapentin 100 mg, 300 mg p.o. q.h.s. 6. Ibuprofen 400 mg p.o. q.h.s. 7. Methylcarbamol 250 mg p.o. b.i.d. 8. Miralax 17 gm p.o. b.i.d. 9. Biotin 5000 mcg tablet sublingual q.p.m. 10. Ibuprofen 200 mg p.o. b.i.d. p.r.n. for pain. 11. Lactobacillus acidophilus one chewable p.o. q.p.m. 12. Linzess one capsule p.o. daily 145 mcg. 13. L-Lysine 500 mg p.o. q.p.m. 14. Multivitamin one p.o. q.p.m. FAMILY HISTORY: Reviewed and found to be noncontributory. REVIEW OF SYSTEMS: No complaint of headache, no blurred or double vision, no fever, no chills, no tinnitus, no hoarseness, no difficulty swallowing, no lightheadedness, no vertigo. Breasts: No masses. Cardiovascular: No complaints of chest pain, shortness of breath, palpitations or edema. Respiratory: No chronic cough. No current sputum production. Following Dr. Garcia and Dr. Kennedy for history of Mycobacteria. Denies hemoptysis, orthopnea or wheeze. GI: She has had intermittent nausea, abdominal pain and constipation. : No hematuria or history of frequency. Musculoskeletal: No joint redness or swelling. Endocrine: No history of diabetes or thyroid disease. Hematological: History of anemia. Neurological: No history of seizures, no paresthesias, paralysis. Psychological: No anxiety, depression or suicidal ideation. PHYSICAL EXAMINATION: GENERAL: 65-year-old cooperative female, height 65 inches. weight 72 kilograms. VITAL SIGNS: Blood pressure 118/72, pulse 62, respirations 18, temperature 97.1, O2 sat 97% on room air. The patient is alert and oriented x3. HEENT: Pupils equal and reactive to light. EOMs intact. Sclera was clear. Conjunctiva was normal. No facial asymmetry. Pharynx, tongue, gums pink and moist. Tongue is midline. NECK: Supple without lymphadenopathy, no thyromegaly, no goiter. Carotids 2+ without bruit. CHEST: Clear to auscultation without wheeze or retraction. HEART: Regular. ABDOMEN: Soft, generalized tenderness. No rebound or guarding. No masses, pulsations or bruits. No organomegaly. Bowel sounds are hypoactive. EXTREMITIES: Show equal strength, full range of motion, no clubbing, cyanosis or edema. Peripheral pulses equal and palpable bilaterally. IMPRESSION: 1. Severe fecal stasis and constipation. Per recommendation of Dr. Jauregui, we will do GoLytely 4000 mL p.o., drink through the night, Fleet enema. If no response, go through an enema. Repeat flat plate in a.m. 2. History of hyponatremia. Gentle hydration with normal saline 80 mL, sodium q.12. The patient will be admitted observation status to the hospitalist service. YOSSI
== END 2020-12-14 11:44 | disposition home or self-care (01) ==
LOC: INTOOBSV 18:26 → M PCU 18:26
PROVIDERS: ADMIT Internal Medicine; ATTEND Internal Medicine
DX: R10.9 Unspecified abdominal pain (principal); K59.00 Constipation, unspecified; E87.1 Hypo-osmolality and hyponatremia; E87.6 Hypokalemia; Z85.820 Personal history of malignant melanoma of skin; G90.09 Other idiopathic peripheral autonomic neuropathy; K21.9 Gastro-esophageal reflux disease without esophagitis; Z79.899 Other long term (current) drug therapy; Z91.013 Allergy to seafood; Z88.0 Allergy status to penicillin; Z88.1 Allergy status to other antibiotic agents; E73.9 Lactose intolerance, unspecified
CPT/HCPCS: 36415; 74018; 80053; 83605; 85025; 85027; 96360; 96361; U0002

== ENCOUNTER → 2020-12-19 | Outpatient (REF) | payer OTHER ==
[~2020-12-19] MED LIST changes: +CALCCAP4 PO; +DOK1CAP7 PO; +FAMO1TAB11 PO; +IBUP200T45 PO; +LINZ145C PO; +MIRA3350 PO; +THERTAB52 PO
== END ==
LOC: M LAB REF 16:53
PROVIDERS: ATTEND Internal Medicine Nephrology
DX: E87.1 Hypo-osmolality and hyponatremia (principal)

== ENCOUNTER → 2021-01-21 | Outpatient (CLI) | payer OTHER ==
[~2021-01-21] MED LIST changes: -CLIN150C15 PO; +CLIN150C17 PO; +DOK1CAP4 PO; -DOK1CAP7 PO
--- NOTE | 2021-01-21 11:29 | REPMRS ---
Patient History Patient is postmenopausal, has history of melanoma at age 48 and throat and tongue cancer at age 64, and is nulliparous. Family history of colorectal cancer at age 81 in paternal grandfather. Patient states no breast complaints today. Patient has signed MRS History Sheet. Digital Woman Screen Mammo: January 21, 2021 - Exam #: [id number] Bilateral CC and MLO view(s) were taken. Technologist: Sylvia Hanna, Technologist Prior study comparison: June 30, 2018, bilateral digital mammo screening bilat, performed at [facility]. May 27, 2017, bilateral digital mammo screening bilat, performed at [facility]. April 12, 2016, bilateral digital mammo screening bilat, performed at [facility]. FINDINGS: The breast tissue is extremely dense which could obscure a lesion on mammography. The [facility] volumetric breast density category is: D. There is an extremely dense symmetrical pattern of residual fibroglandular tissue. There has been no change in the appearance of the mammogram from the previous studies. There is no interval development of dominant mass, archetectural distortion, or grouped microcalcifications suggestive of malignancy. 3-D tomosynthesis shows no additional findings. Assessment: BI-RADS/ACR category 1 mammogram. Negative Mammogram. Recommendation Routine screening mammogram of both breasts in 1 year (for women over age 40). This patient's [facility] Lifetime Breast Cancer RIsk is estimated at 7.3 %. This mammogram was interpreted with the aid of an FDA-approved computer-aided dectection system. Electronically Signed By: Willi Zarco MD 01/21/21 1120
--- NOTE | 2021-01-21 11:58 | DEXAMM ---
INDICATION: SCR FOR OSTEOPOROSIS/Z13.820. Right hip replacement. COMPARISON: March 23, 2017. TECHNIQUE: Bone density was measured using dual-energy x-ray absorptionmetry (DEXA). FINDINGS: AP SPINE L1-L4 BMD 0.961 g/cm2 Young Adult T-Score -1.9 Age Matched Z-Score -0.4. LT FEMUR, TOTAL BMD 0.713 g/cm2 Young Adult T-Score -2.3 Age Matched Z-Score -1.2. LT NECK BMD 0.858 g/cm2 Young Adult T-Score -1.3 Age Matched Z-Score 0.1. IMPRESSION: There is low bone density of the spine. There is low bone density of the left hip. The density of the spine has decreased 1.6% since the initial exam on March 23, 2017. The density of the left hip has decreased 7.4% since initial exam on March 23, 2017. FOLLOW-UP: Recommendation for the next bone density exam: 2 years. <Electronically signed by Willi Zarco > 01/21/21 [id number]
== END ==
LOC: M WHC 10:24
PROVIDERS: ATTEND Family Medicine
DX: Z12.31 Encounter for screening mammogram for malignant neoplasm of breast (principal); Z13.820 Encounter for screening for osteoporosis; Z78.0 Asymptomatic menopausal state; Z85.820 Personal history of malignant melanoma of skin; Z85.818 Personal history of malignant neoplasm of other sites of lip, oral cavity, and pharynx; Z85.810 Personal history of malignant neoplasm of tongue; R92.2 Inconclusive mammogram; M85.89 Other specified disorders of bone density and structure, multiple sites; Z96.641 Presence of right artificial hip joint

== ENCOUNTER → 2021-01-31 | Outpatient (CLI) | payer OTHER ==
--- NOTE | 2021-01-31 17:04 | REP ---
INDICATION: CONSTIPATION, UNSPECIFIED. COMPARISON: None. TECHNIQUE: Two supine views of the abdomen and pelvis. FINDINGS: Moderate amount of fecal stasis consistent with the given history of constipation. No bowel obstruction or obvious perforation. No organomegaly. No abnormal calcifications. Skeletal structures demonstrate age-related osteopenia and degenerative changes along with right hip replacement. IMPRESSION: Moderate fecal stasis. <Electronically signed by Keith Rider > 01/31/21 [id number]
== END ==
LOC: M RAD 16:28
PROVIDERS: ATTEND Internal Medicine Gastroenterology
DX: K58.1 Irritable bowel syndrome with constipation (principal); Z96.641 Presence of right artificial hip joint; M85.80 Other specified disorders of bone density and structure, unspecified site

== ENCOUNTER → 2021-03-02 | Outpatient (REF) | payer OTHER ==
[~2021-03-02] MED LIST changes: +CLIN-250 PO; -CLIN300C6 PO; -IBUP200T45 PO; +IBUP200T46 PO
== END ==
LOC: M SFHCPLAZ 11:57
PROVIDERS: ATTEND Internal Medicine Infectious Disease
DX: J47.9 Bronchiectasis, uncomplicated (principal)

== ENCOUNTER → 2021-05-20 | Outpatient (CLI) | payer OTHER ==
[2021-05-20 17:44] LABS: AMYLASE 54 U/L (25-115); C REACTIVE PROTEIN QUANTITATIV < 0.30 MG/DL (0.00-0.30); LIPASE 81 U/L (73-393)
[2021-05-26 15:09] LABS: ANCA-ATYPICAL <1:20 titer (Neg:<1:20); ANTI-SACCHAROMYCES CEREV. IgA <20.0 Units (0.0-24.9); ANTI-SACCHAROMYCES CEREV. IgG 28.3 Units (0.0-24.9); CYTOPLASMIC NEUTROP AB ANCA-C <1:20 titer (Neg:<1:20); PERINUCLEAR AB ANCA-P <1:20 titer (Neg:<1:20)
== END ==
LOC: M LAB 16:42
PROVIDERS: ATTEND Internal Medicine Gastroenterology
DX: K58.9 Irritable bowel syndrome, unspecified (principal)

== ENCOUNTER → 2021-05-20 | Outpatient (CLI) | payer OTHER ==
[2021-05-20 17:25] LABS: BASO # 0.1 10^3/uL (0.0-0.2); BASO % 2.1 % (0.0-1.0); EOS # 0.3 10^3/uL (0.0-0.5); EOS % 6.9 % (0.0-3.0); HEMATOCRIT 36.3 % (36.0-47.0); HEMOGLOBIN 12.6 g/dl (12.0-15.5); LYMPH % 26.9 % (24.0-44.0); MEAN CORPUSCULAR HEMOGLOBIN 31.9 pg (27.0-33.0); MEAN CORPUSCULAR HGB CONC 34.7 g/dl (32.0-36.5); MEAN CORPUSCULAR VOLUME 91.9 fl (80.0-96.0); MONO # 0.5 10^3/uL (0.0-0.8); MONO % 12.5 % (2.0-8.0); NEUTROPHILS # 1.9 10^3/uL (1.5-8.5); NEUTROPHILS % 51.3 % (36.0-66.0); PLATELET COUNT, AUTOMATED 246 10^3/uL (150-450); RED BLOOD COUNT 3.95 10^6/uL (4.00-5.40); WHITE BLOOD COUNT 3.8 10^3/uL (4.0-10.0)
[2021-05-20 17:51] LABS: ERYTHROCYTE SEDIMENTATION RATE 7 mm/hr (0-30)
[2021-05-20 17:56] LABS: ALBUMIN 3.8 GM/DL (3.2-5.2); ALT/SGPT 23 U/L (12-78); BILIRUBIN,TOTAL 0.4 MG/DL (0.2-1.0); BLOOD UREA NITROGEN 8 MG/DL (7-18); CALCIUM LEVEL 8.7 MG/DL (8.8-10.2); CARBON DIOXIDE LEVEL 30 MEQ/L (21-32); CHLORIDE LEVEL 92 MEQ/L (98-107); CREATININE FOR GFR 0.52 MG/DL (0.55-1.30); FREE T4 0.87 NG/DL (0.76-1.46); GLOMERULAR FILTRATION RATE > 60.0 (>45); GLUCOSE, FASTING 95 MG/DL (70-100); POTASSIUM SERUM 3.9 MEQ/L (3.5-5.1); SODIUM LEVEL 127 MEQ/L (136-145); TOTAL PROTEIN 6.8 GM/DL (6.4-8.2)
== END ==
LOC: M LAB 16:46
PROVIDERS: ATTEND Internal Medicine Infectious Disease
DX: A31.9 Mycobacterial infection, unspecified (principal); E22.2 Syndrome of inappropriate secretion of antidiuretic hormone

== ENCOUNTER → 2021-05-25 | Outpatient (CLI) | payer OTHER | LOC: M PLARAD 09:30 | PROVIDERS: ATTEND Otolaryngology | DX: C02.1 Malignant neoplasm of border of tongue (principal); R91.8 Other nonspecific abnormal finding of lung field; J84.10 Pulmonary fibrosis, unspecified; I70.0 Atherosclerosis of aorta; I25.10 Atherosclerotic heart disease of native coronary artery without angina pectoris; Z96.641 Presence of right artificial hip joint; M16.12 Unilateral primary osteoarthritis, left hip | CPT/HCPCS: 78815; A9552 ==

== ENCOUNTER → 2021-06-04 | Outpatient (CLI) | payer OTHER ==
[~2021-06-04] MED LIST changes: +E-Z-GAS II EFFERVESCENT PACKET (SODIUM BICARB./CITRIC ACID/SIMETHICONE) As Ordered ONE; +E-Z-HD 98% w/w 340GM SUSP BTL As Ordered ONE; +E-Z-PAQUE 96% w/w SUSP 176GM BTL As Ordered ONE
--- NOTE | 2021-06-08 08:41 | REP ---
INDICATION: DIARRHEA, UNSPECIFIED. COMPARISON: None TECHNIQUE: This procedure was performed by TARAS Gonzalez, under the direct supervision of Dr. Bland. Images were reviewed with Dr. Bland prior to dictation. Liquid barium and gas producing crystals were given in the erect position, as well as liquid barium in the prone oblique position in order to perform a double contrast upper GI examination. Additional liquid barium was given at the end of the examination in order to perform a small-bowel follow-through. FINDINGS: The fast food delivery driver film shows no organomegaly or pathological masses. The intestinal gas pattern is unremarkable. There is a right hip prosthesis. Severe degenerative joint disease of the left hip. Degenerative changes of the lumbar spine are seen. There is penetration with aspiration of the barium material seen on 1 of the swallowing attempts. Evaluation with speech pathology could be beneficial. Esophageal transport is prompt and efficient and there is no evidence of esophagitis, stricture, or mucosal ring. There is no evidence of a hiatal hernia. Gastroesophageal reflux was observed to above the level of the rodeny.. The stomach delgado are normally outlined. The rugal folds are smooth and regular. There is no gastritis, neoplasm, or ulcerative disease. The duodenal delgado are normally outlined. The mucosal folds are smooth and regular. There is no duodenitis, peptic ulcer disease or neoplasm. The visualized portion of the proximal small bowel appears normal in course and caliber. The barium column was followed through the small bowel to the level of the terminal ileum. Small bowel transit time is approximately 270 minutes. During fluoroscopy gentle palpation shows all loops are freely movable and pliable. There is no fixed angulated loops. The small bowel mucosal pattern is normal in course and caliber. There is no transition to suggest a partial small bowel obstruction. Spot filming of the terminal ileum shows it to be unremarkable. IMPRESSION: The fast food delivery driver films show degenerative changes at as described above. There is penetration with aspiration of the barium material seen on 1 of the swallowing attempts. Evaluation with speech pathology could be beneficial. Gastroesophageal reflux was observed to above the level of the rodney. 1.1 minutes of fluoroscopy time was utilized for this procedure. Some fluoroscopic images are performed with last image hold technology. These images require no additional radiation. <Electronically signed by Francine Dc > 06/04/21 1920 <Electronically signed by Dao Bland > 06/08/21 [id number]
== END ==
LOC: M RAD 09:06
PROVIDERS: ATTEND Internal Medicine Gastroenterology
DX: R19.7 Diarrhea, unspecified (principal); K59.00 Constipation, unspecified; K21.9 Gastro-esophageal reflux disease without esophagitis; M51.36 Other intervertebral disc degeneration, lumbar region

== ENCOUNTER → 2021-06-16 | Outpatient (REF) | payer OTHER ==
[~2021-06-16] MED LIST changes: -E-Z-GAS II EFFERVESCENT PACKET (SODIUM BICARB./CITRIC ACID/SIMETHICONE) As Ordered ONE; -E-Z-HD 98% w/w 340GM SUSP BTL As Ordered ONE; -E-Z-PAQUE 96% w/w SUSP 176GM BTL As Ordered ONE
== END ==
LOC: M LAB REF 17:02
PROVIDERS: ATTEND Physician Assistant
DX: L72.9 Follicular cyst of the skin and subcutaneous tissue, unspecified (principal)

== ENCOUNTER → 2021-06-22 | Outpatient (REF) | payer OTHER | LOC: M LAB REF 18:56 | PROVIDERS: ATTEND Surgery | DX: L72.0 Epidermal cyst (principal) ==

== ENCOUNTER 2021-10-10 17:33 | Emergency (ER) | payer BC, OTHER ==
[~2021-10-10] VITALS: Ht 162.6 cm; Wt 43.3 kg
[2021-10-10] MEDS ORDERED: COLA100C5 PO (17:48)
[2021-10-10 20:12] VITALS: BP 121/68
[2021-10-10] MEDS ORDERED: methylPREDNISolone 125MG 2ML VIAL IV ONE (21:15)
[2021-10-10 22:28] LABS: BASO % 0.9 % (0.0-1.0); EOS # 0.3 10^3/uL (0.0-0.5); EOS % 7.5 % (0.0-3.0); HEMATOCRIT 34.9 % (36.0-47.0); HEMOGLOBIN 12.3 g/dl (12.0-15.5); LYMPH # 1.4 10^3/uL (1.5-5.0); LYMPH % 30.8 % (24.0-44.0); MEAN CORPUSCULAR HEMOGLOBIN 31.5 pg (27.0-33.0); MEAN CORPUSCULAR HGB CONC 35.2 g/dl (32.0-36.5); MEAN CORPUSCULAR VOLUME 89.3 fl (80.0-96.0); MONO # 0.6 10^3/uL (0.0-0.8); MONO % 12.2 % (2.0-8.0); NEUTROPHILS # 2.1 10^3/uL (1.5-8.5); NEUTROPHILS % 47.5 % (36.0-66.0); PLATELET COUNT, AUTOMATED 250 10^3/uL (150-450); RED BLOOD COUNT 3.91 10^6/uL (4.00-5.40); WHITE BLOOD COUNT 4.5 10^3/uL (4.0-10.0)
[2021-10-10 23:10] LABS: BLOOD UREA NITROGEN 6 MG/DL (7-18); CALCIUM LEVEL 7.3 MG/DL (8.8-10.2); CARBON DIOXIDE LEVEL 22 MEQ/L (21-32); CHLORIDE LEVEL 99 MEQ/L (98-107); GLOMERULAR FILTRATION RATE > 60.0 (>45); GLUCOSE, FASTING 72 MG/DL (70-100); MAGNESIUM LEVEL 1.9 MG/DL (1.8-2.4); SODIUM LEVEL 128 MEQ/L (136-145)
[2021-10-10] MEDS ORDERED: diphenhydrAMINE 25MG CAP PO ONE (23:35)
== END 2021-10-10 23:56 | disposition home or self-care (01) ==
LOC: M ED 17:33
DX: K59.00 Constipation, unspecified (principal); R50.9 Fever, unspecified; R21 Rash and other nonspecific skin eruption; U07.1 COVID-19; T78.40XA Allergy, unspecified, initial encounter; I95.9 Hypotension, unspecified; F33.9 Major depressive disorder, recurrent, unspecified; F41.9 Anxiety disorder, unspecified; G62.9 Polyneuropathy, unspecified; R56.9 Unspecified convulsions; Z88.1 Allergy status to other antibiotic agents; Z88.8 Allergy status to other drugs, medicaments and biological substances; Z91.018 Allergy to other foods; Z91.048 Other nonmedicinal substance allergy status; Z79.899 Other long term (current) drug therapy
CPT/HCPCS: 71046; 74019; 80048; 83735; 85025; 96374; 99284; J2930

== ENCOUNTER → 2021-11-13 | Outpatient (CLI) | payer BC ==
[~2021-11-13] MED LIST changes: +COLA100C5 PO
[2021-11-13 17:56] LABS: APPEARANCE, URINE CLEAR (CLEAR); BACTERIA, URINE AUTO NEGATIVE (NEGATIVE); BILIRUBIN, URINE AUTO NEGATIVE (NEGATIVE); BLOOD, URINE BLOOD 1+ (NEGATIVE); COLOR, URINE COLORLESS (YELLOW); GLUCOSE, URINE (UA) AUTO NEGATIVE (NEGATIVE); KETONE, URINE AUTO NEGATIVE (NEGATIVE); LEUKOCYTE ESTERASE, URINE AUTO NEGATIVE (NEGATIVE); NITRITE, URINE AUTO NEGATIVE (NEGATIVE); PROTEIN, URINE AUTO NEGATIVE (NEGATIVE); RBC, URINE AUTO 1 /HPF (0-3); SPECIFIC GRAVITY URINE AUTO 1.002 (1.002-1.035); SQUAMOUS EPITHELIAL CELL UR AU 0 /HPF (0-6); UROBILINOGEN, URINE AUTO 0.2 mg/dL (0.0-2.0); WBC, URINE AUTO 0 /HPF (0-3)
[2021-11-13 18:01] LABS: BASO # 0.1 10^3/uL (0.0-0.2); BASO % 2.2 % (0.0-1.0); EOS # 0.2 10^3/uL (0.0-0.5); EOS % 5.9 % (0.0-3.0); HEMATOCRIT 34.2 % (36.0-47.0); HEMOGLOBIN 11.9 g/dl (12.0-15.5); LYMPH # 1.2 10^3/uL (1.5-5.0); LYMPH % 29.1 % (24.0-44.0); MEAN CORPUSCULAR HGB CONC 34.8 g/dl (32.0-36.5); MEAN CORPUSCULAR VOLUME 89.1 fl (80.0-96.0); MONO # 0.5 10^3/uL (0.0-0.8); MONO % 12.7 % (2.0-8.0); NEUTROPHILS % 49.9 % (36.0-66.0); PLATELET COUNT, AUTOMATED 293 10^3/uL (150-450); RED BLOOD COUNT 3.84 10^6/uL (4.00-5.40); WHITE BLOOD COUNT 4.1 10^3/uL (4.0-10.0)
[2021-11-13 18:20] LABS: ALBUMIN 3.6 GM/DL (3.2-5.2); ALT/SGPT 19 U/L (12-78); BILIRUBIN,TOTAL 0.3 MG/DL (0.2-1.0); BLOOD UREA NITROGEN 8 MG/DL (7-18); CARBON DIOXIDE LEVEL 29 MEQ/L (21-32); CHLORIDE LEVEL 92 MEQ/L (98-107); CREATININE FOR GFR 0.53 MG/DL (0.55-1.30); GLOMERULAR FILTRATION RATE > 60.0 (>45); GLUCOSE, FASTING 88 MG/DL (70-100); LIPASE 109 U/L (73-393); POTASSIUM SERUM 3.9 MEQ/L (3.5-5.1); SODIUM LEVEL 128 MEQ/L (136-145); TOTAL PROTEIN 6.5 GM/DL (6.4-8.2)
== END ==
LOC: M LAB 16:53
PROVIDERS: ATTEND Nurse Practitioner Family
DX: R10.32 Left lower quadrant pain (principal)

== ENCOUNTER → 2021-11-18 | Outpatient (CLI) | payer BC ==
[~2021-11-18] MED LIST changes: +ISOVUE-370 76% 100ML VIAL As Ordered ONE
== END ==
LOC: M RAD 11:46
PROVIDERS: ATTEND Nurse Practitioner Family
DX: R10.32 Left lower quadrant pain (principal); M25.552 Pain in left hip; G96.191 Perineural cyst; M16.12 Unilateral primary osteoarthritis, left hip; Z96.641 Presence of right artificial hip joint; M51.26 Other intervertebral disc displacement, lumbar region
CPT/HCPCS: 74178; Q9967

== ENCOUNTER → 2021-11-18 | Outpatient (CLI) | payer BC ==
[~2021-11-18] MED LIST changes: +GASTROGRAFIN SOLUTION 30ML (Q9963) As Ordered ONE; -ISOVUE-370 76% 100ML VIAL As Ordered ONE
== END ==
LOC: M RAD 11:48
PROVIDERS: ATTEND Physician Assistant
DX: M16.12 Unilateral primary osteoarthritis, left hip (principal); M87.052 Idiopathic aseptic necrosis of left femur
CPT/HCPCS: 73700; Q9963

== ENCOUNTER 2021-11-20 14:21 | Observation (INO) | payer BC ==
[~2021-11-20] VITALS: Ht 162.6 cm; Wt 40.5 kg
[~2021-11-20 14:21] MED LIST changes: -GASTROGRAFIN SOLUTION 30ML (Q9963) As Ordered ONE
[2021-11-20 15:54] LABS: BASO # 0.1 10^3/uL (0.0-0.2); BASO % 1.2 % (0.0-1.0); EOS # 0.1 10^3/uL (0.0-0.5); EOS % 1.7 % (0.0-3.0); HEMATOCRIT 35.8 % (36.0-47.0); HEMOGLOBIN 12.5 g/dl (12.0-15.5); LYMPH # 0.9 10^3/uL (1.5-5.0); LYMPH % 21.7 % (24.0-44.0); MEAN CORPUSCULAR HGB CONC 34.9 g/dl (32.0-36.5); MEAN CORPUSCULAR VOLUME 88.8 fl (80.0-96.0); MONO # 0.7 10^3/uL (0.0-0.8); MONO % 15.8 % (2.0-8.0); NEUTROPHILS # 2.4 10^3/uL (1.5-8.5); NEUTROPHILS % 59.1 % (36.0-66.0); PLATELET COUNT, AUTOMATED 262 10^3/uL (150-450); RED BLOOD COUNT 4.03 10^6/uL (4.00-5.40); WHITE BLOOD COUNT 4.1 10^3/uL (4.0-10.0)
[2021-11-20 16:23] LABS: ALBUMIN 3.8 GM/DL (3.2-5.2); ALT/SGPT 27 U/L (12-78); BILIRUBIN,DIRECT 0.2 MG/DL (0.0-0.2); BILIRUBIN,TOTAL 0.5 MG/DL (0.2-1.0); LIPASE 89 U/L (73-393); TOTAL PROTEIN 6.8 GM/DL (6.4-8.2)
[2021-11-20 16:44] LABS: BLOOD UREA NITROGEN 7 MG/DL (7-18); CALCIUM LEVEL 9.5 MG/DL (8.8-10.2); CARBON DIOXIDE LEVEL 27 MEQ/L (21-32); CHLORIDE LEVEL 89 MEQ/L (98-107); CREATININE FOR GFR 0.43 MG/DL (0.55-1.30); GLOMERULAR FILTRATION RATE > 60.0 (>45); GLUCOSE, FASTING 91 MG/DL (70-100); POTASSIUM SERUM 4.1 MEQ/L (3.5-5.1); SODIUM LEVEL 123 MEQ/L (136-145)
[2021-11-20] MEDS ORDERED: KETOROLAC 30 MG/ML 1ML VIAL IV ONE ×2 (17:10→21:45)
[2021-11-20] MEDS: NS 1,000 ML IV SCH ×2 (17:31→20:01)
[2021-11-20] MEDS: GASTROGRAFIN SOLUTION 30ML PO SCH ×2 (17:31→17:59)
[2021-11-20] MEDS ORDERED: ISOVUE-370 76% 100ML VIAL As Ordered ONE (17:37)
[2021-11-20] MEDS ORDERED: MIRALAX *UNIT DOSE* 17GM PACKET PO SCH (21:00)
[2021-11-20] MEDS ORDERED: GABAPENTIN 100 MG CAP PO SCH (21:00)
[2021-11-20] MEDS ORDERED: MULTTAB86 PO (22:54)
[2021-11-20] MEDS ORDERED: HOME MED LIST COMPLETE! XX SCH (22:55)
[2021-11-21 00:21] VITALS: BP 117/75
[2021-11-21] MEDS: NS 1,000 ML IV SCH ×3 (01:01→06:00)
[2021-11-21] MEDS ORDERED: PILL CUTTER 1 EACH XX PRN (01:10)
[2021-11-21] MEDS ORDERED: methocarbamoL 500 MG TAB PO ONE (01:25)
[2021-11-21] MEDS: FAMOTIDINE 20 MG TAB PO SCH ×3 (02:31→21:38)
[2021-11-21] MEDS: KETOROLAC 30 MG/ML 1ML VIAL IV PRN ×4 (04:22→21:39)
[2021-11-21] MEDS: HEPARIN SOD (PORCINE) 5000UNITS/ML 1ML VIAL/SYRINGE SC SCH ×3 (05:53→21:38)
[2021-11-21 06:00] VITALS: BP 114/68
[2021-11-21 07:09] LABS: BLOOD UREA NITROGEN 5 MG/DL (7-18); CALCIUM LEVEL 8.5 MG/DL (8.8-10.2); CARBON DIOXIDE LEVEL 24 MEQ/L (21-32); CHLORIDE LEVEL 99 MEQ/L (98-107); GLOMERULAR FILTRATION RATE > 60.0 (>45); GLUCOSE, FASTING 75 MG/DL (70-100); POTASSIUM SERUM 3.6 MEQ/L (3.5-5.1); SODIUM LEVEL 132 MEQ/L (136-145)
[2021-11-21 07:58] LABS: BASO # 0.1 10^3/uL (0.0-0.2); BASO % 1.9 % (0.0-1.0); EOS # 0.1 10^3/uL (0.0-0.5); EOS % 3.5 % (0.0-3.0); HEMATOCRIT 35.1 % (36.0-47.0); LYMPH # 0.9 10^3/uL (1.5-5.0); LYMPH % 28.6 % (24.0-44.0); MEAN CORPUSCULAR HEMOGLOBIN 30.2 pg (27.0-33.0); MEAN CORPUSCULAR HGB CONC 34.2 g/dl (32.0-36.5); MEAN CORPUSCULAR VOLUME 88.4 fl (80.0-96.0); MONO # 0.5 10^3/uL (0.0-0.8); MONO % 15.1 % (2.0-8.0); NEUTROPHILS # 1.6 10^3/uL (1.5-8.5); NEUTROPHILS % 50.6 % (36.0-66.0); PLATELET COUNT, AUTOMATED 252 10^3/uL (150-450); RED BLOOD COUNT 3.97 10^6/uL (4.00-5.40); WHITE BLOOD COUNT 3.2 10^3/uL (4.0-10.0)
[2021-11-21 07:59] LABS: C REACTIVE PROTEIN QUANTITATIV < 0.30 MG/DL (0.00-0.30)
[2021-11-21] MEDS: methocarbamoL 500 MG TAB PO SCH ×2 (08:11→21:38)
[2021-11-21 08:15] LABS: ERYTHROCYTE SEDIMENTATION RATE 7 mm/hr (0-30)
[2021-11-21] MEDS: ACETAMINOPHEN TAB 650MG DOSE (2X325MG) PO PRN ×3 (08:15→23:57)
[2021-11-21] MEDS ORDERED: MORPHINE 4 MG/ML 1ML VIAL/SYRINGE IV ONE (10:00)
[2021-11-21] MEDS: GABAPENTIN 100 MG CAP PO SCH ×2 (11:24→15:48)
[2021-11-21 14:00] VITALS: BP 110/66
[2021-11-21] MEDS: MULTIVITAMINS/MINERALS THERAP 1 TAB PO SCH (16:00)
[2021-11-21] MEDS: LACTOBACILLUS ACIDOPHILUS CAP (BACID) PO SCH (17:56)
[2021-11-21] MEDS: GABAPENTIN 300 MG CAP PO SCH (21:37)
[2021-11-21 22:00] VITALS: BP 129/81
[2021-11-22] MEDS: HEPARIN SOD (PORCINE) 5000UNITS/ML 1ML VIAL/SYRINGE SC SCH ×3 (05:30→21:44)
[2021-11-22] MEDS: KETOROLAC 30 MG/ML 1ML VIAL IV PRN ×3 (05:35→21:53)
[2021-11-22 05:55] VITALS: BP 120/73
[2021-11-22] MEDS: methocarbamoL 500 MG TAB PO SCH ×2 (08:50→21:44)
[2021-11-22] MEDS: LACTOBACILLUS ACIDOPHILUS CAP (BACID) PO SCH ×2 (08:51→17:00)
[2021-11-22] MEDS: MULTIVITAMINS/MINERALS THERAP 1 TAB PO SCH (08:51)
[2021-11-22] MEDS: FAMOTIDINE 20 MG TAB PO SCH ×2 (08:51→21:45)
[2021-11-22] MEDS ORDERED: ISOVUE-370 76% 100ML VIAL As Ordered ONE (10:35)
[2021-11-22] MEDS: GABAPENTIN 100 MG CAP PO SCH ×2 (12:03→16:59)
[2021-11-22] MEDS: ACETAMINOPHEN TAB 650MG DOSE (2X325MG) PO PRN ×2 (12:03→21:45)
[2021-11-22 12:06] LABS: BASO # 0.1 10^3/uL (0.0-0.2); BASO % 2.5 % (0.0-1.0); EOS # 0.2 10^3/uL (0.0-0.5); EOS % 5.1 % (0.0-3.0); HEMATOCRIT 34.3 % (36.0-47.0); LYMPH # 0.9 10^3/uL (1.5-5.0); LYMPH % 26.1 % (24.0-44.0); MEAN CORPUSCULAR VOLUME 88.6 fl (80.0-96.0); MONO # 0.6 10^3/uL (0.0-0.8); MONO % 15.9 % (2.0-8.0); NEUTROPHILS # 1.8 10^3/uL (1.5-8.5); NEUTROPHILS % 50.1 % (36.0-66.0); PLATELET COUNT, AUTOMATED 258 10^3/uL (150-450); RED BLOOD COUNT 3.87 10^6/uL (4.00-5.40); WHITE BLOOD COUNT 3.5 10^3/uL (4.0-10.0)
[2021-11-22 12:33] LABS: ALBUMIN 3.4 GM/DL (3.2-5.2); ALT/SGPT 22 U/L (12-78); BILIRUBIN,TOTAL 0.5 MG/DL (0.2-1.0); BLOOD UREA NITROGEN 7 MG/DL (7-18); CALCIUM LEVEL 8.2 MG/DL (8.8-10.2); CARBON DIOXIDE LEVEL 28 MEQ/L (21-32); CHLORIDE LEVEL 92 MEQ/L (98-107); CREATININE FOR GFR 0.41 MG/DL (0.55-1.30); GLOMERULAR FILTRATION RATE > 60.0 (>45); GLUCOSE, FASTING 74 MG/DL (70-100); MAGNESIUM LEVEL 2.1 MG/DL (1.8-2.4); POTASSIUM SERUM 3.9 MEQ/L (3.5-5.1); SODIUM LEVEL 125 MEQ/L (136-145); TOTAL PROTEIN 6.5 GM/DL (6.4-8.2)
[2021-11-22] MEDS ORDERED: NS 1,000 ML IV SCH (16:00)
[2021-11-22] MEDS: GABAPENTIN 300 MG CAP PO SCH (21:45)
[2021-11-22 22:00] VITALS: BP 120/74
[2021-11-23] MEDS: HEPARIN SOD (PORCINE) 5000UNITS/ML 1ML VIAL/SYRINGE SC SCH ×2 (05:16→14:15)
[2021-11-23] MEDS: KETOROLAC 30 MG/ML 1ML VIAL IV PRN ×2 (05:17→11:27)
[2021-11-23] MEDS: ACETAMINOPHEN TAB 650MG DOSE (2X325MG) PO PRN ×3 (05:36→16:23)
[2021-11-23 06:00] VITALS: BP 140/83
[2021-11-23 07:19] LABS: CA 125 12.6 U/ML (<30.2); CA19-9 TUMOR MARKER,CARBOHYDRA 48.6 U/ML (<35.0)
[2021-11-23 07:45] LABS: BASO # 0.1 10^3/uL (0.0-0.2); BASO % 1.2 % (0.0-1.0); EOS # 0.2 10^3/uL (0.0-0.5); EOS % 5.7 % (0.0-3.0); HEMATOCRIT 37.1 % (36.0-47.0); LYMPH # 1.4 10^3/uL (1.5-5.0); LYMPH % 33.6 % (24.0-44.0); MEAN CORPUSCULAR HEMOGLOBIN 31.1 pg (27.0-33.0); MEAN CORPUSCULAR VOLUME 88.8 fl (80.0-96.0); MONO # 0.7 10^3/uL (0.0-0.8); MONO % 16.4 % (2.0-8.0); NEUTROPHILS # 1.7 10^3/uL (1.5-8.5); NEUTROPHILS % 42.6 % (36.0-66.0); PLATELET COUNT, AUTOMATED 263 10^3/uL (150-450); RED BLOOD COUNT 4.18 10^6/uL (4.00-5.40)
[2021-11-23 08:07] LABS: BLOOD UREA NITROGEN 9 MG/DL (7-18); CALCIUM LEVEL 8.4 MG/DL (8.8-10.2); CARBON DIOXIDE LEVEL 29 MEQ/L (21-32); CHLORIDE LEVEL 97 MEQ/L (98-107); GLOMERULAR FILTRATION RATE > 60.0 (>45); GLUCOSE, FASTING 97 MG/DL (70-100); MAGNESIUM LEVEL 2.3 MG/DL (1.8-2.4); POTASSIUM SERUM 3.7 MEQ/L (3.5-5.1); SODIUM LEVEL 131 MEQ/L (136-145)
[2021-11-23] MEDS: MULTIVITAMINS/MINERALS THERAP 1 TAB PO SCH ×2 (09:00→09:33)
[2021-11-23] MEDS: methocarbamoL 500 MG TAB PO SCH (09:33)
[2021-11-23] MEDS: FAMOTIDINE 20 MG TAB PO SCH (09:33)
[2021-11-23] MEDS: LACTOBACILLUS ACIDOPHILUS CAP (BACID) PO SCH (09:33)
[2021-11-23] MEDS ORDERED: LIDOCAINE 1% MDV 20ML VIAL As Ordered ONE (09:36)
[2021-11-23] MEDS ORDERED: REFR0.5D8 OU (10:36)
[2021-11-23] MEDS ORDERED: META28.32 PO (10:36)
[2021-11-23] MEDS ORDERED: CYCL-707 PO (10:36)
[2021-11-23] MEDS ORDERED: BISA10SU27 PR (10:36)
[2021-11-23] MEDS ORDERED: POTA1TAB14 PO (10:36)
[2021-11-23] MEDS ORDERED: ELIQ2.5T PO (10:36)
[2021-11-23] MEDS ORDERED: IPRA3SP (10:36)
[2021-11-23] MEDS ORDERED: SPIR-10 PO (10:36)
[2021-11-23] MEDS ORDERED: FLEEENE12 PR (10:36)
[2021-11-23] MEDS ORDERED: LACT1TAB PO (10:36)
[2021-11-23] MEDS ORDERED: FURO80TA2 PO ×2 (10:36→16:51)
[2021-11-23] MEDS ORDERED: CYAN500T14 PO (10:36)
[2021-11-23] MEDS ORDERED: MELA5CAP2 PO (10:36)
[2021-11-23] MEDS ORDERED: HYDR-3713 PO ×2 (10:36→16:51)
[2021-11-23] MEDS ORDERED: EFFE75CA2 PO (10:36)
[2021-11-23] MEDS ORDERED: ALBU2.5V10 INH (10:36)
[2021-11-23 11:15] VITALS: BP 138/83
[2021-11-23] MEDS: GABAPENTIN 100 MG CAP PO SCH ×2 (11:26→16:22)
[2021-11-23 12:05] LABS: SOURCE, BODY FLUID LT HIP; SYNOVIAL FLUID COLOR RED (COLORLESS)
[2021-11-23 12:38] LABS: CRYSTALS, BODY FLUID NONE SEEN (NONE SEEN); SOURCE, BODY FLUID CRYSTALS LEFT HIP
[2021-11-23 12:40] LABS: CRYSTALS, BODY FLUID NONE SEEN (NONE SEEN); SOURCE, BODY FLUID CRYSTALS LEFT HIP
[2021-11-23 14:00] VITALS: BP 134/84
[2021-11-23] MEDS ORDERED: LASI20TA3 PO (16:57)
[2021-11-23 18:30] LABS: SOURCE, BODY FLUID GLUCOSE HIP LEFT; SOURCE, BODY FLUID URIC ACID OTHER
== END 2021-11-23 18:45 | disposition home or self-care (01) ==
LOC: M ED 14:21 → M ED INP 14:22 → M MS5PR 11-21 00:30
PROVIDERS: ADMIT Internal Medicine; ATTEND Family Medicine
DX: M25.452 Effusion, left hip (principal); M25.552 Pain in left hip; R59.0 Localized enlarged lymph nodes; E73.9 Lactose intolerance, unspecified; E87.1 Hypo-osmolality and hyponatremia; Z85.819 Personal history of malignant neoplasm of unspecified site of lip, oral cavity, and pharynx; Z79.01 Long term (current) use of anticoagulants; Z79.899 Other long term (current) drug therapy; Z88.0 Allergy status to penicillin; Z88.1 Allergy status to other antibiotic agents; Z91.013 Allergy to seafood; Z87.891 Personal history of nicotine dependence
CPT/HCPCS: 20611; 36415; 71260; 72170; 73502; 73552; 73700; 74177; 76942; 80047; 80048; 80053; 80076; 81001; 82378; 82945; 83615; 83690; 83735; 84145; 84560; 85025; 85652; 86140; 86301; 86304; 87070; 87205; 87426; 87507; 88305; 89051; 89060; 96361; 96372; 96374; 96375; 96376; 97116; 97161; 99284; J1644; J1885; J2270; Q9963; Q9967

== ENCOUNTER → 2021-12-30 | Outpatient (CLI) | payer BC ==
[~2021-12-30] MED LIST changes: +ALBU2.5V10 INH; +BISA10SU27 PR; +CYAN500T14 PO; +CYCL-707 PO; +EFFE75CA2 PO; +ELIQ2.5T PO; +FLEEENE12 PR; +FURO80TA2 PO; +HYDR-3713 PO; +IPRA3SP; +LACT1TAB PO; +LASI20TA3 PO; +MELA5CAP2 PO; +META28.32 PO; +MULTTAB86 PO; +POTA1TAB14 PO; +REFR0.5D8 OU; +SPIR-10 PO
[2021-12-30 17:35] LABS: BASO # 0.1 10^3/uL (0.0-0.2); BASO % 1.3 % (0.0-1.0); EOS # 0.3 10^3/uL (0.0-0.5); EOS % 5.6 % (0.0-3.0); HEMATOCRIT 34.9 % (36.0-47.0); HEMOGLOBIN 11.9 g/dl (12.0-15.5); LYMPH # 1.2 10^3/uL (1.5-5.0); LYMPH % 21.8 % (24.0-44.0); MEAN CORPUSCULAR HGB CONC 34.1 g/dl (32.0-36.5); MEAN CORPUSCULAR VOLUME 90.9 fl (80.0-96.0); MONO # 0.7 10^3/uL (0.0-0.8); MONO % 12.7 % (2.0-8.0); NEUTROPHILS # 3.2 10^3/uL (1.5-8.5); NEUTROPHILS % 57.9 % (36.0-66.0); PLATELET COUNT, AUTOMATED 288 10^3/uL (150-450); RED BLOOD COUNT 3.84 10^6/uL (4.00-5.40); WHITE BLOOD COUNT 5.5 10^3/uL (4.0-10.0)
[2021-12-30 18:39] LABS: ALBUMIN 3.7 GM/DL (3.2-5.2); ALT/SGPT 15 U/L (12-78); BILIRUBIN,TOTAL 0.3 MG/DL (0.2-1.0); BLOOD UREA NITROGEN 12 MG/DL (7-18); CARBON DIOXIDE LEVEL 26 MEQ/L (21-32); CHLORIDE LEVEL 94 MEQ/L (98-107); CREATININE FOR GFR 0.52 MG/DL (0.55-1.30); GLOMERULAR FILTRATION RATE > 60.0 (>45); GLUCOSE, FASTING 92 MG/DL (70-100); POTASSIUM SERUM 4.2 MEQ/L (3.5-5.1); SODIUM LEVEL 128 MEQ/L (136-145); TOTAL PROTEIN 6.4 GM/DL (6.4-8.2)
== END ==
LOC: M LAB 16:25
PROVIDERS: ATTEND Nurse Practitioner Family
DX: E87.1 Hypo-osmolality and hyponatremia (principal); R10.32 Left lower quadrant pain

== ENCOUNTER → 2022-03-06 | Outpatient (CLI) | payer BC, MEDICARE ==
[2022-03-06 17:03] LABS: HEMATOCRIT 35.2 % (36.0-47.0); HEMOGLOBIN 12.3 g/dl (12.0-15.5); MEAN CORPUSCULAR HEMOGLOBIN 31.5 pg (27.0-33.0); MEAN CORPUSCULAR HGB CONC 34.9 g/dl (32.0-36.5); PLATELET COUNT, AUTOMATED 277 10^3/uL (150-450); RED BLOOD COUNT 3.91 10^6/uL (4.00-5.40)
[2022-03-06 17:18] LABS: INR 0.93; PROTHROMBIN TIME 12.9 SECONDS (12.7-14.5)
[2022-03-06 17:31] LABS: ERYTHROCYTE SEDIMENTATION RATE 8 mm/hr (0-30)
[2022-03-06 17:47] LABS: ALBUMIN 3.7 GM/DL (3.2-5.2); ALT/SGPT 18 U/L (12-78); BILIRUBIN,TOTAL 0.3 MG/DL (0.2-1.0); BLOOD UREA NITROGEN 8 MG/DL (7-18); CALCIUM LEVEL 8.6 MG/DL (8.8-10.2); CARBON DIOXIDE LEVEL 28 MEQ/L (21-32); CHLORIDE LEVEL 95 MEQ/L (98-107); CREATININE FOR GFR 0.49 MG/DL (0.55-1.30); GLOMERULAR FILTRATION RATE > 60.0 (>45); GLUCOSE, FASTING 93 MG/DL (70-100); POTASSIUM SERUM 3.9 MEQ/L (3.5-5.1); SODIUM LEVEL 129 MEQ/L (136-145); TOTAL PROTEIN 6.6 GM/DL (6.4-8.2)
== END ==
LOC: M RAD 16:06
PROVIDERS: ATTEND Orthopaedic Surgery
DX: M16.12 Unilateral primary osteoarthritis, left hip (principal)

== ENCOUNTER → 2022-03-29 | Outpatient (CLI) | payer BC, MEDICARE | LOC: M RAD 12:33 | PROVIDERS: ATTEND Physician Assistant Surgical | DX: M79.605 Pain in left leg (principal); I80.02 Phlebitis and thrombophlebitis of superficial vessels of left lower extremity ==

== ENCOUNTER → 2022-04-19 | Outpatient (CLI) | payer BC, MEDICARE | LOC: M RAD 17:36 | PROVIDERS: ATTEND Nurse Practitioner Family | DX: K59.00 Constipation, unspecified (principal) ==

== ENCOUNTER → 2022-05-12 | Outpatient (CLI) | payer BC, MEDICARE | LOC: M RAD 15:56 | PROVIDERS: ATTEND Nurse Practitioner Family | DX: M54.50 Low back pain, unspecified (principal); M47.816 Spondylosis without myelopathy or radiculopathy, lumbar region ==

== ENCOUNTER → 2022-05-31 | Outpatient (REF) | payer BC, MEDICARE | LOC: M LAB REF 12:09 | PROVIDERS: ATTEND Podiatrist | DX: M79.672 Pain in left foot (principal) ==

== ENCOUNTER → 2022-06-10 | Outpatient (CLI) | payer BC, MEDICARE | LOC: M RAD 16:46 | PROVIDERS: ATTEND Internal Medicine Critical Care Medicine | DX: R91.8 Other nonspecific abnormal finding of lung field (principal); I25.10 Atherosclerotic heart disease of native coronary artery without angina pectoris ==

== ENCOUNTER → 2022-06-17 | Outpatient (CLI) | payer BC, MEDICARE | LOC: M RAD 10:11 | PROVIDERS: ATTEND Internal Medicine Gastroenterology | DX: R10.32 Left lower quadrant pain (principal); K59.00 Constipation, unspecified; K64.9 Unspecified hemorrhoids; R63.4 Abnormal weight loss; R93.2 Abnormal findings on diagnostic imaging of liver and biliary tract; R93.3 Abnormal findings on diagnostic imaging of other parts of digestive tract ==

== ENCOUNTER → 2022-06-22 | Outpatient (REF) | payer BC, MEDICARE | LOC: M LAB REF 10:08 | PROVIDERS: ATTEND Internal Medicine Critical Care Medicine | DX: R91.8 Other nonspecific abnormal finding of lung field (principal); J44.9 Chronic obstructive pulmonary disease, unspecified ==

== ENCOUNTER 2022-07-03 17:39 | Emergency (ER) | payer BC, MEDICARE ==
[~2022-07-03] VITALS: Ht 162.6 cm; Wt 40.5 kg
[2022-07-03] MEDS ORDERED: GABA-283 PO (18:06)
[2022-07-03] MEDS ORDERED: ACET325C5 PO (18:12)
[2022-07-03] MEDS ORDERED: BIOT1CAP2 PO (18:12)
[2022-07-03] MEDS ORDERED: CALC1TAB30 PO (18:12)
[2022-07-03] MEDS ORDERED: IBUP-1114 PO (18:12)
[2022-07-03] MEDS ORDERED: L-LY500T14 PO (18:12)
[2022-07-03] MEDS ORDERED: METH-1164 PO (18:12)
[2022-07-03] MEDS ORDERED: FAMO10TA50 PO (18:12)
[2022-07-03] MEDS ORDERED: COLA100C5 PO (18:12)
[2022-07-03] MEDS ORDERED: ACID1TAB PO (18:12)
[2022-07-03] MEDS ORDERED: MIRA3350 PO (18:12)
[2022-07-04] MEDS ORDERED: FLEET ENEMA PR ONE (05:00)
[2022-07-04 06:37] VITALS: BP 134/62
== END 2022-07-04 06:40 | disposition home or self-care (01) ==
LOC: M ED 17:39
DX: K59.00 Constipation, unspecified (principal); N80.9 Endometriosis, unspecified; Z79.899 Other long term (current) drug therapy; Z91.013 Allergy to seafood; Z91.048 Other nonmedicinal substance allergy status; Z88.0 Allergy status to penicillin; Z88.1 Allergy status to other antibiotic agents; Z88.8 Allergy status to other drugs, medicaments and biological substances; Z91.011 Allergy to milk products; Z87.19 Personal history of other diseases of the digestive system; Z87.39 Personal history of other diseases of the musculoskeletal system and connective tissue; Z85.820 Personal history of malignant melanoma of skin

== ENCOUNTER → 2022-07-14 | Outpatient (CLI) | payer BC, MEDICARE ==
[~2022-07-14] MED LIST changes: +ACET325C5 PO; +ACID1TAB PO; +CALC1TAB30 PO; +FAMO10TA50 PO; +GABA-283 PO; +L-LY500T14 PO
== END ==
LOC: M RAD 17:13
PROVIDERS: ATTEND Internal Medicine Gastroenterology
DX: R14.0 Abdominal distension (gaseous) (principal); R10.9 Unspecified abdominal pain

== ENCOUNTER → 2022-08-10 | Outpatient (REF) | payer BC, MEDICARE ==
[~2022-08-10] MED LIST changes: +SENN-121 PO; -STOO1TAB2 PO
[2022-08-10 17:28] LABS: SODIUM,RANDOM URINE 13 MMOL/L
[2022-08-10 17:44] LABS: OSMOLALITY URINE 160 MOSM/KG (50-1400)
[2022-08-11 17:26] LABS: POTASSIUM SERUM 3.7 MMOL/L (3.5-5.1)
== END ==
LOC: M LAB REF 16:55
PROVIDERS: ATTEND Internal Medicine Nephrology
DX: E87.1 Hypo-osmolality and hyponatremia (principal)

== ENCOUNTER → 2022-08-17 | Outpatient (REF) | payer BC ==
[2022-08-17 17:55] LABS: APPEARANCE, URINE CLEAR (CLEAR); BACTERIA, URINE AUTO NEGATIVE (NEGATIVE); BILIRUBIN, URINE AUTO NEGATIVE (NEGATIVE); BLOOD, URINE BLOOD 1+ (NEGATIVE); COLOR, URINE STRAW (YELLOW); GLUCOSE, URINE (UA) AUTO NEGATIVE (NEGATIVE); KETONE, URINE AUTO NEGATIVE (NEGATIVE); LEUKOCYTE ESTERASE, URINE AUTO NEGATIVE (NEGATIVE); NITRITE, URINE AUTO NEGATIVE (NEGATIVE); PROTEIN, URINE AUTO NEGATIVE (NEGATIVE); RBC, URINE AUTO 2 /HPF (0-3); SPECIFIC GRAVITY URINE AUTO 1.004 (1.002-1.035); SQUAMOUS EPITHELIAL CELL UR AU 0 /HPF (0-6); UROBILINOGEN, URINE AUTO 0.2 mg/dL (0.0-2.0); WBC, URINE AUTO 0 /HPF (0-3)
[2022-08-17 18:19] LABS: BASO # 0.1 10^3/uL (0.0-0.2); EOS # 0.1 10^3/uL (0.0-0.5); EOS % 3.3 % (0.0-3.0); HEMATOCRIT 35.7 % (36.0-47.0); HEMOGLOBIN 11.6 g/dl (12.0-15.5); LYMPH # 0.9 10^3/uL (1.5-5.0); LYMPH % 21.5 % (24.0-44.0); MEAN CORPUSCULAR HEMOGLOBIN 27.5 pg (27.0-33.0); MEAN CORPUSCULAR HGB CONC 32.5 g/dl (32.0-36.5); MEAN CORPUSCULAR VOLUME 84.6 fl (80.0-96.0); MONO # 0.4 10^3/uL (0.0-0.8); MONO % 11.1 % (2.0-8.0); NEUTROPHILS # 2.5 10^3/uL (1.5-8.5); NEUTROPHILS % 62.1 % (36.0-66.0); PLATELET COUNT, AUTOMATED 284 10^3/uL (150-450); RED BLOOD COUNT 4.22 10^6/uL (4.00-5.40)
[2022-08-17 18:22] LABS: C REACTIVE PROTEIN QUANTITATIV < 0.40 MG/DL (<1.0)
[2022-08-17 18:23] LABS: COMPLEMENT C3 77.2 MG/DL (90.0-170.0)
[2022-08-17 18:24] LABS: COMPLEMENT C4 25.9 MG/DL (12-36)
[2022-08-17 18:28] LABS: ALBUMIN 4.2 G/DL (3.2-5.2); ALKALINE PHOSPHATASE 72 U/L (46-116); ALT/SGPT 16 U/L (7.0-40); AST/SGOT 29 U/L (<34); BILIRUBIN,TOTAL 0.4 MG/DL (0.3-1.2); BLOOD UREA NITROGEN 10 MG/DL (9-23); CARBON DIOXIDE LEVEL 28 MMOL/L (20-31); CHLORIDE LEVEL 92 MMOL/L (98-107); CREATININE FOR GFR 0.47 MG/DL (0.55-1.30); GLOMERULAR FILTRATION RATE > 60.0 (>45); GLUCOSE, FASTING 84 MG/DL (74-106); POTASSIUM SERUM 3.7 MMOL/L (3.5-5.1); SODIUM LEVEL 127 MMOL/L (136-145); TOTAL PROTEIN 6.9 G/DL (5.7-8.2)
[2022-08-17 18:47] LABS: ERYTHROCYTE SEDIMENTATION RATE 16 mm/hr (0-30)
[2022-08-17 18:50] LABS: CREATININE,RANDOM URINE < 13.0 MG/DL
[2022-08-17 19:02] LABS: TOTAL PROTEIN,RANDOM URINE < 6.0 MG/DL (0.0-14.0)
[2022-08-19 17:10] LABS: COMPLEMENT TOTAL (CH50) 56 U/mL (>41)
== END ==
LOC: M SFHCRHEU 13:45
PROVIDERS: ATTEND Internal Medicine Rheumatology
DX: I73.00 Raynaud's syndrome without gangrene (principal)

== ENCOUNTER → 2022-09-03 | Outpatient (CLI) | payer BC, MEDICARE | LOC: M RAD 17:05 | PROVIDERS: ATTEND Internal Medicine Gastroenterology | DX: K58.1 Irritable bowel syndrome with constipation (principal); R10.9 Unspecified abdominal pain; Z96.643 Presence of artificial hip joint, bilateral ==

== ENCOUNTER → 2022-09-03 | Outpatient (CLI) | payer BC, MEDICARE ==
[2022-09-03 19:30] LABS: FREE T4 0.89 NG/DL (0.89-1.76); THYROID STIMULATING HORMONE 0.938 uIU/ML (0.55-4.78)
== END ==
LOC: M LAB 17:02
PROVIDERS: ATTEND Physician Assistant
DX: L65.9 Nonscarring hair loss, unspecified (principal)

== ENCOUNTER → 2022-09-03 | Outpatient (CLI) | payer BC, MEDICARE | LOC: M RAD 16:56 | PROVIDERS: ATTEND Internal Medicine Rheumatology | DX: I73.00 Raynaud's syndrome without gangrene (principal); M19.172 Post-traumatic osteoarthritis, left ankle and foot; M19.041 Primary osteoarthritis, right hand; M19.042 Primary osteoarthritis, left hand; M19.071 Primary osteoarthritis, right ankle and foot ==

== ENCOUNTER → 2022-09-08 | Outpatient (CLI) | payer BC, MEDICARE | LOC: M WHC 16:32 | PROVIDERS: ATTEND Nurse Practitioner Family | DX: Z12.31 Encounter for screening mammogram for malignant neoplasm of breast (principal) ==

== ENCOUNTER → 2022-09-09 | Outpatient (CLI) | payer BC, MEDICARE | LOC: M RAD 11:46 | PROVIDERS: ATTEND Orthopaedic Surgery | DX: M51.36 Other intervertebral disc degeneration, lumbar region (principal); M43.16 Spondylolisthesis, lumbar region | CPT/HCPCS: 78306; A9503 ==

== ENCOUNTER → 2022-09-28 | Outpatient (CLI) | payer BC, MEDICARE | LOC: M RAD 11:48 | PROVIDERS: ATTEND Internal Medicine Gastroenterology | DX: K58.1 Irritable bowel syndrome with constipation (principal) | CPT/HCPCS: 78264; A9541 ==

== ENCOUNTER → 2022-10-19 | Outpatient (CLI) | payer BC, MEDICARE ==
[~2022-10-19] MED LIST changes: +DOCU100C16 PO; +FAMO20TA4 PO; +IBUPOTC PO; +MIRA1POW3 PO; +OYST500T92 PO; +POTA-298 PO; -POTA1TAB14 PO; +RISATAB3 PO; +SILV50CR EXT; +URE-15PO PO; +VITMTA PO
== END ==
LOC: M RAD 17:04
PROVIDERS: ATTEND Internal Medicine Gastroenterology
DX: K59.00 Constipation, unspecified (principal)

== ENCOUNTER → 2022-11-26 | Outpatient (REF) | payer BC, MEDICARE | LOC: M LAB REF 16:52 | PROVIDERS: ATTEND Internal Medicine Nephrology | DX: E87.1 Hypo-osmolality and hyponatremia (principal) ==

== ENCOUNTER → 2022-11-29 | Outpatient (CLI) | payer MEDICARE, BC ==
[~2022-11-29] MED LIST changes: +GASTROGRAFIN SOLUTION 30ML As Ordered ONE; +ISOVUE-370 76% 100ML VIAL As Ordered ONE
== END ==
LOC: M RAD 12:34
PROVIDERS: ATTEND Internal Medicine Gastroenterology
DX: K86.89 Other specified diseases of pancreas (principal); R10.9 Unspecified abdominal pain; R93.2 Abnormal findings on diagnostic imaging of liver and biliary tract; K58.9 Irritable bowel syndrome, unspecified; R91.8 Other nonspecific abnormal finding of lung field; Z96.643 Presence of artificial hip joint, bilateral; M47.9 Spondylosis, unspecified
CPT/HCPCS: 74178; Q9963; Q9967

== ENCOUNTER → 2023-01-17 | Outpatient (CLI) | payer MEDICARE, BC ==
[~2023-01-17] MED LIST changes: -GABA-283 PO; +GABA-284 PO; -GASTROGRAFIN SOLUTION 30ML As Ordered ONE; -ISOVUE-370 76% 100ML VIAL As Ordered ONE
== END ==
LOC: M RAD 17:37
PROVIDERS: ATTEND Internal Medicine Gastroenterology
DX: R10.9 Unspecified abdominal pain (principal); E87.1 Hypo-osmolality and hyponatremia

== ENCOUNTER → 2023-01-17 | Outpatient (CLI) | payer MEDICARE, BC ==
[2023-01-17 18:58] LABS: ALBUMIN 3.8 G/DL (3.2-5.2); BLOOD UREA NITROGEN 15 MG/DL (9-23); CALCIUM LEVEL 9.1 MG/DL (8.3-10.6); CARBON DIOXIDE LEVEL 29 MMOL/L (20-31); CHLORIDE LEVEL 93 MMOL/L (98-107); CREATININE FOR GFR 0.58 MG/DL (0.55-1.30); GLOMERULAR FILTRATION RATE > 60.0 (>45); GLUCOSE, FASTING 85 MG/DL (74-106); PHOSPHORUS LEVEL 3.9 MG/DL (2.4-5.1); POTASSIUM SERUM 4.2 MMOL/L (3.5-5.1); SODIUM LEVEL 129 MMOL/L (136-145)
== END ==
LOC: M LAB 17:34
PROVIDERS: ATTEND Internal Medicine Nephrology
DX: E87.1 Hypo-osmolality and hyponatremia (principal)

== ENCOUNTER → 2023-02-11 | Outpatient (REF) | payer MEDICARE, BC ==
[2023-02-11 18:27] LABS: OSMOLALITY URINE 391 MOSM/KG (50-1400)
[2023-02-11 18:52] LABS: SODIUM,RANDOM URINE 62 MMOL/L
== END ==
LOC: M LAB REF 16:54
PROVIDERS: ATTEND Internal Medicine Nephrology
DX: E87.1 Hypo-osmolality and hyponatremia (principal)

== ENCOUNTER → 2023-03-02 | Outpatient (REF) | LOC: M PLAIMG 15:52 | PROVIDERS: ATTEND Internal Medicine | DX: R52 Pain, unspecified (principal) ==

== ENCOUNTER → 2023-03-04 | Outpatient (CLI) | payer BC, MEDICARE | LOC: M LAB 16:26 | PROVIDERS: ATTEND Psychiatry & Neurology Neurology | DX: M25.50 Pain in unspecified joint (principal) ==

== ENCOUNTER → 2023-03-04 | Outpatient (CLI) | payer BC, MEDICARE ==
[2023-03-04 17:49] LABS: BASO # 0.1 10^3/uL (0.0-0.2); BASO % 1.6 % (0.0-1.0); EOS # 0.1 10^3/uL (0.0-0.5); EOS % 1.6 % (0.0-3.0); HEMATOCRIT 34.2 % (36.0-47.0); HEMOGLOBIN 11.6 g/dl (12.0-15.5); LYMPH # 0.7 10^3/uL (1.5-5.0); LYMPH % 22.4 % (24.0-44.0); MEAN CORPUSCULAR HEMOGLOBIN 29.9 pg (27.0-33.0); MEAN CORPUSCULAR HGB CONC 33.9 g/dl (32.0-36.5); MEAN CORPUSCULAR VOLUME 88.1 fl (80.0-96.0); MONO # 0.5 10^3/uL (0.0-0.8); MONO % 15.8 % (2.0-8.0); NEUTROPHILS # 1.9 10^3/uL (1.5-8.5); NEUTROPHILS % 58.3 % (36.0-66.0); PLATELET COUNT, AUTOMATED 273 10^3/uL (150-450); RED BLOOD COUNT 3.88 10^6/uL (4.00-5.40); WHITE BLOOD COUNT 3.2 10^3/uL (4.0-10.0)
[2023-03-04 17:58] LABS: ERYTHROCYTE SEDIMENTATION RATE 7 mm/hr (0-30)
== END ==
LOC: M LAB 16:23
PROVIDERS: ATTEND Orthopaedic Surgery
DX: M25.552 Pain in left hip (principal)

== ENCOUNTER → 2023-03-04 | Outpatient (CLI) | payer BC, MEDICARE | LOC: M RAD 16:14 | PROVIDERS: ATTEND Nurse Practitioner Family | DX: M79.662 Pain in left lower leg (principal) ==

== ENCOUNTER 2023-03-23 18:43 | Observation (INO) | payer BC, MEDICARE ==
[~2023-03-23] VITALS: Ht 165.1 cm; Wt 95.0 kg
[2023-03-23 21:03] LABS: BASO # 0.1 10^3/uL (0.0-0.2); BASO % 1.6 % (0.0-1.0); EOS # 0.1 10^3/uL (0.0-0.5); EOS % 2.5 % (0.0-3.0); HEMOGLOBIN 10.8 g/dl (12.0-15.5); LYMPH # 0.8 10^3/uL (1.5-5.0); LYMPH % 23.9 % (24.0-44.0); MEAN CORPUSCULAR HEMOGLOBIN 30.9 pg (27.0-33.0); MEAN CORPUSCULAR HGB CONC 34.8 g/dl (32.0-36.5); MEAN CORPUSCULAR VOLUME 88.8 fl (80.0-96.0); MONO # 0.4 10^3/uL (0.0-0.8); MONO % 11.1 % (2.0-8.0); NEUTROPHILS # 1.9 10^3/uL (1.5-8.5); NEUTROPHILS % 60.9 % (36.0-66.0); PLATELET COUNT, AUTOMATED 252 10^3/uL (150-450); RED BLOOD COUNT 3.49 10^6/uL (4.00-5.40); WHITE BLOOD COUNT 3.1 10^3/uL (4.0-10.0)
[2023-03-23] MEDS ORDERED: CITA10TA7 PO (21:23)
[2023-03-23] MEDS ORDERED: ACET1TAB55 PO (21:23)
[2023-03-23 21:32] LABS: LIPASE 33 U/L (12-53)
[2023-03-23 21:34] LABS: ALBUMIN 3.7 G/DL (3.2-5.2); ALKALINE PHOSPHATASE 58 U/L (46-116); ALT/SGPT 20 U/L (7.0-40); AST/SGOT 41 U/L (<34); BILIRUBIN,DIRECT 0.1 MG/DL (<0.4); BILIRUBIN,TOTAL 0.5 MG/DL (0.3-1.2); BLOOD UREA NITROGEN 14 MG/DL (9-23); CALCIUM LEVEL 8.5 MG/DL (8.3-10.6); CARBON DIOXIDE LEVEL 29 MMOL/L (20-31); CHLORIDE LEVEL 90 MMOL/L (98-107); GLOMERULAR FILTRATION RATE > 60.0 (>45); GLUCOSE, FASTING 77 MG/DL (74-106); POTASSIUM SERUM 3.9 MMOL/L (3.5-5.1); SODIUM LEVEL 125 MMOL/L (136-145); TOTAL PROTEIN 6.1 G/DL (5.7-8.2)
[2023-03-23 21:40] LABS: RSV AMPLIFICATION NEGATIVE (NEGATIVE)
[2023-03-23] MEDS ORDERED: ISOVUE-370 76% 100ML VIAL As Ordered ONE (21:44)
[2023-03-24] MEDS ORDERED: HEPARIN SOD (PORCINE) 5000UNITS/ML 1ML VIAL/SYRINGE SQ SCH (01:10)
[2023-03-24 02:00] VITALS: BP 115/71; TEMP 97.1; O2SAT 99
[2023-03-24] MEDS ORDERED: IBUP-1764 PO (02:32)
[2023-03-24] MEDS ORDERED: CELE10TA PO (02:32)
[2023-03-24] MEDS ORDERED: ACID1TAB PO (02:32)
[2023-03-24] MEDS ORDERED: MIRA1POW3 PO (02:32)
[2023-03-24] MEDS ORDERED: HOME MED LIST COMPLETE! XX SCH (02:35)
[2023-03-24] MEDS ORDERED: PERCOCET 5MG/325MG TAB PO PRN (02:35)
[2023-03-24] MEDS: GABAPENTIN 100 MG CAP PO SCH ×4 (03:02→21:19)
[2023-03-24] MEDS: FAMOTIDINE 20 MG TAB PO SCH ×3 (03:02→21:19)
[2023-03-24] MEDS: DOCUSATE SODIUM 100MG CAPSULE PO SCH ×3 (03:02→17:00)
[2023-03-24] MEDS: MIRALAX *UNIT DOSE* 17GM PACKET PO SCH ×2 (03:02→21:00)
[2023-03-24] MEDS: methocarbamoL 500 MG TAB PO PRN ×2 (03:22→21:19)
[2023-03-24] MEDS: ACETAMINOPHEN TAB 650MG DOSE (2X325MG) PO PRN ×2 (03:22→11:59)
[2023-03-24 04:00] VITALS: BP 112/71; TEMP 97; O2SAT 100
[2023-03-24 05:08] LABS: BLOOD UREA NITROGEN 10 MG/DL (9-23); CALCIUM LEVEL 8.3 MG/DL (8.3-10.6); CARBON DIOXIDE LEVEL 28 MMOL/L (20-31); CHLORIDE LEVEL 90 MMOL/L (98-107); CREATININE FOR GFR 0.43 MG/DL (0.55-1.30); GLOMERULAR FILTRATION RATE > 60.0 (>45); GLUCOSE, FASTING 72 MG/DL (74-106); POTASSIUM SERUM 3.6 MMOL/L (3.5-5.1); SODIUM LEVEL 123 MMOL/L (136-145)
[2023-03-24] MEDS ORDERED: GLUCOSE 4GM CHEW TABLET PO PRN (05:45)
[2023-03-24] MEDS ORDERED: GLUCAGON INJ 1MG VIAL SC PRN (05:45)
[2023-03-24] MEDS ORDERED: DEXTROSE 50% 50ML SYRINGE IV PRN (05:45)
[2023-03-24 06:26] LABS: OSMOLALITY SERUM 249 MOSM/KG (280-301)
[2023-03-24 08:00] VITALS: BP 102/70; TEMP 97.4; O2SAT 96
[2023-03-24 08:11] LABS: BASO # 0.1 10^3/uL (0.0-0.2); BASO % 1.7 % (0.0-1.0); EOS # 0.1 10^3/uL (0.0-0.5); EOS % 3.3 % (0.0-3.0); HEMATOCRIT 32.3 % (36.0-47.0); HEMOGLOBIN 11.3 g/dl (12.0-15.5); LYMPH % 31.6 % (24.0-44.0); MEAN CORPUSCULAR HEMOGLOBIN 30.7 pg (27.0-33.0); MEAN CORPUSCULAR VOLUME 87.8 fl (80.0-96.0); MONO # 0.3 10^3/uL (0.0-0.8); MONO % 11.3 % (2.0-8.0); NEUTROPHILS # 1.6 10^3/uL (1.5-8.5); NEUTROPHILS % 51.8 % (36.0-66.0); PLATELET COUNT, AUTOMATED 238 10^3/uL (150-450); RED BLOOD COUNT 3.68 10^6/uL (4.00-5.40)
[2023-03-24] MEDS: CitaloPRAM (CeleXA) 10 MG TABLET PO SCH (08:20)
[2023-03-24 08:41] LABS: CORTISOL BASELINE 28.4 UG/DL (4.3-22.4)
[2023-03-24 08:44] LABS: ALBUMIN 3.6 G/DL (3.2-5.2); BILIRUBIN,DIRECT 0.2 MG/DL (<0.4); BILIRUBIN,TOTAL 0.7 MG/DL (0.3-1.2); TOTAL PROTEIN 5.9 G/DL (5.7-8.2)
[2023-03-24 08:45] LABS: FREE T4 0.94 NG/DL (0.89-1.76)
[2023-03-24 08:46] LABS: THYROID STIMULATING HORMONE 2.028 uIU/ML (0.55-4.78)
[2023-03-24 12:09] VITALS: BP 107/73; TEMP 97.4; O2SAT 96
[2023-03-24 15:04] LABS: BLOOD UREA NITROGEN 14 MG/DL (9-23); CALCIUM LEVEL 8.7 MG/DL (8.3-10.6); CARBON DIOXIDE LEVEL 28 MMOL/L (20-31); CHLORIDE LEVEL 88 MMOL/L (98-107); CREATININE FOR GFR 0.44 MG/DL (0.55-1.30); GLOMERULAR FILTRATION RATE > 60.0 (>45); GLUCOSE, FASTING 92 MG/DL (74-106); POTASSIUM SERUM 3.7 MMOL/L (3.5-5.1); SODIUM LEVEL 122 MMOL/L (136-145)
[2023-03-24 16:00] VITALS: BP 113/68; TEMP 97.9; O2SAT 98
[2023-03-24 20:00] VITALS: BP 120/78; TEMP 97.1; O2SAT 97
[2023-03-24] MEDS: HEPARIN SOD (PORCINE) 5000UNITS/ML 1ML VIAL/SYRINGE SQ SCH (21:21)
[2023-03-25] VITALS (10 sets, daily range): BP systolic 90–137; BP diastolic 52–76; TEMP 97.3–99; O2SAT 94–100
[2023-03-25] MEDS ORDERED: NS 500 ML IV ONE ×2 (02:00→07:40)
[2023-03-25 02:06] LABS: BASO # 0.1 10^3/uL (0.0-0.2); BASO % 1.2 % (0.0-1.0); EOS % 0.9 % (0.0-3.0); HEMATOCRIT 33.3 % (36.0-47.0); HEMOGLOBIN 11.9 g/dl (12.0-15.5); LYMPH # 1.6 10^3/uL (1.5-5.0); LYMPH % 36.7 % (24.0-44.0); MEAN CORPUSCULAR HEMOGLOBIN 30.7 pg (27.0-33.0); MEAN CORPUSCULAR HGB CONC 35.7 g/dl (32.0-36.5); MONO # 0.5 10^3/uL (0.0-0.8); MONO % 10.4 % (2.0-8.0); NEUTROPHILS # 2.2 10^3/uL (1.5-8.5); NEUTROPHILS % 50.6 % (36.0-66.0); PLATELET COUNT, AUTOMATED 261 10^3/uL (150-450); RED BLOOD COUNT 3.87 10^6/uL (4.00-5.40); WHITE BLOOD COUNT 4.3 10^3/uL (4.0-10.0)
[2023-03-25 02:43] LABS: BLOOD UREA NITROGEN 15 MG/DL (9-23); CALCIUM LEVEL 8.6 MG/DL (8.3-10.6); CARBON DIOXIDE LEVEL 25 MMOL/L (20-31); CHLORIDE LEVEL 91 MMOL/L (98-107); GLOMERULAR FILTRATION RATE > 60.0 (>45); GLUCOSE, FASTING 99 MG/DL (74-106); POTASSIUM SERUM 3.9 MMOL/L (3.5-5.1); SODIUM LEVEL 124 MMOL/L (136-145)
[2023-03-25 05:25] LABS: EOS % 0.8 % (0.0-3.0); HEMATOCRIT 32.9 % (36.0-47.0); HEMOGLOBIN 11.5 g/dl (12.0-15.5); LYMPH # 0.8 10^3/uL (1.5-5.0); LYMPH % 19.7 % (24.0-44.0); MEAN CORPUSCULAR HEMOGLOBIN 30.4 pg (27.0-33.0); MONO # 0.5 10^3/uL (0.0-0.8); MONO % 12.2 % (2.0-8.0); NEUTROPHILS # 2.5 10^3/uL (1.5-8.5); PLATELET COUNT, AUTOMATED 255 10^3/uL (150-450); RED BLOOD COUNT 3.78 10^6/uL (4.00-5.40); WHITE BLOOD COUNT 3.9 10^3/uL (4.0-10.0)
[2023-03-25 05:46] LABS: BLOOD UREA NITROGEN 14 MG/DL (9-23); CALCIUM LEVEL 8.3 MG/DL (8.3-10.6); CARBON DIOXIDE LEVEL 28 MMOL/L (20-31); CHLORIDE LEVEL 94 MMOL/L (98-107); CREATININE FOR GFR 0.48 MG/DL (0.55-1.30); GLOMERULAR FILTRATION RATE > 60.0 (>45); GLUCOSE, FASTING 86 MG/DL (74-106); MAGNESIUM LEVEL 2.2 MG/DL (1.8-2.4); POTASSIUM SERUM 3.5 MMOL/L (3.5-5.1); SODIUM LEVEL 127 MMOL/L (136-145)
[2023-03-25] MEDS: HEPARIN SOD (PORCINE) 5000UNITS/ML 1ML VIAL/SYRINGE SQ SCH ×3 (06:20→21:11)
[2023-03-25 07:03] LABS: APPEARANCE, URINE CLEAR (CLEAR); BACTERIA, URINE AUTO NEGATIVE (NEGATIVE); BILIRUBIN, URINE AUTO NEGATIVE (NEGATIVE); BLOOD, URINE BLOOD 1+ (NEGATIVE); COLOR, URINE STRAW (YELLOW); GLUCOSE, URINE (UA) AUTO NEGATIVE (NEGATIVE); KETONE, URINE AUTO NEGATIVE (NEGATIVE); LEUKOCYTE ESTERASE, URINE AUTO NEGATIVE (NEGATIVE); NITRITE, URINE AUTO NEGATIVE (NEGATIVE); PROTEIN, URINE AUTO NEGATIVE (NEGATIVE); RBC, URINE AUTO 2 /HPF (0-3); SPECIFIC GRAVITY URINE AUTO 1.008 (1.002-1.035); SQUAMOUS EPITHELIAL CELL UR AU 0 /HPF (0-6); UROBILINOGEN, URINE AUTO 0.2 mg/dL (0.0-2.0); WBC, URINE AUTO 0 /HPF (0-3)
[2023-03-25 07:08] LABS: CREATININE,RANDOM URINE 28.7 MG/DL
[2023-03-25] MEDS: MIRALAX *UNIT DOSE* 17GM PACKET PO SCH ×2 (08:11→21:07)
[2023-03-25] MEDS: CitaloPRAM (CeleXA) 10 MG TABLET PO SCH (08:12)
[2023-03-25] MEDS: FAMOTIDINE 20 MG TAB PO SCH ×2 (08:13→21:07)
[2023-03-25 08:41] LABS: ALBUMIN 3.5 G/DL (3.2-5.2); BILIRUBIN,DIRECT 0.1 MG/DL (<0.4); BILIRUBIN,TOTAL 0.5 MG/DL (0.3-1.2); TOTAL PROTEIN 5.8 G/DL (5.7-8.2)
[2023-03-25] MEDS ORDERED: ISOVUE-370 76% 100ML VIAL As Ordered ONE (09:11)
[2023-03-25 09:49] LABS: CK-MB VALUE MASS 6.3 NG/ML (<3.6)
[2023-03-25 09:50] LABS: MB/CK RELATIVE INDEX 4.59 (< OR =4)
[2023-03-25] MEDS ORDERED: BISACODYL 10MG SUPP PR ONE (11:00)
[2023-03-25] MEDS: DOCUSATE SODIUM 100MG CAPSULE PO SCH ×3 (11:17→16:24)
[2023-03-25] MEDS: ACETAMINOPHEN TAB 650MG DOSE (2X325MG) PO PRN ×2 (12:54→21:12)
[2023-03-25] MEDS: GABAPENTIN 100 MG CAP PO SCH ×2 (12:55→16:24)
[2023-03-25 12:56] LABS: BLOOD UREA NITROGEN 12 MG/DL (9-23); CALCIUM LEVEL 8.4 MG/DL (8.3-10.6); CARBON DIOXIDE LEVEL 30 MMOL/L (20-31); CHLORIDE LEVEL 93 MMOL/L (98-107); CREATININE FOR GFR 0.42 MG/DL (0.55-1.30); GLOMERULAR FILTRATION RATE > 60.0 (>45); GLUCOSE, FASTING 108 MG/DL (74-106); POTASSIUM SERUM 3.2 MMOL/L (3.5-5.1); SODIUM LEVEL 127 MMOL/L (136-145)
[2023-03-25] MEDS ORDERED: POTASSIUM CHLORIDE 10MEQ SR TABLET PO ONE (15:00)
[2023-03-25] MEDS: LACTOBACILLUS ACIDOPHILUS CAP (BACID) PO SCH (17:32)
[2023-03-25] MEDS ORDERED: GABAPENTIN 300 MG CAP PO SCH (21:00)
[2023-03-25] MEDS ORDERED: PILL CUTTER 1 EACH XX ONE (21:08)
[2023-03-25] MEDS: methocarbamoL 500 MG TAB PO PRN (21:08)
[2023-03-26 04:06] VITALS: BP 92/59; TEMP 98.2; O2SAT 95
[2023-03-26] MEDS: HEPARIN SOD (PORCINE) 5000UNITS/ML 1ML VIAL/SYRINGE SQ SCH ×2 (05:34→13:08)
[2023-03-26 07:44] LABS: BASO # 0.1 10^3/uL (0.0-0.2); EOS % 0.6 % (0.0-3.0); HEMATOCRIT 32.7 % (36.0-47.0); HEMOGLOBIN 11.4 g/dl (12.0-15.5); LYMPH # 0.9 10^3/uL (1.5-5.0); LYMPH % 17.5 % (24.0-44.0); MEAN CORPUSCULAR HEMOGLOBIN 30.6 pg (27.0-33.0); MEAN CORPUSCULAR HGB CONC 34.9 g/dl (32.0-36.5); MEAN CORPUSCULAR VOLUME 87.9 fl (80.0-96.0); MONO # 0.7 10^3/uL (0.0-0.8); MONO % 13.3 % (2.0-8.0); NEUTROPHILS # 3.4 10^3/uL (1.5-8.5); NEUTROPHILS % 67.2 % (36.0-66.0); PLATELET COUNT, AUTOMATED 258 10^3/uL (150-450); RED BLOOD COUNT 3.72 10^6/uL (4.00-5.40)
[2023-03-26 07:48] VITALS: BP 106/66; TEMP 98; O2SAT 100
[2023-03-26 08:16] LABS: BLOOD UREA NITROGEN 14 MG/DL (9-23); CALCIUM LEVEL 8.3 MG/DL (8.3-10.6); CARBON DIOXIDE LEVEL 28 MMOL/L (20-31); CHLORIDE LEVEL 93 MMOL/L (98-107); CREATININE FOR GFR 0.52 MG/DL (0.55-1.30); GLOMERULAR FILTRATION RATE > 60.0 (>45); GLUCOSE, FASTING 81 MG/DL (74-106); MAGNESIUM LEVEL 2.2 MG/DL (1.8-2.4); POTASSIUM SERUM 3.9 MMOL/L (3.5-5.1); SODIUM LEVEL 127 MMOL/L (136-145)
[2023-03-26] MEDS: CitaloPRAM (CeleXA) 10 MG TABLET PO SCH (09:33)
[2023-03-26] MEDS: FAMOTIDINE 20 MG TAB PO SCH (09:33)
[2023-03-26] MEDS: LACTOBACILLUS ACIDOPHILUS CAP (BACID) PO SCH ×2 (09:33→13:08)
[2023-03-26] MEDS ORDERED: COLA100C5 PO (11:17)
[2023-03-26 12:00] VITALS: BP 102/66; TEMP 97.6; O2SAT 98
[2023-03-26] MEDS: GABAPENTIN 100 MG CAP PO SCH (13:08)
[2023-03-26] MEDS: DOCUSATE SODIUM 100MG CAPSULE PO SCH (13:08)
== END 2023-03-26 15:06 | disposition home health service (06) ==
LOC: M ED 18:43 → EDBD 18:43 → M ED INP 03-24 00:14 → INTOOBSV 03-24 00:14 → ENRESERV 03-24 00:55 → M ICU 03-24 01:50 → M PCU 03-25 00:15
PROVIDERS: ADMIT Internal Medicine; ATTEND Internal Medicine
DX: T56.1X1A Toxic effect of mercury and its compounds, accidental (unintentional), initial encounter (principal); E87.1 Hypo-osmolality and hyponatremia; R53.1 Weakness; M06.9 Rheumatoid arthritis, unspecified; J47.9 Bronchiectasis, uncomplicated; R91.1 Solitary pulmonary nodule; Z79.899 Other long term (current) drug therapy; K58.8 Other irritable bowel syndrome; Z90.49 Acquired absence of other specified parts of digestive tract; J44.9 Chronic obstructive pulmonary disease, unspecified; Z87.891 Personal history of nicotine dependence; E73.9 Lactose intolerance, unspecified; Z91.013 Allergy to seafood; Z88.0 Allergy status to penicillin; Z88.1 Allergy status to other antibiotic agents; Z88.8 Allergy status to other drugs, medicaments and biological substances
CPT/HCPCS: 36415; 70450; 71275; 74174; 74177; 80048; 80076; 81001; 82150; 82533; 82550; 82553; 82570; 83605; 83690; 83735; 83825; 83930; 83935; 84300; 84439; 84443; 84484; 85025; 87631; 93005; 93041; 96374; 96376; 97116; 97161; 97165; 97530; 97535; 99285; G0378; Q9967

== ENCOUNTER → 2023-03-28 | Outpatient (CLI) | payer MEDICARE ==
[~2023-03-28] MED LIST changes: +ACET1TAB55 PO; +CELE10TA PO; +CITA10TA7 PO; +IBUP-1764 PO
[2023-03-28 19:29] LABS: AMORPHOUS SEDIMENT SMALL (NEGATIVE); APPEARANCE, URINE HAZY (CLEAR); BACTERIA, URINE AUTO 2+ (NEGATIVE); BILIRUBIN, URINE AUTO NEGATIVE (NEGATIVE); BLOOD, URINE BLOOD 2+ (NEGATIVE); COLOR, URINE YELLOW (YELLOW); GLUCOSE, URINE (UA) AUTO NEGATIVE (NEGATIVE); KETONE, URINE AUTO TRACE mg/dL (NEGATIVE); LEUKOCYTE ESTERASE, URINE AUTO 3+ (NEGATIVE); MUCUS, URINE SMALL (NEGATIVE); NITRITE, URINE AUTO NEGATIVE (NEGATIVE); PROTEIN, URINE AUTO NEGATIVE (NEGATIVE); RBC, URINE AUTO 31 /HPF (0-3); SPECIFIC GRAVITY URINE AUTO 1.013 (1.002-1.035); SQUAMOUS EPITHELIAL CELL UR AU 0 /HPF (0-6); UROBILINOGEN, URINE AUTO 0.2 mg/dL (0.0-2.0); WBC, URINE AUTO 90 /HPF (0-3)
== END ==
LOC: M LAB 18:25
PROVIDERS: ATTEND Nurse Practitioner Family
DX: R10.32 Left lower quadrant pain (principal)

== ENCOUNTER → 2023-04-07 | Outpatient (REF) | payer MEDICARE, BC ==
[2023-04-07 18:47] LABS: APPEARANCE, URINE CLEAR (CLEAR); BACTERIA, URINE AUTO NEGATIVE (NEGATIVE); BILIRUBIN, URINE AUTO NEGATIVE (NEGATIVE); BLOOD, URINE BLOOD NEGATIVE (NEGATIVE); COLOR, URINE STRAW (YELLOW); GLUCOSE, URINE (UA) AUTO NEGATIVE (NEGATIVE); KETONE, URINE AUTO NEGATIVE (NEGATIVE); LEUKOCYTE ESTERASE, URINE AUTO NEGATIVE (NEGATIVE); NITRITE, URINE AUTO NEGATIVE (NEGATIVE); PROTEIN, URINE AUTO NEGATIVE (NEGATIVE); RBC, URINE AUTO 1 /HPF (0-3); SPECIFIC GRAVITY URINE AUTO 1.006 (1.002-1.035); SQUAMOUS EPITHELIAL CELL UR AU 0 /HPF (0-6); UROBILINOGEN, URINE AUTO 0.2 mg/dL (0.0-2.0); WBC, URINE AUTO 2 /HPF (0-3)
== END ==
LOC: M LAB REF 17:57
PROVIDERS: ATTEND Family Medicine
DX: N39.0 Urinary tract infection, site not specified (principal)

== ENCOUNTER → 2023-04-07 | Outpatient (CLI) | payer MEDICARE, BC ==
[2023-04-07 17:43] LABS: BLOOD UREA NITROGEN 10 MG/DL (9-23); CALCIUM LEVEL 8.6 MG/DL (8.3-10.6); CARBON DIOXIDE LEVEL 28 MMOL/L (20-31); CHLORIDE LEVEL 87 MMOL/L (98-107); CREATININE FOR GFR 0.48 MG/DL (0.55-1.30); GLOMERULAR FILTRATION RATE > 60.0 (>45); GLUCOSE, FASTING 79 MG/DL (74-106); SODIUM LEVEL 123 MMOL/L (136-145)
== END ==
LOC: M LAB 16:29
PROVIDERS: ATTEND Internal Medicine Gastroenterology
DX: K59.00 Constipation, unspecified (principal); K44.9 Diaphragmatic hernia without obstruction or gangrene; K58.9 Irritable bowel syndrome, unspecified; R10.2 Pelvic and perineal pain; M62.89 Other specified disorders of muscle

== ENCOUNTER → 2023-04-13 | Outpatient (CLI) | payer BC, MEDICARE | LOC: M RAD 16:57 | PROVIDERS: ATTEND Internal Medicine Nephrology | DX: K59.00 Constipation, unspecified (principal); Z96.643 Presence of artificial hip joint, bilateral; M53.86 Other specified dorsopathies, lumbar region ==

== ENCOUNTER → 2023-05-04 | Outpatient (CLI) | payer MEDICARE | LOC: M RAD 17:27 | PROVIDERS: ATTEND Internal Medicine Gastroenterology | DX: R10.9 Unspecified abdominal pain (principal) ==

== ENCOUNTER → 2023-06-10 | Outpatient (CLI) | payer MEDICARE | LOC: M LAB 19:17 | PROVIDERS: ATTEND Internal Medicine Gastroenterology | DX: Z78.9 Other specified health status (principal) ==

== ENCOUNTER → 2023-06-10 | Outpatient (CLI) | payer MEDICARE ==
[2023-06-24 11:08] LABS: Creatinine(Crt),U 0.13 g/L (0.30-3.00)
== END ==
LOC: M LAB 19:22
PROVIDERS: ATTEND Emergency Medicine
DX: R63.4 Abnormal weight loss (principal); R20.2 Paresthesia of skin

== ENCOUNTER → 2023-06-10 | Outpatient (CLI) | payer MEDICARE ==
[2023-06-10 20:06] LABS: BASO # 0.1 10^3/uL (0.0-0.2); BASO % 1.4 % (0.0-1.0); EOS # 0.1 10^3/uL (0.0-0.5); EOS % 2.6 % (0.0-3.0); HEMATOCRIT 32.8 % (36.0-47.0); HEMOGLOBIN 11.1 g/dl (12.0-15.5); LYMPH # 0.8 10^3/uL (1.5-5.0); LYMPH % 19.1 % (24.0-44.0); MEAN CORPUSCULAR HEMOGLOBIN 30.7 pg (27.0-33.0); MEAN CORPUSCULAR HGB CONC 33.8 g/dl (32.0-36.5); MEAN CORPUSCULAR VOLUME 90.6 fl (80.0-96.0); MONO # 0.5 10^3/uL (0.0-0.8); MONO % 11.5 % (2.0-8.0); NEUTROPHILS # 2.7 10^3/uL (1.5-8.5); NEUTROPHILS % 65.2 % (36.0-66.0); PLATELET COUNT, AUTOMATED 270 10^3/uL (150-450); RED BLOOD COUNT 3.62 10^6/uL (4.00-5.40); WHITE BLOOD COUNT 4.2 10^3/uL (4.0-10.0)
[2023-06-10 20:11] LABS: APPEARANCE, URINE CLEAR (CLEAR); BACTERIA, URINE AUTO NEGATIVE (NEGATIVE); BILIRUBIN, URINE AUTO NEGATIVE (NEGATIVE); BLOOD, URINE BLOOD NEGATIVE (NEGATIVE); COLOR, URINE COLORLESS (YELLOW); GLUCOSE, URINE (UA) AUTO NEGATIVE (NEGATIVE); KETONE, URINE AUTO NEGATIVE (NEGATIVE); LEUKOCYTE ESTERASE, URINE AUTO NEGATIVE (NEGATIVE); NITRITE, URINE AUTO NEGATIVE (NEGATIVE); PROTEIN, URINE AUTO NEGATIVE (NEGATIVE); RBC, URINE AUTO 3 /HPF (0-3); SPECIFIC GRAVITY URINE AUTO 1.005 (1.002-1.035); SQUAMOUS EPITHELIAL CELL UR AU 0 /HPF (0-6); UROBILINOGEN, URINE AUTO 0.2 mg/dL (0.0-2.0); WBC, URINE AUTO 1 /HPF (0-3)
[2023-06-10 20:16] LABS: ERYTHROCYTE SEDIMENTATION RATE 6 mm/hr (0-30)
[2023-06-10 20:24] LABS: C REACTIVE PROTEIN QUANTITATIV < 0.40 MG/DL (<1.0)
[2023-06-10 20:26] LABS: ALBUMIN 3.6 G/DL (3.2-5.2); ALKALINE PHOSPHATASE 73 U/L (46-116); ALT/SGPT 19 U/L (7.0-40); AST/SGOT 34 U/L (<34); BILIRUBIN,TOTAL 0.3 MG/DL (0.3-1.2); BLOOD UREA NITROGEN 12 MG/DL (9-23); CALCIUM LEVEL 8.4 MG/DL (8.3-10.6); CARBON DIOXIDE LEVEL 29 MMOL/L (20-31); CHLORIDE LEVEL 93 MMOL/L (98-107); CREATININE FOR GFR 0.49 MG/DL (0.55-1.30); GLOMERULAR FILTRATION RATE > 60.0 (>45); GLUCOSE, FASTING 89 MG/DL (74-106); POTASSIUM SERUM 4.3 MMOL/L (3.5-5.1); SODIUM LEVEL 127 MMOL/L (136-145); TOTAL PROTEIN 6.1 G/DL (5.7-8.2)
[2023-06-10 22:14] LABS: COMPLEMENT C3 75.9 MG/DL (90.0-170.0); COMPLEMENT C4 25.4 MG/DL (12-36)
== END ==
LOC: M LAB 19:13
PROVIDERS: ATTEND Internal Medicine Rheumatology
DX: M25.50 Pain in unspecified joint (principal); I73.00 Raynaud's syndrome without gangrene; R76.8 Other specified abnormal immunological findings in serum

== ENCOUNTER 2023-06-27 20:34 | Inpatient (IN) | payer MEDICARE ==
[~2023-06-27] VITALS: Ht 165.1 cm; Wt 36.2 kg
[2023-06-27 22:25] LABS: BASO # 0.1 10^3/uL (0.0-0.2); EOS % 0.8 % (0.0-3.0); HEMATOCRIT 29.5 % (36.0-47.0); HEMOGLOBIN 10.3 g/dl (12.0-15.5); LYMPH # 0.6 10^3/uL (1.5-5.0); MEAN CORPUSCULAR HEMOGLOBIN 30.8 pg (27.0-33.0); MEAN CORPUSCULAR HGB CONC 34.9 g/dl (32.0-36.5); MEAN CORPUSCULAR VOLUME 88.3 fl (80.0-96.0); MONO # 0.6 10^3/uL (0.0-0.8); MONO % 11.7 % (2.0-8.0); NEUTROPHILS # 3.8 10^3/uL (1.5-8.5); NEUTROPHILS % 75.1 % (36.0-66.0); PLATELET COUNT, AUTOMATED 248 10^3/uL (150-450); RED BLOOD COUNT 3.34 10^6/uL (4.00-5.40); WHITE BLOOD COUNT 5.1 10^3/uL (4.0-10.0)
[2023-06-27 22:43] LABS: INR 0.99; PROTHROMBIN TIME 12.8 SECONDS (12.5-14.5)
[2023-06-27 22:44] LABS: PARTIAL THROMBOPLASTIN TIME 30.8 SECONDS (24.8-34.2)
[2023-06-27 22:46] LABS: ETHYL ALCOHOL (ETHANOL) < 0.003 % (0.000-0.010); LIPASE 28 U/L (12-53)
[2023-06-27 22:47] LABS: AMYLASE 58 U/L (30-118)
[2023-06-27 22:48] LABS: ALBUMIN 3.6 G/DL (3.2-5.2); ALKALINE PHOSPHATASE 77 U/L (46-116); ALT/SGPT 20 U/L (7.0-40); AST/SGOT 39 U/L (<34); BILIRUBIN,DIRECT 0.1 MG/DL (<0.4); BILIRUBIN,TOTAL 0.4 MG/DL (0.3-1.2); BLOOD UREA NITROGEN 11 MG/DL (9-23); CALCIUM LEVEL 8.4 MG/DL (8.3-10.6); CARBON DIOXIDE LEVEL 30 MMOL/L (20-31); CHLORIDE LEVEL 90 MMOL/L (98-107); CREATININE FOR GFR 0.42 MG/DL (0.55-1.30); GLOMERULAR FILTRATION RATE > 60.0 (>45); GLUCOSE, FASTING 76 MG/DL (74-106); POTASSIUM SERUM 3.6 MMOL/L (3.5-5.1); SODIUM LEVEL 125 MMOL/L (136-145); TOTAL PROTEIN 6.2 G/DL (5.7-8.2)
[2023-06-27 22:48] LABS: ABG BASE EXCESS 4.5 (-2.0-2.0); ABG HCO3 26.7 MMOL/L (22.0-26.0); ABG O2 SATURATION 98.5 % (95.0-99.0); ABG PARTIAL PRESSURE CO2 31.7 mmHg (35.0-45.0); ABG PARTIAL PRESSURE O2 118.2 mmHg (75.0-100.0); ABG STANDARD HCO3 28.5 MMOL/L. (22.0-26.0); ABG TOTAL CO2 27.7 MMOL/L (23.0-31.0); ABG pH (ARTERIAL) 7.543 UNITS (7.350-7.450)
[2023-06-27 22:49] LABS: CK-MB VALUE MASS 4.5 NG/ML (<3.6)
[2023-06-27] MEDS ORDERED: ISOVUE-370 76% 100ML VIAL As Ordered ONE (22:49)
[2023-06-27 22:53] LABS: CPK CREATINE PHOSPHOKINASE 204 U/L (34-145)
[2023-06-28 00:26] LABS: AMPHETAMINES LEVEL URINE NEGATIVE (NEGATIVE); BARBITURATES URINE NEGATIVE (NEGATIVE); BENZODIAZEPINES URINE NEGATIVE (NEGATIVE); COCAINE METABOLITE URINE NEGATIVE (NEGATIVE)
[2023-06-28 00:27] LABS: CANNABINOIDS URINE NEGATIVE (NEGATIVE); METHADONE URINE NEGATIVE (NEGATIVE); OPIATES URINE NEGATIVE (NEGATIVE); PHENCYCLIDINE URINE NEGATIVE (NEGATIVE)
[2023-06-28 00:33] LABS: APPEARANCE, URINE CLEAR (CLEAR); BACTERIA, URINE AUTO NEGATIVE (NEGATIVE); BILIRUBIN, URINE AUTO NEGATIVE (NEGATIVE); BLOOD, URINE BLOOD NEGATIVE (NEGATIVE); COLOR, URINE COLORLESS (YELLOW); GLUCOSE, URINE (UA) AUTO NEGATIVE (NEGATIVE); KETONE, URINE AUTO NEGATIVE (NEGATIVE); LEUKOCYTE ESTERASE, URINE AUTO NEGATIVE (NEGATIVE); NITRITE, URINE AUTO NEGATIVE (NEGATIVE); PROTEIN, URINE AUTO NEGATIVE (NEGATIVE); RBC, URINE AUTO 3 /HPF (0-3); SPECIFIC GRAVITY URINE AUTO 1.006 (1.002-1.035); SQUAMOUS EPITHELIAL CELL UR AU 0 /HPF (0-6); UROBILINOGEN, URINE AUTO 0.2 mg/dL (0.0-2.0); WBC, URINE AUTO 0 /HPF (0-3)
[2023-06-28] MEDS ORDERED: DOXYCYCLINE HYCLATE 100 MG in D5W MINI-BAG PLUS 100 ML IV ONE (00:40)
[2023-06-28] MEDS ORDERED: ACETAMINOPHEN TAB 650MG DOSE (2X325MG) PO PRN (01:00)
[2023-06-28] MEDS ORDERED: NORCO, ANEXSIA 5/325MG TABLET (HYDROcodone/ACETAMINOPHEN) PO PRN (01:00)
[2023-06-28] MEDS ORDERED: ONDANSETRON 4MG ORAL DISINTEGRATING TAB PO PRN (01:00)
[2023-06-28] MEDS: D5W/LR 1,000 ML IV SCH ×2 (02:01→09:23)
[2023-06-28] MEDS ORDERED: DOCU100C16 PO (02:19)
[2023-06-28] MEDS ORDERED: MULTTAB61 PO (02:19)
[2023-06-28] MEDS ORDERED: MIRA1POW3 PO (02:19)
[2023-06-28] MEDS ORDERED: MUPI2OI EXT (02:19)
[2023-06-28] MEDS ORDERED: HOME MED LIST COMPLETE! XX SCH (02:25)
[2023-06-28 03:12] LABS: HEMATOCRIT 30.2 % (36.0-47.0); HEMOGLOBIN 10.5 g/dl (12.0-15.5); MEAN CORPUSCULAR HEMOGLOBIN 30.8 pg (27.0-33.0); MEAN CORPUSCULAR HGB CONC 34.8 g/dl (32.0-36.5); MEAN CORPUSCULAR VOLUME 88.6 fl (80.0-96.0); PLATELET COUNT, AUTOMATED 235 10^3/uL (150-450); RED BLOOD COUNT 3.41 10^6/uL (4.00-5.40)
[2023-06-28] MEDS: HEPARIN SOD (PORCINE) 5000UNITS/ML 1ML VIAL/SYRINGE SC SCH ×3 (06:33→22:06)
[2023-06-28 08:02] LABS: URIC ACID 1.7 MG/DL (3.1-7.8)
[2023-06-28 08:09] LABS: OSMOLALITY SERUM 288 MOSM/KG (280-301)
[2023-06-28] MEDS: DOXYCYCLINE HYCLATE 100MG TABLET PO SCH ×2 (09:21→22:06)
[2023-06-28 10:38] LABS: POTASSIUM RANDOM URINE 7.8 MMOL/L
[2023-06-28 11:59] LABS: BLOOD UREA NITROGEN 7 MG/DL (9-23); CALCIUM LEVEL 8.1 MG/DL (8.3-10.6); CARBON DIOXIDE LEVEL 30 MMOL/L (20-31); CHLORIDE LEVEL 92 MMOL/L (98-107); CREATININE FOR GFR 0.35 MG/DL (0.55-1.30); GLOMERULAR FILTRATION RATE > 60.0 (>45); GLUCOSE, FASTING 66 MG/DL (74-106); POTASSIUM SERUM 3.3 MMOL/L (3.5-5.1); SODIUM LEVEL 127 MMOL/L (136-145)
[2023-06-28] MEDS ORDERED: MIRALAX *UNIT DOSE* 17GM PACKET PO PRN (16:10)
[2023-06-28] MEDS ORDERED: PERCOCET 5MG/325MG TAB PO PRN (16:10)
[2023-06-28] MEDS ORDERED: methocarbamoL 500 MG TAB PO PRN (16:10)
[2023-06-28] MEDS ORDERED: POTASSIUM CHLORIDE 10% LIQ 20MEQ/15ML UDC PO ONE (16:15)
[2023-06-28] MEDS: GABAPENTIN 100 MG CAP PO SCH (16:48)
[2023-06-28 20:41] VITALS: BP 106/66; TEMP 98.6; O2SAT 97
[2023-06-28] MEDS: MUPIROCIN 2% OINT 22 GM TUBE EXT SCH (21:00)
[2023-06-28] MEDS: MIRALAX *UNIT DOSE* 17GM PACKET PO SCH (21:00)
[2023-06-28] MEDS: SILVER SULFADIAZINE 1% CR 50 GM JAR EXT SCH (21:00)
[2023-06-28] MEDS: FAMOTIDINE 20 MG TAB PO SCH (22:06)
[2023-06-28] MEDS: CALCIUM/VITAMIN D 500 MG TAB PO SCH (22:07)
[2023-06-28] MEDS: DOCUSATE SODIUM 100MG CAPSULE PO SCH (22:07)
[2023-06-28] MEDS: CitaloPRAM (CeleXA) 10 MG TABLET PO SCH (22:07)
[2023-06-28] MEDS: GABAPENTIN 300 MG CAP PO SCH (22:07)
[2023-06-28] MEDS: IBUPROFEN 400MG TAB PO SCH (22:07)
[2023-06-29 05:57] VITALS: BP 104/67; TEMP 99.1; O2SAT 95
[2023-06-29] MEDS: HEPARIN SOD (PORCINE) 5000UNITS/ML 1ML VIAL/SYRINGE SC SCH ×3 (06:45→22:30)
[2023-06-29 07:04] LABS: BLOOD UREA NITROGEN 11 MG/DL (9-23); CALCIUM LEVEL 8.5 MG/DL (8.3-10.6); CARBON DIOXIDE LEVEL 27 MMOL/L (20-31); CHLORIDE LEVEL 96 MMOL/L (98-107); CREATININE FOR GFR 0.45 MG/DL (0.55-1.30); GLOMERULAR FILTRATION RATE > 60.0 (>45); GLUCOSE, FASTING 79 MG/DL (74-106); SODIUM LEVEL 128 MMOL/L (136-145)
[2023-06-29 08:07] LABS: BASO % 0.9 % (0.0-1.0); EOS # 0.1 10^3/uL (0.0-0.5); EOS % 1.8 % (0.0-3.0); HEMATOCRIT 29.8 % (36.0-47.0); HEMOGLOBIN 10.4 g/dl (12.0-15.5); LYMPH # 0.9 10^3/uL (1.5-5.0); LYMPH % 20.5 % (24.0-44.0); MEAN CORPUSCULAR HEMOGLOBIN 30.7 pg (27.0-33.0); MEAN CORPUSCULAR HGB CONC 34.9 g/dl (32.0-36.5); MEAN CORPUSCULAR VOLUME 87.9 fl (80.0-96.0); MONO # 0.6 10^3/uL (0.0-0.8); MONO % 13.4 % (2.0-8.0); NEUTROPHILS # 2.8 10^3/uL (1.5-8.5); NEUTROPHILS % 62.9 % (36.0-66.0); PLATELET COUNT, AUTOMATED 260 10^3/uL (150-450); RED BLOOD COUNT 3.39 10^6/uL (4.00-5.40); WHITE BLOOD COUNT 4.4 10^3/uL (4.0-10.0)
[2023-06-29] MEDS ORDERED: PILL CUTTER 1 EACH XX PRN (08:35)
[2023-06-29] MEDS: DOXYCYCLINE HYCLATE 100MG TABLET PO SCH ×2 (09:11→19:48)
[2023-06-29] MEDS: DOCUSATE SODIUM 100MG CAPSULE PO SCH ×2 (09:11→19:48)
[2023-06-29] MEDS: MUPIROCIN 2% OINT 22 GM TUBE EXT SCH ×2 (09:11→19:50)
[2023-06-29] MEDS: FAMOTIDINE 20 MG TAB PO SCH ×2 (09:12→19:48)
[2023-06-29] MEDS: GABAPENTIN 100 MG CAP PO SCH ×2 (11:31→16:38)
[2023-06-29] MEDS: methocarbamoL 500 MG TAB PO SCH ×3 (11:31→19:49)
[2023-06-29 14:00] VITALS: BP 135/86; TEMP 98.2; O2SAT 97
[2023-06-29 18:30] VITALS: BP 129/84; TEMP 98.8; O2SAT 97
[2023-06-29] MEDS: MIRALAX *UNIT DOSE* 17GM PACKET PO SCH (19:47)
[2023-06-29] MEDS: CALCIUM/VITAMIN D 500 MG TAB PO SCH (19:48)
[2023-06-29] MEDS: GABAPENTIN 300 MG CAP PO SCH (19:48)
[2023-06-29] MEDS: CitaloPRAM (CeleXA) 10 MG TABLET PO SCH (19:48)
[2023-06-29] MEDS: IBUPROFEN 400MG TAB PO SCH (19:49)
[2023-06-29] MEDS: SILVER SULFADIAZINE 1% CR 50 GM JAR EXT SCH (19:50)
[2023-06-30] MEDS: HEPARIN SOD (PORCINE) 5000UNITS/ML 1ML VIAL/SYRINGE SC SCH ×3 (05:43→21:31)
[2023-06-30 06:00] VITALS: BP 108/67; TEMP 98.4; O2SAT 97
[2023-06-30] MEDS: SUCRALFATE SUSP 1GM/10ML UD PO SCH ×4 (06:00→23:47)
[2023-06-30] MEDS ORDERED: ISOVUE-370 76% 100ML VIAL As Ordered ONE (08:37)
[2023-06-30] MEDS ORDERED: SENNA 8.6 MG TAB (SENOKOT) PO PRN (10:55)
[2023-06-30 11:01] LABS: HEMATOCRIT 33.7 % (36.0-47.0); HEMOGLOBIN 11.5 g/dl (12.0-15.5); MEAN CORPUSCULAR HEMOGLOBIN 30.7 pg (27.0-33.0); MEAN CORPUSCULAR HGB CONC 34.1 g/dl (32.0-36.5); MEAN CORPUSCULAR VOLUME 89.9 fl (80.0-96.0); PLATELET COUNT, AUTOMATED 252 10^3/uL (150-450); RED BLOOD COUNT 3.75 10^6/uL (4.00-5.40); WHITE BLOOD COUNT 5.3 10^3/uL (4.0-10.0)
[2023-06-30] MEDS ORDERED: LACTULOSE 20GM/30ML SYRUP UDC PO ONE (11:15)
[2023-06-30 11:30] LABS: ALBUMIN 3.2 G/DL (3.2-5.2); ALKALINE PHOSPHATASE 81 U/L (46-116); ALT/SGPT 16 U/L (7.0-40); AST/SGOT 24 U/L (<34); BILIRUBIN,TOTAL 0.5 MG/DL (0.3-1.2); BLOOD UREA NITROGEN 13 MG/DL (9-23); CALCIUM LEVEL 8.4 MG/DL (8.3-10.6); CARBON DIOXIDE LEVEL 26 MMOL/L (20-31); CHLORIDE LEVEL 90 MMOL/L (98-107); CREATININE FOR GFR 0.35 MG/DL (0.55-1.30); GLOMERULAR FILTRATION RATE > 60.0 (>45); GLUCOSE, FASTING 108 MG/DL (74-106); POTASSIUM SERUM 3.3 MMOL/L (3.5-5.1); SODIUM LEVEL 122 MMOL/L (136-145); TOTAL PROTEIN 5.9 G/DL (5.7-8.2)
[2023-06-30] MEDS ORDERED: MOM 30ML SUSPENSION UDC PO ONE (11:50)
[2023-06-30] MEDS: MUPIROCIN 2% OINT 22 GM TUBE EXT SCH ×2 (11:58→21:32)
[2023-06-30] MEDS: GABAPENTIN 100 MG CAP PO SCH ×2 (12:00→17:06)
[2023-06-30] MEDS: PANTOPRAZOLE 40MG TAB (PROTONIX) PO SCH ×2 (12:01→21:31)
[2023-06-30] MEDS: DOXYCYCLINE HYCLATE 100MG TABLET PO SCH ×2 (12:01→21:32)
[2023-06-30] MEDS: DOCUSATE SODIUM 100MG CAPSULE PO SCH ×2 (12:01→21:32)
[2023-06-30] MEDS: methocarbamoL 500 MG TAB PO SCH ×3 (12:02→21:35)
[2023-06-30] MEDS ORDERED: POTASSIUM CHLORIDE 10MEQ SR TABLET PO ONE (13:00)
[2023-06-30 14:00] VITALS: BP 126/83; TEMP 97.9; O2SAT 97
[2023-06-30] MEDS: TOLVAPTAN 7.5 MG HALF-TAB PO ONE ×2 (14:12→18:47)
[2023-06-30 18:34] LABS: BLOOD UREA NITROGEN 13 MG/DL (9-23); CALCIUM LEVEL 8.5 MG/DL (8.3-10.6); CARBON DIOXIDE LEVEL 28 MMOL/L (20-31); CHLORIDE LEVEL 86 MMOL/L (98-107); CREATININE FOR GFR 0.41 MG/DL (0.55-1.30); GLOMERULAR FILTRATION RATE > 60.0 (>45); GLUCOSE, FASTING 98 MG/DL (74-106); MAGNESIUM LEVEL 1.9 MG/DL (1.8-2.4); POTASSIUM SERUM 4.1 MMOL/L (3.5-5.1); SODIUM LEVEL 119 MMOL/L (136-145)
[2023-06-30 21:28] VITALS: BP 99/62; TEMP 97.7
[2023-06-30] MEDS: GABAPENTIN 300 MG CAP PO SCH (21:30)
[2023-06-30] MEDS: MIRALAX *UNIT DOSE* 17GM PACKET PO SCH (21:30)
[2023-06-30] MEDS: IBUPROFEN 400MG TAB PO PRN (21:30)
[2023-06-30] MEDS: CALCIUM/VITAMIN D 500 MG TAB PO SCH (21:32)
[2023-06-30] MEDS: CitaloPRAM (CeleXA) 10 MG TABLET PO SCH (21:32)
[2023-06-30] MEDS: SILVER SULFADIAZINE 1% CR 50 GM JAR EXT SCH (21:32)
[2023-07-01 01:07] LABS: BLOOD UREA NITROGEN 13 MG/DL (9-23); CALCIUM LEVEL 8.4 MG/DL (8.3-10.6); CARBON DIOXIDE LEVEL 25 MMOL/L (20-31); CHLORIDE LEVEL 91 MMOL/L (98-107); CREATININE FOR GFR 0.38 MG/DL (0.55-1.30); GLOMERULAR FILTRATION RATE > 60.0 (>45); GLUCOSE, FASTING 86 MG/DL (74-106); POTASSIUM SERUM 4.1 MMOL/L (3.5-5.1); SODIUM LEVEL 121 MMOL/L (136-145)
[2023-07-01 06:00] VITALS: BP 96/61; TEMP 99.7; O2SAT 97
[2023-07-01] MEDS: SUCRALFATE SUSP 1GM/10ML UD PO SCH ×4 (06:01→23:48)
[2023-07-01] MEDS: HEPARIN SOD (PORCINE) 5000UNITS/ML 1ML VIAL/SYRINGE SC SCH ×3 (06:01→21:52)
[2023-07-01 06:27] LABS: BLOOD UREA NITROGEN 12 MG/DL (9-23); CALCIUM LEVEL 8.6 MG/DL (8.3-10.6); CARBON DIOXIDE LEVEL 28 MMOL/L (20-31); CHLORIDE LEVEL 95 MMOL/L (98-107); CREATININE FOR GFR 0.44 MG/DL (0.55-1.30); GLOMERULAR FILTRATION RATE > 60.0 (>45); GLUCOSE, FASTING 75 MG/DL (74-106); POTASSIUM SERUM 4.2 MMOL/L (3.5-5.1); SODIUM LEVEL 128 MMOL/L (136-145)
[2023-07-01] MEDS ORDERED: TOLV15TAB PO (07:37)
[2023-07-01] MEDS: DOCUSATE SODIUM 100MG CAPSULE PO SCH ×2 (09:00→21:52)
[2023-07-01] MEDS: DOXYCYCLINE HYCLATE 100MG TABLET PO SCH ×2 (09:14→21:53)
[2023-07-01] MEDS: MUPIROCIN 2% OINT 22 GM TUBE EXT SCH ×2 (09:15→21:56)
[2023-07-01] MEDS: methocarbamoL 500 MG TAB PO SCH ×3 (09:15→21:53)
[2023-07-01] MEDS: PANTOPRAZOLE 40MG TAB (PROTONIX) PO SCH ×2 (09:15→21:54)
[2023-07-01 11:21] LABS: BLOOD UREA NITROGEN 14 MG/DL (9-23); CALCIUM LEVEL 8.5 MG/DL (8.3-10.6); CARBON DIOXIDE LEVEL 26 MMOL/L (20-31); CHLORIDE LEVEL 92 MMOL/L (98-107); CREATININE FOR GFR 0.42 MG/DL (0.55-1.30); GLOMERULAR FILTRATION RATE > 60.0 (>45); GLUCOSE, FASTING 127 MG/DL (74-106); POTASSIUM SERUM 4.2 MMOL/L (3.5-5.1); SODIUM LEVEL 123 MMOL/L (136-145)
[2023-07-01] MEDS: GABAPENTIN 100 MG CAP PO SCH ×2 (12:30→16:15)
[2023-07-01] MEDS ORDERED: TOLVAPTAN 7.5 MG HALF-TAB PO ONE (13:00)
[2023-07-01 14:00] VITALS: BP 103/66; TEMP 97.9; O2SAT 99
[2023-07-01] MEDS: LACTAID PO SCH (18:25)
[2023-07-01 18:45] VITALS: BP 103/67; TEMP 98.6; O2SAT 99
[2023-07-01 19:14] LABS: BLOOD UREA NITROGEN 17 MG/DL (9-23); CALCIUM LEVEL 8.8 MG/DL (8.3-10.6); CARBON DIOXIDE LEVEL 26 MMOL/L (20-31); CHLORIDE LEVEL 94 MMOL/L (98-107); CREATININE FOR GFR 0.49 MG/DL (0.55-1.30); GLOMERULAR FILTRATION RATE > 60.0 (>45); GLUCOSE, FASTING 74 MG/DL (74-106); POTASSIUM SERUM 4.6 MMOL/L (3.5-5.1); SODIUM LEVEL 127 MMOL/L (136-145)
[2023-07-01 21:19] VITALS: BP 105/65; TEMP 97.7; O2SAT 96
[2023-07-01] MEDS: CitaloPRAM (CeleXA) 10 MG TABLET PO SCH (21:52)
[2023-07-01] MEDS: CALCIUM/VITAMIN D 500 MG TAB PO SCH (21:53)
[2023-07-01] MEDS: GABAPENTIN 300 MG CAP PO SCH (21:54)
[2023-07-01] MEDS: SILVER SULFADIAZINE 1% CR 50 GM JAR EXT SCH (22:00)
[2023-07-01] MEDS: MIRALAX *UNIT DOSE* 17GM PACKET PO SCH (22:00)
[2023-07-01] MEDS: IBUPROFEN 400MG TAB PO PRN (22:06)
[2023-07-02 00:27] LABS: BLOOD UREA NITROGEN 18 MG/DL (9-23); CALCIUM LEVEL 8.6 MG/DL (8.3-10.6); CARBON DIOXIDE LEVEL 27 MMOL/L (20-31); CHLORIDE LEVEL 94 MMOL/L (98-107); CREATININE FOR GFR 0.57 MG/DL (0.55-1.30); GLOMERULAR FILTRATION RATE > 60.0 (>45); GLUCOSE, FASTING 92 MG/DL (74-106); POTASSIUM SERUM 4.1 MMOL/L (3.5-5.1); SODIUM LEVEL 127 MMOL/L (136-145)
[2023-07-02 04:36] VITALS: BP 101/63; TEMP 98.4; O2SAT 94
[2023-07-02] MEDS: HEPARIN SOD (PORCINE) 5000UNITS/ML 1ML VIAL/SYRINGE SC SCH ×2 (05:51→12:39)
[2023-07-02] MEDS: SUCRALFATE SUSP 1GM/10ML UD PO SCH ×3 (05:51→17:00)
[2023-07-02 06:40] LABS: BLOOD UREA NITROGEN 14 MG/DL (9-23); CALCIUM LEVEL 8.7 MG/DL (8.3-10.6); CARBON DIOXIDE LEVEL 27 MMOL/L (20-31); CHLORIDE LEVEL 98 MMOL/L (98-107); GLOMERULAR FILTRATION RATE > 60.0 (>45); GLUCOSE, FASTING 77 MG/DL (74-106); POTASSIUM SERUM 4.2 MMOL/L (3.5-5.1); SODIUM LEVEL 130 MMOL/L (136-145)
[2023-07-02] MEDS: DOXYCYCLINE HYCLATE 100MG TABLET PO SCH (08:06)
[2023-07-02] MEDS: DOCUSATE SODIUM 100MG CAPSULE PO SCH (08:06)
[2023-07-02] MEDS: methocarbamoL 500 MG TAB PO SCH ×2 (08:06→16:59)
[2023-07-02] MEDS: LACTAID PO SCH ×2 (08:07→12:39)
[2023-07-02] MEDS: MUPIROCIN 2% OINT 22 GM TUBE EXT SCH (08:07)
[2023-07-02] MEDS: PANTOPRAZOLE 40MG TAB (PROTONIX) PO SCH (08:07)
[2023-07-02] MEDS: IBUPROFEN 400MG TAB PO PRN (08:21)
[2023-07-02] MEDS ORDERED: PROT1TAB2 PO (11:47)
[2023-07-02] MEDS ORDERED: SUCR1TA PO (11:47)
[2023-07-02] MEDS: GABAPENTIN 100 MG CAP PO SCH ×2 (12:38→16:59)
[2023-07-02 13:00] LABS: BLOOD UREA NITROGEN 18 MG/DL (9-23); CALCIUM LEVEL 8.2 MG/DL (8.3-10.6); CARBON DIOXIDE LEVEL 28 MMOL/L (20-31); CHLORIDE LEVEL 93 MMOL/L (98-107); CREATININE FOR GFR 0.46 MG/DL (0.55-1.30); GLOMERULAR FILTRATION RATE > 60.0 (>45); GLUCOSE, FASTING 66 MG/DL (74-106); POTASSIUM SERUM 3.9 MMOL/L (3.5-5.1); SODIUM LEVEL 125 MMOL/L (136-145)
[2023-07-02] MEDS ORDERED: LOPE1CAP5 PO (13:36)
[2023-07-02 14:00] VITALS: BP 103/64; TEMP 97.7; O2SAT 99
== END 2023-07-02 17:43 | disposition home health service (06) | DRG 177 ==
LOC: M ED 20:34 → EDBD 20:34 → M ED INP 06-28 00:59 → ENRESERV 06-28 14:51 → M MSPAV 06-28 20:00 → M ED INP 06-28 20:00 → UNDODISIN 07-02 17:47
PROVIDERS: ADMIT Internal Medicine; ATTEND Internal Medicine
DX: J15.69 Pneumonia due to other Gram-negative bacteria (principal); E43 Unspecified severe protein-calorie malnutrition; R64 Cachexia; Z68.1 Body mass index [BMI] 19.9 or less, adult; J44.0 Chronic obstructive pulmonary disease with (acute) lower respiratory infection; E22.2 Syndrome of inappropriate secretion of antidiuretic hormone; R29.6 Repeated falls; R62.7 Adult failure to thrive; F32.A Depression, unspecified; I95.1 Orthostatic hypotension; K21.9 Gastro-esophageal reflux disease without esophagitis; M54.9 Dorsalgia, unspecified; Z96.641 Presence of right artificial hip joint; R13.10 Dysphagia, unspecified; Z79.899 Other long term (current) drug therapy; Z91.013 Allergy to seafood; Z88.1 Allergy status to other antibiotic agents; Z88.8 Allergy status to other drugs, medicaments and biological substances; Z91.040 Latex allergy status; Z91.048 Other nonmedicinal substance allergy status; Z91.011 Allergy to milk products; Z85.810 Personal history of malignant neoplasm of tongue; K59.00 Constipation, unspecified

== ENCOUNTER → 2023-07-08 | Outpatient (REF) | payer MEDICARE, BC ==
[~2023-07-08] MED LIST changes: +LOPE1CAP5 PO; +MULTTAB61 PO; +MUPI2OI EXT; +PROT1TAB2 PO; +SUCR1TA PO; +TOLV15TAB PO
[2023-07-08 18:17] LABS: APPEARANCE, URINE CLEAR (CLEAR); BACTERIA, URINE AUTO NEGATIVE (NEGATIVE); BILIRUBIN, URINE AUTO NEGATIVE (NEGATIVE); BLOOD, URINE BLOOD NEGATIVE (NEGATIVE); COLOR, URINE YELLOW (YELLOW); GLUCOSE, URINE (UA) AUTO NEGATIVE (NEGATIVE); KETONE, URINE AUTO NEGATIVE (NEGATIVE); LEUKOCYTE ESTERASE, URINE AUTO NEGATIVE (NEGATIVE); MUCUS, URINE SMALL (NEGATIVE); NITRITE, URINE AUTO NEGATIVE (NEGATIVE); PROTEIN, URINE AUTO NEGATIVE (NEGATIVE); RBC, URINE AUTO 2 /HPF (0-3); SPECIFIC GRAVITY URINE AUTO 1.011 (1.002-1.035); SQUAMOUS EPITHELIAL CELL UR AU 0 /HPF (0-6); UROBILINOGEN, URINE AUTO 0.2 mg/dL (0.0-2.0); WBC, URINE AUTO 0 /HPF (0-3)
[2023-07-08 18:44] LABS: BLOOD UREA NITROGEN 9 MG/DL (9-23); CALCIUM LEVEL 8.6 MG/DL (8.3-10.6); CARBON DIOXIDE LEVEL 30 MMOL/L (20-31); CHLORIDE LEVEL 92 MMOL/L (98-107); CREATININE FOR GFR 0.36 MG/DL (0.55-1.30); GLOMERULAR FILTRATION RATE > 60.0 (>45); GLUCOSE, FASTING 91 MG/DL (74-106); SODIUM LEVEL 124 MMOL/L (136-145)
== END ==
LOC: M SHH 16:22
PROVIDERS: ATTEND Nurse Practitioner Family
DX: E87.1 Hypo-osmolality and hyponatremia (principal); R30.0 Dysuria

== ENCOUNTER → 2023-07-28 | Outpatient (CLI) | payer MEDICARE ==
[~2023-07-28] MED LIST changes: -MIRA1POW3 PO; +MIRA33506 PO
== END ==
LOC: M PAL 13:35
PROVIDERS: ATTEND Nurse Practitioner Adult Health
DX: G89.29 Other chronic pain (principal); R10.9 Unspecified abdominal pain; E87.1 Hypo-osmolality and hyponatremia; K62.5 Hemorrhage of anus and rectum; K21.9 Gastro-esophageal reflux disease without esophagitis; R64 Cachexia; R19.4 Change in bowel habit; J44.9 Chronic obstructive pulmonary disease, unspecified; M62.50 Muscle wasting and atrophy, not elsewhere classified, unspecified site; R13.10 Dysphagia, unspecified; R53.81 Other malaise; R29.6 Repeated falls; Z51.5 Encounter for palliative care; Z85.810 Personal history of malignant neoplasm of tongue; Z87.891 Personal history of nicotine dependence; Z91.048 Other nonmedicinal substance allergy status; Z91.013 Allergy to seafood; Z88.1 Allergy status to other antibiotic agents; Z88.8 Allergy status to other drugs, medicaments and biological substances; Z79.899 Other long term (current) drug therapy; Z96.643 Presence of artificial hip joint, bilateral; Z90.49 Acquired absence of other specified parts of digestive tract

== ENCOUNTER → 2023-08-25 | Outpatient (CLI) | payer MEDICARE | LOC: M PAL 14:55 | PROVIDERS: ATTEND Nurse Practitioner Adult Health | DX: G89.29 Other chronic pain (principal); G62.9 Polyneuropathy, unspecified; R10.9 Unspecified abdominal pain; E87.1 Hypo-osmolality and hyponatremia; K62.5 Hemorrhage of anus and rectum; K21.9 Gastro-esophageal reflux disease without esophagitis; R64 Cachexia; R19.4 Change in bowel habit; J44.9 Chronic obstructive pulmonary disease, unspecified; M62.50 Muscle wasting and atrophy, not elsewhere classified, unspecified site; R13.10 Dysphagia, unspecified; R53.81 Other malaise; R29.6 Repeated falls; Z51.5 Encounter for palliative care; Z85.810 Personal history of malignant neoplasm of tongue; Z87.891 Personal history of nicotine dependence; Z91.013 Allergy to seafood; Z91.048 Other nonmedicinal substance allergy status; Z88.1 Allergy status to other antibiotic agents; Z88.8 Allergy status to other drugs, medicaments and biological substances; Z79.899 Other long term (current) drug therapy; Z96.643 Presence of artificial hip joint, bilateral; Z90.49 Acquired absence of other specified parts of digestive tract ==

== ENCOUNTER → 2023-08-29 | Outpatient (CLI) | payer MEDICARE ==
[~2023-08-29] MED LIST changes: +PROHANCE 279.3MG/ML 5ML VIAL As Ordered ONE
== END ==
LOC: M RAD 16:13
PROVIDERS: ATTEND Internal Medicine Gastroenterology
DX: R19.7 Diarrhea, unspecified (principal); R10.32 Left lower quadrant pain; K86.89 Other specified diseases of pancreas; R59.1 Generalized enlarged lymph nodes; K44.9 Diaphragmatic hernia without obstruction or gangrene; R10.2 Pelvic and perineal pain; N81.6 Rectocele; R63.4 Abnormal weight loss; K62.5 Hemorrhage of anus and rectum; Z96.643 Presence of artificial hip joint, bilateral

== ENCOUNTER → 2023-08-29 | Outpatient (CLI) | payer MEDICARE ==
[~2023-08-29] MED LIST changes: -PROHANCE 279.3MG/ML 5ML VIAL As Ordered ONE
== END ==
LOC: M RAD 16:00
PROVIDERS: ATTEND Orthopaedic Surgery
DX: M47.897 Other spondylosis, lumbosacral region (principal); M25.552 Pain in left hip; G96.191 Perineural cyst; M48.061 Spinal stenosis, lumbar region without neurogenic claudication; R19.7 Diarrhea, unspecified; R10.32 Left lower quadrant pain; K86.89 Other specified diseases of pancreas; R59.1 Generalized enlarged lymph nodes; K44.9 Diaphragmatic hernia without obstruction or gangrene; R10.2 Pelvic and perineal pain; N81.6 Rectocele; R63.4 Abnormal weight loss; K62.5 Hemorrhage of anus and rectum
CPT/HCPCS: 72158; 74018; A9576

== ENCOUNTER → 2023-10-04 | Outpatient (CLI) | payer MEDICARE ==
[~2023-10-04] MED LIST changes: +FAMO20TA PO; +IBUP200C25 PO; +PROC2.5C PR
== END ==
LOC: M PAL 14:31
PROVIDERS: ATTEND Nurse Practitioner Adult Health
DX: G89.29 Other chronic pain (principal); G62.9 Polyneuropathy, unspecified; E43 Unspecified severe protein-calorie malnutrition; R10.9 Unspecified abdominal pain; E87.1 Hypo-osmolality and hyponatremia; K21.9 Gastro-esophageal reflux disease without esophagitis; R64 Cachexia; R19.4 Change in bowel habit; J44.9 Chronic obstructive pulmonary disease, unspecified; M62.50 Muscle wasting and atrophy, not elsewhere classified, unspecified site; R13.10 Dysphagia, unspecified; R53.81 Other malaise; G35 Multiple sclerosis; R29.6 Repeated falls; Z51.5 Encounter for palliative care; Z96.643 Presence of artificial hip joint, bilateral; Z90.49 Acquired absence of other specified parts of digestive tract; Z85.810 Personal history of malignant neoplasm of tongue; Z87.891 Personal history of nicotine dependence; Z91.013 Allergy to seafood; Z91.048 Other nonmedicinal substance allergy status; Z88.1 Allergy status to other antibiotic agents; Z88.8 Allergy status to other drugs, medicaments and biological substances; Z79.891 Long term (current) use of opiate analgesic; Z79.899 Other long term (current) drug therapy

== ENCOUNTER 2023-10-10 18:33 | Emergency (ER) | payer MEDICARE ==
[~2023-10-10] VITALS: Ht 162.6 cm; Wt 35.5 kg
[2023-10-10] MEDS: ACETAMINOPHEN TAB 650MG DOSE (2X325MG) PO ONE (20:01)
[2023-10-10] MEDS ORDERED: BACT800T5 PO (21:32)
[2023-10-10] MEDS: BACTRIM 160MG/800MG DS TAB PO ONE (21:35)
[2023-10-10 21:40] VITALS: BP 159/81; TEMP 96.2; O2SAT 99
== END 2023-10-10 21:46 | disposition home or self-care (01) ==
LOC: EDBD 18:33 → M ED 18:33
DX: S01.01XA Laceration without foreign body of scalp, initial encounter (principal); S70.02XA Contusion of left hip, initial encounter; S80.02XA Contusion of left knee, initial encounter; W19.XXXA Unspecified fall, initial encounter; M79.622 Pain in left upper arm; M79.621 Pain in right upper arm; Y92.009 Unspecified place in unspecified non-institutional (private) residence as the place of occurrence of the external cause; Y93.9 Activity, unspecified; Y99.9 Unspecified external cause status; Z96.643 Presence of artificial hip joint, bilateral; Z88.1 Allergy status to other antibiotic agents; Z88.8 Allergy status to other drugs, medicaments and biological substances; Z91.013 Allergy to seafood; Z91.048 Other nonmedicinal substance allergy status; Z79.1 Long term (current) use of non-steroidal anti-inflammatories (NSAID); Z79.2 Long term (current) use of antibiotics; Z79.891 Long term (current) use of opiate analgesic; Z79.899 Other long term (current) drug therapy

== ENCOUNTER → 2023-10-19 | Outpatient (CLI) | payer MEDICARE ==
[~2023-10-19] MED LIST changes: +BACT800T5 PO
== END ==
LOC: M WUC 15:20
PROVIDERS: ATTEND Nurse Practitioner Family
DX: M54.50 Low back pain, unspecified (principal); M25.512 Pain in left shoulder; M25.542 Pain in joints of left hand; M25.541 Pain in joints of right hand; M19.041 Primary osteoarthritis, right hand; M19.042 Primary osteoarthritis, left hand; M43.16 Spondylolisthesis, lumbar region; M47.816 Spondylosis without myelopathy or radiculopathy, lumbar region; M47.817 Spondylosis without myelopathy or radiculopathy, lumbosacral region; M19.012 Primary osteoarthritis, left shoulder; Z96.642 Presence of left artificial hip joint

== ENCOUNTER → 2023-11-02 | Outpatient (CLI) | payer MEDICARE ==
[2023-11-02 17:41] LABS: HEMATOCRIT 28.2 % (36.0-47.0); HEMOGLOBIN 9.6 g/dl (12.0-15.5); MEAN CORPUSCULAR HEMOGLOBIN 28.9 pg (27.0-33.0); MEAN CORPUSCULAR VOLUME 84.9 fl (80.0-96.0); PLATELET COUNT, AUTOMATED 321 10^3/uL (150-450); RED BLOOD COUNT 3.32 10^6/uL (4.00-5.40); WHITE BLOOD COUNT 2.9 10^3/uL (4.0-10.0)
[2023-11-02 18:06] LABS: LIPASE 32 U/L (12-53)
[2023-11-02 18:09] LABS: ALBUMIN 3.4 G/DL (3.2-5.2); ALKALINE PHOSPHATASE 80 U/L (46-116); ALT/SGPT 18 U/L (7.0-40); AST/SGOT 22 U/L (<34); BILIRUBIN,TOTAL 0.3 MG/DL (0.3-1.2); BLOOD UREA NITROGEN 11 MG/DL (9-23); CARBON DIOXIDE LEVEL 29 MMOL/L (20-31); CHLORIDE LEVEL 93 MMOL/L (98-107); CREATININE FOR GFR 0.43 MG/DL (0.55-1.30); GLOMERULAR FILTRATION RATE > 60.0 (>45); GLUCOSE, FASTING 79 MG/DL (74-106); MAGNESIUM LEVEL 1.8 MG/DL (1.8-2.4); POTASSIUM SERUM 4.2 MMOL/L (3.5-5.1); SODIUM LEVEL 126 MMOL/L (136-145); TOTAL PROTEIN 6.2 G/DL (5.7-8.2)
== END ==
LOC: M RAD 16:50
PROVIDERS: ATTEND Internal Medicine Gastroenterology
DX: R10.9 Unspecified abdominal pain (principal); R63.4 Abnormal weight loss; K58.9 Irritable bowel syndrome, unspecified

== ENCOUNTER → 2023-11-22 | Outpatient (CLI) | payer MEDICARE ==
[~2023-11-22] MED LIST changes: +CLIN-250
== END ==
LOC: M PAL 13:31
PROVIDERS: ATTEND Nurse Practitioner Adult Health
DX: G89.29 Other chronic pain (principal); G62.9 Polyneuropathy, unspecified; E43 Unspecified severe protein-calorie malnutrition; R10.9 Unspecified abdominal pain; E87.1 Hypo-osmolality and hyponatremia; K21.9 Gastro-esophageal reflux disease without esophagitis; R64 Cachexia; R19.4 Change in bowel habit; J44.9 Chronic obstructive pulmonary disease, unspecified; M62.50 Muscle wasting and atrophy, not elsewhere classified, unspecified site; R13.10 Dysphagia, unspecified; R53.81 Other malaise; G35 Multiple sclerosis; R29.6 Repeated falls; Z51.5 Encounter for palliative care; Z96.643 Presence of artificial hip joint, bilateral; Z90.49 Acquired absence of other specified parts of digestive tract; Z85.810 Personal history of malignant neoplasm of tongue; Z87.891 Personal history of nicotine dependence; Z91.013 Allergy to seafood; Z91.048 Other nonmedicinal substance allergy status; Z88.1 Allergy status to other antibiotic agents; Z88.8 Allergy status to other drugs, medicaments and biological substances; Z79.891 Long term (current) use of opiate analgesic; Z79.899 Other long term (current) drug therapy; F41.9 Anxiety disorder, unspecified; F32.A Depression, unspecified; Z66 Do not resuscitate

== ENCOUNTER → 2023-12-22 | Outpatient (REF) | payer MEDICARE ==
[~2023-12-22] MED LIST changes: -CLIN-250
== END ==
LOC: M LAB REF 10:27
PROVIDERS: ATTEND Physician Assistant Medical
DX: J44.9 Chronic obstructive pulmonary disease, unspecified (principal); R05.9 Cough, unspecified

== ENCOUNTER → 2023-12-24 | Outpatient (CLI) | payer MEDICARE | LOC: M RAD 16:12 | PROVIDERS: ATTEND Physician Assistant Medical | DX: R05.9 Cough, unspecified (principal); R06.02 Shortness of breath; R91.8 Other nonspecific abnormal finding of lung field ==

== ENCOUNTER → 2024-01-10 | Outpatient (REF) | payer MEDICARE ==
[2024-01-10 16:48] LABS: APPEARANCE, URINE CLEAR (CLEAR); BACTERIA, URINE AUTO NEGATIVE (NEGATIVE); BILIRUBIN, URINE AUTO NEGATIVE (NEGATIVE); BLOOD, URINE BLOOD 1+ (NEGATIVE); COLOR, URINE STRAW (YELLOW); GLUCOSE, URINE (UA) AUTO NEGATIVE (NEGATIVE); KETONE, URINE AUTO NEGATIVE (NEGATIVE); LEUKOCYTE ESTERASE, URINE AUTO NEGATIVE (NEGATIVE); NITRITE, URINE AUTO NEGATIVE (NEGATIVE); PROTEIN, URINE AUTO NEGATIVE (NEGATIVE); RBC, URINE AUTO 1 /HPF (0-3); SPECIFIC GRAVITY URINE AUTO 1.005 (1.002-1.035); SQUAMOUS EPITHELIAL CELL UR AU 0 /HPF (0-6); UROBILINOGEN, URINE AUTO 0.2 mg/dL (0.0-2.0); WBC, URINE AUTO 0 /HPF (0-3)
[2024-01-10 17:05] LABS: OSMOLALITY URINE 255 MOSM/KG (50-1400)
[2024-01-10 17:06] LABS: SODIUM,RANDOM URINE 74 MMOL/L
[2024-01-10 17:16] LABS: IMMUNOGLOBULIN A 193.1 MG/DL (40-350); PERCENT SATURATION 4.7 % (13.2-45.0)
[2024-01-10 17:20] LABS: CORTISOL PM 24.2 UG/DL (3.1-16.7); FERRITIN 17.7 NG/ML (7.3-270.7)
== END ==
LOC: M LAB REF 16:11
PROVIDERS: ATTEND Internal Medicine
DX: D64.9 Anemia, unspecified (principal); E87.1 Hypo-osmolality and hyponatremia

== ENCOUNTER → 2024-01-18 | Outpatient (REF) | payer MEDICARE ==
[~2024-01-18] MED LIST changes: +CLIN-250
[2024-01-18 18:51] LABS: HEMATOCRIT 27.7 % (36.0-47.0); HEMOGLOBIN 9.2 g/dl (12.0-15.5); MEAN CORPUSCULAR HEMOGLOBIN 27.9 pg (27.0-33.0); MEAN CORPUSCULAR HGB CONC 33.2 g/dl (32.0-36.5); MEAN CORPUSCULAR VOLUME 83.9 fl (80.0-96.0); PLATELET COUNT, AUTOMATED 394 10^3/uL (150-450)
[2024-01-18 19:21] LABS: TOTAL 25(OH) VITAMIN D 75.5 NG/ML (20.0-100.0); VITAMIN B12 LEVEL 1433 PG/ML (211-911)
[2024-01-18 19:23] LABS: ALBUMIN 3.3 G/DL (3.2-5.2); ALKALINE PHOSPHATASE 100 U/L (46-116); ALT/SGPT 15 U/L (7.0-40); AST/SGOT 26 U/L (<34); BILIRUBIN,TOTAL 0.3 MG/DL (0.3-1.2); BLOOD UREA NITROGEN 10 MG/DL (9-23); CALCIUM LEVEL 8.8 MG/DL (8.3-10.6); CARBON DIOXIDE LEVEL 29 MMOL/L (20-31); CHLORIDE LEVEL 93 MMOL/L (98-107); CREATININE FOR GFR 0.42 MG/DL (0.55-1.30); GLOMERULAR FILTRATION RATE > 60.0 (>45); GLUCOSE, FASTING 76 MG/DL (74-106); MAGNESIUM LEVEL 1.9 MG/DL (1.8-2.4); POTASSIUM SERUM 4.5 MMOL/L (3.5-5.1); SODIUM LEVEL 126 MMOL/L (136-145); TOTAL PROTEIN 6.4 G/DL (5.7-8.2)
== END ==
LOC: M LAB REF 16:27
PROVIDERS: ATTEND Internal Medicine Gastroenterology
DX: R19.7 Diarrhea, unspecified (principal); R93.2 Abnormal findings on diagnostic imaging of liver and biliary tract; K58.1 Irritable bowel syndrome with constipation; R63.4 Abnormal weight loss; R10.9 Unspecified abdominal pain

== ENCOUNTER → 2024-01-18 | Outpatient (CLI) | payer MEDICARE | LOC: M RAD 16:42 | PROVIDERS: ATTEND Physician Assistant Medical | DX: R05.3 Chronic cough (principal); R91.8 Other nonspecific abnormal finding of lung field ==

== ENCOUNTER → 2024-02-03 | Outpatient (CLI) | payer MEDICARE ==
[~2024-02-03] MED LIST changes: -CLIN-250
== END ==
LOC: M RAD 15:52
PROVIDERS: ATTEND Internal Medicine Critical Care Medicine
DX: A31.0 Pulmonary mycobacterial infection (principal); R91.1 Solitary pulmonary nodule

== ENCOUNTER → 2024-02-09 | Outpatient (CLI) | payer MEDICARE | LOC: M RAD 17:36 → M LAB 17:36 | PROVIDERS: ATTEND Internal Medicine Gastroenterology | DX: K59.00 Constipation, unspecified (principal); R10.9 Unspecified abdominal pain ==

== ENCOUNTER → 2024-02-09 | Outpatient (CLI) | payer MEDICARE ==
[2024-02-09 18:25] LABS: BASO # 0.1 10^3/uL (0.0-0.2); BASO % 1.6 % (0.0-1.0); EOS # 0.2 10^3/uL (0.0-0.5); EOS % 6.3 % (0.0-3.0); HEMATOCRIT 27.1 % (36.0-47.0); LYMPH # 0.7 10^3/uL (1.5-5.0); MEAN CORPUSCULAR HEMOGLOBIN 27.3 pg (27.0-33.0); MEAN CORPUSCULAR HGB CONC 33.2 g/dl (32.0-36.5); MEAN CORPUSCULAR VOLUME 82.1 fl (80.0-96.0); MONO # 0.4 10^3/uL (0.0-0.8); MONO % 12.2 % (2.0-8.0); NEUTROPHILS # 1.7 10^3/uL (1.5-8.5); NEUTROPHILS % 56.6 % (36.0-66.0); PLATELET COUNT, AUTOMATED 271 10^3/uL (150-450)
[2024-02-09 18:46] LABS: PERCENT SATURATION 5.2 % (13.2-45.0)
[2024-02-09 18:48] LABS: FERRITIN 11.3 NG/ML (7.3-270.7)
== END ==
LOC: M LAB 17:40
PROVIDERS: ATTEND Dietitian, Registered
DX: D61.818 Other pancytopenia (principal); Z86.2 Personal history of diseases of the blood and blood-forming organs and certain disorders involving the immune mechanism

== ENCOUNTER → 2024-02-27 | Outpatient (CLI) | payer MEDICARE | LOC: M PLARAD 15:19 | PROVIDERS: ATTEND Internal Medicine Critical Care Medicine | DX: R91.8 Other nonspecific abnormal finding of lung field (principal) | CPT/HCPCS: 78815; A9552 ==

== ENCOUNTER 2024-03-14 01:02 | Inpatient (IN) | payer MEDICARE ==
[~2024-03-14] VITALS: Ht 162.6 cm; Wt 35.9 kg
[2024-03-14 07:09] LABS: BASO # 0.1 10^3/uL (0.0-0.2); BASO % 1.2 % (0.0-1.0); EOS # 0.1 10^3/uL (0.0-0.5); EOS % 1.7 % (0.0-3.0); HEMATOCRIT 28.4 % (36.0-47.0); HEMOGLOBIN 9.4 g/dl (12.0-15.5); LYMPH # 0.7 10^3/uL (1.5-5.0); LYMPH % 17.7 % (24.0-44.0); MEAN CORPUSCULAR HEMOGLOBIN 26.8 pg (27.0-33.0); MEAN CORPUSCULAR HGB CONC 33.1 g/dl (32.0-36.5); MEAN CORPUSCULAR VOLUME 80.9 fl (80.0-96.0); MONO # 0.6 10^3/uL (0.0-0.8); NEUTROPHILS # 2.5 10^3/uL (1.5-8.5); NEUTROPHILS % 62.9 % (36.0-66.0); PLATELET COUNT, AUTOMATED 246 10^3/uL (150-450); RED BLOOD COUNT 3.51 10^6/uL (4.00-5.40)
[2024-03-14] MEDS ORDERED: MOM 30ML SUSPENSION UDC PO PRN ×2 (07:15→13:00)
[2024-03-14] MEDS ORDERED: MAALOX 30 ML SUSP *UDC PO PRN (07:15)
[2024-03-14 07:19] LABS: INR 0.93; PARTIAL THROMBOPLASTIN TIME 29.8 SECONDS (24.8-34.2); PROTHROMBIN TIME 12.2 SECONDS (12.5-14.5)
[2024-03-14 07:29] LABS: BLOOD UREA NITROGEN 7 MG/DL (9-23); CARBON DIOXIDE LEVEL 29 MMOL/L (20-31); CHLORIDE LEVEL 93 MMOL/L (98-107); CREATININE FOR GFR 0.37 MG/DL (0.55-1.30); GLOMERULAR FILTRATION RATE > 60.0 (>45); GLUCOSE, FASTING 76 MG/DL (74-106); SODIUM LEVEL 127 MMOL/L (136-145)
[2024-03-14] MEDS: DOCUSATE SODIUM 100MG CAPSULE PO SCH ×2 (08:07→22:10)
[2024-03-14] MEDS ORDERED: POLY17PO18 PO (08:10)
[2024-03-14] MEDS ORDERED: MORPHINE 2 MG/ML 1ML VIAL IV PRN ×2 (08:10→13:05)
[2024-03-14] MEDS ORDERED: HOME MED LIST COMPLETE! XX SCH (08:15)
[2024-03-14] MEDS: MORPHINE 2 MG/ML 1ML VIAL IV PRN (08:34)
[2024-03-14] MEDS: FERROUS GLUCONATE 324 MG TAB PO SCH (09:00)
[2024-03-14] MEDS: ACETAMINOPHEN 325 MG TAB PO PRN (09:00)
[2024-03-14] MEDS ORDERED: UNRESOLVED CLARIFICATION ENTRY XX SCH (09:00)
[2024-03-14] MEDS: MIRALAX *UNIT DOSE* 17GM PACKET PO ONE (12:25)
[2024-03-14] MEDS: DOCUSATE SODIUM 100MG CAPSULE PO ONE (12:26)
[2024-03-14] MEDS: SODIUM CHLORIDE 1 GM TAB PO SCH ×2 (12:26→12:30)
[2024-03-14] MEDS: ENOXAPARIN 40MG/0.4ML SYRINGE (J1650 PER 10MG) SC SCH (12:27)
[2024-03-14] MEDS: IBUPROFEN 200MG TAB PO SCH (12:30)
[2024-03-14] MEDS ORDERED: FLEET ENEMA PR PRN (13:00)
[2024-03-14] MEDS ORDERED: BISACODYL 10MG SUPP PR PRN (13:00)
[2024-03-14] MEDS ORDERED: PILL CUTTER 1 EACH XX PRN (13:10)
[2024-03-14] MEDS: ACETAMINOPHEN 500 MG TAB PO SCH (13:40)
[2024-03-14 14:00] VITALS: BP 117/74; TEMP 97; O2SAT 99
[2024-03-14 14:06] LABS: BLOOD UREA NITROGEN 9 MG/DL (9-23); CALCIUM LEVEL 8.6 MG/DL (8.3-10.6); CARBON DIOXIDE LEVEL 30 MMOL/L (20-31); CHLORIDE LEVEL 89 MMOL/L (98-107); CREATININE FOR GFR 0.37 MG/DL (0.55-1.30); GLOMERULAR FILTRATION RATE > 60.0 (>45); GLUCOSE, FASTING 77 MG/DL (74-106); POTASSIUM SERUM 3.4 MMOL/L (3.5-5.1); SODIUM LEVEL 122 MMOL/L (136-145)
[2024-03-14 14:08] LABS: THYROID STIMULATING HORMONE 1.663 uIU/ML (0.55-4.78)
[2024-03-14] MEDS: oxyCODONE 5MG TAB PO PRN (14:34)
[2024-03-14] MEDS: ASCORBIC ACID 500 MG TAB PO SCH (14:34)
[2024-03-14] MEDS: LIDOCAINE 5% (LIDODERM) PATCH TD SCH (14:35)
[2024-03-14] MEDS ORDERED: GABAPENTIN 100 MG CAP PO ONE (15:00)
[2024-03-14] MEDS: GABAPENTIN 100 MG CAP PO ONE (15:26)
[2024-03-14 16:00] VITALS: BP 99/72; TEMP 97.5; O2SAT 98
[2024-03-14] MEDS ORDERED: methocarbamoL 500 MG TAB PO PRN (16:10)
[2024-03-14] MEDS: CALCIUM/VITAMIN D 500 MG TAB PO SCH (18:20)
[2024-03-14] MEDS: CitaloPRAM (CeleXA) 10 MG TABLET PO SCH (18:21)
[2024-03-14 20:01] VITALS: BP 90/55; TEMP 97.2; O2SAT 99
[2024-03-14 20:06] VITALS: BP 92/52
[2024-03-14] MEDS: SENOKOT S TAB PO SCH (20:07)
[2024-03-14] MEDS: GABAPENTIN 100 MG CAP PO SCH (21:00)
[2024-03-14 22:00] VITALS: BP 106/69
[2024-03-14] MEDS: MIRALAX *UNIT DOSE* 17GM PACKET PO SCH (22:09)
[2024-03-14] MEDS: FAMOTIDINE 20 MG TAB PO SCH (22:10)
[2024-03-14] MEDS: GABAPENTIN 300 MG CAP PO SCH (22:10)
[2024-03-15 00:01] VITALS: BP 116/71; TEMP 97.9; O2SAT 98
[2024-03-15 04:03] VITALS: BP 115/70; TEMP 98.1; O2SAT 94
[2024-03-15 06:44] LABS: BLOOD UREA NITROGEN 12 MG/DL (9-23); CALCIUM LEVEL 8.5 MG/DL (8.3-10.6); CARBON DIOXIDE LEVEL 28 MMOL/L (20-31); CHLORIDE LEVEL 94 MMOL/L (98-107); GLOMERULAR FILTRATION RATE > 60.0 (>45); GLUCOSE, FASTING 77 MG/DL (74-106); SODIUM LEVEL 126 MMOL/L (136-145)
[2024-03-15 11:56] VITALS: BP 133/81; TEMP 97.3; O2SAT 100
[2024-03-15] MEDS ORDERED: oxyCODONE 5MG TAB PO PRN (12:00)
[2024-03-15] MEDS ORDERED: NALOXONE INJ 0.4MG/1ML VIAL IV PRN (12:00)
[2024-03-15] MEDS: oxyCODONE 5MG TAB PO ONE (12:00)
[2024-03-15] MEDS: FLUBLOK(EGGFREE) TRIVAL(24-25) VACCINE PF 0.5ML SYRINGE 18YRS & OLDER IM.IMMUN ONE (13:06)
[2024-03-15] MEDS: DOCUSATE SODIUM 100MG CAPSULE PO SCH (13:06)
[2024-03-15] MEDS: MIRALAX *UNIT DOSE* 17GM PACKET PO SCH (13:06)
[2024-03-15] MEDS: GABAPENTIN 100 MG CAP PO SCH (13:07)
[2024-03-15] MEDS ORDERED: PERC5TAB12 PO (13:24)
[2024-03-15] MEDS: CALCIUM GLUCONATE 1,000 MG in D5W MINI-BAG PLUS 100 ML IV ONE (14:35)
[2024-03-16] MEDS ORDERED: GABAPENTIN 100 MG CAP PO SCH (09:00)
[2024-03-16] MEDS ORDERED: PERC5TAB12 PO (17:04)
[2024-03-16] MEDS ORDERED: LIDO5TD TD (17:04)
== END 2024-03-15 17:05 | DRG 535 ==
LOC: M ED 01:02 → EDBD 01:02 → M ED INP 06:53 → M MS5PR 14:10
PROVIDERS: ADMIT Student in an Organized Health Care Education/Training Program; ATTEND General Practice
DX: S72.112A Displaced fracture of greater trochanter of left femur, initial encounter for closed fracture (principal); E43 Unspecified severe protein-calorie malnutrition; E87.1 Hypo-osmolality and hyponatremia; Z68.1 Body mass index [BMI] 19.9 or less, adult; D50.9 Iron deficiency anemia, unspecified; F32.A Depression, unspecified; S40.012A Contusion of left shoulder, initial encounter; F41.9 Anxiety disorder, unspecified; K21.9 Gastro-esophageal reflux disease without esophagitis; Z66 Do not resuscitate; K58.9 Irritable bowel syndrome, unspecified; Z85.810 Personal history of malignant neoplasm of tongue; Z96.643 Presence of artificial hip joint, bilateral; M54.9 Dorsalgia, unspecified; D63.8 Anemia in other chronic diseases classified elsewhere; Z87.891 Personal history of nicotine dependence; W01.0XXA Fall on same level from slipping, tripping and stumbling without subsequent striking against object, initial encounter; K59.00 Constipation, unspecified; Y92.009 Unspecified place in unspecified non-institutional (private) residence as the place of occurrence of the external cause; Y93.9 Activity, unspecified; Z79.899 Other long term (current) drug therapy; Z88.1 Allergy status to other antibiotic agents; Z88.8 Allergy status to other drugs, medicaments and biological substances; Z91.048 Other nonmedicinal substance allergy status; Z91.013 Allergy to seafood

== ENCOUNTER 2024-03-15 14:40 | Inpatient (IN) | payer MEDICARE ==
[~2024-03-15] VITALS: Ht 162.6 cm; Wt 36.0 kg
[~2024-03-15 14:40] MED LIST changes: +POLY17PO18 PO
[2024-03-15] MEDS ORDERED: MIRALAX *UNIT DOSE* 17GM PACKET PO PRN (15:30)
[2024-03-15] MEDS ORDERED: methocarbamoL 500 MG TAB PO PRN (15:30)
[2024-03-15] MEDS ORDERED: MAALOX 30 ML SUSP *UDC PO PRN (15:40)
[2024-03-15] MEDS ORDERED: MOM 30ML SUSPENSION UDC PO PRN (15:40)
[2024-03-15] MEDS ORDERED: SIMETHICONE 80MG CHEW TAB PO PRN (15:40)
[2024-03-15] MEDS ORDERED: oxyCODONE 5MG TAB PO PRN (15:40)
[2024-03-15] MEDS ORDERED: ONDANSETRON 4MG TAB PO PRN (15:40)
[2024-03-15] MEDS ORDERED: BISACODYL 10MG SUPP PR PRN (15:40)
[2024-03-15] MEDS ORDERED: BISACODYL 5MG TAB PO PRN (15:40)
[2024-03-15 17:15] VITALS: BP 141/77; TEMP 97.8; O2SAT 94
[2024-03-15] MEDS: CALCIUM/VITAMIN D 500 MG TAB PO SCH (18:47)
[2024-03-15 20:00] VITALS: BP 132/80; TEMP 97; O2SAT 98
[2024-03-15] MEDS: DOCUSATE SODIUM 100MG CAPSULE PO SCH (20:11)
[2024-03-15] MEDS: MIRALAX *UNIT DOSE* 17GM PACKET PO SCH (20:11)
[2024-03-15] MEDS: ACETAMINOPHEN 500 MG TAB PO SCH (20:12)
[2024-03-15] MEDS: CitaloPRAM (CeleXA) 10 MG TABLET PO SCH (20:12)
[2024-03-15] MEDS: FAMOTIDINE 20 MG TAB PO SCH (20:12)
[2024-03-15] MEDS: SENNA 8.6 MG TAB (SENOKOT) PO SCH (20:13)
[2024-03-15] MEDS: GABAPENTIN 100 MG CAP PO SCH (20:13)
[2024-03-15] MEDS: IBUPROFEN 200MG TAB PO SCH (20:14)
[2024-03-15] MEDS: oxyCODONE 5MG TAB PO PRN (21:51)
[2024-03-16 04:00] VITALS: BP 90/54; TEMP 98.6; O2SAT 100
[2024-03-16 07:07] LABS: BASO # 0.1 10^3/uL (0.0-0.2); BASO % 1.7 % (0.0-1.0); EOS # 0.1 10^3/uL (0.0-0.5); EOS % 1.5 % (0.0-3.0); HEMATOCRIT 26.8 % (36.0-47.0); HEMOGLOBIN 8.9 g/dl (12.0-15.5); LYMPH # 0.9 10^3/uL (1.5-5.0); LYMPH % 18.7 % (24.0-44.0); MEAN CORPUSCULAR HEMOGLOBIN 26.7 pg (27.0-33.0); MEAN CORPUSCULAR HGB CONC 33.2 g/dl (32.0-36.5); MEAN CORPUSCULAR VOLUME 80.5 fl (80.0-96.0); MONO # 0.7 10^3/uL (0.0-0.8); MONO % 14.2 % (2.0-8.0); NEUTROPHILS % 63.5 % (36.0-66.0); PLATELET COUNT, AUTOMATED 262 10^3/uL (150-450); RED BLOOD COUNT 3.33 10^6/uL (4.00-5.40); WHITE BLOOD COUNT 4.7 10^3/uL (4.0-10.0)
[2024-03-16 07:27] LABS: BLOOD UREA NITROGEN 12 MG/DL (9-23); CALCIUM LEVEL 8.7 MG/DL (8.3-10.6); CARBON DIOXIDE LEVEL 28 MMOL/L (20-31); CHLORIDE LEVEL 95 MMOL/L (98-107); CREATININE FOR GFR 0.44 MG/DL (0.55-1.30); GLOMERULAR FILTRATION RATE > 60.0 (>45); GLUCOSE, FASTING 77 MG/DL (74-106); POTASSIUM SERUM 3.8 MMOL/L (3.5-5.1); SODIUM LEVEL 127 MMOL/L (136-145)
[2024-03-16] MEDS: NS 500 ML IV ONE (07:35)
[2024-03-16] MEDS: FERROUS GLUCONATE 324 MG TAB PO SCH (09:00)
[2024-03-16] MEDS: ENOXAPARIN 40MG/0.4ML SYRINGE (J1650 PER 10MG) SC SCH (09:00)
[2024-03-16] MEDS: GABAPENTIN 100 MG CAP PO SCH (09:26)
[2024-03-16] MEDS: MIDODRINE 5 MG TAB PO ONE (09:28)
[2024-03-16] MEDS: LIDOCAINE 5% (LIDODERM) PATCH TD SCH (09:32)
[2024-03-16 12:19] VITALS: BP 124/78; TEMP 97.5; O2SAT 100
[2024-03-16] MEDS ORDERED: LIDO5TD TD (17:04)
[2024-03-16] MEDS ORDERED: PERC5TAB12 PO (17:04)
[2024-03-16 20:03] VITALS: BP 120/60; TEMP 98; O2SAT 99
[2024-03-17 04:31] VITALS: BP 116/80; TEMP 97.5; O2SAT 99
== END 2024-03-17 12:00 | disposition home or self-care (01) | DRG 559 ==
LOC: M PM&R 17:15
PROVIDERS: ADMIT Physical Medicine & Rehabilitation; ATTEND Physical Medicine & Rehabilitation
DX: S72.112D Displaced fracture of greater trochanter of left femur, subsequent encounter for closed fracture with routine healing (principal); E43 Unspecified severe protein-calorie malnutrition; Z68.1 Body mass index [BMI] 19.9 or less, adult; E87.1 Hypo-osmolality and hyponatremia; Z66 Do not resuscitate; D50.9 Iron deficiency anemia, unspecified; F41.9 Anxiety disorder, unspecified; F32.A Depression, unspecified; K21.9 Gastro-esophageal reflux disease without esophagitis; K58.9 Irritable bowel syndrome, unspecified; M54.9 Dorsalgia, unspecified; I95.9 Hypotension, unspecified; D63.8 Anemia in other chronic diseases classified elsewhere; K59.00 Constipation, unspecified; Z96.643 Presence of artificial hip joint, bilateral; Z85.810 Personal history of malignant neoplasm of tongue; Z79.899 Other long term (current) drug therapy; Z88.1 Allergy status to other antibiotic agents; Z88.8 Allergy status to other drugs, medicaments and biological substances; Z91.048 Other nonmedicinal substance allergy status; Z91.013 Allergy to seafood; Z87.891 Personal history of nicotine dependence

== ENCOUNTER 2024-03-20 19:15 | Emergency (ER) | payer MEDICARE ==
[~2024-03-20] VITALS: Ht 165.1 cm; Wt 35.9 kg
[~2024-03-20 19:15] MED LIST changes: +LIDO5TD TD
[2024-03-20 21:10] LABS: BASO % 0.8 % (0.0-1.0); EOS # 0.1 10^3/uL (0.0-0.5); EOS % 1.9 % (0.0-3.0); HEMATOCRIT 26.4 % (36.0-47.0); HEMOGLOBIN 8.7 g/dl (12.0-15.5); LYMPH # 0.6 10^3/uL (1.5-5.0); MEAN CORPUSCULAR HEMOGLOBIN 26.9 pg (27.0-33.0); MEAN CORPUSCULAR VOLUME 81.7 fl (80.0-96.0); MONO # 0.6 10^3/uL (0.0-0.8); MONO % 10.6 % (2.0-8.0); NEUTROPHILS # 3.8 10^3/uL (1.5-8.5); NEUTROPHILS % 74.3 % (36.0-66.0); PLATELET COUNT, AUTOMATED 276 10^3/uL (150-450); RED BLOOD COUNT 3.23 10^6/uL (4.00-5.40); WHITE BLOOD COUNT 5.2 10^3/uL (4.0-10.0)
[2024-03-20] MEDS: PERCOCET 5MG/325MG TAB PO ONE (21:12)
[2024-03-20 21:44] LABS: BLOOD UREA NITROGEN 11 MG/DL (9-23); CALCIUM LEVEL 8.8 MG/DL (8.3-10.6); CARBON DIOXIDE LEVEL 29 MMOL/L (20-31); CHLORIDE LEVEL 93 MMOL/L (98-107); CREATININE FOR GFR 0.37 MG/DL (0.55-1.30); GLOMERULAR FILTRATION RATE > 60.0 (>45); GLUCOSE, FASTING 78 MG/DL (74-106); MAGNESIUM LEVEL 2.1 MG/DL (1.8-2.4); POTASSIUM SERUM 4.9 MMOL/L (3.5-5.1); SODIUM LEVEL 127 MMOL/L (136-145)
[2024-03-20 23:37] VITALS: BP 132/83; TEMP 96.3; O2SAT 99
== END 2024-03-20 23:37 | disposition home or self-care (01) ==
LOC: M ED 19:15
DX: S20.219A Contusion of unspecified front wall of thorax, initial encounter (principal); S00.03XA Contusion of scalp, initial encounter; S70.02XA Contusion of left hip, initial encounter; S70.01XA Contusion of right hip, initial encounter; Y92.019 Unspecified place in single-family (private) house as the place of occurrence of the external cause; Y93.9 Activity, unspecified; Y99.9 Unspecified external cause status; W19.XXXA Unspecified fall, initial encounter; E55.9 Vitamin D deficiency, unspecified; F41.9 Anxiety disorder, unspecified; F32.A Depression, unspecified; Z88.1 Allergy status to other antibiotic agents; Z88.8 Allergy status to other drugs, medicaments and biological substances; Z91.013 Allergy to seafood; Z79.1 Long term (current) use of non-steroidal anti-inflammatories (NSAID); Z79.899 Other long term (current) drug therapy

== ENCOUNTER 2024-04-05 14:00 | Outpatient (RCR) | payer MEDICARE ==
[2024-01-13 15:04] VITALS: BP 112/67; O2SAT 100
[2024-01-13 16:25] LABS: BASO # 0.1 10^3/uL (0.0-0.2); BASO % 0.7 % (0.0-1.0); EOS # 0.1 10^3/uL (0.0-0.5); HEMATOCRIT 26.6 % (36.0-47.0); HEMOGLOBIN 8.9 g/dl (12.0-15.5); LYMPH # 0.6 10^3/uL (1.5-5.0); LYMPH % 8.3 % (24.0-44.0); MEAN CORPUSCULAR HEMOGLOBIN 27.9 pg (27.0-33.0); MEAN CORPUSCULAR HGB CONC 33.5 g/dl (32.0-36.5); MEAN CORPUSCULAR VOLUME 83.4 fl (80.0-96.0); MONO # 0.8 10^3/uL (0.0-0.8); MONO % 11.2 % (2.0-8.0); NEUTROPHILS # 5.5 10^3/uL (1.5-8.5); NEUTROPHILS % 78.5 % (36.0-66.0); PLATELET COUNT, AUTOMATED 311 10^3/uL (150-450); RED BLOOD COUNT 3.19 10^6/uL (4.00-5.40)
[2024-01-13 17:00] LABS: LDH LACTATE DEHYDROGENASE 264 U/L (120-246)
[2024-01-13 17:01] LABS: ALBUMIN 3.5 G/DL (3.2-5.2); ALKALINE PHOSPHATASE 94 U/L (46-116); ALT/SGPT 17 U/L (7.0-40); AST/SGOT 28 U/L (<34); BILIRUBIN,TOTAL 0.4 MG/DL (0.3-1.2); BLOOD UREA NITROGEN 10 MG/DL (9-23); CALCIUM LEVEL 8.9 MG/DL (8.3-10.6); CARBON DIOXIDE LEVEL 29 MMOL/L (20-31); CHLORIDE LEVEL 91 MMOL/L (98-107); CREATININE FOR GFR 0.41 MG/DL (0.55-1.30); GLOMERULAR FILTRATION RATE > 60.0 (>45); GLUCOSE, FASTING 82 MG/DL (74-106); SODIUM LEVEL 125 MMOL/L (136-145); TOTAL PROTEIN 6.4 G/DL (5.7-8.2)
[2024-01-13 18:09] LABS: IMMUNOGLOBULIN G 720 MG/DL (650-1600)
[2024-01-15 04:57] LABS: T P ELECTROPHORESIS SO 6.6 g/dL (6.1-8.1)
[2024-01-16 12:02] LABS: HAPTOGLOBIN 253 mg/dL (43-212)
[2024-01-17 07:12] LABS: ALBUMIN SPEP 3.8 g/dL (3.8-4.8); ALPHA-1-GLOBULINS SO 0.5 g/dL (0.2-0.3); ALPHA-2-GLOBULINS SO 0.9 g/dL (0.5-0.9); BETA 2 GLOBULIN 0.3 g/dL (0.2-0.5); BETA-GLOBULIN SO 0.4 g/dL (0.4-0.6); GAMMA GLOBULINS SO 0.7 g/dL (0.8-1.7)
[2024-01-17 13:37] LABS: ANA PATTERN Cytoplasmic (NEGATIVE); ANA PATTERN 2 Nuclear, Homogeneous; ANA SCREEN, IFA POSITIVE (NEGATIVE); ANA TITER 1:40 titer (<1:40)
[2024-01-18 17:03] LABS: COPPER PLASMA 149 mcg/dL (70-175)
[2024-01-30 15:40] VITALS: BP 117/71; O2SAT 98
[2024-02-29 15:45] LABS: BASO # 0.1 10^3/uL (0.0-0.2); BASO % 1.6 % (0.0-1.0); EOS # 0.2 10^3/uL (0.0-0.5); EOS % 5.6 % (0.0-3.0); HEMATOCRIT 27.9 % (36.0-47.0); HEMOGLOBIN 9.3 g/dl (12.0-15.5); LYMPH # 0.7 10^3/uL (1.5-5.0); LYMPH % 19.3 % (24.0-44.0); MEAN CORPUSCULAR HEMOGLOBIN 26.8 pg (27.0-33.0); MEAN CORPUSCULAR HGB CONC 33.3 g/dl (32.0-36.5); MEAN CORPUSCULAR VOLUME 80.4 fl (80.0-96.0); MONO # 0.5 10^3/uL (0.0-0.8); MONO % 14.5 % (2.0-8.0); NEUTROPHILS # 2.2 10^3/uL (1.5-8.5); NEUTROPHILS % 58.5 % (36.0-66.0); PLATELET COUNT, AUTOMATED 274 10^3/uL (150-450); RED BLOOD COUNT 3.47 10^6/uL (4.00-5.40); WHITE BLOOD COUNT 3.7 10^3/uL (4.0-10.0)
[2024-02-29 16:10] LABS: PERCENT SATURATION 5.5 % (13.2-45.0)
[2024-02-29 16:13] LABS: FERRITIN 9.9 NG/ML (7.3-270.7)
[2024-03-05 14:49] VITALS: BP 107/72; O2SAT 98
[2024-04-04 15:57] LABS: BASO # 0.1 10^3/uL (0.0-0.2); BASO % 1.1 % (0.0-1.0); EOS # 0.1 10^3/uL (0.0-0.5); EOS % 2.5 % (0.0-3.0); HEMATOCRIT 27.4 % (36.0-47.0); HEMOGLOBIN 9.1 g/dl (12.0-15.5); LYMPH # 0.6 10^3/uL (1.5-5.0); LYMPH % 13.9 % (24.0-44.0); MEAN CORPUSCULAR HEMOGLOBIN 25.9 pg (27.0-33.0); MEAN CORPUSCULAR HGB CONC 33.2 g/dl (32.0-36.5); MEAN CORPUSCULAR VOLUME 78.1 fl (80.0-96.0); MONO # 0.6 10^3/uL (0.0-0.8); MONO % 12.5 % (2.0-8.0); NEUTROPHILS # 3.1 10^3/uL (1.5-8.5); NEUTROPHILS % 69.5 % (36.0-66.0); PLATELET COUNT, AUTOMATED 345 10^3/uL (150-450); RED BLOOD COUNT 3.51 10^6/uL (4.00-5.40); WHITE BLOOD COUNT 4.4 10^3/uL (4.0-10.0)
[2024-04-04 16:32] LABS: IRON (FE) 18 UG/DL (50-170); TOTAL IRON BINDING CAPACITY 360 UG/DL (250-425)
[2024-04-04 16:33] LABS: ALBUMIN 3.3 G/DL (3.2-5.2); ALKALINE PHOSPHATASE 131 U/L (46-116); ALT/SGPT 14 U/L (7.0-40); AST/SGOT 21 U/L (<34); BILIRUBIN,TOTAL 0.3 MG/DL (0.3-1.2); BLOOD UREA NITROGEN 12 MG/DL (9-23); CALCIUM LEVEL 9.1 MG/DL (8.3-10.6); CARBON DIOXIDE LEVEL 29 MMOL/L (20-31); CHLORIDE LEVEL 92 MMOL/L (98-107); CREATININE FOR GFR 0.45 MG/DL (0.55-1.30); GLOMERULAR FILTRATION RATE > 60.0 (>45); GLUCOSE, FASTING 82 MG/DL (74-106); POTASSIUM SERUM 4.5 MMOL/L (3.5-5.1); SODIUM LEVEL 123 MMOL/L (136-145); TOTAL PROTEIN 6.2 G/DL (5.7-8.2)
[2024-04-04 16:35] LABS: FERRITIN 21.9 NG/ML (7.3-270.7); FOLATE 11.1 NG/ML (>5.4)
[2024-04-04 16:42] LABS: VITAMIN B12 LEVEL 758 PG/ML (211-911)
[~2024-04-05] VITALS: Ht 162.6 cm; Wt 36.7 kg
[2024-05-01] MEDS ORDERED: METH-1164 PO (15:44)
[2024-05-17] MEDS ORDERED: LEVO1TAB39 PO (23:47)
[2024-05-17] MEDS ORDERED: FURO20TA2 PO (23:47)
[2024-05-17] MEDS ORDERED: MUPI2OI TOP (23:47)
[2024-05-17] MEDS ORDERED: PERCOCET PO (23:47)
[2024-05-17] MEDS ORDERED: ACET1TAB37 PO (23:47)
[2024-05-24] MEDS ORDERED: ACET32TAB PO (13:11)
[2024-05-24] MEDS ORDERED: IBUP-1114 PO (13:11)
[2024-05-24] MEDS ORDERED: MIRA33506 PO (13:11)
[2024-06-08] MEDS ORDERED: ACET1TAB55 PO (10:02)
== END 2024-06-28 | disposition expired ==
LOC: M ONCM 14:00
PROVIDERS: ATTEND Internal Medicine Medical Oncology
DX: D61.818 Other pancytopenia (principal); Z85.820 Personal history of malignant melanoma of skin; Z85.810 Personal history of malignant neoplasm of tongue; F41.9 Anxiety disorder, unspecified; K58.9 Irritable bowel syndrome, unspecified; Z79.899 Other long term (current) drug therapy; D50.8 Other iron deficiency anemias; R19.7 Diarrhea, unspecified; R93.2 Abnormal findings on diagnostic imaging of liver and biliary tract; K58.1 Irritable bowel syndrome with constipation; R63.4 Abnormal weight loss; R10.9 Unspecified abdominal pain; R05.9 Cough, unspecified; R91.8 Other nonspecific abnormal finding of lung field
CPT/HCPCS: 36415; 71046; 80053; 82306; 82525; 82607; 82728; 82746; 82784; 82785; 83010; 83550; 83615; 83735; 84155; 84165; 85025; 85027; 86038; 86140; 86334; 88300; G0463

== ENCOUNTER → 2024-04-06 | Outpatient (CLI) | payer MEDICARE, BC | LOC: M SOG 08:00 | PROVIDERS: ATTEND Physician Assistant | DX: M25.551 Pain in right hip (principal); M54.50 Low back pain, unspecified; Z96.643 Presence of artificial hip joint, bilateral; Z87.81 Personal history of (healed) traumatic fracture; M41.9 Scoliosis, unspecified; M47.816 Spondylosis without myelopathy or radiculopathy, lumbar region ==

== ENCOUNTER → 2024-04-26 | Outpatient (CLI) | payer MEDICARE | LOC: M RAD 16:15 | PROVIDERS: ATTEND Internal Medicine Gastroenterology | DX: R10.9 Unspecified abdominal pain (principal); K59.00 Constipation, unspecified; Z96.643 Presence of artificial hip joint, bilateral; M41.9 Scoliosis, unspecified ==

== ENCOUNTER → 2024-04-26 | Outpatient (CLI) | payer MEDICARE ==
[2024-04-26 17:01] LABS: BASO # 0.1 10^3/uL (0.0-0.2); BASO % 0.8 % (0.0-1.0); EOS # 0.1 10^3/uL (0.0-0.5); EOS % 0.8 % (0.0-3.0); HEMATOCRIT 23.7 % (36.0-47.0); HEMOGLOBIN 7.9 g/dl (12.0-15.5); LYMPH # 0.5 10^3/uL (1.5-5.0); LYMPH % 7.4 % (24.0-44.0); MEAN CORPUSCULAR HEMOGLOBIN 26.4 pg (27.0-33.0); MEAN CORPUSCULAR HGB CONC 33.3 g/dl (32.0-36.5); MEAN CORPUSCULAR VOLUME 79.3 fl (80.0-96.0); MONO # 0.7 10^3/uL (0.0-0.8); MONO % 11.4 % (2.0-8.0); NEUTROPHILS % 79.3 % (36.0-66.0); PLATELET COUNT, AUTOMATED 389 10^3/uL (150-450); RED BLOOD COUNT 2.99 10^6/uL (4.00-5.40); WHITE BLOOD COUNT 6.3 10^3/uL (4.0-10.0)
[2024-04-26 17:29] LABS: ALBUMIN 2.8 G/DL (3.2-5.2); ALKALINE PHOSPHATASE 102 U/L (35-104); ALT/SGPT 13 U/L (7.0-40); AST/SGOT 16 U/L (<34); BILIRUBIN,TOTAL 0.3 MG/DL (0.3-1.2); BLOOD UREA NITROGEN 10 MG/DL (9-23); CALCIUM LEVEL 8.8 MG/DL (8.3-10.6); CARBON DIOXIDE LEVEL 29 MMOL/L (20-31); CHLORIDE LEVEL 91 MMOL/L (98-107); CREATININE FOR GFR 0.35 MG/DL (0.55-1.30); GLOMERULAR FILTRATION RATE > 60.0 (>45); GLUCOSE, FASTING 82 MG/DL (74-106); IRON (FE) 9 UG/DL (50-170); POTASSIUM SERUM 3.9 MMOL/L (3.5-5.1); SODIUM LEVEL 125 MMOL/L (136-145); TOTAL IRON BINDING CAPACITY 303 UG/DL (250-425); TOTAL PROTEIN 5.8 G/DL (5.7-8.2)
[2024-04-26 17:31] LABS: FERRITIN 36.3 NG/ML (7.3-270.7); VITAMIN B12 LEVEL 1102 PG/ML (211-911)
[2024-04-26 18:57] LABS: FOLATE 9.07 NG/ML (>5.4)
== END ==
LOC: M LAB 16:11
PROVIDERS: ATTEND Internal Medicine Medical Oncology
DX: D50.9 Iron deficiency anemia, unspecified (principal); R10.9 Unspecified abdominal pain; K59.00 Constipation, unspecified; M41.9 Scoliosis, unspecified; Z96.643 Presence of artificial hip joint, bilateral

== ENCOUNTER → 2024-05-01 | Outpatient (CLI) | payer MEDICARE ==
[~2024-05-01] MED LIST changes: +ACETAMINOPHEN 325 MG TAB As Ordered ONE; +HOME MED LIST COMPLETE! XX SCH; +LIDOCAINE 1% MDV 20ML VIAL As Ordered ONE; +MIDAZOLAM INJ 2MG/2ML VIAL As Ordered ONE; +MIDAZOLAM INJ 2MG/2ML VIAL IV ONE; +fentaNYL 100 MCG/2 ML INJECTION As Ordered ONE; +fentaNYL 100 MCG/2 ML INJECTION IV ONE
[2024-05-01 12:00] VITALS: TEMP 98.7
[2024-05-01] MEDS: ACETAMINOPHEN 325 MG TAB PO PRN (14:27)
[2024-05-01 15:30] VITALS: BP 116/66; O2SAT 97
== END ==
LOC: M IRPRO 11:53
PROVIDERS: ATTEND Internal Medicine Critical Care Medicine
DX: R91.1 Solitary pulmonary nodule (principal)
CPT/HCPCS: 32408; 88305; 99152; 99153; J2250; J3010

== ENCOUNTER → 2024-05-09 | Outpatient (CLI) | payer MEDICARE ==
[~2024-05-09] VITALS: Ht 162.6 cm; Wt 36.3 kg
[~2024-05-09] MED LIST changes: -ACETAMINOPHEN 325 MG TAB As Ordered ONE; +ALBUTEROL SULFATE 2.5MG/0.5ML INH NEB SOLN INH PRN; +EPINEPHrine INJ 1 MG/ML 1ML AMP IM PRN; +FERRIC CARBOXYMALTOSE IV ONE; -HOME MED LIST COMPLETE! XX SCH; -LIDOCAINE 1% MDV 20ML VIAL As Ordered ONE; -MIDAZOLAM INJ 2MG/2ML VIAL As Ordered ONE; -MIDAZOLAM INJ 2MG/2ML VIAL IV ONE; +NS 1,000 ML IV SCH; +NS IV ONE; +diphenhydrAMINE 50MG/ML VIAL IV PRN; -fentaNYL 100 MCG/2 ML INJECTION As Ordered ONE; -fentaNYL 100 MCG/2 ML INJECTION IV ONE; +methylPREDNISolone 125MG 2ML VIAL IV PRN
[2024-05-09 15:05] VITALS: BP 117/59; O2SAT 98
[2024-05-09] MEDS: NS IV ONE (15:33)
[2024-05-09] MEDS: FERRIC CARBOXYMALTOSE IV ONE (15:33)
[2024-05-09 16:47] VITALS: BP 124/75; O2SAT 99
== END ==
LOC: M INFU 14:19
PROVIDERS: ATTEND Internal Medicine
DX: D50.9 Iron deficiency anemia, unspecified (principal); Z88.0 Allergy status to penicillin; Z88.1 Allergy status to other antibiotic agents; Z88.8 Allergy status to other drugs, medicaments and biological substances
CPT/HCPCS: 96365; J1439

== ENCOUNTER → 2024-05-09 | Outpatient (REF) | payer MEDICARE ==
[~2024-05-09] MED LIST changes: -ALBUTEROL SULFATE 2.5MG/0.5ML INH NEB SOLN INH PRN; -EPINEPHrine INJ 1 MG/ML 1ML AMP IM PRN; -FERRIC CARBOXYMALTOSE IV ONE; -NS 1,000 ML IV SCH; -NS IV ONE; -diphenhydrAMINE 50MG/ML VIAL IV PRN; -methylPREDNISolone 125MG 2ML VIAL IV PRN
== END ==
LOC: M LAB REF 12:15
PROVIDERS: ATTEND Podiatrist
DX: L03.116 Cellulitis of left lower limb (principal)

== ENCOUNTER → 2024-05-14 | Outpatient (CLI) | payer MEDICARE | LOC: M SOG 07:59 | PROVIDERS: ATTEND Orthopaedic Surgery | DX: S72.112A Displaced fracture of greater trochanter of left femur, initial encounter for closed fracture (principal); Z53.9 Procedure and treatment not carried out, unspecified reason ==

== ENCOUNTER 2024-05-17 18:38 | Inpatient (IN) | payer MEDICARE ==
[~2024-05-17] VITALS: Ht 162.6 cm; Wt 36.4 kg
[2024-05-17 19:23] LABS: BASO # 0.1 10^3/uL (0.0-0.2); BASO % 0.6 % (0.0-1.0); EOS # 0.1 10^3/uL (0.0-0.5); EOS % 0.6 % (0.0-3.0); HEMATOCRIT 25.1 % (36.0-47.0); HEMOGLOBIN 8.2 g/dl (12.0-15.5); LYMPH # 0.8 10^3/uL (1.5-5.0); LYMPH % 9.3 % (24.0-44.0); MEAN CORPUSCULAR HEMOGLOBIN 25.7 pg (27.0-33.0); MEAN CORPUSCULAR HGB CONC 32.7 g/dl (32.0-36.5); MEAN CORPUSCULAR VOLUME 78.7 fl (80.0-96.0); MONO # 0.8 10^3/uL (0.0-0.8); MONO % 9.3 % (2.0-8.0); NEUTROPHILS # 6.9 10^3/uL (1.5-8.5); NEUTROPHILS % 78.6 % (36.0-66.0); PLATELET COUNT, AUTOMATED 529 10^3/uL (150-450); RED BLOOD COUNT 3.19 10^6/uL (4.00-5.40); WHITE BLOOD COUNT 8.8 10^3/uL (4.0-10.0)
[2024-05-17 19:31] LABS: ALBUMIN 2.6 G/DL (3.2-5.2); ALKALINE PHOSPHATASE 116 U/L (35-104); ALT/SGPT 16 U/L (7.0-40); AST/SGOT 19 U/L (<34); BILIRUBIN,DIRECT < 0.1 MG/DL (<0.4); BILIRUBIN,TOTAL 0.3 MG/DL (0.3-1.2); BLOOD UREA NITROGEN 9 MG/DL (9-23); C REACTIVE PROTEIN QUANTITATIV 6.06 MG/DL (<1.0); CALCIUM LEVEL 8.8 MG/DL (8.3-10.6); CARBON DIOXIDE LEVEL 31 MMOL/L (20-31); CHLORIDE LEVEL 86 MMOL/L (98-107); CREATININE FOR GFR 0.46 MG/DL (0.55-1.30); ERYTHROCYTE SEDIMENTATION RATE 63 mm/hr (0-30); GLOMERULAR FILTRATION RATE > 60.0 (>45); GLUCOSE, FASTING 76 MG/DL (74-106); POTASSIUM SERUM 3.3 MMOL/L (3.5-5.1); SODIUM LEVEL 125 MMOL/L (136-145)
[2024-05-17 19:43] LABS: PROCALCITONIN <0.04 ng/ml
[2024-05-17] MEDS ORDERED: FURO20TA2 PO (23:47)
[2024-05-17] MEDS ORDERED: MUPI2OI TOP (23:47)
[2024-05-17] MEDS ORDERED: PERCOCET PO (23:47)
[2024-05-17] MEDS ORDERED: ACET1TAB37 PO (23:47)
[2024-05-17] MEDS ORDERED: LEVO1TAB39 PO (23:47)
[2024-05-17] MEDS ORDERED: HOME MED LIST COMPLETE! XX SCH (23:50)
[2024-05-18] MEDS ORDERED: LEVALBUTEROL 1.25MG 0.5ML CONCENTRATE NEB INH PRN
[2024-05-18] MEDS ORDERED: MAALOX 30 ML SUSP *UDC PO PRN
[2024-05-18] MEDS ORDERED: MOM 30ML SUSPENSION UDC PO PRN
[2024-05-18] MEDS ORDERED: ACETAMINOPHEN 325 MG TAB PO PRN
[2024-05-18] MEDS: POTASSIUM CHLORIDE 10MEQ SR TABLET PO ONE (00:52)
[2024-05-18 01:30] VITALS: BP 109/62; TEMP 97.5; O2SAT 93
[2024-05-18] MEDS: SODIUM CHLORIDE 0.9% 3ML NEB SOLUTION FOR INHALATION INH SCH (02:00)
[2024-05-18] MEDS: FAMOTIDINE 20 MG TAB PO ONE (02:02)
[2024-05-18] MEDS: methocarbamoL 500 MG TAB PO PRN (02:03)
[2024-05-18] MEDS: GABAPENTIN 300 MG CAP PO SCH (02:04)
[2024-05-18] MEDS: PERCOCET 5MG/325MG TAB PO PRN (02:04)
[2024-05-18] MEDS: MIRALAX *UNIT DOSE* 17GM PACKET PO ONE (02:05)
[2024-05-18 04:00] VITALS: BP 107/67; TEMP 98.2; O2SAT 96
[2024-05-18 06:46] LABS: HEMATOCRIT 25.5 % (36.0-47.0); HEMOGLOBIN 8.3 g/dl (12.0-15.5); MEAN CORPUSCULAR HEMOGLOBIN 25.3 pg (27.0-33.0); MEAN CORPUSCULAR HGB CONC 32.5 g/dl (32.0-36.5); MEAN CORPUSCULAR VOLUME 77.7 fl (80.0-96.0); PLATELET COUNT, AUTOMATED 505 10^3/uL (150-450); RED BLOOD COUNT 3.28 10^6/uL (4.00-5.40)
[2024-05-18 07:26] LABS: PROCALCITONIN <0.04 ng/ml
[2024-05-18 07:27] LABS: ALBUMIN 2.3 G/DL (3.2-5.2); ALKALINE PHOSPHATASE 108 U/L (35-104); ALT/SGPT 10 U/L (7.0-40); AST/SGOT 16 U/L (<34); BILIRUBIN,TOTAL 0.3 MG/DL (0.3-1.2); BLOOD UREA NITROGEN 7 MG/DL (9-23); CALCIUM LEVEL 8.6 MG/DL (8.3-10.6); CARBON DIOXIDE LEVEL 30 MMOL/L (20-31); CHLORIDE LEVEL 90 MMOL/L (98-107); GLOMERULAR FILTRATION RATE > 60.0 (>45); GLUCOSE, FASTING 70 MG/DL (74-106); MAGNESIUM LEVEL 1.9 MG/DL (1.8-2.4); POTASSIUM SERUM 3.6 MMOL/L (3.5-5.1); SODIUM LEVEL 127 MMOL/L (136-145); TOTAL PROTEIN 5.5 G/DL (5.7-8.2)
[2024-05-18 08:00] VITALS: BP 118/70; TEMP 97.5; O2SAT 99
[2024-05-18] MEDS: DOCUSATE SODIUM 100MG CAPSULE PO SCH (08:29)
[2024-05-18] MEDS: LACTOBACILLUS ACIDOPHILUS CAP (BACID) PO SCH (08:29)
[2024-05-18] MEDS: FAMOTIDINE 20 MG TAB PO SCH (08:29)
[2024-05-18] MEDS: LevoFLOXacin 500 MG TABLET PO SCH (08:29)
[2024-05-18] MEDS: ACETAMINOPHEN 650MG ER TAB (TYLENOL ARTHRITIS) PO SCH (08:29)
[2024-05-18] MEDS: FUROSEMIDE 20 MG TAB PO SCH ×2 (08:30→17:36)
[2024-05-18] MEDS: MUPIROCIN 2% OINT 22 GM TUBE TOP SCH (09:48)
[2024-05-18] MEDS: IBUPROFEN 400MG TAB PO SCH (10:01)
[2024-05-18] MEDS ORDERED: VANCOMYCIN/WATER FOR INJ 1,000 MG in IV 1 EA IP ONE (11:15)
[2024-05-18 12:09] VITALS: BP 105/60; TEMP 97.7; O2SAT 94
[2024-05-18] MEDS: GABAPENTIN 100 MG CAP PO SCH (12:28)
[2024-05-18] MEDS: VANCOMYCIN HCL 750 MG, VIAL MATE ADAPTER 1 EACH in NS 250 ML IV ONE (15:48)
[2024-05-18] MEDS: NEPHRO-VIT TAB (NEPHROCAPS) PO SCH (17:31)
[2024-05-18] MEDS: CitaloPRAM (CeleXA) 10 MG TABLET PO SCH (17:35)
[2024-05-18] MEDS: MIRALAX *UNIT DOSE* 17GM PACKET PO SCH (17:37)
[2024-05-18] MEDS: CALCIUM/VITAMIN D 500 MG TAB PO SCH (17:47)
[2024-05-18] MEDS ORDERED: CALCIUM/VITAMIN D 500 MG TAB PO SCH ×2 (18:00)
[2024-05-18] MEDS ORDERED: LYSINE 500 MG PO SCH (18:00)
[2024-05-18] MEDS: SODIUM CHLORIDE 1 GM TAB PO SCH (18:00)
[2024-05-18] MEDS: VANCOMYCIN HCL 500 MG in DEXTROSE 5% (D5W) MINI-BAG PLU 100 ML IV SCH (20:07)
[2024-05-19 04:00] VITALS: BP 84/53; TEMP 97.5; O2SAT 96
[2024-05-19 06:32] LABS: BASO # 0.1 10^3/uL (0.0-0.2); EOS # 0.1 10^3/uL (0.0-0.5); EOS % 1.6 % (0.0-3.0); HEMATOCRIT 24.9 % (36.0-47.0); HEMOGLOBIN 8.2 g/dl (12.0-15.5); LYMPH # 0.8 10^3/uL (1.5-5.0); LYMPH % 12.5 % (24.0-44.0); MEAN CORPUSCULAR HEMOGLOBIN 25.8 pg (27.0-33.0); MEAN CORPUSCULAR HGB CONC 32.9 g/dl (32.0-36.5); MEAN CORPUSCULAR VOLUME 78.3 fl (80.0-96.0); MONO # 0.7 10^3/uL (0.0-0.8); NEUTROPHILS # 4.8 10^3/uL (1.5-8.5); NEUTROPHILS % 71.2 % (36.0-66.0); PLATELET COUNT, AUTOMATED 514 10^3/uL (150-450); RED BLOOD COUNT 3.18 10^6/uL (4.00-5.40); WHITE BLOOD COUNT 6.7 10^3/uL (4.0-10.0)
[2024-05-19 07:06] LABS: BLOOD UREA NITROGEN 11 MG/DL (9-23); CALCIUM LEVEL 8.2 MG/DL (8.3-10.6); CARBON DIOXIDE LEVEL 30 MMOL/L (20-31); CHLORIDE LEVEL 94 MMOL/L (98-107); GLOMERULAR FILTRATION RATE > 60.0 (>45); GLUCOSE, FASTING 91 MG/DL (74-106); POTASSIUM SERUM 3.5 MMOL/L (3.5-5.1); SODIUM LEVEL 129 MMOL/L (136-145)
[2024-05-19 12:00] VITALS: BP 106/67; TEMP 97.7; O2SAT 97
[2024-05-19] MEDS: LevoFLOXacin IV 750 MG in IV 1 EA IV SCH (12:36)
[2024-05-19 19:20] VITALS: BP 109/69; TEMP 97.5; O2SAT 99
[2024-05-19 21:00] VITALS: O2SAT 99
[2024-05-20 04:53] VITALS: BP 106/60; TEMP 97.9; O2SAT 96
[2024-05-20 06:20] LABS: BASO # 0.1 10^3/uL (0.0-0.2); BASO % 1.1 % (0.0-1.0); EOS # 0.1 10^3/uL (0.0-0.5); EOS % 1.4 % (0.0-3.0); HEMATOCRIT 25.1 % (36.0-47.0); HEMOGLOBIN 8.2 g/dl (12.0-15.5); LYMPH # 0.9 10^3/uL (1.5-5.0); LYMPH % 13.1 % (24.0-44.0); MEAN CORPUSCULAR HEMOGLOBIN 25.4 pg (27.0-33.0); MEAN CORPUSCULAR HGB CONC 32.7 g/dl (32.0-36.5); MEAN CORPUSCULAR VOLUME 77.7 fl (80.0-96.0); MONO # 0.7 10^3/uL (0.0-0.8); MONO % 10.2 % (2.0-8.0); NEUTROPHILS # 4.8 10^3/uL (1.5-8.5); NEUTROPHILS % 72.5 % (36.0-66.0); PLATELET COUNT, AUTOMATED 472 10^3/uL (150-450); RED BLOOD COUNT 3.23 10^6/uL (4.00-5.40); WHITE BLOOD COUNT 6.7 10^3/uL (4.0-10.0)
[2024-05-20 06:46] LABS: BLOOD UREA NITROGEN 9 MG/DL (9-23); CALCIUM LEVEL 8.3 MG/DL (8.3-10.6); CARBON DIOXIDE LEVEL 30 MMOL/L (20-31); CHLORIDE LEVEL 91 MMOL/L (98-107); CREATININE FOR GFR 0.39 MG/DL (0.55-1.30); GLOMERULAR FILTRATION RATE > 60.0 (>45); GLUCOSE, FASTING 97 MG/DL (74-106); POTASSIUM SERUM 3.2 MMOL/L (3.5-5.1); SODIUM LEVEL 127 MMOL/L (136-145)
[2024-05-20] MEDS: POTASSIUM CHLORIDE 10MEQ SR TABLET PO SCH (08:49)
[2024-05-20] MEDS: LACTAID PO PRN (09:16)
[2024-05-20] MEDS: LevoFLOXacin 750 MG TABLET PO SCH (10:15)
[2024-05-20 12:00] VITALS: BP 104/62; TEMP 97.6; O2SAT 97
[2024-05-20 19:40] VITALS: BP 121/68; TEMP 97.7; O2SAT 100
[2024-05-21 05:13] VITALS: BP 90/58; TEMP 98.1; O2SAT 97
[2024-05-21 07:52] LABS: BASO # 0.1 10^3/uL (0.0-0.2); BASO % 0.6 % (0.0-1.0); EOS % 0.2 % (0.0-3.0); HEMATOCRIT 27.2 % (36.0-47.0); HEMOGLOBIN 8.8 g/dl (12.0-15.5); LYMPH # 0.6 10^3/uL (1.5-5.0); LYMPH % 6.1 % (24.0-44.0); MEAN CORPUSCULAR HEMOGLOBIN 25.4 pg (27.0-33.0); MEAN CORPUSCULAR HGB CONC 32.4 g/dl (32.0-36.5); MEAN CORPUSCULAR VOLUME 78.6 fl (80.0-96.0); MONO % 9.7 % (2.0-8.0); NEUTROPHILS % 81.3 % (36.0-66.0); PLATELET COUNT, AUTOMATED 469 10^3/uL (150-450); RED BLOOD COUNT 3.46 10^6/uL (4.00-5.40); WHITE BLOOD COUNT 9.8 10^3/uL (4.0-10.0)
[2024-05-21 08:19] LABS: BLOOD UREA NITROGEN 12 MG/DL (9-23); CALCIUM LEVEL 8.3 MG/DL (8.3-10.6); CARBON DIOXIDE LEVEL 30 MMOL/L (20-31); CHLORIDE LEVEL 88 MMOL/L (98-107); CREATININE FOR GFR 0.59 MG/DL (0.55-1.30); GLOMERULAR FILTRATION RATE > 60.0 (>45); GLUCOSE, FASTING 79 MG/DL (74-106); POTASSIUM SERUM 3.9 MMOL/L (3.5-5.1); SODIUM LEVEL 123 MMOL/L (136-145)
[2024-05-21 12:00] VITALS: BP 97/61; TEMP 97.9; O2SAT 99
[2024-05-21 15:00] LABS: BLOOD UREA NITROGEN 14 MG/DL (9-23); CALCIUM LEVEL 8.5 MG/DL (8.3-10.6); CARBON DIOXIDE LEVEL 31 MMOL/L (20-31); CHLORIDE LEVEL 88 MMOL/L (98-107); CREATININE FOR GFR 0.53 MG/DL (0.55-1.30); GLOMERULAR FILTRATION RATE > 60.0 (>45); GLUCOSE, FASTING 96 MG/DL (74-106); POTASSIUM SERUM 3.8 MMOL/L (3.5-5.1); SODIUM LEVEL 124 MMOL/L (136-145)
[2024-05-21] MEDS: FERRIC CARBOXYMALTOSE INJ 750 MG, VIAL MATE ADAPTER 1 EACH in NS 100 ML IV ONE (15:00)
[2024-05-21] MEDS ORDERED: MOM 30ML SUSPENSION UDC PO PRN (16:55)
[2024-05-21] MEDS: TOLVAPTAN 7.5 MG HALF-TAB PO ONE (17:18)
[2024-05-21] MEDS: MIRALAX *UNIT DOSE* 17GM PACKET PO SCH (17:42)
[2024-05-21 19:38] VITALS: BP 113/74; TEMP 97.8; O2SAT 97
[2024-05-22 05:07] VITALS: BP 90/56; TEMP 97.7; O2SAT 99
[2024-05-22] MEDS: LevoFLOXacin 750 MG TABLET PO SCH (08:59)
[2024-05-22] MEDS: FUROSEMIDE 20 MG TAB PO SCH (08:59)
[2024-05-22] MEDS ORDERED: UNRESOLVED PATIENT OWN MED ORDER XX SCH (09:00)
[2024-05-22 09:03] VITALS: BP 108/62
[2024-05-22 09:07] LABS: BASO % 0.5 % (0.0-1.0); EOS % 0.2 % (0.0-3.0); HEMATOCRIT 25.3 % (36.0-47.0); HEMOGLOBIN 8.5 g/dl (12.0-15.5); LYMPH # 0.9 10^3/uL (1.5-5.0); LYMPH % 10.4 % (24.0-44.0); MEAN CORPUSCULAR HEMOGLOBIN 26.2 pg (27.0-33.0); MEAN CORPUSCULAR HGB CONC 33.6 g/dl (32.0-36.5); MEAN CORPUSCULAR VOLUME 78.1 fl (80.0-96.0); MONO # 0.9 10^3/uL (0.0-0.8); MONO % 11.5 % (2.0-8.0); NEUTROPHILS # 6.2 10^3/uL (1.5-8.5); NEUTROPHILS % 75.8 % (36.0-66.0); PLATELET COUNT, AUTOMATED 435 10^3/uL (150-450); RED BLOOD COUNT 3.24 10^6/uL (4.00-5.40); WHITE BLOOD COUNT 8.2 10^3/uL (4.0-10.0)
[2024-05-22 09:27] LABS: BLOOD UREA NITROGEN 13 MG/DL (9-23); CALCIUM LEVEL 8.2 MG/DL (8.3-10.6); CARBON DIOXIDE LEVEL 29 MMOL/L (20-31); CHLORIDE LEVEL 92 MMOL/L (98-107); CREATININE FOR GFR 0.52 MG/DL (0.55-1.30); GLOMERULAR FILTRATION RATE > 60.0 (>45); GLUCOSE, FASTING 85 MG/DL (74-106); POTASSIUM SERUM 3.8 MMOL/L (3.5-5.1); SODIUM LEVEL 128 MMOL/L (136-145)
[2024-05-22] MEDS ORDERED: FIBER-CON 625 MG TAB PO PRN (11:15)
[2024-05-22] MEDS ORDERED: BISACODYL 10MG SUPP PR PRN (11:15)
[2024-05-22 12:00] VITALS: BP 98/58; TEMP 97.7; O2SAT 100
[2024-05-22 20:46] VITALS: BP 97/57; TEMP 97.7; O2SAT 98
[2024-05-22] MEDS: MIRALAX *UNIT DOSE* 17GM PACKET PO SCH (21:34)
[2024-05-22 23:40] VITALS: BP 97/57; TEMP 97.7; O2SAT 98
[2024-05-23 04:15] VITALS: BP 98/57; TEMP 98.4; O2SAT 99
[2024-05-23 06:57] LABS: BASO # 0.1 10^3/uL (0.0-0.2); BASO % 0.6 % (0.0-1.0); EOS # 0.1 10^3/uL (0.0-0.5); EOS % 0.6 % (0.0-3.0); HEMATOCRIT 25.3 % (36.0-47.0); HEMOGLOBIN 8.4 g/dl (12.0-15.5); LYMPH # 0.7 10^3/uL (1.5-5.0); LYMPH % 7.7 % (24.0-44.0); MEAN CORPUSCULAR HEMOGLOBIN 25.8 pg (27.0-33.0); MEAN CORPUSCULAR HGB CONC 33.2 g/dl (32.0-36.5); MEAN CORPUSCULAR VOLUME 77.8 fl (80.0-96.0); MONO # 0.9 10^3/uL (0.0-0.8); MONO % 9.3 % (2.0-8.0); NEUTROPHILS # 7.4 10^3/uL (1.5-8.5); NEUTROPHILS % 80.6 % (36.0-66.0); PLATELET COUNT, AUTOMATED 397 10^3/uL (150-450); RED BLOOD COUNT 3.25 10^6/uL (4.00-5.40); WHITE BLOOD COUNT 9.2 10^3/uL (4.0-10.0)
[2024-05-23 07:28] LABS: BLOOD UREA NITROGEN 14 MG/DL (9-23); CALCIUM LEVEL 8.3 MG/DL (8.3-10.6); CARBON DIOXIDE LEVEL 28 MMOL/L (20-31); CHLORIDE LEVEL 96 MMOL/L (98-107); CREATININE FOR GFR 0.41 MG/DL (0.55-1.30); GLOMERULAR FILTRATION RATE > 60.0 (>45); GLUCOSE, FASTING 82 MG/DL (74-106); POTASSIUM SERUM 4.1 MMOL/L (3.5-5.1); SODIUM LEVEL 130 MMOL/L (136-145)
[2024-05-23] MEDS ORDERED: ACETAMINOPHEN 650MG ER TAB (TYLENOL ARTHRITIS) PO SCH (11:45)
[2024-05-23] MEDS ORDERED: oxyCODONE 5MG TAB PO PRN (11:45)
[2024-05-23 12:00] VITALS: BP 87/55; TEMP 97.5
[2024-05-23 12:20] VITALS: BP 94/56
[2024-05-23] MEDS: IBUPROFEN 400MG TAB PO SCH (16:44)
[2024-05-23] MEDS: ACETAMINOPHEN 325 MG TAB PO SCH (16:44)
[2024-05-23 19:50] VITALS: BP 122/58; TEMP 97; O2SAT 94
[2024-05-23 21:10] VITALS: BP 102/60; TEMP 98.1; O2SAT 98
[2024-05-24 04:40] VITALS: BP 93/55; TEMP 96.8; O2SAT 97
[2024-05-24 05:50] VITALS: BP 81/52
[2024-05-24 06:10] VITALS: BP 99/61
[2024-05-24] MEDS ORDERED: NS 500 ML IV ONE (06:10)
[2024-05-24] MEDS: PREPARATION H SUPP (HEMORRHOID) PR SCH (09:00)
[2024-05-24 09:01] LABS: BASO # 0.1 10^3/uL (0.0-0.2); BASO % 0.5 % (0.0-1.0); EOS # 0.1 10^3/uL (0.0-0.5); EOS % 0.5 % (0.0-3.0); HEMATOCRIT 27.2 % (36.0-47.0); LYMPH # 0.8 10^3/uL (1.5-5.0); LYMPH % 6.9 % (24.0-44.0); MEAN CORPUSCULAR HEMOGLOBIN 25.9 pg (27.0-33.0); MEAN CORPUSCULAR HGB CONC 33.1 g/dl (32.0-36.5); MEAN CORPUSCULAR VOLUME 78.2 fl (80.0-96.0); MONO # 0.7 10^3/uL (0.0-0.8); MONO % 6.6 % (2.0-8.0); NEUTROPHILS # 9.3 10^3/uL (1.5-8.5); NEUTROPHILS % 84.1 % (36.0-66.0); PLATELET COUNT, AUTOMATED 466 10^3/uL (150-450); RED BLOOD COUNT 3.48 10^6/uL (4.00-5.40); WHITE BLOOD COUNT 11.1 10^3/uL (4.0-10.0)
[2024-05-24 09:24] LABS: BLOOD UREA NITROGEN 13 MG/DL (9-23); CALCIUM LEVEL 8.8 MG/DL (8.3-10.6); CARBON DIOXIDE LEVEL 29 MMOL/L (20-31); CHLORIDE LEVEL 92 MMOL/L (98-107); CREATININE FOR GFR 0.45 MG/DL (0.55-1.30); GLOMERULAR FILTRATION RATE > 60.0 (>45); GLUCOSE, FASTING 81 MG/DL (74-106); POTASSIUM SERUM 4.4 MMOL/L (3.5-5.1); SODIUM LEVEL 127 MMOL/L (136-145)
[2024-05-24 11:07] LABS: COTININE <1.0 ng/mL (.); NICOTINE <1.0 ng/mL (.)
[2024-05-24 12:00] VITALS: BP 98/61; TEMP 97.5; O2SAT 95
[2024-05-24] MEDS ORDERED: IBUP-1114 PO (13:11)
[2024-05-24] MEDS ORDERED: MIRA33506 PO (13:11)
[2024-05-24] MEDS ORDERED: ACET32TAB PO (13:11)
[2024-05-24] MEDS: MIDODRINE 5 MG TAB PO ONE (13:38)
[2024-05-24 13:39] VITALS: BP 113/74
[2024-05-24 13:42] LABS: C REACTIVE PROTEIN QUANTITATIV 7.55 MG/DL (<1.0)
[2024-05-24 13:54] LABS: PROCALCITONIN 0.06 ng/ml
[2024-05-24 14:53] LABS: ERYTHROCYTE SEDIMENTATION RATE 86 mm/hr (0-30)
== END 2024-05-24 16:00 | disposition home health service (06) | DRG 193 ==
LOC: EDBD 18:38 → M ED 18:38 → M ED INP 23:14 → M MS5PR 05-18 01:33 → OBSVTOIN 05-18 15:21
PROVIDERS: ADMIT Family Medicine; ATTEND General Practice
DX: J18.9 Pneumonia, unspecified organism (principal); E43 Unspecified severe protein-calorie malnutrition; E22.2 Syndrome of inappropriate secretion of antidiuretic hormone; G37.9 Demyelinating disease of central nervous system, unspecified; Z68.1 Body mass index [BMI] 19.9 or less, adult; J44.0 Chronic obstructive pulmonary disease with (acute) lower respiratory infection; L03.116 Cellulitis of left lower limb; M80.08XA Age-related osteoporosis with current pathological fracture, vertebra(e), initial encounter for fracture; D63.8 Anemia in other chronic diseases classified elsewhere; K59.09 Other constipation; R91.1 Solitary pulmonary nodule; I73.00 Raynaud's syndrome without gangrene; G62.9 Polyneuropathy, unspecified; F32.A Depression, unspecified; F41.9 Anxiety disorder, unspecified; D50.9 Iron deficiency anemia, unspecified; K58.9 Irritable bowel syndrome, unspecified; K21.9 Gastro-esophageal reflux disease without esophagitis; I25.10 Atherosclerotic heart disease of native coronary artery without angina pectoris; Z96.643 Presence of artificial hip joint, bilateral; Z85.828 Personal history of other malignant neoplasm of skin; Z87.891 Personal history of nicotine dependence; Z79.899 Other long term (current) drug therapy; Z88.0 Allergy status to penicillin; Z88.1 Allergy status to other antibiotic agents; Z88.8 Allergy status to other drugs, medicaments and biological substances; Z91.013 Allergy to seafood; Z85.810 Personal history of malignant neoplasm of tongue; Z91.048 Other nonmedicinal substance allergy status; R29.6 Repeated falls; R62.7 Adult failure to thrive; G89.29 Other chronic pain; M54.50 Low back pain, unspecified; M85.80 Other specified disorders of bone density and structure, unspecified site

== ENCOUNTER 2024-06-07 20:10 | Inpatient (IN) | payer MEDICARE ==
[~2024-06-07] VITALS: Ht 162.6 cm; Wt 40.4 kg
[~2024-06-07 20:10] MED LIST changes: +ACET1TAB37 PO; +ACET32TAB PO; +FURO20TA2 PO; +LEVO1TAB39 PO; +MUPI2OI TOP
[2024-06-07 20:55] LABS: BASO % 0.2 % (0.0-1.0); EOS % 0.3 % (0.0-3.0); HEMOGLOBIN 7.7 g/dl (12.0-15.5); LYMPH # 0.8 10^3/uL (1.5-5.0); LYMPH % 6.8 % (24.0-44.0); MEAN CORPUSCULAR HEMOGLOBIN 26.3 pg (27.0-33.0); MEAN CORPUSCULAR HGB CONC 33.5 g/dl (32.0-36.5); MEAN CORPUSCULAR VOLUME 78.5 fl (80.0-96.0); MONO # 0.9 10^3/uL (0.0-0.8); MONO % 7.8 % (2.0-8.0); NEUTROPHILS # 9.6 10^3/uL (1.5-8.5); NEUTROPHILS % 83.8 % (36.0-66.0); PLATELET COUNT, AUTOMATED 462 10^3/uL (150-450); RED BLOOD COUNT 2.93 10^6/uL (4.00-5.40); WHITE BLOOD COUNT 11.4 10^3/uL (4.0-10.0)
[2024-06-07 21:56] LABS: ALBUMIN 2.1 G/DL (3.2-5.2); ALKALINE PHOSPHATASE 129 U/L (35-104); ALT/SGPT 11 U/L (7.0-40); AST/SGOT 21 U/L (<34); BILIRUBIN,DIRECT 0.1 MG/DL (<0.4); BILIRUBIN,TOTAL 0.3 MG/DL (0.3-1.2); BLOOD UREA NITROGEN 13 MG/DL (9-23); CALCIUM LEVEL 8.4 MG/DL (8.3-10.6); CARBON DIOXIDE LEVEL 30 MMOL/L (20-31); CHLORIDE LEVEL 86 MMOL/L (98-107); CK-MB VALUE MASS 1.6 NG/ML (<3.6); CREATININE FOR GFR 0.48 MG/DL (0.55-1.30); GLOMERULAR FILTRATION RATE > 60.0 (>45); GLUCOSE, FASTING 70 MG/DL (74-106); POTASSIUM SERUM 3.7 MMOL/L (3.5-5.1); SODIUM LEVEL 123 MMOL/L (136-145); TOTAL PROTEIN 5.3 G/DL (5.7-8.2)
[2024-06-07 21:57] LABS: THYROID STIMULATING HORMONE 1.729 uIU/ML (0.55-4.78); THYROXINE (T4) 7.9 UG/DL (4.5-10.9)
[2024-06-07 22:04] LABS: CPK CREATINE PHOSPHOKINASE 52 U/L (34-145); MB/CK RELATIVE INDEX 3.07 (< OR =4)
[2024-06-07] MEDS: FUROSEMIDE 40MG/4ML VIAL IV ONE (22:31)
[2024-06-07 22:58] LABS: CK-MB VALUE MASS 1.2 NG/ML (<3.6)
[2024-06-07 23:00] LABS: CPK CREATINE PHOSPHOKINASE 44 U/L (34-145); MB/CK RELATIVE INDEX 2.72 (< OR =4)
[2024-06-07 23:56] LABS: KETONE, URINE AUTO RFX NEGATIVE (NEGATIVE); LEUKOCYTE ESTERASE UR AUTO RFX NEGATIVE (NEGATIVE); NITRITE, URINE AUTO RFX NEGATIVE (NEGATIVE); RBC, URINE AUTO RFX 1 /HPF (0-3); SQUAM EPITHELIAL CELL UR AURFX 0 /HPF (0-6); WBC, URINE AUTO RFX 0 /HPF (0-3)
[2024-06-08 02:39] LABS: OSMOLALITY URINE 242 MOSM/KG (50-1400)
[2024-06-08 02:55] LABS: SODIUM,RANDOM URINE 63 MMOL/L
[2024-06-08] MEDS: FAMOTIDINE 20 MG TAB PO ONE (02:58)
[2024-06-08] MEDS: GABAPENTIN 300 MG CAP PO ONE (02:58)
[2024-06-08] MEDS: oxyCODONE 5MG TAB PO ONE (02:58)
[2024-06-08] MEDS ORDERED: ISOVUE-370 76% 100ML VIAL As Ordered ONE (03:20)
[2024-06-08] MEDS ORDERED: MOM 30ML SUSPENSION UDC PO PRN (04:35)
[2024-06-08] MEDS ORDERED: oxyCODONE 5MG TAB PO PRN (04:40)
[2024-06-08] MEDS: methocarbamoL 500 MG TAB PO SCH (07:15)
[2024-06-08] MEDS: LIDOCAINE 5% (LIDODERM) PATCH TD SCH (07:16)
[2024-06-08] MEDS: oxyCODONE 5MG TAB PO PRN ×2 (08:11→16:25)
[2024-06-08] MEDS: DOCUSATE SODIUM 100MG CAPSULE PO SCH (08:11)
[2024-06-08] MEDS: MIRALAX *UNIT DOSE* 17GM PACKET PO SCH (08:11)
[2024-06-08] MEDS: FUROSEMIDE 40MG/4ML VIAL IV SCH (08:29)
[2024-06-08] MEDS: SENNA 8.6 MG TAB (SENOKOT) PO SCH (08:30)
[2024-06-08] MEDS ORDERED: ENOXAPARIN 30MG/0.3ML SYRINGE (J1650 PER 10MG) SC SCH (09:00)
[2024-06-08] MEDS: BISACODYL 10MG SUPP PR SCH (09:00)
[2024-06-08] MEDS ORDERED: ACET1TAB55 PO (10:02)
[2024-06-08] MEDS ORDERED: HOME MED LIST COMPLETE! XX SCH (10:05)
[2024-06-08 12:50] LABS: IONIZED CALCIUM 4.1 MG/DL (4.5-5.3)
[2024-06-08 13:06] LABS: BASO % 0.2 % (0.0-1.0); EOS % 0.2 % (0.0-3.0); HEMATOCRIT 26.3 % (36.0-47.0); HEMOGLOBIN 8.8 g/dl (12.0-15.5); LYMPH # 0.6 10^3/uL (1.5-5.0); LYMPH % 5.2 % (24.0-44.0); MEAN CORPUSCULAR HGB CONC 33.5 g/dl (32.0-36.5); MEAN CORPUSCULAR VOLUME 77.8 fl (80.0-96.0); MONO # 0.9 10^3/uL (0.0-0.8); MONO % 6.9 % (2.0-8.0); NEUTROPHILS # 10.6 10^3/uL (1.5-8.5); NEUTROPHILS % 86.4 % (36.0-66.0); PLATELET COUNT, AUTOMATED 540 10^3/uL (150-450); RED BLOOD COUNT 3.38 10^6/uL (4.00-5.40); WHITE BLOOD COUNT 12.2 10^3/uL (4.0-10.0)
[2024-06-08 13:13] LABS: ERYTHROCYTE SEDIMENTATION RATE 79 mm/hr (0-30)
[2024-06-08 13:32] LABS: IRON (FE) 8 UG/DL (50-170)
[2024-06-08 13:33] LABS: ALBUMIN 2.1 G/DL (3.2-5.2); ALKALINE PHOSPHATASE 131 U/L (35-104); ALT/SGPT 10 U/L (7.0-40); AST/SGOT 14 U/L (<34); BILIRUBIN,DIRECT 0.1 MG/DL (<0.4); BILIRUBIN,TOTAL 0.3 MG/DL (0.3-1.2); BLOOD UREA NITROGEN 11 MG/DL (9-23); CALCIUM LEVEL 8.2 MG/DL (8.3-10.6); CARBON DIOXIDE LEVEL 30 MMOL/L (20-31); CHLORIDE LEVEL 88 MMOL/L (98-107); CREATININE FOR GFR 0.38 MG/DL (0.55-1.30); GLOMERULAR FILTRATION RATE > 60.0 (>45); GLUCOSE, FASTING 59 MG/DL (74-106); MAGNESIUM LEVEL 1.9 MG/DL (1.8-2.4); PERCENT SATURATION 4.6 % (13.2-45.0); PHOSPHORUS LEVEL 3.8 MG/DL (2.4-5.1); POTASSIUM SERUM 3.6 MMOL/L (3.5-5.1); SODIUM LEVEL 126 MMOL/L (136-145); TOTAL IRON BINDING CAPACITY 175 UG/DL (250-425); TOTAL PROTEIN 5.1 G/DL (5.7-8.2)
[2024-06-08 13:51] LABS: OSMOLALITY SERUM 258 MOSM/KG (280-301)
[2024-06-08 14:45] VITALS: BP 100/66; TEMP 97.9; O2SAT 95
[2024-06-08 20:00] VITALS: TEMP 97.7
[2024-06-08] MEDS: GABAPENTIN 300 MG CAP PO SCH (21:16)
[2024-06-08] MEDS: FAMOTIDINE 20 MG TAB PO SCH (21:17)
[2024-06-08] MEDS: NS 500 ML IV ONE (21:18)
[2024-06-09 03:59] VITALS: BP 89/49; TEMP 99; O2SAT 93
[2024-06-09 04:07] VITALS: BP 88/40; TEMP 101
[2024-06-09] MEDS: ACETAMINOPHEN *IV* 1,000 MG in IV 1 EA IV ONE (04:44)
[2024-06-09 05:12] LABS: BASO % 0.3 % (0.0-1.0); EOS % 0.1 % (0.0-3.0); HEMATOCRIT 24.3 % (36.0-47.0); LYMPH # 0.7 10^3/uL (1.5-5.0); MEAN CORPUSCULAR HEMOGLOBIN 25.4 pg (27.0-33.0); MEAN CORPUSCULAR HGB CONC 32.9 g/dl (32.0-36.5); MEAN CORPUSCULAR VOLUME 77.1 fl (80.0-96.0); MONO # 0.8 10^3/uL (0.0-0.8); MONO % 7.3 % (2.0-8.0); NEUTROPHILS # 9.4 10^3/uL (1.5-8.5); NEUTROPHILS % 85.4 % (36.0-66.0); PLATELET COUNT, AUTOMATED 504 10^3/uL (150-450); RED BLOOD COUNT 3.15 10^6/uL (4.00-5.40)
[2024-06-09 05:34] LABS: BLOOD UREA NITROGEN 12 MG/DL (9-23); CALCIUM LEVEL 7.8 MG/DL (8.3-10.6); CARBON DIOXIDE LEVEL 32 MMOL/L (20-31); CHLORIDE LEVEL 92 MMOL/L (98-107); CREATININE FOR GFR 0.48 MG/DL (0.55-1.30); GLOMERULAR FILTRATION RATE > 60.0 (>45); GLUCOSE, FASTING 101 MG/DL (74-106); MAGNESIUM LEVEL 1.9 MG/DL (1.8-2.4); POTASSIUM SERUM 3.5 MMOL/L (3.5-5.1); SODIUM LEVEL 131 MMOL/L (136-145)
[2024-06-09 06:45] VITALS: BP 92/44
[2024-06-09 07:59] VITALS: BP 110/68; TEMP 97.5; O2SAT 97
[2024-06-09] MEDS: ACETAMINOPHEN 325 MG TAB PO PRN (08:47)
[2024-06-09 12:00] VITALS: BP 95/57; TEMP 97.3; O2SAT 98
[2024-06-09] MEDS: GABAPENTIN 100 MG CAP PO SCH (12:47)
[2024-06-09 20:00] VITALS: BP 118/66; TEMP 97.7; O2SAT 99
[2024-06-09] MEDS: IBUPROFEN 600MG TAB PO PRN (21:33)
[2024-06-09] MEDS: ACETAMINOPHEN 325 MG TAB PO ONE (23:55)
[2024-06-10 05:36] LABS: BASO % 0.2 % (0.0-1.0); EOS # 0.1 10^3/uL (0.0-0.5); EOS % 0.8 % (0.0-3.0); HEMATOCRIT 23.1 % (36.0-47.0); HEMOGLOBIN 7.7 g/dl (12.0-15.5); LYMPH # 0.7 10^3/uL (1.5-5.0); LYMPH % 5.5 % (24.0-44.0); MEAN CORPUSCULAR HEMOGLOBIN 26.1 pg (27.0-33.0); MEAN CORPUSCULAR HGB CONC 33.3 g/dl (32.0-36.5); MEAN CORPUSCULAR VOLUME 78.3 fl (80.0-96.0); MONO # 0.8 10^3/uL (0.0-0.8); MONO % 6.1 % (2.0-8.0); NEUTROPHILS # 10.7 10^3/uL (1.5-8.5); NEUTROPHILS % 86.5 % (36.0-66.0); PLATELET COUNT, AUTOMATED 416 10^3/uL (150-450); RED BLOOD COUNT 2.95 10^6/uL (4.00-5.40); WHITE BLOOD COUNT 12.4 10^3/uL (4.0-10.0)
[2024-06-10 06:01] LABS: BLOOD UREA NITROGEN 11 MG/DL (9-23); CALCIUM LEVEL 7.9 MG/DL (8.3-10.6); CARBON DIOXIDE LEVEL 32 MMOL/L (20-31); CHLORIDE LEVEL 91 MMOL/L (98-107); CREATININE FOR GFR 0.36 MG/DL (0.55-1.30); GLOMERULAR FILTRATION RATE > 60.0 (>45); GLUCOSE, FASTING 87 MG/DL (74-106); POTASSIUM SERUM 3.1 MMOL/L (3.5-5.1); SODIUM LEVEL 131 MMOL/L (136-145)
[2024-06-10] MEDS: POTASSIUM CHLORIDE 10MEQ SR TABLET PO ONE ×2 (09:23→09:35)
[2024-06-10] MEDS: ENOXAPARIN 40MG/0.4ML SYRINGE (J1650 PER 10MG) SC SCH (09:27)
[2024-06-10] MEDS ORDERED: PREPARATION H SUPP (HEMORRHOID) PR SCH (11:00)
[2024-06-10] MEDS ORDERED: traMADol 50 MG TAB PO PRN (11:00)
[2024-06-10 12:09] VITALS: BP 109/64; TEMP 97.5; O2SAT 95
[2024-06-10] MEDS: PERCOCET 5MG/325MG TAB PO PRN (16:24)
[2024-06-10] MEDS: LACTOBACILLUS ACIDOPHILUS CAP (BACID) PO SCH (18:02)
[2024-06-10] MEDS: CitaloPRAM (CeleXA) 10 MG TABLET PO SCH (18:03)
[2024-06-10] MEDS: PREPARATION H SUPP (HEMORRHOID) PR SCH (18:03)
[2024-06-10 20:00] VITALS: BP 102/65; TEMP 98.1; O2SAT 96
[2024-06-11 05:43] LABS: BASO # 0.1 10^3/uL (0.0-0.2); BASO % 0.4 % (0.0-1.0); EOS # 0.1 10^3/uL (0.0-0.5); EOS % 1.2 % (0.0-3.0); HEMOGLOBIN 8.1 g/dl (12.0-15.5); LYMPH # 0.8 10^3/uL (1.5-5.0); LYMPH % 7.2 % (24.0-44.0); MEAN CORPUSCULAR HEMOGLOBIN 26.4 pg (27.0-33.0); MEAN CORPUSCULAR HGB CONC 33.8 g/dl (32.0-36.5); MEAN CORPUSCULAR VOLUME 78.2 fl (80.0-96.0); MONO % 8.2 % (2.0-8.0); NEUTROPHILS # 9.6 10^3/uL (1.5-8.5); NEUTROPHILS % 82.2 % (36.0-66.0); PLATELET COUNT, AUTOMATED 433 10^3/uL (150-450); RED BLOOD COUNT 3.07 10^6/uL (4.00-5.40); WHITE BLOOD COUNT 11.6 10^3/uL (4.0-10.0)
[2024-06-11 06:20] LABS: BLOOD UREA NITROGEN 8 MG/DL (9-23); CALCIUM LEVEL 7.6 MG/DL (8.3-10.6); CARBON DIOXIDE LEVEL 32 MMOL/L (20-31); CHLORIDE LEVEL 93 MMOL/L (98-107); CREATININE FOR GFR 0.47 MG/DL (0.55-1.30); GLOMERULAR FILTRATION RATE > 60.0 (>45); GLUCOSE, FASTING 71 MG/DL (74-106); SODIUM LEVEL 130 MMOL/L (136-145)
[2024-06-11] MEDS ORDERED: SIMETHICONE 80MG CHEW TAB PO PRN (09:30)
[2024-06-11] MEDS ORDERED: CALCIUM CARBONATE 500 MG CHEW U/D PO PRN (09:30)
[2024-06-11 12:00] VITALS: BP 105/65; TEMP 97.9; O2SAT 95
[2024-06-11 20:00] VITALS: BP 106/65; TEMP 97.2; O2SAT 94
[2024-06-12] VITALS (7 sets, daily range): BP systolic 99–120; BP diastolic 60–74; TEMP 97.5–98.1; O2SAT 91–98
[2024-06-12 06:11] LABS: BASO % 0.4 % (0.0-1.0); EOS # 0.1 10^3/uL (0.0-0.5); EOS % 0.5 % (0.0-3.0); HEMATOCRIT 23.2 % (36.0-47.0); HEMOGLOBIN 7.7 g/dl (12.0-15.5); LYMPH # 0.6 10^3/uL (1.5-5.0); MEAN CORPUSCULAR HEMOGLOBIN 25.8 pg (27.0-33.0); MEAN CORPUSCULAR HGB CONC 33.2 g/dl (32.0-36.5); MEAN CORPUSCULAR VOLUME 77.9 fl (80.0-96.0); MONO # 0.8 10^3/uL (0.0-0.8); MONO % 6.9 % (2.0-8.0); NEUTROPHILS # 9.4 10^3/uL (1.5-8.5); NEUTROPHILS % 86.3 % (36.0-66.0); PLATELET COUNT, AUTOMATED 459 10^3/uL (150-450); RED BLOOD COUNT 2.98 10^6/uL (4.00-5.40); WHITE BLOOD COUNT 10.9 10^3/uL (4.0-10.0)
[2024-06-12 06:33] LABS: BLOOD UREA NITROGEN 9 MG/DL (9-23); CALCIUM LEVEL 7.7 MG/DL (8.3-10.6); CARBON DIOXIDE LEVEL 30 MMOL/L (20-31); CHLORIDE LEVEL 92 MMOL/L (98-107); CREATININE FOR GFR 0.36 MG/DL (0.55-1.30); GLOMERULAR FILTRATION RATE > 60.0 (>45); GLUCOSE, FASTING 82 MG/DL (74-106); POTASSIUM SERUM 3.8 MMOL/L (3.5-5.1); SODIUM LEVEL 130 MMOL/L (136-145)
[2024-06-12] MEDS ORDERED: PHENYLephrine 500MCG 5ML (100MCG/ML) SYRINGE As Ordered ONE (09:39)
[2024-06-12] MEDS ORDERED: MIDAZOLAM INJ 2MG/2ML VIAL As Ordered ONE (10:10)
[2024-06-12] MEDS ORDERED: DESFLURANE 240 ML INHALANT As Ordered ONE (10:10)
[2024-06-12] MEDS ORDERED: METOCLOPRAMIDE INJ 10MG/2ML VIAL As Ordered ONE (10:10)
[2024-06-12] MEDS ORDERED: ONDANSETRON 4MG 2ML VIAL As Ordered ONE (10:10)
[2024-06-12] MEDS ORDERED: ROCURONIUM BROMIDE 50MG/5ML VIAL As Ordered ONE (10:10)
[2024-06-12] MEDS ORDERED: propofoL 200 MG/20 ML VIAL As Ordered ONE (10:10)
[2024-06-12] MEDS ORDERED: fentaNYL 100 MCG/2 ML INJECTION As Ordered ONE (10:10)
[2024-06-12] MEDS ORDERED: SUGAMMADEX SODIUM 500 MG/5 ML VIAL (BRIDION) As Ordered ONE (10:10)
[2024-06-12] MEDS ORDERED: LIDOCAINE 2% 100MG/5ML SDV (FOR ANES.) As Ordered ONE (10:10)
[2024-06-12] MEDS ORDERED: SEVOFLURANE INHAL SOLN 250 ML BTL As Ordered ONE (10:10)
[2024-06-12] MEDS ORDERED: dexmedeTOMIDine (4MCG/ML)200MCG/50ML BTL (PRECEDEX) As Ordered ONE (10:10)
[2024-06-12] MEDS: CETACAINE SPRAY 5GM As Ordered ONE (10:19)
[2024-06-12] MEDS: LIDOCAINE 1% SDV 30ML VIAL As Ordered ONE (10:19)
[2024-06-12] MEDS: EPINEPHrine 1MG/10ML SYRINGE 1.5IN As Ordered ONE (10:19)
[2024-06-12] MEDS: THROMBIN 5,000 UNITS VIAL As Ordered ONE (10:20)
[2024-06-12] MEDS: LIDOCAINE 4% TOPICAL SOLN 50 ML BTL As Ordered ONE (10:20)
[2024-06-12] MEDS: THROMBIN 20,000 UNITS KIT As Ordered ONE (10:21)
[2024-06-12] MEDS: MOXIFLOXACIN HCL 400 MG in IV 1 EA IV SCH (18:30)
[2024-06-12] MEDS: CALCIUM/VITAMIN D 500 MG TAB PO SCH (18:31)
[2024-06-13] MEDS: NS 500 ML IV ONE (01:57)
[2024-06-13 02:16] VITALS: BP 100/60
[2024-06-13 03:00] VITALS: BP 99/58
[2024-06-13 05:15] VITALS: BP 103/62; TEMP 98.1; O2SAT 93
[2024-06-13 06:07] LABS: BASO % 0.2 % (0.0-1.0); EOS # 0.1 10^3/uL (0.0-0.5); EOS % 0.7 % (0.0-3.0); HEMATOCRIT 21.5 % (36.0-47.0); HEMOGLOBIN 7.1 g/dl (12.0-15.5); LYMPH # 0.7 10^3/uL (1.5-5.0); LYMPH % 7.7 % (24.0-44.0); MEAN CORPUSCULAR HEMOGLOBIN 25.7 pg (27.0-33.0); MEAN CORPUSCULAR VOLUME 77.9 fl (80.0-96.0); MONO # 0.6 10^3/uL (0.0-0.8); MONO % 5.8 % (2.0-8.0); NEUTROPHILS # 8.1 10^3/uL (1.5-8.5); NEUTROPHILS % 84.7 % (36.0-66.0); PLATELET COUNT, AUTOMATED 414 10^3/uL (150-450); RED BLOOD COUNT 2.76 10^6/uL (4.00-5.40); WHITE BLOOD COUNT 9.6 10^3/uL (4.0-10.0)
[2024-06-13 06:29] LABS: BLOOD UREA NITROGEN 11 MG/DL (9-23); CALCIUM LEVEL 7.5 MG/DL (8.3-10.6); CARBON DIOXIDE LEVEL 28 MMOL/L (20-31); CHLORIDE LEVEL 93 MMOL/L (98-107); CREATININE FOR GFR 0.34 MG/DL (0.55-1.30); GLOMERULAR FILTRATION RATE > 60.0 (>45); GLUCOSE, FASTING 83 MG/DL (74-106); POTASSIUM SERUM 3.8 MMOL/L (3.5-5.1); SODIUM LEVEL 129 MMOL/L (136-145)
[2024-06-13 07:55] VITALS: BP 98/62
[2024-06-13 08:00] VITALS: BP 104/61; TEMP 98.1; O2SAT 93
[2024-06-13] MEDS: ALPRAZolam 0.5 MG TAB PO PRN (12:19)
[2024-06-13] MEDS ORDERED: PILL CUTTER 1 EACH XX PRN (12:20)
[2024-06-13] MEDS: methocarbamoL 500 MG TAB PO SCH (17:04)
[2024-06-13 20:00] VITALS: BP 138/71; TEMP 97.9; O2SAT 95
[2024-06-14 06:09] VITALS: BP 100/62; TEMP 97.7; O2SAT 94
[2024-06-14 06:34] LABS: BASO % 0.4 % (0.0-1.0); EOS # 0.2 10^3/uL (0.0-0.5); EOS % 1.5 % (0.0-3.0); HEMATOCRIT 24.2 % (36.0-47.0); LYMPH # 0.9 10^3/uL (1.5-5.0); LYMPH % 7.7 % (24.0-44.0); MEAN CORPUSCULAR HGB CONC 33.1 g/dl (32.0-36.5); MEAN CORPUSCULAR VOLUME 78.6 fl (80.0-96.0); MONO # 0.8 10^3/uL (0.0-0.8); MONO % 6.9 % (2.0-8.0); NEUTROPHILS # 9.3 10^3/uL (1.5-8.5); NEUTROPHILS % 82.2 % (36.0-66.0); PLATELET COUNT, AUTOMATED 430 10^3/uL (150-450); RED BLOOD COUNT 3.08 10^6/uL (4.00-5.40); WHITE BLOOD COUNT 11.4 10^3/uL (4.0-10.0)
[2024-06-14 06:59] LABS: BLOOD UREA NITROGEN 10 MG/DL (9-23); CALCIUM LEVEL 7.8 MG/DL (8.3-10.6); CARBON DIOXIDE LEVEL 29 MMOL/L (20-31); CHLORIDE LEVEL 95 MMOL/L (98-107); CREATININE FOR GFR 0.37 MG/DL (0.55-1.30); GLOMERULAR FILTRATION RATE > 60.0 (>45); GLUCOSE, FASTING 79 MG/DL (74-106); POTASSIUM SERUM 3.9 MMOL/L (3.5-5.1); SODIUM LEVEL 133 MMOL/L (136-145)
[2024-06-14] MEDS: ALPRAZolam 0.5 MG TAB PO PRN ×2 (12:36→20:11)
[2024-06-14 19:50] VITALS: BP 117/59; TEMP 97.9; O2SAT 97
[2024-06-14] MEDS: AZITHROMYCIN INJ 500 MG, VIAL MATE ADAPTER 1 EACH in NS 250 ML IV SCH (20:19)
[2024-06-15 04:10] VITALS: BP 113/59; TEMP 97.9; O2SAT 94
[2024-06-15 06:08] LABS: BASO % 0.4 % (0.0-1.0); EOS # 0.1 10^3/uL (0.0-0.5); EOS % 0.6 % (0.0-3.0); HEMATOCRIT 24.1 % (36.0-47.0); HEMOGLOBIN 7.9 g/dl (12.0-15.5); LYMPH # 0.8 10^3/uL (1.5-5.0); LYMPH % 7.1 % (24.0-44.0); MEAN CORPUSCULAR HEMOGLOBIN 25.6 pg (27.0-33.0); MEAN CORPUSCULAR HGB CONC 32.8 g/dl (32.0-36.5); MEAN CORPUSCULAR VOLUME 78.2 fl (80.0-96.0); MONO # 0.8 10^3/uL (0.0-0.8); MONO % 7.4 % (2.0-8.0); NEUTROPHILS # 9.3 10^3/uL (1.5-8.5); NEUTROPHILS % 83.2 % (36.0-66.0); PLATELET COUNT, AUTOMATED 432 10^3/uL (150-450); RED BLOOD COUNT 3.08 10^6/uL (4.00-5.40); WHITE BLOOD COUNT 11.2 10^3/uL (4.0-10.0)
[2024-06-15 06:32] LABS: BLOOD UREA NITROGEN 9 MG/DL (9-23); CALCIUM LEVEL 7.7 MG/DL (8.3-10.6); CARBON DIOXIDE LEVEL 30 MMOL/L (20-31); CHLORIDE LEVEL 93 MMOL/L (98-107); CREATININE FOR GFR 0.35 MG/DL (0.55-1.30); GLOMERULAR FILTRATION RATE > 60.0 (>45); GLUCOSE, FASTING 75 MG/DL (74-106); POTASSIUM SERUM 3.9 MMOL/L (3.5-5.1); SODIUM LEVEL 131 MMOL/L (136-145)
[2024-06-15] MEDS ORDERED: AMIKACIN 1000 MG/4 ML IV SCH (09:00)
[2024-06-15] MEDS: AMIKACIN SULFATE 500 MG in D5W 100 ML IV SCH (10:37)
[2024-06-15 12:06] VITALS: BP 111/60; TEMP 97.9; O2SAT 97
[2024-06-15] MEDS: FUROSEMIDE 20MG/2ML VIAL IV ONE (13:29)
[2024-06-15 14:16] LABS: C REACTIVE PROTEIN QUANTITATIV 12.46 MG/DL (<1.0)
[2024-06-15 18:26] VITALS: O2SAT 97
[2024-06-15] MEDS: guaiFENesin DM LIQ 10ML UD PO PRN (19:02)
[2024-06-15 20:00] VITALS: BP 106/60; TEMP 97.5; O2SAT 94
[2024-06-15] MEDS: ALPRAZolam 0.5 MG TAB PO PRN (21:35)
[2024-06-16 04:44] VITALS: BP 109/63; TEMP 97.7; O2SAT 94
[2024-06-16 06:34] LABS: BLOOD UREA NITROGEN 9 MG/DL (9-23); CALCIUM LEVEL 7.8 MG/DL (8.3-10.6); CARBON DIOXIDE LEVEL 32 MMOL/L (20-31); CHLORIDE LEVEL 95 MMOL/L (98-107); CREATININE FOR GFR 0.48 MG/DL (0.55-1.30); GLOMERULAR FILTRATION RATE > 60.0 (>45); GLUCOSE, FASTING 78 MG/DL (74-106); SODIUM LEVEL 133 MMOL/L (136-145)
[2024-06-16] MEDS: guaiFENesin ER TABLET 600 MG TAB PO SCH (10:23)
[2024-06-16] MEDS: FUROSEMIDE 20MG/2ML VIAL IV ONE (11:09)
[2024-06-16 12:00] VITALS: BP 112/68; TEMP 97.9; O2SAT 96
[2024-06-16 20:00] VITALS: BP 92/56; TEMP 97.2; O2SAT 94
[2024-06-17 05:33] VITALS: BP 119/69; TEMP 97.7; O2SAT 94
[2024-06-17 08:38] LABS: BASO # 0.1 10^3/uL (0.0-0.2); BASO % 0.6 % (0.0-1.0); EOS # 0.1 10^3/uL (0.0-0.5); EOS % 0.8 % (0.0-3.0); HEMOGLOBIN 8.4 g/dl (12.0-15.5); LYMPH # 0.6 10^3/uL (1.5-5.0); MEAN CORPUSCULAR HGB CONC 33.6 g/dl (32.0-36.5); MEAN CORPUSCULAR VOLUME 77.4 fl (80.0-96.0); MONO # 0.7 10^3/uL (0.0-0.8); MONO % 8.8 % (2.0-8.0); NEUTROPHILS # 6.4 10^3/uL (1.5-8.5); NEUTROPHILS % 81.1 % (36.0-66.0); PLATELET COUNT, AUTOMATED 513 10^3/uL (150-450); RED BLOOD COUNT 3.23 10^6/uL (4.00-5.40); WHITE BLOOD COUNT 7.9 10^3/uL (4.0-10.0)
[2024-06-17 08:58] LABS: BLOOD UREA NITROGEN 8 MG/DL (9-23); CALCIUM LEVEL 7.9 MG/DL (8.3-10.6); CARBON DIOXIDE LEVEL 35 MMOL/L (20-31); CHLORIDE LEVEL 94 MMOL/L (98-107); CREATININE FOR GFR 0.36 MG/DL (0.55-1.30); GLOMERULAR FILTRATION RATE > 60.0 (>45); GLUCOSE, FASTING 74 MG/DL (74-106); POTASSIUM SERUM 3.8 MMOL/L (3.5-5.1); SODIUM LEVEL 133 MMOL/L (136-145)
[2024-06-17] MEDS: FUROSEMIDE 10MG PER 1/2 TABLET PO SCH (09:41)
[2024-06-17] MEDS ORDERED: ALBUTEROL 90 MCG/ACT 8GM HFA INHALER INH PRN (10:00)
[2024-06-17] MEDS: ALPRAZolam 0.25 MG TAB PO PRN (11:43)
[2024-06-17 12:00] VITALS: BP 94/60; TEMP 97.7; O2SAT 94
[2024-06-17 20:28] VITALS: BP 106/64; TEMP 97.9; O2SAT 96
[2024-06-17] MEDS: guaiFENesin DM LIQ 10ML UD PO PRN (22:25)
[2024-06-18 05:00] VITALS: BP 112/67; TEMP 97.9; O2SAT 93
[2024-06-18 08:38] LABS: BASO # 0.1 10^3/uL (0.0-0.2); BASO % 0.6 % (0.0-1.0); EOS % 0.5 % (0.0-3.0); HEMOGLOBIN 7.9 g/dl (12.0-15.5); LYMPH # 0.7 10^3/uL (1.5-5.0); LYMPH % 8.7 % (24.0-44.0); MEAN CORPUSCULAR HEMOGLOBIN 25.8 pg (27.0-33.0); MEAN CORPUSCULAR HGB CONC 32.9 g/dl (32.0-36.5); MEAN CORPUSCULAR VOLUME 78.4 fl (80.0-96.0); MONO # 0.7 10^3/uL (0.0-0.8); MONO % 8.7 % (2.0-8.0); NEUTROPHILS # 6.3 10^3/uL (1.5-8.5); NEUTROPHILS % 80.4 % (36.0-66.0); PLATELET COUNT, AUTOMATED 501 10^3/uL (150-450); RED BLOOD COUNT 3.06 10^6/uL (4.00-5.40); WHITE BLOOD COUNT 7.9 10^3/uL (4.0-10.0)
[2024-06-18 09:10] LABS: BLOOD UREA NITROGEN 6 MG/DL (9-23); CALCIUM LEVEL 7.8 MG/DL (8.3-10.6); CARBON DIOXIDE LEVEL 33 MMOL/L (20-31); CHLORIDE LEVEL 94 MMOL/L (98-107); CREATININE FOR GFR 0.46 MG/DL (0.55-1.30); GLOMERULAR FILTRATION RATE > 60.0 (>45); GLUCOSE, FASTING 80 MG/DL (74-106); POTASSIUM SERUM 3.6 MMOL/L (3.5-5.1); SODIUM LEVEL 132 MMOL/L (136-145)
[2024-06-18 11:30] VITALS: BP 87/57; TEMP 97.7; O2SAT 96
[2024-06-18 12:31] VITALS: BP 92/60
[2024-06-18 16:17] LABS: C REACTIVE PROTEIN QUANTITATIV 13.69 MG/DL (<1.0)
[2024-06-18 21:16] VITALS: BP 111/68; TEMP 97.7; O2SAT 96
[2024-06-19 05:54] VITALS: BP 108/66; TEMP 97.9; O2SAT 92
[2024-06-19] MEDS ORDERED: LIDOCAINE 5% (LIDODERM) PATCH TD PRN (12:50)
[2024-06-19] MEDS ORDERED: ONDANSETRON 4MG ORAL DISINTEGRATING TAB PO PRN (12:50)
[2024-06-19] MEDS: LORazepam 1 MG TAB PO PRN (13:14)
[2024-06-19] MEDS: MORPHINE 10MG/0.5ML ORAL CONCENTRATE SOLUTION U/D SL SCH (13:15)
[2024-06-19] MEDS: FUROSEMIDE 10MG PER 1/2 TABLET PO PRN (17:43)
[2024-06-19] MEDS: LORazepam 1 MG TAB PO SCH (17:44)
[2024-06-20] MEDS: PREPARATION H SUPP (HEMORRHOID) PR PRN (15:16)
[2024-06-22] MEDS: BISACODYL 10MG SUPP PR PRN (04:50)
[2024-06-23] MEDS: SCOPOLAMINE 1MG TRANSDERMAL PATCH TOP SCH (18:08)
[2024-06-24] MEDS: MORPHINE 10MG/0.5ML ORAL CONCENTRATE SOLUTION U/D SL PRN (08:15)
[2024-06-24] MEDS: ATROPINE SULFATE 1% OPHTH SOLN 2ML BTL SL PRN (09:14)
[2024-06-25] MEDS: MORPHINE 10MG/0.5ML ORAL CONCENTRATE SOLUTION U/D SL SCH (17:12)
[2024-06-27] MEDS: HYOSCYAMINE SULFATE 0.125 MG SUBL TABLET PO PRN (04:47)
== END 2024-06-28 06:39 | disposition expired | DRG 177 ==
LOC: M ED 20:10 → EDBD 20:10 → M ED INP 06-08 12:17 → M MSPAV 06-08 14:45
PROVIDERS: ADMIT Internal Medicine; ATTEND Student in an Organized Health Care Education/Training Program
PROC: B246ZZZ Ultrasonography of Right and Left Heart (ICD-10-PCS; 2024-06-08)
PROC: 0B9C8ZX Drainage of Right Upper Lung Lobe, Via Natural or Artificial Opening Endoscopic, Diagnostic (ICD-10-PCS; principal; 2024-06-12 08:00)
DX: A31.0 Pulmonary mycobacterial infection (principal); J85.0 Gangrene and necrosis of lung; E43 Unspecified severe protein-calorie malnutrition; E87.1 Hypo-osmolality and hyponatremia; G37.9 Demyelinating disease of central nervous system, unspecified; K92.1 Melena; S32.10XA Unspecified fracture of sacrum, initial encounter for closed fracture; R04.2 Hemoptysis; Z66 Do not resuscitate; I73.00 Raynaud's syndrome without gangrene; I25.10 Atherosclerotic heart disease of native coronary artery without angina pectoris; R26.89 Other abnormalities of gait and mobility; I95.9 Hypotension, unspecified; G62.9 Polyneuropathy, unspecified; F32.A Depression, unspecified; F41.9 Anxiety disorder, unspecified; D50.9 Iron deficiency anemia, unspecified; J47.9 Bronchiectasis, uncomplicated; K21.9 Gastro-esophageal reflux disease without esophagitis; R62.7 Adult failure to thrive; M48.061 Spinal stenosis, lumbar region without neurogenic claudication; K58.9 Irritable bowel syndrome, unspecified; R33.9 Retention of urine, unspecified; R57.1 Hypovolemic shock; Z74.01 Bed confinement status; E16.2 Hypoglycemia, unspecified; E88.09 Other disorders of plasma-protein metabolism, not elsewhere classified; D63.8 Anemia in other chronic diseases classified elsewhere; E87.6 Hypokalemia; M54.50 Low back pain, unspecified; N80.9 Endometriosis, unspecified; M47.816 Spondylosis without myelopathy or radiculopathy, lumbar region; Z85.828 Personal history of other malignant neoplasm of skin; Z96.643 Presence of artificial hip joint, bilateral; Z87.891 Personal history of nicotine dependence; Z85.810 Personal history of malignant neoplasm of tongue; K59.00 Constipation, unspecified; J44.9 Chronic obstructive pulmonary disease, unspecified; Z79.899 Other long term (current) drug therapy; Z88.1 Allergy status to other antibiotic agents; Z88.8 Allergy status to other drugs, medicaments and biological substances; Z91.048 Other nonmedicinal substance allergy status; Z91.013 Allergy to seafood; X58.XXXA Exposure to other specified factors, initial encounter; Y92.9 Unspecified place or not applicable